=== PATIENT | male | born 1965 | race Caucasian/White ===

== ENCOUNTER 2023-02-23 11:14 | Outpatient (OUT) | payer BC, SELFPAY ==
[2023-02-23 12:10] LABS: Estimated Average Glucose 123 mg/dL; Glycohemoglobin A1C 5.9 % (4.5-6.2)
[2023-02-23 12:15] LABS: Basophils Absolute Auto 0.1 10^3/uL (0.0-0.1); Basophils Percent Auto 0.7 % (0.2-2.0); Eosinophils Absolute Auto 0.3 10^3/uL (0.0-0.7); Eosinophils Percent Auto 3.1 % (0.9-7.0); Hematocrit 48.2 % (42.0-54.0); Hemoglobin 15.7 g/dL (14.0-18.0); Immature Granulocytes Abs Auto 0.06 10^3/uL (0.00-0.03); Immature Granulocytes Pct Auto 0.6 % (0.0-0.5); Lymphocytes Absolute Auto 1.8 10^3/uL (1.2-3.8); Lymphocytes Percent Auto 16.6 % (20.5-60.0); Mean Corpuscular HGB Conc 32.6 g/dL (29.9-35.2); Mean Corpuscular Hemoglobin 32.2 pg (25.9-34.0); Mean Platelet Volume 9.7 fL (9.5-13.5); Monocytes Absolute Auto 0.7 10^3/uL (0.3-0.8); Monocytes Percent Auto 6.7 % (1.7-12.0); Neutrophils Absolute Auto 7.7 10^3/uL (1.4-6.5); Neutrophils Percent Auto 72.3 % (43.0-75.0); Platelet Count 206 10^3/uL (150-450); Red Blood Count 4.87 10^6/uL (4.70-6.10); Red Cell Distribution Width 13.9 % (11.0-15.0); White Blood Count 10.6 10^3/uL (4.0-11.0)
[2023-02-23 12:38] LABS: Alanine Aminotransferase 34 U/L (16-63); Albumin Globulin Ratio 0.7; Alkaline Phosphatase 48 U/L (46-116); Aspartate Amino Transferase 24 U/L (15-37); BUN Creatinine Ratio 9.4; Bilirubin Direct 0.1 mg/dL (0.0-0.2); Bilirubin Total 0.3 mg/dL (0.2-1.0); Calcium 8.8 mg/dL (8.5-10.1); Carbon Dioxide 34.1 mmol/L (21.0-32.0); Chloride 101 mmol/L (98-107); Chol HDL Ratio 2.3; Cholesterol 110 mg/dL (<=200); Estimated GFR (African America >60 (>=60); Estimated GFR (Non-African Ame >60 (>=60); Globulin 4.3 g/dL; Glucose 120 mg/dL (74-106); HDL Cholesterol 47 mg/dL (40-60); Potassium 4.1 mmol/L (3.5-5.1); Sodium 138 mmol/L (136-145); Total Protein 7.3 g/dL (6.4-8.2); Triglycerides 45 mg/dL (<=150)
[2023-02-23 13:03] LABS: Prostate Specific Antigen Scrn <0.13 ng/mL (<=4.00)
== END 2023-02-23 11:15 | disposition home or self-care (01) ==
LOC: LAB 11:19
PROVIDERS: PCP Family Medicine; Visit Provider Family Medicine
DX: Z00.00 Encounter for general adult medical examination without abnormal findings (principal); Z12.5 Encounter for screening for malignant neoplasm of prostate
CPT/HCPCS: 36415; 80048; 80061; 80076; 83036; 84443; 85025; G0103

== ENCOUNTER 2023-03-22 20:45 | Outpatient (OUT) | payer BC, SELFPAY | END 2023-03-22 20:46 | disposition home or self-care (01) | LOC: SLEEP 20:45 | PROVIDERS: PCP Family Medicine; Visit Provider Family Medicine | DX: G47.33 Obstructive sleep apnea (adult) (pediatric) (principal) | CPT/HCPCS: 95810 ==

== ENCOUNTER 2023-03-23 05:46 | Emergency (ER) | payer BC, SELFPAY ==
[2023-03-23] VITALS (35 sets, daily range): BP systolic 147–193; BP diastolic 77–133; PULSE 70–85; RESP 0–34; TEMP 36.3; O2SAT 91–97; BMI 58.1
--- NOTE | 2023-03-23 06:05 | ED.SOB1 ---
HPI - SOB/Dyspnea General Chief Complaint: Shortness of Breath/Dyspnea Stated Complaint: SOB Time Seen by Provider: 03/23/23 06:02 Source: patient Mode of arrival: walk-in Limitations: no limitations History of Present Illness HPI Narrative: past history of HTN. States he has been without his BP medications for 4 months. Just had new prescription called in. Short of breath with little exertion over the past 2 weeks. No chest pain but his abdomen feels bloated. No history of diabetes or CAD. No fever or cough. Even taking a shower is associated with shortness of breath. At sleep study this AM and had period of apnea that lasted about 20 seconds. Left sleep study and came here to the ED because of his dyspnea. No history of COPD MD elicited complaint: shortness of breath Review of Systems ROS Status of ROS 10 or more systems reviewed and unremarkable except as noted in history and [facility] Social History Smoking status: Never smoker Exam Constitutional Vital Signs, click to edit/add: Last Vital Signs Temp 97.4 F L 03/23/23 05:51 Pulse 75 03/23/23 06:41 Resp 29 H 03/23/23 06:41 BP 162/92 H 03/23/23 06:41 Pulse Ox 94 L 03/23/23 06:41 O2 Del Method Room Air 03/23/23 06:11 Common normals: average body habitus (morbidly obese. BMI 58), oriented x3 and alert Eye Common normals: EOMs intact bilaterally and conjunctivae normal Chest Common normals: inspection of chest normal and palpation of chest normal Respiratory Common normals: normal respiratory effort (mild resp distress) and clear to auscultation bilaterally Cardio Common normals: regular rate, regular rhythm, S1 normal heart sound and S2 normal heart sound GI Other: abdomen is distended but soft and nontender Extremity Common normals: normal to inspection and full ROM Neuro Common normals: oriented x3, CN's II-XII intact bilaterally, moves all extremities, no focal motor deficits and no sensory deficits noted Psych Appearance: grossly normal Course Vital Signs Vital signs: Vital Signs Temperature 97.4 F L 03/23/23 05:51 Pulse Rate 73 03/23/23 05:51 Respiratory Rate 18 03/23/23 05:51 Blood Pressure 180/112 H 03/23/23 05:51 Pulse Oximetry 93 L 03/23/23 05:51 Temperature 97.4 F L 03/23/23 05:51 Pulse Rate 75 03/23/23 06:41 Respiratory Rate 29 H 03/23/23 06:41 Blood Pressure 162/92 H 03/23/23 06:41 Pulse Oximetry 94 L 03/23/23 06:41 Oxygen Delivery Method Room Air 03/23/23 06:11 MDM - SOB/Dyspnea MDM Narrative Medical decision making narrative: morbidly obese patient with sleep apnea presents with 2 wk history of worsening dyspnea with exertion. Workup initiated including labs and xrays at change of shift . Care transferred to Dr Soares at change of shift Lab Data Labs: Lab Results 03/23/23 Range/Units 06:23 WBC 10.4 (4.0-11.0) 10^3/uL RBC 4.85 (4.70-6.10) 10^6/uL Hgb 15.6 (14.0-18.0) g/dL Hct 48.3 (42.0-54.0) % MCV 99.6 H (80.0-94.0) fL MCH 32.2 (25.9-34.0) pg MCHC 32.3 (29.9-35.2) g/dL RDW 14.4 (11.0-15.0) % Plt Count 213 (150-450) 10^3/uL MPV 9.4 L (9.5-13.5) fL Neut % (Auto) 73.4 (43.0-75.0) % Lymph % (Auto) 16.1 L (20.5-60.0) % [place] % (Auto) 7.0 (1.7-12.0) % Eos % (Auto) 2.3 (0.9-7.0) % Baso % (Auto) 0.6 (0.2-2.0) % Neut # (Auto) 7.6 H (1.4-6.5) 10^3/uL Lymph # (Auto) 1.7 (1.2-3.8) 10^3/uL [place] # (Auto) 0.7 (0.3-0.8) 10^3/uL Eos # (Auto) 0.2 (0.0-0.7) 10^3/uL Baso # (Auto) 0.1 (0.0-0.1) 10^3/uL Abs Immat Gran (auto) 0.06 H (0.00-0.03) 10^3/uL Imm/Tot Granulo (auto) 0.6 H (0.0-0.5) % Discharge Plan Discharge Chief Complaint: Shortness of Breath/Dyspnea Clinical Impression: Shortness of breath Patient Disposition: Still a Patient Referrals: Benjy Eagle MD [Primary Care Provider] - 1 week
--- NOTE | 2023-03-23 06:10 | ECG_ITS ---
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
--- NOTE | 2023-03-23 06:10 | XR_ITS ---
The [address] [address] Patient Name: KINSEY DODD MRN: [id number] date: 1965 Sex: M Assigned Patient Location: ER Current Patient Location: ED.MAIN Accession/Order Number: [id number] Exam Date: 03/23/2023 06:30 Report Date: 03/23/2023 06:56 At the request of: DAY SHARPE Procedure: XR chest 1V EXAM: XR chest 1V HISTORY: short of breath COMPARISON: None. TECHNIQUE: One view of the chest was obtained. FINDINGS: The cardiac silhouette is enlarged. The lungs are clear. There is no significant pneumothorax or pleural effusion. No acute osseous abnormality is seen. XR/XR chest 1V IMPRESSION: 1. Enlarged cardiac silhouette with clear lungs. Electronically authenticated by: Jon ELLIS Date: 03/23/2023 06:56
[2023-03-23] MEDS: HYDRALAZINE HCL 20 MG/ML VIAL 5 MG IVP (06:27)
[2023-03-23 06:45] LABS: Basophils Absolute Auto 0.1 10^3/uL (0.0-0.1); Basophils Percent Auto 0.6 % (0.2-2.0); Eosinophils Absolute Auto 0.2 10^3/uL (0.0-0.7); Eosinophils Percent Auto 2.3 % (0.9-7.0); Hematocrit 48.3 % (42.0-54.0); Hemoglobin 15.6 g/dL (14.0-18.0); Immature Granulocytes Abs Auto 0.06 10^3/uL (0.00-0.03); Immature Granulocytes Pct Auto 0.6 % (0.0-0.5); Lymphocytes Absolute Auto 1.7 10^3/uL (1.2-3.8); Lymphocytes Percent Auto 16.1 % (20.5-60.0); Mean Corpuscular HGB Conc 32.3 g/dL (29.9-35.2); Mean Corpuscular Hemoglobin 32.2 pg (25.9-34.0); Mean Corpuscular Volume 99.6 fL (80.0-94.0); Mean Platelet Volume 9.4 fL (9.5-13.5); Monocytes Absolute Auto 0.7 10^3/uL (0.3-0.8); Neutrophils Absolute Auto 7.6 10^3/uL (1.4-6.5); Neutrophils Percent Auto 73.4 % (43.0-75.0); Platelet Count 213 10^3/uL (150-450); Red Blood Count 4.85 10^6/uL (4.70-6.10); Red Cell Distribution Width 14.4 % (11.0-15.0); White Blood Count 10.4 10^3/uL (4.0-11.0)
[2023-03-23 07:06] LABS: D Dimer 0.66 mg/L FEU (<=0.59)
[2023-03-23 07:20] LABS: Anion Gap 9.4; Carbon Dioxide 34.8 mmol/L (21.0-32.0); Chloride 101 mmol/L (98-107); Glucose 109 mg/dL (74-106); Potassium 4.2 mmol/L (3.5-5.1); Sodium 141 mmol/L (136-145)
[2023-03-23 07:21] LABS: BUN Creatinine Ratio 14.1; Calcium 8.5 mg/dL (8.5-10.1); Estimated GFR (African America >60 (>=60); Estimated GFR (Non-African Ame >60 (>=60)
[2023-03-23 07:32] LABS: Troponin I High Sensitivity 52.7 pg/mL (4.0-76.1)
--- NOTE | 2023-03-23 07:44 | CT_ITS ---
The [address] [address] Patient Name: KINSEY DODD MRN: [id number] date: 1965 Sex: M Assigned Patient Location: ER Current Patient Location: ER Accession/Order Number: [id number] Exam Date: 03/23/2023 08:20 Report Date: 03/23/2023 08:50 At the request of: GERRY COTA Procedure: CT angio chest EXAMINATION: CT angio chest, 03/23/2023 8:20 AM EDT HISTORY: short of breath, elevated d-dimer COMPARISON: Chest radiograph obtained earlier on the same day. TECHNIQUE: CT angiography of the chest was performed with water soluble IV contrast. MIP (maximum intensity projection) images or 3D post processing was performed. CT dose reduction technique was used, including Automated Exposure Control. FINDINGS: The heart is normal in size. The thoracic aorta is normal in caliber. The pulmonary arteries are well opacified without evidence of filling defects. There is peribronchial thickening, most prominent in the lung bases. No acute infiltrate is seen. No pneumothorax or pleural effusion is seen. The mediastinum and krystle appear unremarkable. The osseous structures appear intact. Incidental note is made of hepatic steatosis in the visualized portion of the abdomen. CT/CT angio chest IMPRESSION: No evidence of pulmonary emboli. There is peribronchial thickening, most prominent in the lung bases. No acute infiltrate is seen. Electronically authenticated by: DUSTY RODRIGUEZ Date: 03/23/2023 08:50
--- NOTE | 2023-03-23 09:01 | ED_ITS ---
HPI - General Adult General Chief complaint: Shortness of Breath/Dyspnea Stated complaint: SOB Time Seen by Provider: 03/23/23 06:02 Source: patient Mode of arrival: walk-in Limitations: no limitations History of Present Illness HPI narrative: 57-year-old male presented to the emergency department and was initially seen by Dr. Castano and signed out to me after discussing the case with him thoroughly. See his full history and physical exam. Related Data Home Medications Medication Instructions Recorded Confirmed lisinopril 20 1 tab PO DAILY 03/23/23 03/23/23 mg-hydrochlorothiazide 25 mg tablet PFSH [facility] Social History Smoking status: Never smoker Exam Constitutional Vital Signs, click to edit/add: Last Vital Signs Temp 97.4 F L 03/23/23 05:51 Pulse 71 03/23/23 09:00 Resp 16 03/23/23 09:00 BP 161/97 H 03/23/23 08:11 Pulse Ox 97 03/23/23 09:00 O2 Del Method Room Air 03/23/23 06:11 Course Vital Signs Vital signs: Vital Signs Temperature 97.4 F L 03/23/23 05:51 Pulse Rate 73 03/23/23 05:51 Respiratory Rate 18 03/23/23 05:51 Blood Pressure 180/112 H 03/23/23 05:51 Pulse Oximetry 93 L 03/23/23 05:51 Temperature 97.4 F L 03/23/23 05:51 Pulse Rate 71 03/23/23 09:00 Respiratory Rate 16 03/23/23 09:00 Blood Pressure 161/97 H 03/23/23 08:11 Pulse Oximetry 97 03/23/23 09:00 Oxygen Delivery Method Room Air 03/23/23 06:11 Medical Decision Making MDM Narrative Medical decision making narrative: blood pressure has improved. CAT scan of his chest is negative and his laboratory analysis is negative. He is able to be discharged home and was advised to start taking the blood pressure medication that he has at home. He has not been taking it. Treatment diagnosis and follow-up were discussed with the patient. Differential Diagnosis Differential Diagnosis: hypertension, noncompliance ,[place], PE, aortic dissection Lab Data Lab results reviewed: Yes I reviewed the patient's lab results Labs: Lab Results 03/23/23 Range/Units 06:23 WBC 10.4 (4.0-11.0) 10^3/uL RBC 4.85 (4.70-6.10) 10^6/uL Hgb 15.6 (14.0-18.0) g/dL Hct 48.3 (42.0-54.0) % MCV 99.6 H (80.0-94.0) fL MCH 32.2 (25.9-34.0) pg MCHC 32.3 (29.9-35.2) g/dL RDW 14.4 (11.0-15.0) % Plt Count 213 (150-450) 10^3/uL MPV 9.4 L (9.5-13.5) fL Neut % (Auto) 73.4 (43.0-75.0) % Lymph % (Auto) 16.1 L (20.5-60.0) % [place] % (Auto) 7.0 (1.7-12.0) % Eos % (Auto) 2.3 (0.9-7.0) % Baso % (Auto) 0.6 (0.2-2.0) % Neut # (Auto) 7.6 H (1.4-6.5) 10^3/uL Lymph # (Auto) 1.7 (1.2-3.8) 10^3/uL [place] # (Auto) 0.7 (0.3-0.8) 10^3/uL Eos # (Auto) 0.2 (0.0-0.7) 10^3/uL Baso # (Auto) 0.1 (0.0-0.1) 10^3/uL Abs Immat Gran (auto) 0.06 H (0.00-0.03) 10^3/uL Imm/Tot Granulo (auto) 0.6 H (0.0-0.5) % D-Dimer 0.66 H* (<=0.59) mg/L FEU Sodium 141 (136-145) mmol/L Potassium 4.2 (3.5-5.1) mmol/L Chloride 101 (98-107) mmol/L Carbon Dioxide 34.8 H (21.0-32.0) mmol/L Anion Gap 9.4 BUN 14.0 (7.0-18.0) mg/dL Creatinine 0.99 (0.70-1.30) mg/dL Est GFR ( Amer) >60 (>=60) Est GFR (Non-Af Amer) >60 (>=60) BUN/Creatinine Ratio 14.1 Glucose 109 H (74-106) mg/dL Calcium 8.5 (8.5-10.1) mg/dL Troponin I High Sens 52.7 (4.0-76.1) pg/mL NT-Pro-B Natriuret Pep 432.0 (<=900.0) pg/mL Imaging Data CT scan - chest: Radiologist's impression: Procedure: CT angio chest EXAMINATION: CT angio chest, 03/23/2023 8:20 AM EDT HISTORY: short of breath, elevated d-dimer COMPARISON: Chest radiograph obtained earlier on the same day. TECHNIQUE: CT angiography of the chest was performed with water soluble IV contrast. MIP (maximum intensity projection) images or 3D post processing was performed. CT dose reduction technique was used, including Automated Exposure Control. FINDINGS: The heart is normal in size. The thoracic aorta is normal in caliber. The pulmonary arteries are well opacified without evidence of filling defects. There is peribronchial thickening, most prominent in the lung bases. No acute infiltrate is seen. No pneumothorax or pleural effusion is seen. The mediastinum and krystle appear unremarkable. The osseous structures appear intact. Incidental note is made of hepatic steatosis in the visualized portion of the abdomen. IMPRESSION: No evidence of pulmonary emboli. There is peribronchial thickening, most prominent in the lung bases. No acute infiltrate is seen. Electronically authenticated by: DUSTY RODRIGUEZ Date: 03/23/2023 08:50 ECG Data Attestation: I personally reviewed and interpreted this ECG as follows: (EKG on my interpretation shows sinus rhythm without acute changes and a rate of 76.) Discharge Plan Discharge Chief Complaint: Shortness of Breath/Dyspnea Clinical Impression: Shortness of breath, Hypertension Patient Disposition: Home, Self-Care Time of Disposition Decision: 09:00 Condition: Good Mode of Transportation: Private Vehicle Prescriptions / Home Meds: No Action lisinopril-hydrochlorothiazide 20-25 mg tablet 1 tab PO DAILY Instructions: Hypertension (ED) Additional Instructions: blood pressure recheck within a week with your family doctor Stand Alone Forms: Portal Instructions Referrals: Benjy Eagle MD [Primary Care Provider] - 1 week
== END 2023-03-23 09:08 | disposition home or self-care (01) ==
PROVIDERS: Internal Medicine; Emergency Provider Emergency Medicine; PCP Family Medicine
DX: R06.02 Shortness of breath (principal); I10 Essential (primary) hypertension; E66.01 Morbid (severe) obesity due to excess calories; Z68.43 Body mass index [BMI] 50.0-59.9, adult; Z79.899 Other long term (current) drug therapy
CPT/HCPCS: 36415; 71045; 71275; 80048; 83880; 84484; 85025; 85378; 93005; 96374; 99285; Q9967

== ENCOUNTER 2023-03-29 20:38 | Outpatient (OUT) | payer BC, SELFPAY | END 2023-03-29 20:39 | disposition home or self-care (01) | LOC: SLEEP 20:38 | PROVIDERS: PCP Family Medicine; Visit Provider Family Medicine | DX: G47.33 Obstructive sleep apnea (adult) (pediatric) (principal) | CPT/HCPCS: 95811 ==

== ENCOUNTER 2024-06-14 09:25 | Inpatient (IN) | payer BC, SELFPAY ==
[2024-06-14] VITALS (70 sets, daily range): BP systolic 76–163; BP diastolic 55–113; PULSE 84–170; TEMP 36.7; O2SAT 71–97; BMI 56.5; BMI 56.4
--- NOTE | 2024-06-14 09:39 | ECG_ITS ---
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
[2024-06-14 09:51] LABS: Basophils Absolute Auto 0.1 10^3/uL (0.0-0.1); Basophils Percent Auto 0.7 % (0.2-2.0); Eosinophils Absolute Auto 0.2 10^3/uL (0.0-0.7); Eosinophils Percent Auto 1.7 % (0.9-7.0); Hematocrit 45.5 % (42.0-54.0); Hemoglobin 14.9 g/dL (14.0-18.0); Immature Granulocytes Abs Auto 0.03 10^3/uL (0.00-0.03); Immature Granulocytes Pct Auto 0.3 % (0.0-0.5); Lymphocytes Absolute Auto 1.2 10^3/uL (1.2-3.8); Lymphocytes Percent Auto 12.7 % (20.5-60.0); Mean Corpuscular HGB Conc 32.7 g/dL (29.9-35.2); Mean Corpuscular Hemoglobin 31.3 pg (25.9-34.0); Mean Corpuscular Volume 95.6 fL (80.0-94.0); Mean Platelet Volume 9.3 fL (9.5-13.5); Monocytes Absolute Auto 0.7 10^3/uL (0.3-0.8); Monocytes Percent Auto 7.3 % (1.7-12.0); Neutrophils Absolute Auto 7.5 10^3/uL (1.4-6.5); Neutrophils Percent Auto 77.3 % (43.0-75.0); Platelet Count 260 10^3/uL (150-450); Red Blood Count 4.76 10^6/uL (4.70-6.10); Red Cell Distribution Width 13.3 % (11.0-15.0); White Blood Count 9.8 10^3/uL (4.0-11.0)
--- NOTE | 2024-06-14 09:52 | XR_ITS ---
The [address] [address] Patient Name: KINSEY DODD MRN: [id number] date: 1965 Sex: M Assigned Patient Location: ER Current Patient Location: ED.MAIN Accession/Order Number: [id number] Exam Date: 06/14/2024 09:45 Report Date: 06/14/2024 10:01 At the request of: JOAN KENT Procedure: XR chest 1V FRONTAL CHEST; 06/14/2024 9:45 AM EST Clinical History:shortness of breath Comparison: 03/23/2023 . AP portable upright film. Again, projection is lordotic. Again, greater than average habitus. No apparent change obvious change osseous structures. No change cardiac and mediastinal silhouettes or krystle. No infiltrate, effusion, or failure. Lungs are reasonably well expanded. XR/XR chest 1V IMPRESSION: 1. No infiltrate, effusion, or failure. Electronically authenticated by: CHOCO HICKS Date: 06/14/2024 10:01
--- NOTE | 2024-06-14 09:55 | US_ITS ---
[address] [address] Patient Name: IDRIS DODD MRN: [id number] date: 1965 Sex: M Assigned Patient Location: ED.MAIN Current Patient Location: ER Accession/Order Number: [id number] Exam Date: 06/14/2024 09:56 Report Date: 06/14/2024 10:58 At the request of: JOAN KENT Procedure: US venous doppler LE LT EXAM: US venous doppler LE LT HISTORY: dvt rule-out, swollen leg COMPARISON: None. TECHNIQUE: Grayscale, color and Doppler FINDINGS: Region: Left leg Thrombus: None Flow: Normal Augmentation: Normal Compressibility: Normal Other: Subcutaneous edema US/US venous doppler LE LT IMPRESSION: No deep or superficial vein thrombus in the left leg Electronically authenticated by: SONDRA PINO Date: 06/14/2024 10:58
--- NOTE | 2024-06-14 09:56 | CT_ITS ---
The [address] [address] Patient Name: IDRIS DODD MRN: [id number] date: 1965 Sex: M Assigned Patient Location: ER Current Patient Location: ED.MAIN Accession/Order Number: [id number] Exam Date: 06/14/2024 10:42 Report Date: 06/14/2024 11:58 At the request of: JOAN KENT Procedure: CT angio chest EXAM: CT angio chest HISTORY: tachycardia, shortness of breath. PE rule-out. COMPARISON: CTA from 03/23/2023. TECHNIQUE: CT angio chest FINDINGS: OVERALL DIAGNOSTIC QUALITY: Full diagnostic quality LOWER NECK: No abnormality. CHEST: PULMONARY ARTERIES: Negative for pulmonary embolus LUNGS / AIRWAYS / PLEURA: Small bilateral pleural effusions. Mild peribronchial thickening. Mild septal thickening. HEART / OTHER VESSELS: Cardiomegaly. Moderate coronary artery disease. MEDIASTINUM / ESOPHAGUS: Normal. LYMPH NODES: Prominent mediastinal lymph nodes, similar to the prior exam and likely benign, for example the right paratracheal node measuring 1.0 cm in short axis (image 18 of series 4). CHEST WALL: Mild soft tissue anasarca. UPPER ABDOMEN: Normal. MUSCULOSKELETAL: No significant abnormality. CT/CT angio chest IMPRESSION: 1. No pulmonary embolus. 2. Cardiomegaly, small bilateral pleural effusions, and mild septal thickening. These findings together could represent congestive heart failure with pulmonary edema in the appropriate clinical setting. 3. Mild peribronchial thickening. This could represent small airways disease/bronchiolitis, or could be a component of pulmonary edema. Electronically authenticated by: NEY CASTANON Date: 06/14/2024 11:58
[2024-06-14 10:11] LABS: INR 1.32; Partial Thromboplastin Time 29.6 sec (22.3-36.2); Prothrombin Time 13.6 sec (9.0-11.6)
[2024-06-14 10:16] LABS: Alanine Aminotransferase 37 U/L (16-63); Albumin Globulin Ratio 0.8; Albumin Level 3.1 g/dL (3.4-5.0); Alkaline Phosphatase 56 U/L (46-116); Anion Gap 10.9; Aspartate Amino Transferase 36 U/L (15-37); BUN Creatinine Ratio 8.3; Bilirubin Total 1.3 mg/dL (0.2-1.0); Calcium 8.7 mg/dL (8.5-10.1); Carbon Dioxide 31.2 mmol/L (21.0-32.0); Chloride 98 mmol/L (98-107); Estimated GFR (African America >60 (>=60 mL/min/1.73m^2); Estimated GFR (Non-African Ame 55 (>=60 mL/min/1.73m^2); Glucose 138 mg/dL (74-106); Magnesium 1.7 mg/dL (1.8-2.4); Potassium 4.1 mmol/L (3.5-5.1); Sodium 136 mmol/L (136-145); Total Protein 7.1 g/dL (6.4-8.2)
[2024-06-14 10:18] LABS: Troponin I High Sensitivity 81.5 pg/mL (4.0-76.1)
--- NOTE | 2024-06-14 11:22 | ED_ITS ---
HPI HPI - General Adult General Chief complaint: Arrhythmia/Palpitations Stated complaint: sob, fast heart rate Time Seen by Provider: 06/14/24 09:39 Source: patient Mode of arrival: walk-in Limitations: no limitations History of Present Illness HPI narrative: 58-year-old male to the emergency department with chief complaint of palpitations and shortness of breath. Patient reports symptoms been ongoing for the last week. He reports he also has some swelling in his left lower extremity. He reports he is intermittently had this in the past. He has never had it this bad though. He reports that he becomes significantly winded when he gets up and moves about. He denies any fever, sweats, chills, cough. He denies any chest pain. He was otherwise at his baseline health. He has no cardiac history per his report. Past medical history: Hypertension Related Data Home Medications ?Medication ?Instructions ?Recorded ?Confirmed lisinopril 20 1 tab PO DAILY 03/23/23 06/14/24 mg-hydrochlorothiazide 25 mg tablet pantoprazole 40 mg tablet,delayed 40 mg PO DAILY 06/14/24 06/14/24 release Allergies Allergy/AdvReac Type Severity Reaction Status Date / Time No Known Drug Allergies Allergy Verified 06/14/24 11:40 Opioid HPI Opioid Management Most Recent Opioid Data: Last Pain Assessment 06/14/24 15:00 Last ORT Total Score 0 06/14/24 14:38 06/14/24 Last ORT Risk Category Low Risk 06/14/24 14:38 06/14/24 Review of Systems ROS Status of ROS 10 or more systems reviewed and unremark able except as noted in history and below PFSH PFSH Medical History (Updated 06/14/24 @ 15:41 by Ashwin Chan MD) GERD (gastroesophageal reflux disease) ?K21.9 - Gastro-esophageal reflux disease without esophagitis (ICD-10) Hypertension ?I10 - Essential (primary) hypertension (ICD-10) Surgical History (Updated 06/14/24 @ 14:48 by Tara Gonzalez) History of knee replacement ?Z96.659 - Presence of unspecified artificial knee joint (ICD-10) H/O repair of rotator cuff ?Z98.890 - Other specified postprocedural states (ICD-10) Hx of tonsillectomy ?Z90.89 - Acquired absence of other organs (ICD-10) Family History (Updated 06/14/24 @ 13:34 by Maria Luisa Delong RN) Other Total knee replacement status Social History Smoking status: Never smoker Highest level of school completed/degree received: high school graduate Little interest or pleasure in doing things: not at all Feeling down, depressed, or hopeless: not at all Exam Narrative Exam Narrative: VITALS: I have reviewed the triage vital signs. GENERAL: Well developed, well appearing adult in no acute distress. NEURO: Alert and oriented. Moves all extremities. Face is symmetric and expressive. EYES: PERRL. No scleral icterus or conjunctival injection. No discharge. HENT: Normocephalic, atraumatic. Hearing is grossly intact. Nares grossly patent and without discharge. Mucous membranes moist. NECK: No JVD. Patient moves neck without restriction. CARDIO: Tachycardic. Irregular. No murmur, rub, or gallop. Pulses equal bilaterally in the upper and lower extremity. 2+ edema left lower extremity. 1+ edema in the right lower extremity. PULM: Lungs clear to auscultation in all martinez. No wheezes, rales, or rhonchi. No conversational dyspnea. No splinting, stridor, or accessory muscle use. GI/: Abdomen is soft and non-tender. Normoactive bowel sounds. EXTREMITIES: Symmetric muscle bulk. No joint swelling. No clubbing, cyanosis, or deformity. SKIN: Warm and dry. Normal turgor. No rash or lesions appreciated. PSYCH: Mood, affect, and interaction is appropriate to the setting. Constitutional Vital Signs, click to edit/add: Last Vital Signs Temp 98.1 F 06/14/24 09:32 Pulse 115 H 06/14/24 15:03 Resp 33 H 06/14/24 15:03 BP 127/71 06/14/24 15:03 Pulse Ox 94 L 06/14/24 15:35 O2 Del Method Room Air 06/14/24 15:35 Course Vital Signs Vital signs: Vital Signs Temperature 98.1 F 06/14/24 09:32 Pulse Rate 170 H 06/14/24 09:32 Respiratory Rate 20 06/14/24 09:32 Blood Pressure 132/100 H 06/14/24 09:32 Pulse Oximetry 95 06/14/24 09:32 Oxygen Delivery Method Room Air 06/14/24 09:32 Temperature 98.1 F 06/14/24 09:32 Pulse Rate 115 H 06/14/24 15:03 Respiratory Rate 33 H 06/14/24 15:03 Blood Pressure 127/71 06/14/24 15:03 Pulse Oximetry 94 L 06/14/24 15:35 Oxygen Delivery Method Room Air 06/14/24 15:35 Medical Decision Making MDM Narrative Medical decision making narrative: 58-year-old male to the emergency department chief complaint of shortness of breath and palpitations. He is tachycardic, otherwise stable vitals. The patient is afebrile. Aside from the palpitations and decreased exercise tolerance he has no other complaints at this time. EKG is concerning for atrial fibrillation/atrial flutter, no ischemic changes. Given the left lower extremity swelling and shortness of breath with tachycardia however we will work him up for DVT/PE with an ultrasound duplex left lower extremity as well as a CT angiogram of the chest. Patient agrees with this plan. CBC without major abnormality. Chemistry reviewed, he does have an CARLOS today. Electrolytes otherwise normal. His troponin is mildly elevated likely in the setting of demand given the tachycardia. He has a slight hypomagnesemia, will optimize with IV 2 g given his anemia. Chest x-ray without acute findings. Duplex without evidence of DVT. CTA concerning for some CHF exacerbation. No evidence of pulmonary embolism. He was started on Cardizem. He received 2 boluses and was started on the drip. His heart rate responded appropriately. Blood pressure tolerating well. Troponin level. Case was discussed the hospitalist who agrees admit this patient to hospital for further workup and treatment of his atrial fibrillation with rapid ventricular response. Patient agreed with this plan. Medical Records Medical records reviewed: Yes I reviewed the patient's medical records Lab Data Lab results reviewed: Yes I reviewed the patient's lab results Labs: Lab Results 06/14/24 Range/Units 09:40 WBC 9.8 (4.0-11.0) 10^3/uL RBC 4.76 (4.70-6.10) 10^6/uL Hgb 14.9 (14.0-18.0) g/dL Hct 45.5 (42.0-54.0) % MCV 95.6 H (80.0-94.0) fL MCH 31.3 (25.9-34.0) pg MCHC 32.7 (29.9-35.2) g/dL RDW 13.3 (11.0-15.0) % Plt Count 260 (150-450) 10^3/uL MPV 9.3 L (9.5-13.5) fL Neut % (Auto) 77.3 H (43.0-75.0) % Lymph % (Auto) 12.7 L (20.5-60.0) % [place] % (Auto) 7.3 (1.7-12.0) % Eos % (Auto) 1.7 (0.9-7.0) % Baso % (Auto) 0.7 (0.2-2.0) % Neut # (Auto) 7.5 H (1.4-6.5) 10^3/uL Lymph # (Auto) 1.2 (1.2-3.8) 10^3/uL [place] # (Auto) 0.7 (0.3-0.8) 10^3/uL Eos # (Auto) 0.2 (0.0-0.7) 10^3/uL Baso # (Auto) 0.1 (0.0-0.1) 10^3/uL Abs Immat Gran (auto) 0.03 (0.00-0.03) 10^3/uL Imm/Tot Granulo (auto) 0.3 (0.0-0.5) % PT 13.6 H (9.0-11.6) sec INR 1.32 APTT 29.6 (22.3-36.2) sec Sodium 136 (136-145) mmol/L Potassium 4.1 (3.5-5.1) mmol/L Chloride 98 (98-107) mmol/L Carbon Dioxide 31.2 (21.0-32.0) mmol/L Anion Gap 10.9 BUN 11.0 (7.0-18.0) mg/dL Creatinine 1.32 H (0.70-1.30) mg/dL Est GFR ( Amer) >60 (>=60 mL/min/1.73m^2) Est GFR (Non-Af Amer) 55 L (>=60 mL/min/1.73m^2) BUN/Creatinine Ratio 8.3 Glucose 138 H (74-106) mg/dL Calcium 8.7 (8.5-10.1) mg/dL Magnesium 1.7 L (1.8-2.4) mg/dL Total Bilirubin 1.3 H (0.2-1.0) mg/dL AST 36 (15-37) U/L ALT 37 (16-63) U/L Alkaline Phosphatase 56 (46-116) U/L Troponin I High Sens 81.5 H* (4.0-76.1) pg/mL NT-Pro-B Natriuret Pep 6040.0 H* (<=900.0) pg/mL Total Protein 7.1 (6.4-8.2) g/dL Albumin 3.1 L (3.4-5.0) g/dL Globulin 4.0 g/dL Albumin/Globulin Ratio 0.8 Imaging Data Chest x-ray: Attestation: I have reviewed the pertinent imaging results. Radiologist's impression: ITS Impressions Chest X-Ray 06/14/24 09:52 IMPRESSION: 1. No infiltrate, effusion, or failure. Electronically authenticated by: CHOCO HICKS Date: 06/14/2024 10:01 Venous Doppler Study 06/14/24 09:55 IMPRESSION: No deep or superficial vein thrombus in the left leg Electronically authenticated by: SONDRA PINO Date: 06/14/2024 10:58 Chest CTA 06/14/24 09:56 IMPRESSION: 1. No pulmonary embolus. 2. Cardiomegaly, small bilateral pleural effusions, and mild septal thickening. These findings together could represent congestive heart failure with pulmonary edema in the appropriate clinical setting. 3. Mild peribronchial thickening. This could represent small airways disease/bronchiolitis, or could be a component of pulmonary edema. Electronically authenticated by: NEY CASTANON Date: 06/14/2024 11:58 ECG Data Attestation: I personally reviewed and interpreted this ECG as follows: (Atrial tachycardia rate of 163. No STEMI. Normal QTc @412. ) Critical Care Time Critical Care Time Total Critical Care Time: 35 Attestation: Critical Care Procedure Note Authorized and Performed by: Ashwin Chan DO Total critical care time: 35 min Due to a high probability of clinically significant, life threatening deterioration, the patient required my highest level of preparedness to intervene emergently and I personally spent this critical care time directly and personally managing the patient. This critical care time included obtaining a history; examining the patient; pulse oximetry; ordering and review of studies; arranging urgent treatment with development of a management plan; evaluation of patient's response to treatment; frequent reassessment; and, discussions with other providers. This critical care time was performed to assess and manage the high probability of imminent, life-threatening deterioration that could result in multi-organ failure. It was exclusive of separately billable procedures and treating other patients and teaching time. Please see MDM section and the rest of the note for further information on patient assessment and treatment. Discharge Plan Discharge Chief Complaint: Arrhythmia/Palpitations Clinical Impression: Atrial fibrillation with RVR, CARLOS (acute kidney injury) Patient Disposition: Admitted As Inpatient Time of Disposition Decision: 15:41 Condition: Fair Discharge Date/Time: 06/14/24 14:30
[2024-06-14] MEDS: MAGNESIUM SULFATE IN WATER 2 GM/50 ML PREMIX IV (11:41)
[2024-06-14] MEDS: DILTIAZEM HCL 25 MG/5 ML VIAL 15 MG IV (12:24)
[2024-06-14] MEDS: dilTIAZem HCL 125 MG in 0.9 % SODIUM CHLORIDE 100 ML 10 MG IV (12:28)
[2024-06-14] MEDS: DILTIAZEM HCL 25 MG/5 ML VIAL 10 MG IV (12:55)
[2024-06-14 13:51] LABS: Troponin I High Sensitivity 91.9 pg/mL (4.0-76.1)
[2024-06-14] MEDS: DIGOXIN 500 MCG/2 ML AMPUL 125 MCG IV ×2 (15:00→20:48)
[2024-06-14] MEDS: FUROSEMIDE 40 MG/4 ML VIAL IVP ×2 (15:00→17:22)
[2024-06-14] MEDS: APIXABAN 5 MG TABLET PO ×2 (15:01→23:35)
--- NOTE | 2024-06-14 16:50 | P.HP_ITS ---
HPI H&P: HPI History of Present Illness Chief complaint: sob, fast heart rate AFIB W/ RVR Narrative: 58 y o morbidly obese male with Pmhx of HTN was sent by his PCP for rapid HR and SOB. Patient admits to non compliance and not using his medications. He reports for past one month or so, he has been increasingly dyspneic along with worsening LE edema which eh attributed to him being being out of shape. Work up in ED revealed Afib with RVR, with hypotension, CARLOS, acute congestive HF (unspecified type) with labored breathing/increased work of breathing. He was started on IV cardizem drip, IV lasix. Hospitalist team was consulted for admission. Patient denies prior hx of COPD/CHF/Afib. He denies CP or heart palpitations. He reports feeling tired/fatigue and that he has been feeling SOB for quite a while. The biggest reason for his visit to his PCP was LE edema. Opioid HPI Opioid Management Most Recent Pain and Opioid Data: Last Pain Assessment 06/14/24 15:00 Last ORT Total Score 0 06/14/24 14:38 06/14/24 Last ORT Risk Category Low Risk 06/14/24 14:38 06/14/24 Review of Systems ROS Status of ROS 10 or more systems reviewed and unremark able except as noted in history and below [facility] Medical History (Updated 06/14/24 @ 16:59 by Shaikh Estevan MD) Morbid obesity ?E66.01 - Morbid (severe) obesity due to excess calories (ICD-10) GERD (gastroesophageal reflux disease) ?K21.9 - Gastro-esophageal reflux disease without esophagitis (ICD-10) Hypertension ?I10 - Essential (primary) hypertension (ICD-10) Surgical History (Updated 06/14/24 @ 14:48 by Tara Gonzalez) History of knee replacement ?Z96.659 - Presence of unspecified artificial knee joint (ICD-10) H/O repair of rotator cuff ?Z98.890 - Other specified postprocedural states (ICD-10) Hx of tonsillectomy ?Z90.89 - Acquired absence of other organs (ICD-10) Family History (Updated 06/14/24 @ 13:34 by Maria Luisa Delong RN) Other Total knee replacement status Social History (Updated 06/14/24 @ 16:55 by Shaikh Estevan MD) Within the past year, how often did you have a drink containing alcohol: 4 or more times a week Within the past year, how many standard drinks containing alcohol did you have on a typical day: 5 or 6 Within the past year, how often did you have six or more drinks on one occasion: weekly Total score: 7 Score interpretation: A score of 4 or more indicates drinking is likely to affect patient's safety. Smoking status: Former smoker Non-prescribed substance use: former substance user Highest level of school completed/degree received: high school graduate Little interest or pleasure in doing things: not at all Feeling down, depressed, or hopeless: not at all Meds Home Medications and Allergies Home Medications ?Medication ?Instructions ?Recorded ?Confirmed ?Type lisinopril 20 1 tab PO DAILY 03/23/23 06/14/24 History mg-hydrochlorothiazide 25 mg tablet pantoprazole 40 mg tablet,delayed 40 mg PO DAILY 06/14/24 06/14/24 History release Allergies Allergy/AdvReac Type Severity Reaction Status Date / Time No Known Drug Allergies Allergy Verified 06/14/24 11:40 Exam Constitutional Vital Signs, click to edit/add: Last Vital Signs Temp 98.1 F 06/14/24 09:32 Pulse 115 H 06/14/24 15:03 Resp 33 H 06/14/24 15:03 BP 127/71 06/14/24 15:03 Pulse Ox 94 L 06/14/24 15:35 O2 Del Method Room Air 06/14/24 15:35 Documenting provider has reviewed patient's vital signs: yes Common normals: oriented x3 General appearance: cooperative and in distress respiratory Nutritional appearance: obese HENMT Common normals: normocephalic and head/scalp atraumatic Head and scalp: normocephalic and atraumatic Eye Common normals: conjunctivae normal and no scleral icterus Conjunctiva: conjunctiva(e) normal Respiratory Common normals: normal respiratory effort Effort & inspection: tachypneic and labored Auscultation: rales and diminished lung sounds Cardio Common normals: S1 normal heart sound and S2 normal heart sound Rate: tachycardic Rhythm: abnormal rhythm Heart sounds: S1 normal and S2 normal GI Common normals: Normal to inspection, nondistended, normoactive bowel sounds present, soft to palpation, non-tender and no hepatosplenomegaly Palpation: soft and no hepatosplenomegaly Extremity Common normals: full ROM General: edema (+2 LE edema) Neuro Common normals: oriented x3, moves all extremities and no focal motor deficits Psych Common normals: mental status grossly normal, denies hallucinations, denies homicidal ideation and denies suicidal ideation Results Labs Labs: Short CBC 06/14/24 Range/Units 09:40 WBC 9.8 (4.0-11.0) 10^3/uL Hgb 14.9 (14.0-18.0) g/dL Hct 45.5 (42.0-54.0) % Plt Count 260 (150-450) 10^3/uL BMP 06/14/24 09:40 Sodium 136 Potassium 4.1 Chloride 98 Carbon Dioxide 31.2 BUN 11.0 Creatinine 1.32 H Glucose 138 H Calcium 8.7 Liver Function 06/14/24 Range/Units 09:40 Total Bilirubin 1.3 H (0.2-1.0) mg/dL AST 36 (15-37) U/L ALT 37 (16-63) U/L Alkaline Phosphatase 56 (46-116) U/L Albumin 3.1 L (3.4-5.0) g/dL Assessment and Plan Assessment and Plan (1) Atrial fibrillation with RVR: Assessment and Plan: Afib with RVR, new onset Afib. No prior hx of Afib. ECHO ordered to assess cardiac structure. On IV cardizem drip. Patient hypotensive initially with SBP as low as 70 upon arrival likely due to rapid HR, not allowing adequate time for Cardiac refill. Added PO Lopressor and IV Digoxin. BP is still borderline low and patient will need close hemodynamic monitoring. (2) Acute congestive heart failure: Assessment and Plan: Volume overload on exam and CXR. Elevated BNP Started on IV lasix ECHO pending. Qualifiers: Heart failure type: unspecified Qualified Code(s): I50.9 - Heart failure, unspecified (3) CARLOS (acute kidney injury): Assessment and Plan: Normal renal function at baseline. Presented with Cr of 1.32. Likely cardiorenal. Monitor UO, serum Cr closely while on Lasix (4) Elevated troponin I level: Assessment and Plan: Likely due to CHF and Afib. Will need work up for underlying CAD once medically stable, likely in the outpatient setting. (5) Hypertension: Assessment and Plan: Hold antihypertensives due to low BP. Started on Lopressor to help with HR Qualifiers: Hypertension type: primary hypertension Qualified Code(s): I10 - Essential (primary) hypertension (6) Morbid obesity: Assessment and Plan: Will discuss weight los, lifestyle measures once medically stable. Plan Needs inpatient treatment for Acute congestive HF, Afib with RVR as patient hypotensive, has increased work of breathing and will need close monitoring and inpatient treatment anticipated to span over 2-3 days.
[2024-06-14 16:58] LABS: Troponin I High Sensitivity 88.7 pg/mL (4.0-76.1)
[2024-06-14 19:04] LABS: TSH W/ REFLEX FT4 1.843 uIU/mL (0.358-3.740)
[2024-06-14] MEDS: METOPROLOL TARTRATE 25 MG TABLET PO (20:48)
[2024-06-15] VITALS (59 sets, daily range): BP systolic 105–138; BP diastolic 60–94; PULSE 61–91; TEMP 36.4–36.6; O2SAT 93–97
[2024-06-15] MEDS: DIGOXIN 500 MCG/2 ML AMPUL 125 MCG IV (03:43)
[2024-06-15] MEDS: dilTIAZem HCL 125 MG in 0.9 % SODIUM CHLORIDE 100 ML 10 MG IV (03:50)
[2024-06-15 05:07] LABS: Basophils Absolute Auto 0.1 10^3/uL (0.0-0.1); Basophils Percent Auto 0.7 % (0.2-2.0); Eosinophils Absolute Auto 0.2 10^3/uL (0.0-0.7); Hematocrit 45.7 % (42.0-54.0); Immature Granulocytes Abs Auto 0.05 10^3/uL (0.00-0.03); Immature Granulocytes Pct Auto 0.6 % (0.0-0.5); Lymphocytes Absolute Auto 1.4 10^3/uL (1.2-3.8); Mean Corpuscular HGB Conc 32.8 g/dL (29.9-35.2); Mean Corpuscular Hemoglobin 31.4 pg (25.9-34.0); Mean Corpuscular Volume 95.6 fL (80.0-94.0); Mean Platelet Volume 9.7 fL (9.5-13.5); Monocytes Absolute Auto 0.7 10^3/uL (0.3-0.8); Monocytes Percent Auto 7.9 % (1.7-12.0); Neutrophils Absolute Auto 6.4 10^3/uL (1.4-6.5); Neutrophils Percent Auto 72.8 % (43.0-75.0); Platelet Count 269 10^3/uL (150-450); Red Blood Count 4.78 10^6/uL (4.70-6.10); Red Cell Distribution Width 13.5 % (11.0-15.0); White Blood Count 8.8 10^3/uL (4.0-11.0)
[2024-06-15 05:31] LABS: Alanine Aminotransferase 34 U/L (16-63); Albumin Globulin Ratio 0.7; Albumin Level 2.9 g/dL (3.4-5.0); Alkaline Phosphatase 103 U/L (46-116); Anion Gap 7.1; Aspartate Amino Transferase 29 U/L (15-37); BUN Creatinine Ratio 9.2; Bilirubin Total 0.9 mg/dL (0.2-1.0); Calcium 8.3 mg/dL (8.5-10.1); Carbon Dioxide 36.5 mmol/L (21.0-32.0); Chloride 99 mmol/L (98-107); Estimated GFR (African America >60 (>=60 mL/min/1.73m^2); Estimated GFR (Non-African Ame 56 (>=60 mL/min/1.73m^2); Glucose 111 mg/dL (74-106); Potassium 3.6 mmol/L (3.5-5.1); Sodium 139 mmol/L (136-145); Total Protein 6.9 g/dL (6.4-8.2)
[2024-06-15] MEDS: FUROSEMIDE 40 MG/4 ML VIAL IVP ×2 (06:36→17:23)
[2024-06-15] MEDS: OMEPRAZOLE 40 MG CAPSULE.DR PO (06:36)
[2024-06-15] MEDS: APIXABAN 5 MG TABLET PO ×2 (08:06→21:00)
[2024-06-15] MEDS: METOPROLOL TARTRATE 25 MG TABLET 50 MG PO (08:06)
--- NOTE | 2024-06-15 08:32 | ECG_ITS ---
The [facility] Test Date: 2024-06-15 Pat Name: IDRIS DODD Department: Room: [facility] Gender: Male Thiokol Operator: : 1965 Requested By: MESSI GARCIA Order Number: [id number] Reading MD: RAJIV LAMBERT Measurements Intervals [place] Rate: 73 P: 32 UT: 224 QRS: 61 QRSD: 106 T: -30 QT: 360 QTc: 386 Interpretive Statements 1100 Sinus rhythm 2231 First degree AV block 2540 Incomplete left bundle branch block 4068 Nonspecific Twave abnormality 9150 abnormal ECG Electronically Signed On 06-16-2024 7:54:46 EST by RAJIV LAMBERT
--- NOTE | 2024-06-15 10:08 | P.IMPN_ITS ---
Progress Note: A&P Assessment and Plan (1) Atrial fibrillation with RVR: Assessment and Plan: New onset Afib. Converted to NSR. Cardizem drip stopped. Patient was started on Lopressor for AVN blockade but ECHO revealed reduced EF (30%). Will switch to Coreg. CHADVASC2 Score 2. On Eliquis for Stroke px. Cardiology consulted. (2) Acute congestive heart failure: Assessment and Plan: Acute systolic HF, no prior hx of CHF Still volume overload, with SOB at rest. Good UO on Lasix, c/w same. Monitor I/O, daily weights. Will consult Cardiology - Systolic dysfunction could be due to underlying CAD vs tachycardia/afib induced. Regardless, he will need w/u for underlying CAD - Lexiscan vs [facility] - will d/w Cardiology. Qualifiers: Heart failure type: systolic Qualified Code(s): I50.21 - Acute systolic (congestive) heart failure (3) CARLOS (acute kidney injury): Assessment and Plan: Elevated Cr. Normal Cr at baseline C/w IV lasix. (4) Elevated troponin I level: Assessment and Plan: No evidence of active cardiac ischemia. Troponins trended down. ECHO shows reduced EF, Will need w/u for underlying ISHD. (5) Hypertension: Assessment and Plan: BP is now stable. Will start patient on Coreg and Losartan for HFrEF. Qualifiers: Hypertension type: primary hypertension Qualified Code(s): I10 - Essential (primary) hypertension (6) Morbid obesity: Assessment and Plan: Discussed weight loss. Will benefit from GLP agonists, lifestyle measures. Morbidly obese, he may have undiagnosed [place] contributing to Afib. Plan Needs continued IV diuresis for acute systolic HF as patient still considerably volume overload and symptomatic. He will also need close hemodynamic monitoring to ensure his HR remains controlled and he remains in NSR on PO medications and his BP remains stable while he is being started on new medications for his Afib and HFrEF. Internal Medicine - PN: Subj Subjective Interval history: Seen and examined. Taken off of Cardizem drip in the morning. Converted to NSR. Patient still dyspneic at rest and on exertion. Good UO on Lasix and reports that he can now pull his pants. Exam Constitutional Vital Signs, click to edit/add: Last Vital Signs Temp 97.6 F 06/15/24 07:49 Pulse 67 06/15/24 09:52 Resp 35 H 06/15/24 09:30 BP 118/81 06/15/24 07:43 Pulse Ox 97 06/15/24 07:43 O2 Del Method Room Air 06/15/24 07:45 Documenting provider has reviewed patient's vital signs: yes Common normals: oriented x3 General appearance: cooperative Nutritional appearance: obese Respiratory Common normals: normal respiratory effort Effort & inspection: tachypneic Auscultation: rales and diminished lung sounds Other: Conversational dyspnea noted. Cardio Common normals: S1 normal heart sound and S2 normal heart sound Rate: regular rate Rhythm: regular rhythm Heart sounds: S1 normal and S2 normal GI Common normals: Normal to inspection, nondistended, normoactive bowel sounds present, soft to palpation, non-tender and no hepatosplenomegaly Palpation: soft and no hepatosplenomegaly Extremity Common normals: full ROM General: edema (+1 LE edema) Neuro Common normals: oriented x3, moves all extremities and no focal motor deficits Psych Common normals: mental status grossly normal, denies hallucinations, denies homicidal ideation and denies suicidal ideation Internal Medicine - PN: Obj Da Labs Labs: Laboratory Results - last 24 hr 06/14/24 06/14/24 06/14/24 09:40 13:18 16:03 WBC RBC Hgb Hct MCV MCH MCHC RDW Plt Count MPV Neut % (Auto) Lymph % (Auto) [place] % (Auto) Eos % (Auto) Baso % (Auto) Neut # (Auto) Lymph # (Auto) [place] # (Auto) Eos # (Auto) Baso # (Auto) Abs Immat Gran (auto) Imm/Tot Granulo (auto) PT 13.6 H INR 1.32 APTT 29.6 Sodium 136 Potassium 4.1 Chloride 98 Carbon Dioxide 31.2 Anion Gap 10.9 BUN 11.0 Creatinine 1.32 H Est GFR ( Amer) >60 Est GFR (Non-Af Amer) 55 L BUN/Creatinine Ratio 8.3 Glucose 138 H Calcium 8.7 Magnesium 1.7 L Total Bilirubin 1.3 H AST 36 ALT 37 Alkaline Phosphatase 56 Troponin I High Sens 81.5 H* 91.9 H* 88.7 H* NT-Pro-B Natriuret Pep 6040.0 H* Total Protein 7.1 Albumin 3.1 L Globulin 4.0 Albumin/Globulin Ratio 0.8 TSH & Free T4 Interp 1.843 06/15/24 04:29 WBC 8.8 RBC 4.78 Hgb 15.0 Hct 45.7 MCV 95.6 H MCH 31.4 MCHC 32.8 RDW 13.5 Plt Count 269 MPV 9.7 Neut % (Auto) 72.8 Lymph % (Auto) 16.0 L [place] % (Auto) 7.9 Eos % (Auto) 2.0 Baso % (Auto) 0.7 Neut # (Auto) 6.4 Lymph # (Auto) 1.4 [place] # (Auto) 0.7 Eos # (Auto) 0.2 Baso # (Auto) 0.1 Abs Immat Gran (auto) 0.05 H Imm/Tot Granulo (auto) 0.6 H PT INR APTT Sodium 139 Potassium 3.6 Chloride 99 Carbon Dioxide 36.5 H Anion Gap 7.1 BUN 12.0 Creatinine 1.31 H Est GFR ( Amer) >60 Est GFR (Non-Af Amer) 56 L BUN/Creatinine Ratio 9.2 Glucose 111 H Calcium 8.3 L Magnesium Total Bilirubin 0.9 AST 29 ALT 34 Alkaline Phosphatase 103 Troponin I High Sens NT-Pro-B Natriuret Pep 4477.0 H* Total Protein 6.9 Albumin 2.9 L Globulin 4.0 Albumin/Globulin Ratio 0.7 TSH & Free T4 Interp
--- NOTE | 2024-06-15 10:10 | CM.NOTE ---
Rounds made with Dr. Barreto, discussed with pt plan of care and diagnosis. Discussed with pt findings on echo and need to reach out to Administrative Analyst for further recommendations. Dr. Barreto will come back this afternoon and update pt with plan of care.
--- NOTE | 2024-06-15 12:00 | CM.NOTE ---
Pt was given education on Eliquis along with 30 day free trial card for Eliquis and 15 dollar co-pay card. Pt verbalizes understanding of Eliquis.
--- NOTE | 2024-06-15 13:08 | CA_ITS ---
Patient Name: IDRIS DODD MR#: [id number] : 1965 Exam Date: 06/15/2024 Ordering Doctor: SHAIKH Nnamdi HALL . ECHOCARDIOGRAM REPORT PROCEDURE: CA ECHO DOPPLER COMPLETE INDICATIONS: Afib with RVR/CHF, elevated TROP and BNP, hypertension COMPARISON: None. DESCRIPTION: COMPLETE ECHOCARDIOGRAM Real-time transthoracic echocardiography with 2D, M-mode, spectral and color flow Doppler performed. QUALITY: Technical quality was adequate. LEFT VENTRICLE: Mild dilatation. Mild concentric left ventricular hypertrophy. LV EF: Global left ventricular systolic function is severely reduced; visually estimated ejection fraction is 20 to 25%. Diffuse global hypokinesis. DIASTOLIC: Diastolic dysfunction. ATRIAL SEPTUM: Inadequately seen LEFT ATRIUM: Mild dilatation. RIGHT ATRIUM: Moderate dilatation. RIGHT VENTRICLE: Mild dilatation. Right ventricular systolic function is reduced. TRICUSPID VALVE: Normal mobility and thickness. No stenosis with trivial regurgitation. Doppler studies reveal mildly (35-45) elevated right sided pressures.RVSP 40 mmHg MITRAL VALVE: No evidence of mitral valve stenosis. There is no mitral annular calcification. Trivial mitral regurgitation. Mildly thickened with decreased mobility. AORTIC VALVE: Normal trileaflet appearance. No visible sclerosis. Normal leaflet mobility. No evidence of aortic valve stenosis. Trivial aortic regurgitation. AORTIC ROOT: Normal diameter and appearance. Ascending aorta is normal in size. PULMONIC VALVE: Normal thickness and mobility. No stenosis. PERICARDIUM: Trivial pericardial effusion. IVC: IVC is dilated (2.5 cm) with no collapse. CONCLUSION: 1. Global left ventricular systolic function is severely reduced; visually estimated ejection fraction is 20 to 25% 2. Mild left ventricular hypertrophy 3. The right ventricle is dilated with reduced systolic function 4. Diastolic dysfunction 5. Biatrial dilatation 6. Mildly elevated right ventricular systolic pressure; RVSP 40 mmHg 7. Trivial pericardial effusion Adult Echocardiography Procedure Report Left Ventricle LVEDD (3.7 - 5.6 cm): 6.31 cm LVESD (2.2 - 4.0 cm): 5.64 cm LVIVS thickness (0.6 - 1.2 cm): 1.14 cm LVPW thickness (0.5 - 1.0 cm): 1.06 cm LVOT Max Gradient: 1.25 mm[Hg], 1.27 mm[Hg] LVOT Area (cm2): 0.56 m/s Peak Velocity (LVOT): 0.56 m/s, 0.56 m/s LVOT Diameter 2.64 cm Left Atrium LA Volume Index (2D A2C): 36.26 ml/m2 Left Atrium Systolic Dimension: 5.08 cm Mitral Valve MV E to A Ratio: 3.41 Mitral Valve A-Wave Peak Velocity: 0.32 m/s Mitral Valve E-Wave Peak Velocity: 1.09 m/s Right Ventricle Aorta AO Root Diam: 3.55 cm Ascending Ao Diam: 3.05 cm Aortic Valve AoV Area (Peak Bassem): 3.23 cm2, 2.85 cm2, 3.74 cm2 Peak Velocity(Antegrade Flow): 1.07 m/s, 0.82 m/s Peak Gradient(Antegrade Flow): 4.61 mm[Hg], 2.71 mm[Hg] Tricuspid Valve Peak Velocity (Regurgitant Flow): 2.50 m/s Pulmonic Valve Mean Gradient: 1.15 mm[Hg] Mean Velocity: 0.49 m/s Peak Velocity: 0.82 m/s, 1.00 m/s Peak Gradient: 4.03 mm[Hg], 2.68 mm[Hg] Right Atrium Right Atrium Systolic Pressure: 57.15 ml, 57.15 ml Dictated by: Marilyn Gotti M.D. on 06/15/2024 at 15:27 Approved by: Marilyn Gotti M.D. on 06/15/2024 at 15:30
--- NOTE | 2024-06-15 15:01 | PC.NURSE ---
pt and family aware of transfer to [facility] / [facility]. belongings packed and with pt.
[2024-06-15] MEDS: CARVEDILOL 12.5 MG TABLET PO (21:00)
[2024-06-16] VITALS (20 sets, daily range): BP systolic 103–130; BP diastolic 69–82; PULSE 72–88; TEMP 36.5–36.7; O2SAT 90–97
[2024-06-16] MEDS: FUROSEMIDE 40 MG/4 ML VIAL IVP ×2 (05:47→17:10)
[2024-06-16] MEDS: OMEPRAZOLE 40 MG CAPSULE.DR PO (05:48)
[2024-06-16 06:17] LABS: Basophils Absolute Auto 0.1 10^3/uL (0.0-0.1); Basophils Percent Auto 0.5 % (0.2-2.0); Eosinophils Absolute Auto 0.3 10^3/uL (0.0-0.7); Eosinophils Percent Auto 2.7 % (0.9-7.0); Hematocrit 43.5 % (42.0-54.0); Hemoglobin 13.9 g/dL (14.0-18.0); Immature Granulocytes Abs Auto 0.05 10^3/uL (0.00-0.03); Immature Granulocytes Pct Auto 0.5 % (0.0-0.5); Lymphocytes Absolute Auto 1.2 10^3/uL (1.2-3.8); Lymphocytes Percent Auto 13.3 % (20.5-60.0); Mean Corpuscular Hemoglobin 30.8 pg (25.9-34.0); Mean Corpuscular Volume 96.2 fL (80.0-94.0); Mean Platelet Volume 9.7 fL (9.5-13.5); Monocytes Absolute Auto 0.6 10^3/uL (0.3-0.8); Monocytes Percent Auto 6.5 % (1.7-12.0); Neutrophils Absolute Auto 7.1 10^3/uL (1.4-6.5); Neutrophils Percent Auto 76.5 % (43.0-75.0); Platelet Count 255 10^3/uL (150-450); Red Blood Count 4.52 10^6/uL (4.70-6.10); Red Cell Distribution Width 13.6 % (11.0-15.0); White Blood Count 9.3 10^3/uL (4.0-11.0)
[2024-06-16 06:49] LABS: Alanine Aminotransferase 25 U/L (16-63); Alkaline Phosphatase 49 U/L (46-116); Anion Gap 6.2; Aspartate Amino Transferase 22 U/L (15-37); BUN Creatinine Ratio 10.6; Bilirubin Total 0.6 mg/dL (0.2-1.0); Calcium 8.4 mg/dL (8.5-10.1); Carbon Dioxide 35.4 mmol/L (21.0-32.0); Chloride 102 mmol/L (98-107); Estimated GFR (African America >60 (>=60 mL/min/1.73m^2); Estimated GFR (Non-African Ame >60 (>=60 mL/min/1.73m^2); Glucose 138 mg/dL (74-106); Potassium 3.6 mmol/L (3.5-5.1); Sodium 140 mmol/L (136-145); Total Protein 6.9 g/dL (6.4-8.2)
--- NOTE | 2024-06-16 08:15 | P.PN_ITS ---
Progress Note: Subjective Subjective Interval history: Patient overall feels better. Was transferred to [facility] from ICU yesterday. Has been in NSR. Currently on the losatan, Coreg and Eliquis. Patient also underwent Echocardiogram yesterday which showed EF 20-25% Given new finding and severity, Cardiology team requests he have a Left heart cath. Dr. Barreto tried to transfer patient to [facility] yesterday but Hospitalist team there suggested he stay at this facility until Tuesday and plan for heart Cath on tuesday. He currently denies chest pain, states swelling has improved in his legs. No current complaints other than frustration for being in the hospital. Exam Narrative Exam Narrative: General: Patient is alert, and oriented to person, place and time with normal affect, proper hygiene Skin: chronic stasis dermatitis to bilateral lower extremities Head: atraumatic, acephalic Eyes: PERRLA, no nystagmus present, conjunctiva clear, no scleral icterus Ears: normal gross auditory acuity Heart: Normal rate and rhythm, no murmurs/rubs/gallops Lungs: no audible wheezes, crackles and normal breath sounds all lung martinez Abdomen: Normal audible bowel sounds, Central obesity Musculoskeletal: +1 swelling bilateral lower extremities Neuro: CN II-X grossly intact Constitutional Vital Signs, click to edit/add: Last Vital Signs Temp 98.0 F 06/16/24 07:42 Pulse 78 06/16/24 08:00 Resp 18 06/16/24 07:42 BP 120/70 06/16/24 07:42 Pulse Ox 94 L 06/16/24 07:42 O2 Del Method Nasal Cannula 06/16/24 07:42 O2 Flow Rate 2 06/16/24 07:42 Progress Note: Objective Labs Labs: Short CBC 06/16/24 Range/Units 05:43 WBC 9.3 (4.0-11.0) 10^3/uL Hgb 13.9 L (14.0-18.0) g/dL Hct 43.5 (42.0-54.0) % Plt Count 255 (150-450) 10^3/uL BMP 06/16/24 05:43 Sodium 140 Potassium 3.6 Chloride 102 Carbon Dioxide 35.4 H BUN 13.0 Creatinine 1.23 Glucose 138 H Calcium 8.4 L Liver Function 06/16/24 Range/Units 05:43 Total Bilirubin 0.6 (0.2-1.0) mg/dL AST 22 (15-37) U/L ALT 25 (16-63) U/L Alkaline Phosphatase 49 (46-116) U/L Progress Note: A&P Assessment and Plan (1) Atrial fibrillation with RVR: Assessment and Plan: continue Coreg, CHADVASC2 Score 2, On Eliquis for Stroke prophylaxis (2) Acute congestive heart failure: Assessment and Plan: Acute systolic HF, no prior hx of CHF, with EF of 20-25%, Good urine output on Lasix, c/w same. Monitor I/O, daily weights. Qualifiers: Heart failure type: systolic Qualified Code(s): I50.21 - Acute systolic (congestive) heart failure (3) CARLOS (acute kidney injury): Assessment and Plan: Cr. 1.23 monitor (4) Elevated troponin I level: Assessment and Plan: No evidence of active cardiac ischemia. Troponins trended down. ECHO shows reduced EF, Will need w/u for underlying Ischemic heart disease, plan to transfer to [facility] for further workup (5) Hypertension: Assessment and Plan: continue Coreg and Losartan Qualifiers: Hypertension type: primary hypertension Qualified Code(s): I10 - Essential (primary) hypertension (6) Morbid obesity: Assessment and Plan: Will benefit from GLP agonists, lifestyle measures. Morbidly obese, he may have undiagnosed DAK[place] contributing to Afib. Plan patient is a full code continue eliquis for DVT and stroke prophylaxis Patient is inpatient status and is expected to transfer to [facility] tomorrow for a Heart Cath on tuesday.
[2024-06-16] MEDS: CARVEDILOL 12.5 MG TABLET PO ×2 (08:53→20:42)
[2024-06-16] MEDS: LOSARTAN POTASSIUM 50 MG TABLET PO (08:53)
[2024-06-16] MEDS: APIXABAN 5 MG TABLET PO ×2 (08:53→20:42)
[2024-06-16] MEDS: DOCUSATE SODIUM 100 MG CAPSULE PO (08:53)
[2024-06-16 09:55] LABS: Albumin Globulin Ratio 0.7; Albumin Level 2.9 g/dL (3.4-5.0)
[2024-06-17] VITALS (19 sets, daily range): BP systolic 110–133; BP diastolic 61–81; PULSE 61–79; TEMP 36.4–36.7; O2SAT 90–98
[2024-06-17] MEDS: OMEPRAZOLE 40 MG CAPSULE.DR PO (05:25)
[2024-06-17] MEDS: FUROSEMIDE 40 MG/4 ML VIAL IVP (05:25)
[2024-06-17 06:17] LABS: Basophils Absolute Auto 0.1 10^3/uL (0.0-0.1); Basophils Percent Auto 0.7 % (0.2-2.0); Eosinophils Absolute Auto 0.3 10^3/uL (0.0-0.7); Eosinophils Percent Auto 2.9 % (0.9-7.0); Hematocrit 46.4 % (42.0-54.0); Hemoglobin 14.8 g/dL (14.0-18.0); Immature Granulocytes Abs Auto 0.05 10^3/uL (0.00-0.03); Immature Granulocytes Pct Auto 0.4 % (0.0-0.5); Lymphocytes Absolute Auto 1.6 10^3/uL (1.2-3.8); Lymphocytes Percent Auto 13.6 % (20.5-60.0); Mean Corpuscular HGB Conc 31.9 g/dL (29.9-35.2); Mean Corpuscular Hemoglobin 31.2 pg (25.9-34.0); Mean Corpuscular Volume 97.7 fL (80.0-94.0); Mean Platelet Volume 9.6 fL (9.5-13.5); Monocytes Absolute Auto 0.7 10^3/uL (0.3-0.8); Monocytes Percent Auto 6.3 % (1.7-12.0); Neutrophils Absolute Auto 8.7 10^3/uL (1.4-6.5); Neutrophils Percent Auto 76.1 % (43.0-75.0); Platelet Count 260 10^3/uL (150-450); Red Blood Count 4.75 10^6/uL (4.70-6.10); Red Cell Distribution Width 13.5 % (11.0-15.0); White Blood Count 11.4 10^3/uL (4.0-11.0)
[2024-06-17 06:29] LABS: Alanine Aminotransferase 26 U/L (16-63); Albumin Globulin Ratio 0.7; Alkaline Phosphatase 53 U/L (46-116); Anion Gap 6.6; Aspartate Amino Transferase 25 U/L (15-37); BUN Creatinine Ratio 8.4; Bilirubin Total 0.7 mg/dL (0.2-1.0); Calcium 8.8 mg/dL (8.5-10.1); Carbon Dioxide 37.1 mmol/L (21.0-32.0); Chloride 101 mmol/L (98-107); Estimated GFR (African America >60 (>=60 mL/min/1.73m^2); Estimated GFR (Non-African Ame 56 (>=60 mL/min/1.73m^2); Globulin 4.4 g/dL; Glucose 132 mg/dL (74-106); Potassium 3.7 mmol/L (3.5-5.1); Sodium 141 mmol/L (136-145); Total Protein 7.4 g/dL (6.4-8.2)
[2024-06-17] MEDS: DOCUSATE SODIUM 100 MG CAPSULE PO (08:05)
[2024-06-17] MEDS: APIXABAN 5 MG TABLET PO ×2 (08:05→20:16)
[2024-06-17] MEDS: LOSARTAN POTASSIUM 50 MG TABLET PO (08:05)
[2024-06-17] MEDS: CARVEDILOL 12.5 MG TABLET PO ×2 (08:05→20:16)
--- NOTE | 2024-06-17 08:13 | P.DS_ITS ---
DS: Providers Provider Date of admission: 06/14/24 13:12 Primary care physician: Benjy Eagle MD Attending physician on admission: Shaikh Estevan Consults: 06/14/24 13:08 Physical Therapy Eval and Treat Routine Reason for consultation: Ambulatory dysfunction/weakness 06/15/24 10:19 Consult to Cardiology Routine Reason for consultation: Afib with RVR, Acute systolic HF Discharging clinician: Lala Fitzgerald DS: Diagnosis Discharge Diagnosis (1) Atrial fibrillation with RVR: (2) Acute congestive heart failure: Qualifiers: Heart failure type: systolic Qualified Code(s): I50.21 - Acute systolic (congestive) heart failure (3) CARLOS (acute kidney injury): (4) Elevated troponin I level: (5) Hypertension: Qualifiers: Hypertension type: primary hypertension Qualified Code(s): I10 - Essential (primary) hypertension (6) Morbid obesity: DS: Summary Hospital Course Hospital Course: 58 y o morbidly obese male with Pmhx of HTN was sent to the ED by his PCP for rapid HR and SOB on 06/14/24. Patient admits to non compliance and not using his medications. He reports for past one month or so, he has been increasingly dyspneic along with worsening LE edema which he attributed to him being being out of shape. Work up in ED revealed Afib with RVR, with hypotension, CARLOS, acute congestive HF (unspecified type) with labored breathing/increased work of breathing. He was started on IV cardizem drip, IV lasix. Hospitalist team was consulted for admission. Patient denies prior hx of COPD/CHF/Afib. He denies CP or heart palpitations. He reports feeling tired/fatigue and that he has been feeling SOB for quite a while. Elevated BNP Started on IV lasix 40mg BID and was transitioned to IV daily. Strict I&O's which patient was refusing to provide so accuracy is not there. Converted to NSR on 06/15/24. Cardizem drip stopped. Patient was started on Lopressor for AVN blockade but ECHO revealed reduced EF (20-25%). Was switched to Coreg. CHADVASC2 Score 2. On Eliquis for Stroke prophylaxis.Cardiology consulted and recommended patient have a right sided heart cath due to new set of decompensated systolic heart failure. Patient will be transferred to [facility] today for heart cath tomorrow. He is currently controlled on the coreg, losartan and lasix. Slight increase in renal function today with Cr 1.37 so i decreased lasix to 40mg daily PO. Patient is aware of plan. He will have close outpatient follow with [facility] cardiology post heart cath. Patient would also benefit from a sleep study as patient oxygen has dipped at night time when he is asleep requiring 1-2 Liters while sleeping. This can also be contributing to current cardiac state. Transfer to [facility] today. Status at Discharge Functional status at discharge: independent ambulation Overall status at discharge: patient is not back to baseline Time Spent with Patient Time attestation: Total time spent providing and/or coordinating discharge services: Time spent: greater than 30 minutes Exam Narrative Exam Narrative: General: Patient is alert, and oriented to person, place and time with normal affect, proper hygiene Skin: chronic stasis dermatitis to bilateral lower extremities Head: atraumatic, acephalic Eyes: PERRLA, no nystagmus present, conjunctiva clear, no scleral icterus Ears: normal gross auditory acuity Heart: Normal rate and rhythm, no murmurs/rubs/gallops Lungs: no audible wheezes, crackles and normal breath sounds all lung martinez Abdomen: Normal audible bowel sounds, Central obesity Musculoskeletal: +1 swelling bilateral lower extremities Neuro: CN II-X grossly intact Constitutional Vital Signs, click to edit/add: Last Vital Signs Temp 97.7 F 06/17/24 07:51 Pulse 72 06/17/24 07:51 Resp 18 06/17/24 07:51 BP 110/66 06/17/24 07:51 Pulse Ox 94 L 06/17/24 07:51 O2 Del Method Nasal Cannula 06/17/24 07:51 O2 Flow Rate 2 06/17/24 07:51 DS: Data Data Completed and Pending Labs on day of discharge: Labs from last 24 hours 06/17/24 06/16/24 05:55 05:43 WBC 11.4 H RBC 4.75 Hgb 14.8 Hct 46.4 MCV 97.7 H MCH 31.2 MCHC 31.9 RDW 13.5 Plt Count 260 MPV 9.6 Neut % (Auto) 76.1 H Lymph % (Auto) 13.6 L [place] % (Auto) 6.3 Eos % (Auto) 2.9 Baso % (Auto) 0.7 Neut # (Auto) 8.7 H Lymph # (Auto) 1.6 [place] # (Auto) 0.7 Eos # (Auto) 0.3 Baso # (Auto) 0.1 Abs Immat Gran (auto) 0.05 H Imm/Tot Granulo (auto) 0.4 Sodium 141 Potassium 3.7 Chloride 101 Carbon Dioxide 37.1 H Anion Gap 6.6 BUN 11.0 Creatinine 1.31 H Est GFR ( Amer) >60 Est GFR (Non-Af Amer) 56 L BUN/Creatinine Ratio 8.4 Glucose 132 H Calcium 8.8 Total Bilirubin 0.7 AST 25 ALT 26 Alkaline Phosphatase 53 Total Protein 7.4 Albumin 3.0 L 2.9 L Globulin 4.4 4.0 Albumin/Globulin Ratio 0.7 0.7 Discharge Plan Discharge Disposition: [facility] Condition: Fair Discharge location: [facility]
[2024-06-17 08:34] LABS: Troponin I High Sensitivity 114.3 pg/mL (4.0-76.1)
== END 2024-06-17 21:00 | disposition short-term general hospital (02) | DRG 291 ==
LOC: ER 10:22 → ICU 15:41 → MS 06-17 08:23 → ICU 06-18 08:03 → MS 06-18 08:03
PROVIDERS: Internal Medicine; Admitting Provider Family Medicine; Emergency Provider Student in an Organized Health Care Education/Training Program; PCP Family Medicine; Visit Provider Family Medicine
DX: I11.0 Hypertensive heart disease with heart failure (principal); I50.21 Acute systolic (congestive) heart failure; N17.9 Acute kidney failure, unspecified; Z68.43 Body mass index [BMI] 50.0-59.9, adult; I48.91 Unspecified atrial fibrillation; I25.10 Atherosclerotic heart disease of native coronary artery without angina pectoris; E66.01 Morbid (severe) obesity due to excess calories; E83.42 Hypomagnesemia; G47.33 Obstructive sleep apnea (adult) (pediatric); I95.9 Hypotension, unspecified; K21.9 Gastro-esophageal reflux disease without esophagitis; R79.89 Other specified abnormal findings of blood chemistry; T46.4X6A Underdosing of angiotensin-converting-enzyme inhibitors, initial encounter; Z91.128 Patient's intentional underdosing of medication regimen for other reason; Z87.891 Personal history of nicotine dependence
CPT/HCPCS: 36415; 71045; 71275; 80053; 83735; 83880; 84443; 84484; 85025; 85610; 85730; 93005; 93306; 93971; 94761; 96365; 96366; 96368; 96376; 99285; J1160; J1940; J3475; Q9967

== ENCOUNTER 2024-06-26 03:15 | Observation (INO) | payer BC, SELFPAY ==
[2024-06-26] VITALS (40 sets, daily range): BP systolic 82–125; BP diastolic 50–108; PULSE 78–180; TEMP 36.3–36.6; O2SAT 95–100; BMI 52.6; BMI 52.1
--- OUTSIDE RECORDS SUMMARY | 2024-06-26 03:24 | XMS_ITS | CCD ---
Author Organization [facility] Care Team Providers Care Title I Math Tutor Name Role Phone Unavailable Primary Care Provider ASHWIN Gaviria Attending DR BENJY Smith Admitting Unavailable JOSE, DR BENJY Anton Attending Unavailable JOSE, DR BENJY Anton Primary Care Unavailable JOSE, DR BENJY Anton Consulting Unavailable MD Alix Milligan Attending Provider MD Benjy Garcia Primary Care Provider MD Benjy Garcia Referring Provider Benjy Garcia Referring Unavailable Asaad Imad Admitting Unavailable Mary Milliganad Attending Unavailable Benjy Garcia Primary Care Unavailable Benjy Garcia MD Primary Care Provider Benjy Garcia MD Unavailable BENJY GARCIA Attending Unavailable BENJY GARCIA Attending Unavailable BENJY GARCIA Attending Unavailable JUAN OVERTON Attending Unavailable TIAN VILLALOBOS Admitting Unavailable SHAIKH HALL Referring Unavailable JOSE INGRIS Referring Unavailable Allergies Allergy Classification Reported Allergen(s) Allergy Type Date of Onset Reaction(s) Facility (1 source) Clindamycin Drug Allergy 01-24-2017 [facility] Repository (1 source) Clindamycin Drug Allergy 12-23-[address] [facility] Repository (5 sources) Clindamycin Drug Allergy 04-02-2020 [facility] Work Phone: Medications Current Medications Medication Drug Class(es) Dates Sig (Normalized) Sig (Original) acetaminophen 325 mg oral tablet (1 source) Start: 04-21-2020 take 2 tablets by mouth every four hours as needed for pain acetaminophen (TYLENOL) 325 MG tablet Take 2 tablets by mouth every 4 hours as needed for Pain 120 tablet 0 04/21/2020 Active acetaminophen 325 mg / oxyCODONE hydrochloride 5 mg oral tablet (7 sources) Opioid Agonist Start: 03-16-2024 End: 04-28-2024 take 1 tablet by mouth four times daily as needed for pain oxyCODONE-acetaminop hen (Percocet) 5-325 MG tablet Indications: Primary osteoarthritis of both knees Take 1 tablet by mouth 4 (four) times a day as needed for severe pain 120 tablet 03/29/2024 04/28/2024 Active End: 03-16-2024 oxyCODONE-acetaminophen (Per cocet) 5-325 MG tablet 03/16/2024 Discontinued (Reorder) hydroCHLOROthiazide 25 mg / lisinopril 20 mg oral tablet (6 sources) Thiazide Diuretic, Angiotensin Converting Enzyme Inhibitor Start: 05-21-2024 take 1 tablet by mouth once daily lisinopril-hydroCHLOROthiazide 20-25 MG tablet Indications: Benign hypertension (CMS/HCC) Take 1 tablet by mouth once daily 90 tablet 05/21/2024 Active Start: 08-03-2023 take 1 tablet by saundra th once daily lisinopril-hydroCHLOROthiazide 20-25 MG tablet Take 1 tablet by mouth Daily 08/03/2023 Active pantoprazole 40 mg delayed release oral tablet (1 source) Proton Pump Inhibitor Start: 12-23-2023 take 40 mg by mouth once daily Pantoprazole Active 40 MG PO Daily 90 December 23, 2023 12:00am zolpidem tartrate 10 mg oral tablet (6 sources) gamma-Aminobutyri c Acid-ergic Agonist Start: 11-16-2023 zolpidem (Ambien) 10 MG tablet Indications: Primary insomnia Take 1 tablet (10 mg) by mouth as needed at bedtime for sleep 30 tablet 11/16/2023 Active Problems Active Problems Problem Classification Problem Date Documented Date Episodic/Chronic Acute myocardial infarction (2 sources) ST elevation (STEMI) myocardial infarction of unspecified site; Translations: [ST elevation (STEMI) myocardial infarction of unspecified site] Onset: 06-17-2024 Chronic Cardiac dysrhythmias (2 sources) Unspecified atrial fibrillation; Translations: [Unspecified atrial fibrillation] Onset: 06-17-2024 Chronic Congestive heart failure; nonhypertensive (4 sources) Heart failure, unspecified; Translations: [Chronic systolic (congestive) heart failure] Onset: 06-17-2024 Chronic Esophageal disorders (7 sources) Gastroesophageal reflux disease without esophagitis; Translations: [Gastro-esophageal reflux disease without esophagitis] Onset: 09-09-2023 09-09-2023 Chronic Essential hypertension (7 sources) Benign hypertension; Translations: [Essential (primary) hypertension] Onset: 09-09-2023 09-09-2023 Chronic Miscellaneous mental health disorders (5 sources) Primary insomnia; Translations: [Primary insomnia] Onset: 11-16-2023 11-16-2023 Chronic Osteoarthritis (13 sources) Localized, primary osteoarthritis of the shoulder region; Translations: [Primary osteoarthritis, unspecified shoulder] Onset: 09-09-2023 09-09-2023 Chronic Other inflammatory condition of skin (5 sources) Rosacea; Translations: [Rosacea, unspecified] Onset: 09-09-2023 09-09-2023 Chronic Other injuries and conditions due to external causes (1 source) Closed injury of head; Translations: [Closed head injury, initial encounter] Episodic Other injuries and conditions due to external causes (1 source) Abrasion AND/OR friction burn of multiple sites; Translations: [Multiple abrasions] Episodic Other nutritional; endocrine; and metabolic disorders (5 sources) Morbid obesity; Translations: [Morbid (severe) obesity due to excess calories] Onset: 09-09-2023 09-09-2023 Chronic Other screening for suspected conditions (not mental disorders or infectious disease) (2 sources) Encounter for screening for malignant neoplasm of prostate; Translations: [Encounter for screening for malignant neoplasm of colon] Onset: 11-27-2021 Episodic Other upper respiratory infections (5 sources) Chronic sinusitis; Translations: [Chronic sinusitis, unspecified] Onset: 04-02-2020 09-09-2023 Chronic Residual codes; unclassified (5 sources) Obstructive sleep apnea syndrome; Translations: [Obstructive sleep apnea (adult) (pediatric)] Onset: 04-02-2020 09-09-2023 Chronic Past or Other Problems Problem Classification Problem Date Documented Da te Episodic/Chronic Other gastrointestinal disorders (5 sources) Abdominal bloating; Translations: [Abdominal distension (gaseous)] Onset: 11-16-2023 Episodic Other nervous system disorders (5 sources) Bad taste in mouth; Translations: [Other disturbances of smell and taste] Onset: 4 11-16-2023 Episodic Phlebitis; thrombophlebitis and thromboembolism (5 sources) Thrombophlebitis of superficial vein of left lower limb; Translations: [Phlebitis and thrombophlebitis of superficial vessels of left lower extremity] Onset: 4 09-09-2023 Episodic Residual codes; unclassified (5 sources) Hypersomnia; Translations: [Hypersomnia, unspecified] Onset: 4 Resolved: 4 09-09-2023 Chronic Results Test Name Value Interpretation Reference Range Facility 30on 06-22-2024 30 Daily Case Managemen t Update Multidisciplinary rounds have been completed. Barriers to Discharge: Patient is medically ready for discharge. Awaiting lifevest fitting. Fire Hose Curer spoke to Mp with [employer] who reported the patient will be fit around 3 pm today. 1325: Cardiology progress note faxed to [employer] at [phone]. Diet: Dietary Orders (From admission, onward) Start Ordered 06/19/24 190 Regular Diet Heart Healthy/HTN, CABG,Stroke, (2gNA, low fat, low cholesterol) Diet effective now Question Answer Comment Room Service? Yes Fat restriction: Heart Healthy/HTN, CABG,Stroke, (2gNA, low fat, low cholesterol) 06/19/24 1900 06/18/24 1402 Special Kitchen Request Once Comments: Chicken and cheese quesadilla x2, chocolate cake 06/18/24 1402 Physician Expected Discharge Date: 06/22/2024 Discharge Delays: PT Six Click Score: 24 OT Six Click Score: PT Recommendations: OT Recommendations: New Consults: Normal [facility] BASIC METABOLIC PANELon 06-06 Anion gap [Moles/Vol] 8 mmol/L Normal - [facility] Comment on above: Performed By: #### L [id number] ####[facility] (BEAKER)[address] [place] [address] Calcium [Mass/Vol] 8.7 mg/dL Normal 8.6-10.3 [facility] Comment on above: Performed By: #### L [id number] ####[facility] ([facility]AKER)[address] [place] [address] Chloride [Moles/Vol] 98 mmol/L Normal 98-107 [facility] Comment on above: Performed By: #### L [id number] ####[facility] ([facility])[address] [place] [address] CO2 [Moles/Vol] 33 mmol/L High 21-31 [facility] Comment on above: Performed By: #### L [id number] ####[facility] ([facility])[address] [place] [address] Creatinine [Mass/Vol] 0.99 mg/dL Normal 0.70-1.30 [facility] Comment on above: Performed By: #### L [id number] ####[facility] ([facility])[address] [place] [address] GLOMERULAR FILTRATION RATE ML/MIN/1.73 SQ M.PREDICTED 87.2 mL/min/1.73m*2 Normal >60.0 [facility] Comment on above: Result Comment: The [facility]???s estimated glomerular filtration rate (eGFR) will no longer include consideration of race in its calculation. The National Kidney Foundation???s eGFR Task Force developed new recommendations for the estimation of the glomerular filtration rate in the [place] They recommend immediate implementation of the new equation refit without the race variable in all laboratories because the calculation does not include race. In addition to not including race in the calculation and reporting, it included diversity in its development, and has acceptable performance characteristics and potential consequences that do not disproportionately affect any one group of individuals. Performed By: #### L [id number] ####[facility] ([facility])[address] [place] [address] Glucose [Mass/Vol] 104 mg/dL High 70-100 [facility] Comment on above: Performed By: #### L [id number] ####[facility] ([facility])[address] [place] [address] Potassium [Moles/Vol] 3.9 mmol/L Normal 3.5-5.1 [facility] Comment on above: Performed By: #### L [id number] ####[facility] ([facility])[address] [place] [address] Sodium [Moles/Vol] 135 mmol/L Low 136-145 [facility] Comment on above: Performed By: #### L [id number] ####[facility] ([facility])[address] [place] [address] Urea nitrogen [Mass/Vol] 13 mg/dL Normal 7-25 [facility] Comment on above: Performed By: #### L [id number] ####[facility] ([facility])[address] [place] [address] UREA NITROGEN/CREATININE (MASS RATIO) IN SER/PLAS 13.1 Normal [facility] Comment on above: Performed By: #### L [id number] ####[facility] ([facility])[address] [place] [address] CBCon 06-22-2024 Erythrocyte distribution width (RBC) [Ratio] 13.3 % Normal 11.5-15.0 [facility] Comment on above: Performed By: #### L [id number] ####[facility] ([facility])[address] [place] [address] ERYTHROCYTE MEAN CORPUSCULAR HEMOGLOBIN CONCENTRATION (G/DL) BY AUTOMATED 33.2 g/dL Normal 32.0-35.0 [facility] Comment on above: Performed By: #### L [id number] ####[facility] ([facility])[address] [place] [address] Hematocrit (Bld) [Volume fraction] 46.1 % Normal 39.0-55.0 [facility] Comment on above: Performed By: #### L [id number] ####[facility] ([facility])[address] [place] [address] Hemoglobin (Bld) [Mass/Vol] 15.3 g/dL Normal 13.0-17.0 [facility] Comment on above: Performed By: #### L [id number] ####[facility] ([facility])[address] [place] [address] MCH (RBC) [Entitic mass] 31.0 pg Normal 27.0-33.0 [facility] Comment on above: Performed By: #### L [id number] ####[facility] ([facility])[address] [place] [address] MCV (RBC) [Entitic vol] 93.5 fL Normal 82.0-98.0 [facility] Comment on above: Performed By: #### L [id number] ####[facility] ([facility])[address] [place] [address] PLATELETS (10*3/UL) IN BLOOD AUTOMATED COUNT 261 10*3/uL Normal 150-400 [facility] Comment on above: Performed By: #### L [id number] ####[facility] ([facility])[address] [place] [address] RBC (Bld) [#/Vol] 4.93 10*6/uL Normal 4.20-5.70 [facility] Comment on above: Performed By: #### L [id number] ####[facility] ([facility])[address] [place] [address] WBC (Bld) [#/Vol] 11.08 10*3/uL High 4.00-10.60 [facility] Comment on above: Performed By: #### L [id number] ####[facility] ([facility])[address] [place] [address] MAGNESIUMon 06-22-2024 Magnesium [Mass/Vol] 2.0 mg/dL Normal 1.9-2.7 [facility] Comment on above: Performed By: #### L [id number] #### [facility] ([facility]) [address] [place] [address] NURSNOTEon 06-22-2024 NURSNOTE Pt discharged with a ll belongings, discharge paperwork, and questions answered to pt's satisfaction. Normal [facility] 30on 06-21-2024 30 The patient is Moderately Stable - Low risk of patient condition declining or worsening The patient's goals for the shift include sleep The clinical goals for the shift include stable vs, safety Over the shift, the patient continues to make progress toward the following goals. Normal [facility] 30 The patient is Moderately Stable - Low risk of patient condition declining or worsening The patient's goals for the shift include comfort and rest The clinical goals for the shift include vss and safety Normal [facility] 30 Daily Case Managemen t Update Multidisciplinary rounds have been completed. Barriers to Discharge: Patient did have discharge order in , but was discontinued. Milrinone drip was discontinued today. Plan for Diuresis and to started entresto today. Potential plan to discharge patient tomorrow. Discharge dispo: pending clinical course, plan at this time is for patient to discharge home when medically ready. Diet: Dietary Orders (From admission, onward) Start Ordered 06/19/24 1901 Regular Diet Heart Healthy/HTN, CABG,Stroke, (2gNA, low fat, low cholesterol) Diet effective now Question Answer Comment Room Service? Yes Fat restriction: Heart Healthy/HTN, CABG,Stroke, (2gNA, low fat, low cholesterol) 06/19/24 1900 06/18/24 1402 Special Kitchen Request Once Comments: Chicken and cheese quesadilla x2, chocolate cake 06/18/24 1402 Physician Expected Discharge Date: 06/21/2024 Discharge Delays: PT Six Click Score: 23 OT Six Click Score: PT Recommendations: OT Recommendations: New Consults: Ancillary Consults (From admission, onward) Start Ordered 06/21/24 1111 Inpatient consult to Social Work Once Provider: (Not yet assigned) Question Answer Comment Select all services needed for the patient Other Other: Heart Failure 06/21/24 1111 Normal [facility] BASIC METABOLIC PANELon 06-06 Anion gap [Moles/Vol] 7 mmol/L Normal 7- [facility] Comment on above: Performed By: #### L [id number] ####[facility] (BEAKER)[address] [place] [address] Calcium [Mass/Vol] 8.6 mg/dL Normal 8.6-10.3 [facility] Comment on above: Performed By: #### L [id number] ####[facility] (BEAKER)[address] [place] [address] Chloride [Moles/Vol] 98 mmol/L Normal 98-107 [facility] Comment on above: Performed By: #### L [id number] ####[facility] (BEAKER)[address] [place] [address] CO2 [Moles/Vol] 36 mmol/L High 21-31 [facility] Comment on above: Performed By: #### L [id number] ####[facility] (BEAKER)[address] [place] [address] Creatinine [Mass/Vol] 0.99 mg/dL Normal 0.70-1.30 [facility] Comment on above: Performed By: #### L [id number] ####[facility] ([facility])[address] [place] [address] GLOMERULAR FILTRATION RATE ML/MIN/1.73 SQ M.PREDICTED 87.2 mL/min/1.73m*2 Normal >60.0 [facility] Comment on above: Result Comment: The [facility]???s estimated glomerular filtration rate (eGFR) will no longer include consideration of race in its calculation. The National Kidney Foundation???s eGFR Task Force developed new recommendations for the estimation of the glomerular filtration rate in the [place] They recommend immediate implementation of the new equation refit without the race variable in all laboratories because the calculation does not include race. In addition to not including race in the calculation and reporting, it included diversity in its development, and has acceptable performance characteristics and potential consequences that do not disproportionately affect any one group of individuals. Performed By: #### L [id number] ####[facility] (BEAKER)[address] [place] [address] Glucose [Mass/Vol] 110 mg/dL High 70-100 [facility] Comment on above: Performed By: #### L [id number] ####[facility] (BEAKER)[address] [place] [address] Potassium [Moles/Vol] 3.8 mmol/L Normal 3.5-5.1 [facility] Comment on above: Performed By: #### L [id number] ####[facility] ([facility])[address] [place] [address] Sodium [Moles/Vol] 137 mmol/L Normal 136-145 [facility] Comment on above: Performed By: #### L [id number] ####[facility] ([facility])[address] [place] [address] Urea nitrogen [Mass/Vol] 13 mg/dL Normal 7-25 [facility] Comment on above: Performed By: #### L [id number] ####[facility] ([facility])[address] [place] [address] UREA NITROGEN/CREATININE (MASS RATIO) IN SER/PLAS 13.1 Normal [facility] Comment on above: Performed By: #### L [id number] ####[facility] ([facility])[address] [place] [address] CBCon 06-21-2024 Erythrocyte distribution width (RBC) [Ratio] 13.2 % Normal 11.5-15.0 [facility] Comment on above: Performed By: #### L [id number] ####[facility] ([facility])[address] [place] [address] ERYTHROCYTE MEAN CORPUSCULAR HEMOGLOBIN CONCENTRATION (G/DL) BY AUTOMATED 32.9 g/dL Normal 32.0-35.0 [facility] Comment on above: Performed By: #### L [id number] ####[facility] ([facility])[address] [place] [address] Hematocrit (Bld) [Volume fraction] 43.2 % Normal 39.0-55.0 [facility] Comment on above: Performed By: #### L [id number] ####[facility] (BEAKER)[address] [place] [address] Hemoglobin (Bld) [Mass/Vol] 14.2 g/dL Normal 13.0-17.0 [facility] Comment on above: Performed By: #### L [id number] ####[facility] ([facility])[address] [place] [address] MCH (RBC) [Entitic mass] 30.9 pg Normal 27.0-33.0 [facility] Comment on above: Performed By: #### L [id number] ####[facility] ([facility])[address] [place] [address] MCV (RBC) [Entitic vol] 94.1 fL Normal 82.0-98.0 [facility] Comment on above: Performed By: #### L [id number] ####[facility] ([facility])[address] [place] [address] PLATELETS (10*3/UL) IN BLOOD AUTOMATED COUNT 247 10*3/uL Normal 150-400 [facility] Comment on above: Performed By: #### L [id number] ####[facility] ([facility])[address] [place] [address] RBC (Bld) [#/Vol] 4.59 10*6/uL Normal 4.20-5.70 [facility] Comment on above: Performed By: #### L [id number] ####[facility] ([facility])[address] [place] [address] WBC (Bld) [#/Vol] 8.62 10*3/uL Normal 4.00-10.60 [facility] Comment on above: Performed By: #### L [id number] ####[facility] ([facility])[address] [place] [address] CONSULTon 06-21-2024 CONSULT Adult Nutrition Assessment: Name: Idris Dodd Jr. Date: 1965 Date of Visit: 06/21/24 Admission Dx: Heart failure (CMS/[facility]) [I50.9] Reason for assessment: MD referral (HF education) Information obtained from: patient, medical record, and nursing Past Medical History: Diagnosis Date GERD (gastroesophageal reflux disease) Hypertension Obesity Current Medications: apixaban, 5 mg, oral, BID aspirin, 81 mg, oral, Daily atorvastatin, 40 mg, oral, Nightly carvedilol, 12.5 mg, oral, BID dapagliflozin propanediol, 10 mg, oral, Daily furosemide, 40 mg, oral, q12h Oxygen Therapy, , inhalation, Continuous pantoprazole, 40 mg, oral, Daily [Held by provider] sacubitril-valsartan, 1 tablet, oral, BID spironolactone, 25 mg, oral, Daily milrinone, 0.25 mcg/kg/min, Last Rate: Stopped (06/21/24 1320) Labs: 0 Lab Value Date/Time BUN 13 06/21/2024 0613 CREATININE 0.99 06/21/2024 0613 NA 137 06/21/2024 0613 K 3.8 06/21/2024 0613 PHOS 2.7 06/17/2024 2321 MG 1.9 06/20/2024 0424 HGBA1C 6.1 (H) 06/18/2024 1436 HGB 14.2 06/21/2024 0613 WBC 8.62 06/21/2024 0613 CHOL 120 06/18/2024 1436 HDL 32 06/18/2024 1436 Allergies: No Known Allergies Nutrition Problems: Swallowing Assessment: Swallow screen 06/20 Mouth: Missing teeth Abdominal Assessment: Last BM 06/20 I/O: -11 L upon admission Appetite: Good Cognition: A/O x4 Physical Findings: Obese Edema: generalized non-pitting, BLE +1 Other: EF 20-25%, consideration for lifevest Nutrition Data/Clinical Indicators of Nutrition Status: Height: 167.6 cm (5' 6 ) Weight: (!) 160 kg (352 lb 1.2 oz) BMI (Calculated): 56.85 Wt Readings from Last 10 Encounters: 06/21/24 (!) 160 kg (352 lb 1.2 oz) 03/16/24 156 kg office visit 11/16/23 165 kg family medicine 2020 160.6 kg ED IBW: 64.5 kg Weight change: Does not own a scale. No significant wt changes per records. Nutrition Assessment: Pt lives at home alone. Reports good access to food at home and grocery shops for himself. He typically only consumes 1 meal/day (at work). This meal consists of a bologna sandwich or robert's. He does not add salt to his foods. Very upset he has not been discharged yet from the hospital. Documented intakes of 75-100% x2 meals upon admission. Dietary Orders (From admission, onward) Start Ordered 06/19/241900 Regular Diet Heart Healthy/HTN, CABG,Stroke, (2gNA, low fat, low cholesterol) Diet effective now Question Answer Comment Room Service? Yes Fat restriction: Heart Healthy/HTN, CABG,Stroke, (2gNA, low fat, low cholesterol) 06/19/24 1900 06/18/24 1402 Special Kitchen Request Once Comments: Chicken and cheese quesadilla x2, chocolate cake 06/18/24 1402 Nutrition Risk: Low Nutrition Diagnosis: Nutrition related knowledge deficit r/t lack of prior education aeb newly diagnosed HF Malnutrition Assessment: Per Registered Dietitian assessment and evaluation, patient does not currently meet criteria OR there is not enough information to support the diagnosis of malnutrition per the clinical criteria set by the Academy of Nutrition and Dietetics (AND) and the [place] Society of Enteral and Parenteral Nutrition (ASPEN). Nutrition Education: Diet literature: Heart Failure Nutrition Therapy (discussed and reviewed reading nutrition labels, recommended daily sodium intake of no more than 2,000 mg/d (or 1~ tsp salt/d), recommended decreasing frequency of eating out/take-out foods, and encouraged avoiding or limiting salty snacks/processed foods/frozen foods ) - encouraged pt to read nutrition content of restaurants online prior to eating out and encouraged him to choose lower Na lunch meat option (low sodium chicken or turkey). Pt agreeable to obtain scale and monitor wt daily. Expected compliance/patient understanding: Fair Open to education but minimally engaged Teach back method: Pt verbalized understanding Time spent: 15 minutes Treatment Plan: Diet: cardiac Daily wt monitoring Goals: Adequate po intakes (kcals and protein); >75% meals Understanding of nutrition education/adherence to diet recommendations To reach the Clinical Dietitian, please utilize [employer] chat Tuesday-Tuesday from 8AM-4PM or call extension [phone]. For weekends (Tuesday-Tuesday) and holidays, the Clinical Dietitian can be reached via pager ([phone]) from 9AM-3PM. The Clinical Nutrition Department is unable to respond to [employer] chat messages on Sundays and holidays. Normal [facility] T4, FREEon 06-21-2024 THYROXINE (T4) FREE (NG/DL) IN SER/PLAS 0.94 ng/dL Normal 0.71-1.85 [facility] Comment on above: Performed By: #### L [id number] ####[facility] ([facility])[address] [place] [address] TSH3 REFLEX TO FT4on 025 THYROTROPIN (MIU/L) IN SER/PLAS BY DETECTION LIMIT <= 0.05 MIU/L 6.21 mIU/L High 0.34-5.60 [facility] Comment on above: Performed By: #### L [id number] ####[facility] ([facility])[address] [place] [address] 30on 06-20-2024 30 The patient is Moderately Stable - Low risk of patient condition declining or worsening The patient's goals for the shift include comfort and rest The clinical goals for the shift include vss and safety Over the shift, the patient continued to make progress toward the following goals. Normal [facility] 30 Problem: Respiratory - Adult Goal: Achieves optimal ventilation and oxygenation Outcome: Progressing Problem: Cardiovascular - Adult Goal: Maintains optimal cardiac output and hemodynamic stability Outcome: Progressing Flowsheets (Taken 06/20/2024748) Maintains optimal cardiac output and hemodynamic stability: Monitor blood pressure and heart rate Administer fluid and/or volume expanders as ordered Problem: Skin/Tissue Integrity - Adult Goal: Skin integrity remains intact Outcome: Progressing Flowsheets (Taken 06/20/2024748) Skin integrity remains intact: Monitor for areas of redness and/or skin breakdown Assess vascular access sites hourly Change oxygen saturation probe site as needed Problem: Musculoskeletal - Adult Goal: Return mobility to safest level of function Outcome: Progressing Flowsheets (Taken 06/20/2024748) Return mobility to safest level of function: Assess patient stability and activity tolerance for standing, transferring and ambulating with or without assistive devices Assist with transfers and ambulation using safe patient handling equipment as needed Ensure adequate protection for wounds/incisions during mobilization Obtain physical therapy/occupational therapy consults as needed Apply continuous passive motion per provider or physical therapy orders to increase flexion toward goal Instruct patient/family in ordered activity level Problem: Gastrointestinal - Adult Goal: Maintains or returns to baseline bowel function Outcome: Progressing The patient is Moderately Stable - Low risk of patient condition declining or worsening The patient's goals for the shift include comfort, go home The clinical goals for the shift include VSS Normal [facility] APTTon 06-20-2024 ACTIVATED PARTIAL THROMBOPLASTIN TIME IN PPP BY COAGULATION ASSAY 31.2 Seconds Normal 25.0-35.0 [facility] Comment on above: Order Comment: Check aPTT every 6 hours while on heparin infusion, or per protocol. Result Comment: Clin ical significance of the APTT is questionable in the presence of heparin. Performed By: #### L [id number] ####[facility] ([facility])[address] [place] [address] ACTIVATED PARTIAL THROMBOPLASTIN TIME IN PPP BY COAGULATION ASSAY 31.6 Seconds Normal 25.0-35.0 [facility] Comment on above: Order Comment: Check aPTT every 6 hours while on heparin infusion, or per protocol. Result Comment: Clin ical significance of the APTT is questionable in the presence of heparin. Performed By: #### L [id number] #### [facility] ([facility]) [address] [place] [address] BASIC METABOLIC PANELon 06-06 Anion gap [Moles/Vol] 8 mmol/L Normal 7-20 [facility] Comment on above: Performed By: #### L [id number] ####[facility] ([facility])[address] [place] [address] Calcium [Mass/Vol] 8.6 mg/dL Normal 8.6-10.3 [facility] Comment on above: Performed By: #### L [id number] ####[facility] ([facility])[address] [place] [address] Chloride [Moles/Vol] 100 mmol/L Normal 98-107 [facility] Comment on above: Performed By: #### L [id number] ####[facility] ([facility])[address] [place] [address] CO2 [Moles/Vol] 34 mmol/L High 21-31 [facility] Comment on above: Performed By: #### L [id number] ####[facility] ([facility])[address] [place] [address] Creatinine [Mass/Vol] 1.04 mg/dL Normal 0.70-1.30 [facility] Comment on above: Performed By: #### L [id number] ####[facility] ([facility])[address] [place] [address] GLOMERULAR FILTRATION RATE ML/MIN/1.73 SQ M.PREDICTED 82.2 mL/min/1.73m*2 Normal >60.0 [facility] Comment on above: Result Comment: The [facility]???s estimated glomerular filtration rate (eGFR) will no longer include consideration of race in its calculation. The National Kidney Foundation???s eGFR Task Force developed new recommendations for the estimation of the glomerular filtration rate in the [place] They recommend immediate implementation of the new equation refit without the race variable in all laboratories because the calculation does not include race. In addition to not including race in the calculation and reporting, it included diversity in its development, and has acceptable performance characteristics and potential consequences that do not disproportionately affect any one group of individuals. Performed By: #### L [id number] ####[facility] ([facility])[address] [place] [address] Glucose [Mass/Vol] 122 mg/dL High 70-100 [facility] Comment on above: Performed By: #### L [id number] ####[facility] ([facility])[address] [place] [address] Potassium [Moles/Vol] 4.2 mmol/L Normal 3.5-5.1 [facility] Comment on above: Performed By: #### L [id number] ####[facility] ([facility])[address] [place] [address] Sodium [Moles/Vol] 138 mmol/L Normal 136-145 [facility] Comment on above: Performed By: #### L [id number] ####[facility] ([facility])[address] [place] [address] Urea nitrogen [Mass/Vol] 13 mg/dL Normal 7-25 [facility] Comment on above: Performed By: #### L [id number] ####[facility] ([facility])[address] [place] [address] UREA NITROGEN/CREATININE (MASS RATIO) IN SER/PLAS 12.5 Normal [facility] Comment on above: Performed By: #### L [id number] ####[facility] ([facility])[address] [place] [address] CBCon 06-20-2024 Erythrocyte distribution width (RBC) [Ratio] 13.2 % Normal 11.5-15.0 [facility] Comment on above: Performed By: #### L [id number] #### [facility] ([facility]) [address] [place] [address] ERYTHROCYTE MEAN CORPUSCULAR HEMOGLOBIN CONCENTRATION (G/DL) BY AUTOMATED 31.3 g/dL Low 32.0-35.0 [facility] Comment on above: Performed By: #### L [id number] #### [facility] ([facility]) [address] [place] [address] Hematocrit (Bld) [Volume fraction] 42.8 % Normal 39.0-55.0 [facility] Comment on above: Performed By: #### L [id number] #### [facility] ([facility]) [address] [place] [address] Hemoglobin (Bld) [Mass/Vol] 13.4 g/dL Normal 13.0-17.0 [facility] Comment on above: Performed By: #### L [id number] #### [facility] ([facility]) [address] [place] [address] MCH (RBC) [Entitic mass] 30.7 pg Normal 27.0-33.0 [facility] Comment on above: Performed By: #### L [id number] #### [facility] ([facility]) [address] [place] [address] MCV (RBC) [Entitic vol] 98.2 fL High 82.0-98.0 [facility] Comment on above: Performed By: #### L [id number] #### [facility] ([facility]) [address] [place] [address] PLATELETS (10*3/UL) IN BLOOD AUTOMATED COUNT 247 10*3/uL Normal 150-400 [facility] Comment on above: Performed By: #### L [id number] #### [facility] ([facility]) [address] [place] [address] RBC (Bld) [#/Vol] 4.36 10*6/uL Normal 4.20-5.70 [facility] Comment on above: Performed By: #### L [id number] #### [facility] ([facility]) [address] [facility] [place] [address] WBC (Bld) [#/Vol] 7.77 10*3/uL Normal 4.00-10.60 [facility] Comment on above: Performed By: #### L [id number] #### [facility] ([facility]) [address] [place] [address] MAGNESIUMon 06-20-2024 Magnesium [Mass/Vol] 1.9 mg/dL Normal 1.9-2.7 [facility] Comment on above: Performed By: #### L [id number] #### [facility] ([facility]) [address] [address] 30on 06-19-2024 30 The patient is Moderately Stable - Low risk of patient condition declining or worsening The patient's goals for the shift include comfort The clinical goals for the shift include stable vitals Over the shift, the patient did not make progress toward the following goals. Barriers to progression include patient still on milrinone drip as well as on 2L of oxygen. Problem: Respiratory - Adult Goal: Achieves optimal ventilation and oxygenation Outcome: Progressing Flowsheets (Taken 06/19/2024 1917) Achieves optimal ventilation and oxygenation: Assess for changes in respiratory status Assess for changes in mentation and behavior Position to facilitate oxygenation and minimize respiratory effort Oxygen supplementation based on oxygen saturation or arterial blood gases Initiate smoking cessation protocol as indicated Encourage broncho-pulmonary hygiene including cough, deep breathe, incentive spirometry Assess the need for suctioning and aspirate as needed Respiratory therapy support as indicated Assess and instruct to report shortness of breath or any respiratory difficulty Problem: Cardiovascular - Adult Goal: Maintains optimal cardiac output and hemodynamic stability Outcome: Progressing Flowsheets (Taken 06/19/2024 1917) Maintains optimal cardiac output and hemodynamic stability: Assess for signs of decreased cardiac output Administer vasoactive medications as ordered Administer fluid and/or volume expanders as ordered Monitor blood pressure and heart rate Monitor urine output and notify Licensed Independent Practitioner for values outside of normal range Normal [facility] 30 Daily Case Managemen t Update Multidisciplinary rounds have been completed. Barriers to Discharge: Continue diuresis. Plan is for heart cath today. Plan is to discharge home when ready. Diet: Dietary Orders (From admission, onward) Start Ordered 06/19/24 0001 Diet NPO Diet effective midnight Comments: No exceptions Question: Reason for NPO: Answer: Operation/Procedure 06/18/24 1406 06/18/24 1402 Special Kitchen Request Once Comments: Chicken and cheese quesadilla x2, chocolate cake 06/18/24 1402 Physician Expected Discharge Date: 06/20/2024 Discharge Delays: PT Six Click Score: 23 OT Six Click Score: PT Recommendations: OT Recommendations: Is expected discharge disposition appropriate for patient?: Yes New Consults: Normal [facility] 30 Problem: Respiratory - Adult Goal: Achieves optimal ventilation and oxygenation Outcome: Progressing Flowsheets (Taken 06/19/2024 0745) Achieves optimal ventilation and oxygenation: Assess for changes in respiratory status Assess for changes in mentation and behavior Oxygen supplementation based on oxygen saturation or arterial blood gases Problem: Cardiovascular - Adult Goal: Maintains optimal cardiac output and hemodynamic stability Outcome: Progressing Flowsheets (Taken 06/19/2024 0745) Maintains optimal cardiac output and hemodynamic stability: Monitor blood pressure and heart rate Monitor urine output and notify Licensed Independent Practitioner for values outside of normal range Assess for signs of decreased cardiac output Problem: Skin/Tissue Integrity - Adult Goal: Skin integrity remains intact Outcome: Progressing Flowsheets (Taken 06/19/2024 0745) Skin integrity remains intact: Monitor for areas of redness and/or skin breakdown Problem: Musculoskeletal - Adult Goal: Return mobility to safest level of function Outcome: Progressing Flowsheets (Taken 06/19/2024 7745) Return mobility to safest level of function: Assess patient stability and activity tolerance for standing, transferring and ambulating with or without assistive devices Assist with transfers and ambulation using safe patient handling equipment as needed Ensure adequate protection for wounds/incisions during mobilization Obtain physical therapy/occupational therapy consults as needed Apply continuous passive motion per provider or physical therapy orders to increase flexion toward goal Problem: Gastrointestinal - Adult Goal: Maintains or returns to baseline bowel function Outcome: Progressing Problem: Metabolic/Fluid and Electrolytes - Adult Goal: Electrolytes maintained within normal limits Outcome: Progressing The patient is Moderately Stable - Low risk of patient condition declining or worsening The patient's goals for the shift include comfort The clinical goals for the shift include VSS, hemodynamic stability Normal [facility] 30 The patient is Moderately Stable - Low risk of patient condition declining or worsening The patient's goals for the shift include Comfort; Rest The clinical goals for the shift include VSS; Monitor Hep Level Problem: Respiratory - Adult Goal: Achieves optimal ventilation and oxygenation Outcome: Progressing Flowsheets (Taken 06/18/20242019) Achieves optimal ventilation and oxygenation: Assess for changes in respiratory status Assess for changes in mentation and behavior Position to facilitate oxygenation and minimize respiratory effort Assess and instruct to report shortness of breath or any respiratory difficulty Problem: Cardiovascular - Adult Goal: Maintains optimal cardiac output and hemodynamic stability Outcome: Progressing Flowsheets (Taken 06/18/20242019) Maintains optimal cardiac output and hemodynamic stability: Monitor blood pressure and heart rate Monitor urine output and notify Licensed Independent Practitioner for values outside of normal range Assess for signs of decreased cardiac output Problem: Skin/Tissue Integrity - Adult Goal: Skin integrity remains intact Outcome: Progressing Flowsheets (Taken 06/18/20242019) Skin integrity remains intact: Monitor for areas of redness and/or skin breakdown Problem: Musculoskeletal - Adult Goal: Return mobility to safest level of function Outcome: Progressing Flowsheets (Taken 06/18/20242019) Return mobility to safest level of function: Assess patient stability and activity tolerance for standing, transferring and ambulating with or without assistive devices Assist with transfers and ambulation using safe patient handling equipment as needed Ensure adequate protection for wounds/incisions during mobilization Apply continuous passive motion per provider or physical therapy orders to increase flexion toward goal Problem: Gastrointestinal - Adult Goal: Maintains or returns to baseline bowel function Outcome: Progressing Flowsheets (Taken 06/18/20242019) Maintains or returns to baseline bowel function: Assess bowel function Encourage mobilization and activity Goal: Maintains adequate nutritional intake Outcome: Progressing Flowsheets (Taken 06/18/20242019) Maintains adequate nutritional intake: Monitor percentage of each meal consumed Identify factors contributing to decreased intake, treat as appropriate Monitor intake and output, weight and lab values Problem: Metabolic/Fluid and Electrolytes - Adult Goal: Electrolytes maintained within normal limits Outcome: Progressing Flowsheets (Taken 06/18/20242019) Electrolytes maintained within normal limits: Monitor labs and assess patient for signs and symptoms of electrolyte imbalances Administer electrolyte replacement as ordered Monitor response to electrolyte replacements, including repeat lab results as appropriate Goal: Hemodynamic stability and optimal renal function maintained Outcome: Progressing Flowsheets (Taken 06/18/20242019) Hemodynamic stability and optimal renal function maintained: Monitor labs and assess for signs and symptoms of volume excess or deficit Monitor intake, output and patient weight Monitor urine specific gravity, serum osmolarity and serum sodium as indicated or ordered Problem: Hematologic - Adult Goal: Maintains hematologic stability Outcome: Progressing Flowsheets (Taken 06/18/20242019) Maintains hematologic stability: Assess for signs and symptoms of bleeding or hemorrhage Monitor labs for bleeding or clotting disorders Normal [facility] APTTon 06-19-2024 ACTIVATED PARTIAL THROMBOPLASTIN TIME IN PPP BY COAGULATION ASSAY 29.8 Seconds Normal 25.0-35.0 [facility] Comment on above: Order Comment: Check aPTT every 6 hours while on heparin infusion, or per protocol. Result Comment: Clin ical significance of the APTT is questionable in the presence of heparin. Performed By: #### L [id number] #### [facility] ([facility]) [address] [place] [address] ACTIVATED PARTIAL THROMBOPLASTIN TIME IN PPP BY COAGULATION ASSAY 126.6 Seconds High 25.0-35.0 [facility] Comment on above: Order Comment: Check aPTT every 6 hours while on heparin infusion, or per protocol. Result Comment: Clin ical significance of the APTT is questionable in the presence of heparin. Performed By: #### L [id number] #### [facility] ([facility]) [address] [place] [address] ACTIVATED PARTIAL THROMBOPLASTIN TIME IN PPP BY COAGULATION ASSAY 64.7 Seconds High 25.0-35.0 [facility] Comment on above: Order Comment: Check aPTT every 6 hours while on heparin infusion, or per protocol. Result Comment: Clin ical significance of the APTT is questionable in the presence of heparin. Performed By: #### L [id number] #### [facility] ([facility]) [address] [place] [address] BASIC METABOLIC PANELon 06-06 Anion gap [Moles/Vol] 8 mmol/L Normal 7-20 [facility] Comment on above: Performed By: #### L [id number] #### [facility] ([facility]) [address] [place] [address] Calcium [Mass/Vol] 9.2 mg/dL Normal 8.6-10.3 [facility] Comment on above: Performed By: #### L [id number] #### [facility] ([facility]) [address] [place] [address] Chloride [Moles/Vol] 98 mmol/L Normal 98-107 [facility] Comment on above: Performed By: #### L [id number] #### [facility] ([facility]) [address] [place] [address] CO2 [Moles/Vol] 37 mmol/L High 21-31 [facility] Comment on above: Performed By: #### L [id number] #### [facility] ([facility]) [address] [place] [address] Creatinine [Mass/Vol] 1.12 mg/dL Normal 0.70-1.30 [facility] Comment on above: Performed By: #### L [id number] #### [facility] ([facility]) [address] [place] [address] GLOMERULAR FILTRATION RATE ML/MIN/1.73 SQ M.PREDICTED 75.2 mL/min/1.73m*2 Normal >60.0 [facility] Comment on above: Result Comment: The [facility]???s estimated glomerular filtration rate (eGFR) will no longer include consideration of race in its calculation. The National Kidney Foundation???s eGFR Task Force developed new recommendations for the estimation of the glomerular filtration rate in the [place] They recommend immediate implementation of the new equation refit without the race variable in all laboratories because the calculation does not include race. In addition to not including race in the calculation and reporting, it included diversity in its development, and has acceptable performance characteristics and potential consequences that do not disproportionately affect any one group of individuals. Performed By: #### L [id number] #### [facility] ([facility]) [address] [place] [address] Glucose [Mass/Vol] 115 mg/dL High 70-100 [facility] Comment on above: Performed By: #### L [id number] #### [facility] ([facility]) [address] [place] [address] Potassium [Moles/Vol] 4.1 mmol/L Normal 3.5-5.1 [facility] Comment on above: Performed By: #### L [id number] #### [facility] ([facility]) [address] [place] [address] Sodium [Moles/Vol] 139 mmol/L Normal 136-145 [facility] Comment on above: Performed By: #### L [id number] #### [facility] ([facility]) [address] [place] [address] Urea nitrogen [Mass/Vol] 16 mg/dL Normal 7-25 [facility] Comment on above: Performed By: #### L [id number] #### [facility] ([facility]) [address] [place] [address] UREA NITROGEN/CREATININE (MASS RATIO) IN SER/PLAS 14.3 Normal [facility] Comment on above: Performed By: #### L [id number] #### [facility] ([facility]) [address] [place] [address] CBCon 06-19-2024 Erythrocyte distribution width (RBC) [Ratio] 13.6 % Normal 11.5-15.0 [facility] Center Comment on above: Performed By: #### L [id number] #### [facility] ([facility]) [address] [place] [address] ERYTHROCYTE MEAN CORPUSCULAR HEMOGLOBIN CONCENTRATION (G/DL) BY AUTOMATED 31.4 g/dL Low 32.0-35.0 [facility] Comment on above: Performed By: #### L [id number] #### [facility] ([facility]) [address] [place] [address] Hematocrit (Bld) [Volume fraction] 44.9 % Normal 39.0-55.0 [facility] Comment on above: Performed By: #### L [id number] #### [facility] ([facility]) [address] [place] [address] Hemoglobin (Bld) [Mass/Vol] 14.1 g/dL Normal 13.0-17.0 [facility] Comment on above: Performed By: #### L [id number] #### [facility] ([facility]) [address] [place] [address] MCH (RBC) [Entitic mass] 30.7 pg Normal 27.0-33.0 [facility] Comment on above: Performed By: #### L [id number] #### [facility] ([facility]) [address] [place] [address] MCV (RBC) [Entitic vol] 97.8 fL Normal 82.0-98.0 [facility] Comment on above: Performed By: #### L [id number] #### [facility] ([facility]) [address] [place] [address] PLATELETS (10*3/UL) IN BLOOD AUTOMATED COUNT 286 10*3/uL Normal 150-400 [facility] Comment on above: Performed By: #### L [id number] #### [facility] ([facility]) [address] [place] [address] RBC (Bld) [#/Vol] 4.59 10*6/uL Normal 4.20-5.70 [facility] Comment on above: Performed By: #### L [id number] #### [facility] ([facility]) [address] [place] [address] WBC (Bld) [#/Vol] 10.30 10*3/uL Normal 4.00-10.60 [facility] Comment on above: Performed By: #### L [id number] #### [facility] ([facility]) [address] [place] [address] HPon 06-19-2024 HP H&P reviewed. The patient was examined and there are no changes to the H&P. Discussed risks, benefits, and alternative therapies with the patient, he understands and willing to proceed with RHC/coronary angiogram and possible PCI. Sabine Bernard MD PGY-7 Interventional Residential Fee Appraiser Normal [facility] TROPONIN Ion 06-19-2024 Troponin I.cardiac [Mass/Vol] 0.08 ng/mL High 0.00-0.04 [facility] Comment on above: Performed By: #### L [id number] ####[facility] ([facility])[address] [place] [address] 30on 06-18-2024 30 Daily Case Managemen t Update Multidisciplinary rounds have been completed. Barriers to Discharge: Patient presented from [facility] needing higher level of care for SOB and worsening LE edema. Tachycardic and in afib with rvr. Converted to NSR after cardizem gtt was started. Patient has EF of 20-25%. IV diuresis for new onset HF.Patient took Eliquis today, so right and left heart cath is now planned for tomorrow to evaluate HF and A-fib. Diet: Dietary Orders (From admission, onward) Start Ordered 06/19/24 0001 Diet NPO Diet effective midnight Comments: No exceptions Question: Reason for NPO: Answer: Operation/Procedure 06/18/24 1406 06/18/24 1402 Special Kitchen Request Once Comments: Chicken and cheese quesadilla x2, chocolate cake 06/18/24 1402 06/18/24 1335 Regular Diet Heart Healthy/HTN, CABG,Stroke, (2gNA, low fat, low cholesterol) Diet effective now Question Answer Comment Room Service? Yes Fat restriction: Heart Healthy/HTN, CABG,Stroke, (2gNA, low fat, low cholesterol) 06/18/24 1334 Physician Expected Discharge Date: 06/20/2024 Discharge Delays: PT Six Click Score: 23 OT Six Click Score: PT Recommendations: OT Recommendations: Is expected discharge disposition appropriate for patient?: Yes New Consults: Normal [facility] 30 The patient is Moderately Stable - Low risk of patient condition declining or worsening The patient's goals for the shift include The clinical goals for the shift include VSS Over the shift, the patient did make progress toward the following goals. Problem: Respiratory - Adult Goal: Achieves optimal ventilation and oxygenation Outcome: Progressing Problem: Cardiovascular - Adult Goal: Maintains optimal cardiac output and hemodynamic stability Outcome: Progressing Problem: Skin/Tissue Integrity - Adult Goal: Skin integrity remains intact Outcome: Progressing Problem: Musculoskeletal - Adult Goal: Return mobility to safest level of function Outcome: Progressing Problem: Gastrointestinal - Adult Goal: Maintains or returns to baseline bowel function Outcome: Progressing Goal: Maintains adequate nutritional intake Outcome: Progressing Problem: Metabolic/Fluid and Electrolytes - Adult Goal: Electrolytes maintained within normal limits Outcome: Progressing Goal: Hemodynamic stability and optimal renal function maintained Outcome: Progressing Problem: Hematologic - Adult Goal: Maintains hematologic stability Outcome: Progressing Normal [facility] 30 The patient is Moderately Stable - Low risk of patient condition declining or worsening The patient's goals for the shift include The clinical goals for the shift include VSS Problem: Respiratory - Adult Goal: Achieves optimal ventilation and oxygenation Outcome: Progressing Flowsheets (Taken 06/17/20242229) Achieves optimal ventilation and oxygenation: Assess for changes in respiratory status Assess for changes in mentation and behavior Position to facilitate oxygenation and minimize respiratory effort Assess and instruct to report shortness of breath or any respiratory difficulty Problem: Cardiovascular - Adult Goal: Maintains optimal cardiac output and hemodynamic stability Outcome: Progressing Flowsheets (Taken 06/17/20242229) Maintains optimal cardiac output and hemodynamic stability: Monitor blood pressure and heart rate Monitor urine output and notify Licensed Independent Practitioner for values outside of normal range Assess for signs of decreased cardiac output Problem: Skin/Tissue Integrity - Adult Goal: Skin integrity remains intact Outcome: Progressing Flowsheets (Taken 06/17/20242229) Skin integrity remains intact: Monitor for areas of redness and/or skin breakdown Problem: Musculoskeletal - Adult Goal: Return mobility to safest level of function Outcome: Progressing Flowsheets (Taken 06/17/20242229) Return mobility to safest level of function: Assess patient stability and activity tolerance for standing, transferring and ambulating with or without assistive devices Assist with transfers and ambulation using safe patient handling equipment as needed Ensure adequate protection for wounds/incisions during mobilization Apply continuous passive motion per provider or physical therapy orders to increase flexion toward goal Problem: Gastrointestinal - Adult Goal: Maintains or returns to baseline bowel function Outcome: Progressing Flowsheets (Taken 06/17/20242229) Maintains or returns to baseline bowel function: Assess bowel function Encourage mobilization and activity Goal: Maintains adequate nutritional intake Outcome: Progressing Flowsheets (Taken 06/17/20242229) Maintains adequate nutritional intake: Monitor percentage of each meal consumed Identify factors contributing to decreased intake, treat as appropriate Monitor intake and output, weight and lab values Problem: Metabolic/Fluid and Electrolytes - Adult Goal: Electrolytes maintained within normal limits Outcome: Progressing Flowsheets (Taken 06/17/20242229) Electrolytes maintained within normal limits: Monitor labs and assess patient for signs and symptoms of electrolyte imbalances Administer electrolyte replacement as ordered Monitor response to electrolyte replacements, including repeat lab results as appropriate Goal: Hemodynamic stability and optimal renal function maintained Outcome: Progressing Flowsheets (Taken 06/17/20242229) Hemodynamic stability and optimal renal function maintained: Monitor labs and assess for signs and symptoms of volume excess or deficit Monitor intake, output and patient weight Monitor urine specific gravity, serum osmolarity and serum sodium as indicated or ordered Problem: Hematologic - Adult Goal: Maintains hematologic stability Outcome: Progressing Flowsheets (Taken 06/17/20242229) Maintains hematologic stability: Assess for signs and symptoms of bleeding or hemorrhage Monitor labs for bleeding or clotting disorders Normal [facility] APTTon 06-18-2024 ACTIVATED PARTIAL THROMBOPLASTIN TIME IN PPP BY COAGULATION ASSAY 56.7 Seconds High 25.0-35.0 [facility] Comment on above: Order Comment: Check aPTT every 6 hours while on heparin infusion, or per protocol. Result Comment: Clin ical significance of the APTT is questionable in the presence of heparin. Performed By: #### L [id number] #### [facility] ([facility]) [address] [place] [address] B-TYPE NATRIURETIC PEPTIDEon 06-18-2024 Natriuretic peptide B (Bld) [Mass/Vol] 309 pg/mL High 0-100 [facility] Comment on above: Performed By: #### L [id number] #### [facility] ([facility]) [address] [place] [address] CONSULTon 06-18-2024 CONSULT -- Attestation signed by Monica Arroyo MD at 06/18/2024 3:10 PM By using the attestations below, the signing clinician agrees that I have read and verify that the documentation has been personally reviewed by me and ensure that the documentation accurately reflects the encounter. GC: I personally saw this patient on the day of the encounter, performed the granger portion(s) of the service and participated in the management and confirm the resident's documentation. Please note there may be an additional personal documentation from me. Additional Comments: Patient presented with new acute drop in feet EF and decompensation of congestive heart failure with estimated EF of 20 to 25%. Patient also had history of paroxysmal A-fib, hypertension, morbid obesity, and obstructive sleep apnea. We are going to maximize medical therapy and proceed with left and right heart cath to evaluate the underlying cause of his cardiomyopathy. However unfortunately patient took Eliquis this morning and it to decrease the risk of bleed, will postpone the heart cath till tomorrow. Cardiology Consult Note Reason for Consult: Afib, HFrEF HPI: Idris Dodd is a 58 y.o. male with a past medical history significant for hypertension, DAK[place], morbid obesity, family history of CAD. Patient was a transfer from [facility] for evaluation for coronary angiogram after he was admitted for A-fib RVR and new onset HFrEF. Echo showed an EF of 20 to 25%. He was treated with Cardizem drip and Eliquis for A-fib. Patient reports dyspnea on exertion after ambulating a few feet for the past 1 week. Also endorses lower extremity edema, orthopnea, PND. He is noncompliant to CPAP due to sinus congestion. Denies chest pain, lightheadedness, dizziness, palpitations. Denies tobacco use. Cardiology ROS: Negative except as mentioned. Past Medical History He has a past medical history of GERD (gastroesophageal reflux disease), Hypertension, and Obesity. Surgical History He has a past surgical history that includes Rotator cuff repair (Right); Total knee arthroplasty (Bilateral); and Tonsillectomy (N/A). Social History He reports that he has never smoked. He has never used smokeless tobacco. No history on file for alcohol use and drug use. Family History No family history on file. Allergies Patient has no known allergies. Medications Current Outpatient Medications Medication Instructions lisinopriL-hydrochloro thiazide 20-25 mg tablet 1 tablet, oral, Daily Medications Prior to Admission Medication Sig Dispense Refill Last Dose lisinopriL-hydrochloro thiazide 20-25 mg tablet Take 1 tablet by mouth in the morning. Current Facility-Administered Medications Medication Dose Route Frequency Provider Last Rate Last Admin [Held by provider] apixaban (Eliquis) tablet 5 mg 5 mg oral BID Jermaine Rey MD 5 mg at 06/18/24 0940 aspirin EC tablet 81 mg 81 mg oral Daily Jermaine Rey MD 81 mg at 06/18/24 0940 atorvastatin (Lipitor) tablet 80 mg 80 mg oral Nightly Jermaine Rey MD carvedilol (Coreg) tablet 12.5 mg 12.5 mg oral BID Jermaine Rey MD 12.5 mg at 06/18/24 0940 dapagliflozin propanediol (Farxiga) tablet 10 mg 10 mg oral Daily Kandis Guillen MD furosemide (Lasix) tablet 40 mg 40 mg oral Daily Jermaine Rey MD 40 mg at 06/18/24 0940 heparin infusion 100 units/mL in D5W 0-28 Units/kg/hr intravenous Continuous Kandis Guillen MD losartan (Cozaar) tablet 50 mg 50 mg oral Daily Jermaine Rey MD 50 mg at 06/18/24 0940 Oxygen Therapy inhalation Continuous Jermaine Rey MD Oxygen Off at 06/17/24 2315 pantoprazole (ProtoNix) EC tablet 40 mg 40 mg oral Daily Jermaine Rey MD 40 mg at 06/18/24 0534 sodium chloride flush 10 mL 10 mL intravenous q8h PRN Jermaine Rey MD spironolactone (Aldactone) tablet 25 mg 25 mg oral Daily Kandis Guillen MD Last Recorded Vitals Patient Vitals for the past 24 hrs: BP Temp Temp src Pulse Resp SpO2 Height Weight 06/18/24 0940 124/84 -- -- 72 -- -- -- -- 06/18/24 0800 -- 36.2 ???C (97.2 ???F) Temporal -- -- -- -- -- 06/18/24 0400 123/67 36.2 ???C (97.2 ???F) Temporal 75 24 100 % -- -- 06/18/24 0028 -- -- -- -- -- -- 1.676 m (5' 6 ) (!) 150 kg (330 lb 11 oz) 06/18/24 0000 113/63 36.2 ???C (97.2 ???F) Temporal 73 24 97 % -- -- 06/17/24 2240 -- -- -- -- -- -- 1.676 m (5' 6 ) (!) 150 kg (331 lb 8 oz) 06/17/24 2230 105/76 36.2 ???C (97.2 ???F) Temporal 78 17 97 % -- -- Physical Examination: GENERAL: AOx3, in no acute distress. Obese HEAD: Atraumatic, normocephalic. EYES: NARAYAN, EOMI. NECK: No JVD present. CARDIAC: RRR. No murmur, rubs, or gallops. RESPIRATORY: CTAB, no increased effort of breathing. ABDOMEN: Soft, nontender, nondistended. EXTREMITIES: No lower extremity edema, (more content not included)... Normal [facility] HEMOGLOBIN A1Con 06-18-2024 Glucose [Mass/Vol] 128 mg/dL Normal [facility] Comment on above: Performed By: #### L [id number] #### [facility] ([facility]) [address] [place] [address] HbA1c (Bld) [Mass fraction] 6.1 % High 4.0-6.0 [facility] Comment on above: Performed By: #### L [id number] #### [facility] ([facility]) [address] [place] [address] HPon 06-18-2024 HP -- Attestation signed by Monica Arroyo MD at 06/18/2024 3:10 PM By using the attestations below, the signing clinician agrees that I have read and verify that the documentation has been personally reviewed by me and ensure that the documentation accurately reflects the encounter. GC: I personally saw this patient on the day of the encounter, performed the granger portion(s) of the service and participated in the management and confirm the resident's documentation. Please note there may be an additional personal documentation from me. Additional Comments: Patient presented with new acute drop in feet EF and decompensation of congestive heart failure with estimated EF of 20 to 25%. Patient also had history of paroxysmal A-fib, hypertension, morbid obesity, and obstructive sleep apnea. We are going to maximize medical therapy and proceed with left and right heart cath to evaluate the underlying cause of his cardiomyopathy. However unfortunately patient took Eliquis this morning and it to decrease the risk of bleed, will postpone the heart cath till tomorrow. Cardiology Consult Note Reason for Consult: Afib, HFrEF HPI: Idris Dodd Jr. is a 58 y.o. male with a past medical history significant for hypertension, D[place], morbid obesity, family history of CAD. Patient was a transfer from [facility] for evaluation for coronary angiogram after he was admitted for A-fib RVR and new onset HFrEF. Echo showed an EF of 20 to 25%. He was treated with Cardizem drip and Eliquis for A-fib. Patient reports dyspnea on exertion after ambulating a few feet for the past 1 week. Also endorses lower extremity edema, orthopnea, PND. He is noncompliant to CPAP due to sinus congestion. Denies chest pain, lightheadedness, dizziness, palpitations. Denies tobacco use. Cardiology ROS: Negative except as mentioned. Past Medical History He has a past medical history of GERD (gastroesophageal reflux disease), Hypertension, and Obesity. Surgical History He has a past surgical history that includes Rotator cuff repair (Right); Total knee arthroplasty (Bilateral); and Tonsillectomy (N/A). Social History He reports that he has never smoked. He has never used smokeless tobacco. No history on file for alcohol use and drug use. Family History No family history on file. Allergies Patient has no known allergies. Medications Current Outpatient Medications Medication Instructions lisinopriL-hydrochloro thiazide 20-25 mg tablet 1 tablet, oral, Daily Medications Prior to Admission Medication Sig Dispense Refill Last Dose lisinopriL-hydrochloro thiazide 20-25 mg tablet Take 1 tablet by mouth in the morning. Current Facility-Administered Medications Medication Dose Route Frequency Provider Last Rate Last Admin [Held by provider] apixaban (Eliquis) tablet 5 mg 5 mg oral BID Jermaine Rey MD 5 mg at 06/18/24 0940 aspirin EC tablet 81 mg 81 mg oral Daily Jermaine Rey MD 81 mg at 06/18/24 0940 atorvastatin (Lipitor) tablet 80 mg 80 mg oral Nightly Jermaine Rey MD carvedilol (Coreg) tablet 12.5 mg 12.5 mg oral BID Jermaine Rey MD 12.5 mg at 06/18/24 0940 dapagliflozin propanediol (Farxiga) tablet 10 mg 10 mg oral Daily Kandis Guillen MD furosemide (Lasix) tablet 40 mg 40 mg oral Daily Jermaine Rey MD 40 mg at 06/18/24 0940 heparin infusion 100 units/mL in D5W 0-28 Units/kg/hr intravenous Continuous Kandis Guillen MD losartan (Cozaar) tablet 50 mg 50 mg oral Daily Jermaine Rey MD 50 mg at 06/18/24 0940 Oxygen Therapy inhalation Continuous Jermaine Rey MD Oxygen Off at 06/17/24 2315 pantoprazole (ProtoNix) EC tablet 40 mg 40 mg oral Daily Jermaine Rey MD 40 mg at 06/18/24 0534 sodium chloride flush 10 mL 10 mL intravenous q8h PRN Jermaine Rey MD spironolactone (Aldactone) tablet 25 mg 25 mg oral Daily Kandis Guillen MD Last Recorded Vitals Patient Vitals for the past 24 hrs: BP Temp Temp src Pulse Resp SpO2 Height Weight 06/18/24 0940 124/84 -- -- 72 -- -- -- -- 06/18/24 0800 -- 36.2 ???C (97.2 ???F) Temporal -- -- -- -- -- 06/18/24 0400 123/67 36.2 ???C (97.2 ???F) Temporal 75 24 100 % -- -- 06/18/24 0028 -- -- -- -- -- -- 1.676 m (5' 6 ) (!) 150 kg (330 lb 11 oz) 06/18/24 0000 113/63 36.2 ???C (97.2 ???F) Temporal 73 24 97 % -- -- 06/17/24 2240 -- -- -- -- -- -- 1.676 m (5' 6 ) (!) 150 kg (331 lb 8 oz) 06/17/24 2230 105/76 36.2 ???C (97.2 ???F) Temporal 78 17 97 % -- -- Physical Examination: GENERAL: AOx3, in no acute distress. Obese HEAD: Atraumatic, normocephalic. EYES: NARAYAN, EOMI. NECK: No JVD present. CARDIAC: RRR. No murmur, rubs, or gallops. RESPIRATORY: CTAB, no increased effort of breathing. ABDOMEN: Soft, nontender, nondistended. EXTREMITIES: No lower extremity edema, (more content not included)... Normal [facility] LIPID PANELon 06-18-2024 CHOL/HDL 3.8 mg/dL Normal [facility] Comment on above: Performed By: #### L [id number] #### [facility] ([facility]) [address] [place] [address] Cholesterol [Mass/Vol] 120 mg/dL Normal 120-200 [facility] Comment on above: Performed By: #### L [id number] #### [facility] ([facility]) [address] [place] [address] Magnesium [Mass/Vol] 49 mg/dL Normal 40-149 [facility] Comment on above: Result Comment: TRIG LYCERIDE REFERENCE RANGE: 20 YEARS AND OLDER CARDIOVASCULAR RISK LESS THAN 150 mg/dL LOW RISK 150 TO 199 mg/dL BORDERLINE RISK 200 mg/dL AND GREATER HIGH RISK Performed By: #### L [id number] #### [facility] ([facility]) [address] [place] [address] Magnesium [Mass/Vol] 78 mg/dL Normal 0-160 [facility] Comment on above: Performed By: #### L [id number] #### [facility] ([facility]) [address] [place] [address] Magnesium [Mass/Vol] 32 mg/dL Normal 23-92 [facility] Comment on above: Performed By: #### L [id number] #### [facility] ([facility]) [address] [place] [address] NON HDL CHOL. (LDL+VLDL) 88 Normal [facility] Comment on above: Performed By: #### L [id number] #### [facility] ([facility]) [address] [place] [address] TOTAL VLDL-C 10 mg/dL Normal 0-40 [facility] Comment on above: Performed By: #### L [id number] #### [facility] ([facility]) [address] [place] [address] PLATELET COUNTon 06-18-2024 PLATELETS (10*3/UL) IN BLOOD AUTOMATED COUNT 267 10*3/uL Normal 150-400 [facility] Comment on above: Performed By: #### L [id number] ####[facility] ([facility])[address] [place] [address] TROPONIN Ion 06-18-2024 Troponin I.cardiac [Mass/Vol] 0.10 ng/mL High 0.00-0.04 [facility] Comment on above: Performed By: #### L [id number] #### [facility] ([facility]) [address] [place] [address] APTTon 06-17-2024 ACTIVATED PARTIAL THROMBOPLASTIN TIME IN PPP BY COAGULATION ASSAY 30.6 Seconds Normal 25.0-35.0 [facility] Comment on above: Result Comment: Clin ical significance of the APTT is questionable in the presence of heparin. Performed By: #### L [id number] #### [facility] ([facility]) [address] [place] [address] CBC WITH AUTO DIFFERENTIALon 06-17-2024 Basophils (Bld) [#/Vol] 0.07 10*3/uL Normal 0.00-0.20 [facility] Comment on above: Performed By: #### L [id number] #### [facility] ([facility]) [address] [place] [address] Basophils/100 WBC (Bld) 0.7 % Normal 0.0-1.0 [facility] Comment on above: Performed By: #### L [id number] #### [facility] ([facility]) [address] [place] [address] Eosinophils (Bld) [#/Vol] 0.30 10*3/uL Normal 0.00-0.50 [facility] Comment on above: Performed By: #### L [id number] #### [facility] ([facility]) [address] [place] [address] Eosinophils/100 WBC (Bld) 2.9 % Normal 0.0-6.0 [facility] Comment on above: Performed By: #### L [id number] #### [facility] ([facility]) [address] [place] [address] Erythrocyte distribution width (RBC) [Ratio] 13.6 % Normal 11.5-15.0 [facility] Comment on above: Performed By: #### L [id number] #### [facility] ([facility]) [address] [place] [address] ERYTHROCYTE MEAN CORPUSCULAR HEMOGLOBIN CONCENTRATION (G/DL) BY AUTOMATED 31.4 g/dL Low 32.0-35.0 [facility] Comment on above: Performed By: #### L [id number] #### [facility] ([facility]) [address] [place] [address] Hematocrit (Bld) [Volume fraction] 45.9 % Normal 39.0-55.0 [facility] Comment on above: Performed By: #### L [id number] #### [facility] ([facility]) [address] [place] [id number] Hemoglobin (Bld) [Mass/Vol] 14.4 g/dL Normal 13.0-17.0 [facility] Comment on above: Performed By: #### L [id number] #### [facility] ([facility]) [address] [place] [address] Immature granulocytes (Bld) [#/Vol] 0.03 10*3/uL Normal 0.00-0.20 [facility] Comment on above: Performed By: #### L [id number] #### [facility] ([facility]AK[facility]) [address] [place] [address] Immature granulocytes/100 WBC (Bld) 0.3 % Normal 0.0-1.0 [facility] Comment on above: Performed By: #### L [id number] #### [facility] ([facility]) [address] [place] [address] Lymphocytes (Bld) [#/Vol] 1.64 10*3/uL Normal 1.20-4.00 [facility] Comment on above: Performed By: #### L [id number] #### [facility] ([facility]) [address] [place] [address] Lymphocytes/100 WBC (Bld) 16.0 % Low 20.0-45.0 [facility] Comment on above: Performed By: #### L [id number] #### [facility] ([facility]) [address] [place] [address] MCH (RBC) [Entitic mass] 31.2 pg Normal 27.0-33.0 [facility] Comment on above: Performed By: #### L [id number] #### [facility] ([facility]) [address] [place] [address] MCV (RBC) [Entitic vol] 99.6 fL High 82.0-98.0 [facility] Comment on above: Performed By: #### L [id number] #### [facility] ([facility]) [address] [place] [address] Monocytes (Bld) [#/Vol] 0.70 10*3/uL Normal 0.10-1.00 [facility] Comment on above: Performed By: #### L [id number] #### [facility] ([facility]) [address] [place] [address] Monocytes/100 WBC (Bld) 6.8 % Normal 5.0-12.0 [facility] Comment on above: Performed By: #### L [id number] #### [facility] ([facility]AK[facility]) [address] [place] [address] Neutrophils (Bld) [#/Vol] 7.49 10*3/uL Normal 1.60-7.60 [facility] Comment on above: Performed By: #### L [id number] #### [facility] ([facility]) [address] [place] [address] Neutrophils/100 WBC (Bld) 73.3 % High 40.0-72.0 [facility] Comment on above: Performed By: #### L [id number] #### [facility] ([facility]) [address] [place] [address] NRBC (PER 100 WBCS) BY AUTOMATED COUNT 0.0 % Normal 0 [facility] Comment on above: Performed By: #### L [id number] #### [facility] ([facility]) [address] [place] [address] PLATELETS (10*3/UL) IN BLOOD AUTOMATED COUNT 288 10*3/uL Normal 150-400 [facility] Comment on above: Performed By: #### L [id number] #### [facility] ([facility]) [address] [place] [address] RBC (Bld) [#/Vol] 4.61 10*6/uL Normal 4.20-5.70 [facility] Comment on above: Performed By: #### L [id number] #### [facility] ([facility]) [address] [address] WBC (Bld) [#/Vol] 10.23 10*3/uL Normal 4.00-10.60 [facility] Comment on above: Performed By: #### L [id number] #### [facility] ([facility]) [address] [place] [address] COMPREHENSIVE METABOLIC PANE Damaso 06-17-2024 Albumin [Mass/Vol] 3.6 g/dL Normal 3.5-5.7 [facility] Comment on above: Performed By: #### L [id number] ####[facility] ([facility])[address] [place] [address] ALP [Catalytic activity/Vol] 42 U/L Normal 34-104 [facility] Comment on above: Performed By: #### L [id number] ####[facility] ([facility])[address] [place] [address] ALT [Catalytic activity/Vol] 16 U/L Normal 7-52 [facility] Comment on above: Performed By: #### L [id number] ####[facility] ([facility])[address] [place] [address] Anion gap [Moles/Vol] 9 mmol/L Normal 7-20 [facility] Comment on above: Performed By: #### L [id number] ####[facility] ([facility])[address] [place] [address] AST [Catalytic activity/Vol] 20 U/L Normal 13-39 [facility] Comment on above: Performed By: #### L [id number] ####[facility] ([facility])[address] [place] [address] Bilirubin [Mass/Vol] 0.5 mg/dL Normal 0.3-1.0 [facility] Comment on above: Performed By: #### L [id number] ####[facility] ([facility])[address] [place] [address] Calcium [Mass/Vol] 9.0 mg/dL Normal 8.6-10.3 [facility] Comment on above: Performed By: #### L [id number] ####[facility] ([facility])[address] [place] [address] Chloride [Moles/Vol] 99 mmol/L Normal 98-107 [facility] Comment on above: Performed By: #### L [id number] ####[facility] ([facility])[address] [place] [address] CO2 [Moles/Vol] 36 mmol/L High 21-31 [facility] Comment on above: Performed By: #### L [id number] ####[facility] ([facility])[address] [place] [address] Creatinine [Mass/Vol] 1.17 mg/dL Normal 0.70-1.30 [facility] Comment on above: Performed By: #### L [id number] ####[facility] ([facility])[address] [place] [address] GLOMERULAR FILTRATION RATE ML/MIN/1.73 SQ M.PREDICTED 71.4 mL/min/1.73m*2 Normal >60.0 [facility] Comment on above: Result Comment: The [facility]???s estimated glomerular filtration rate (eGFR) will no longer include consideration of race in its calculation. The National Kid[employer] Foundation???s eGFR Task Force developed new recommendations for the estimation of the glomerular filtration rate in the [place] They recommend immediate implementation of the new equation refit without the race variable in all laboratories because the calculation does not include race. In addition to not including race in the calculation and reporting, it included diversity in its development, and has acceptable performance characteristics and potential consequences that do not disproportionately affect any one group of individuals. Performed By: #### L [id number] ####[facility] ([facility])[address] [place] [address] Glucose [Mass/Vol] 90 mg/dL Normal 70-100 [facility] Comment on above: Performed By: #### L [id number] ####[facility] (AKER)[address] [place] [address] Potassium [Moles/Vol] 3.6 mmol/L Normal 3.5-5.1 [facility] Comment on above: Performed By: #### L [id number] ####[facility] (BEAKER)[address] [place] [address] Protein [Mass/Vol] 6.8 g/dL Normal 6.0-8.3 [facility] Comment on above: Performed By: #### L [id number] ####[facility] (BEAKER)[address] [place] [address] Sodium [Moles/Vol] 140 mmol/L Normal 136-145 [facility] Comment on above: Performed By: #### L [id number] ####[facility] ([facility]AKER)[address] [place] [address] Urea nitrogen [Mass/Vol] 14 mg/dL Normal 7-25 [facility] Comment on above: Performed By: #### L [id number] ####[facility] ([facility])[address] [place] [address] UREA NITROGEN/CREATININE (MASS RATIO) IN SER/PLAS 12.0 Normal [facility] Comment on above: Performed By: #### L [id number] ####[facility] ([facility])[address] [facility] [facility] [place] [place] [address] MAGNESIUMon 06-17-2024 Magnesium [Mass/Vol] 1.9 mg/dL Normal 1.9-2.7 [facility] Comment on above: Performed By: #### L [id number] ####[facility] ([facility])[address] [place] [address] PHOSPHORUSon 06-17-2024 Magnesium [Mass/Vol] 2.7 mg/dL Normal 2.5-5.0 [facility] Comment on above: Performed By: #### L [id number] ####[facility] ([facility])[address] [place] [address] PROTIME-INRon 06-17-2024 INR IN PPP BY COAGULATION ASSAY 1.39 High 0.90-1.10 [facility] Comment on above: Result Comment: [facility] P RECOMMENDED INR FOR WARFARIN THERAPY CONDITION INR PROPHYLAXIS OF VENOUS THROMBOSIS 2-3 (HIGH-RISK SURGERY) TREATMENT OF VENOUS THROMBOSIS 2-3 TREATMENT OF PULMONARY EMBOLISM 2-3 PREVENTION OF SYSTEMIC EMBOLISM: 2-3 ACUTE MYOCARDIAL INFARCTION TISSUE HEART VALVES VALVULAR HEART DISEASE ATRIAL FIBRILLATION RECURRENT SYSTEMIC EMBOLISM MECHANICAL HEART VALVE 2.5-3.5 FROM: ORAL ANTICOAGULANTS. MECHANISM OF ACTION, CLINICAL EFFECTIVENESS, AND OPTIMAL THERAPEUTIC RANGE. CHEST 1995;108:231S-246S. Performed By: #### L [id number] ####[facility] (BEAKER)[address] [place] [address] PROTHROMBIN TIME (PT) IN PPP BY COAGULATION ASSAY 17.0 Seconds High 12.3-14.8 [facility] Comment on above: Performed By: #### L [id number] ####[facility] ([facility]AKER)[address] [place] [address] Damaso 12-23-2023 L Specimen: [id number] Received: 12/23/23 Status: ANTONINO Galan Num: [id number] Spec Type: Surgical Subm Dr: Alix Milligan MD Tissues: A GASTRIC FOR HP (GASTRIC BX R/O H.PYLORI) B Esophagus Biopsy (ESOPHAGUS BX R/ BARRETTS) C Colon Biopsy (CECUM POLYP) D Colon Biopsy (ASCENDING POLYP X2) E Colon Biopsy (HEPATIC FLEXURE) F Colon Biopsy (LIPOMA BX SIGMOID) G Colon Biopsy (POLYP RECTAL X2) Procedures: HE/14, Gross/Micro L4/7, H PYLORI Age/ Patient Sex Location Account Attending Physician Idris Dodd 58/M [id number] Alix Milligan MD SPEC NUM: [id number] RECD: 12/23/23 STATUS: ANTONINO GALAN NUM: [id number] LAMINE: 12/23/23- SUBM DR: Alix Milligan MD ENTERED: 12/23/23 [facility] DR: SPEC TYPE: Surgical DEPT: S ORDERED: HE/14, Gross/Micro L4/7, H PYLORI ORDERED: HE/14, Gross/Micro L4/7, H PYLORI Pathological Diagnosis A. Stomach, Biopsy: Reactive/ Chemical Gastropathy. - H. Pylori Immunostain Is Negative For H. Pylori Organisms. B. Esophagus, biopsy: Reflux type changes. Negative for intestinal metaplasia. C. Polyp, cecum, biopsy: Tubular Adenoma. - Negative For High Grade Dysplasia And Malignancy. D. Polyp, ascending colon, biopsy: Tubular Adenoma. - Negative For High Grade Dysplasia And Malignancy. E. Polyp, colon at hepatic flexure, biopsy: Tubular Adenoma. - Negative For High Grade Dysplasia And Malignancy. F. Lipoma, sigmoid colon, biopsy: Superficial fragments of unremarkable colon mucosa. G. Polyps, rectum, biopsy: Hyperplastic polyps. ---- Specimen: [id number] Received: 12/23/23 Status: ANTONINO Galan Num: [id number] Spec Type: Surgical Subm Dr: Alix Milligan MD Tissues: A GASTRIC FOR HP (GASTRIC BX R/O H.PYLORI) B Esophagus Biopsy (ESOPHAGUS BX R/ BARRETTS) C Colon Biopsy (CECUM POLYP) D Colon Biopsy (ASCENDING POLYP X2) E Colon Biopsy (HEPATIC FLEXURE) F Colon Biopsy (LIPOMA BX SIGMOID) G Colon Biopsy (POLYP RECTAL X2) Procedures: HE/14, Gross/Micro L4/7, H PYLORI ---- Patient: Idris Dodd JR [id number] (Continued) ---- Specimen: [id number] Received: 12/23/23 (Continued) Signed (signature on file) Marcy Ruiz MD 12/26/23 2268 ---- Specimen: [id number] Received: 12/23/23 Status: ANTONINO Galan Num: [id number] Spec Type: Surgical Subm Dr: Alix Milligan MD Tissues: A GASTRIC FOR HP (GASTRIC BX R/O H.PYLORI) B Esophagus Biopsy (ESOPHAGUS BX R/ BARRETTS) C Colon Biopsy (CECUM POLYP) D Colon Biopsy (ASCENDING POLYP X2) E Colon Biopsy (HEPATIC FLEXURE) F Colon Biopsy (LIPOMA BX SIGMOID) G Colon Biopsy (POLYP RECTAL X2) Procedures: , Gross/Micro L4/7, H PYLORI ---- Patient: Idris Dodd JR [id number] (Continued) ---- Specimen: [id number] Received: 12/23/23 (Continued) Clinical Information R/o h. pylori and r/o barretts. Gross Description Received are 7 formalin filled containers each labeled with the patient's name, date of and specific specimen site. A. Further labeled gastric are 2 alexandra mucosal tissue fragments measuring 0.3 x 0.2 x 0.1 cm and 0.1 x 0.1 x 0.1 cm, entirely submitted in A1. B. Further labeled esophagus is a 0.2 x 0.2 x 0.1 cm alexandra mucosal tissue fragment, entirely submitted in B1. C.? Further labeled cecum polyp are 3 alexandra polypoid tissue fragments ranging from 0.3 x 0.2 x 0.1 cm to 0.2 x 0.1 x 0.1 cm, entirely submitted in C1. D.? Further labeled ascending polyp are 3 alexandra polypoid tissue fragments ranging from 0.3 x 0.3 x 0.1 cm to 0.2 x 0.1 x 0.1 cm, entirely submitted in D1. E. Further labeled hepatic flexure polyp are 2 alexandra polypoid tissue fragments measuring 0.3 x 0.2 x 0.1 cm to 0.2 x 0.2 x 0.1 cm, entirely submitted in E1. F. Further labeled sigmoid lipoma bx are 2 alexandra mucosal tissue fragments measuring 0.4 x 0.3 x 0.1 cm and 0.3 x 0.2 x 0.1 cm, entirely submitted in F1. G. Further labeled rectal polyp x2 are 2 alexandra polypoid tissue fragments measuring 0.5 x 0.3 x 0.2 cm to 0.4 x 0.3 x 0.2 cm, entirely submitted in G1. [facility] Codes [id number] ---- ---- Specimen: [id number] Received: 12/23/23 Status: ANTONINO Galan Num: [id number] Spec Type: Surgi (more content not included)... Normal [facility] CBC AUTO DIFFon 11-25-2021 BASO # 0.1 103/ul Normal 0.0-0.1 [facility] Comment on above: Performed By: #### C BC #### [facility] [address] [place] [address] Dr. Nate Trotter Basophils/100 WBC (Bld) 0.5 % Normal 0.2-2.0 [facility] Comment on above: Performed By: #### C BC #### [facility] [address] [place] [address] Dr. Nate Trotter EO # 0.2 103/ul Normal 0.0-0.7 [facility] Comment on above: Performed By: #### C BC #### [facility] [address] [place] [address] Dr. Nate Trotter Eosinophils/100 WBC (Bld) 1.5 % Normal 0.9-7.0 [facility] Comment on above: Performed By: #### C BC #### [facility] [address] [place] [address] Dr. Nate Trotter Erythrocyte distribution width (RBC) [Ratio] 13.3 % Normal 11.0-15.0 [facility] Comment on above: Performed By: #### C BC #### [facility] [address] [place] [address] Dr. Nate Trotter Hematocrit (Bld) [Volume fraction] 48.7 % Normal 42.0-54.0 [facility] Comment on above: Performed By: #### C BC #### [facility] [address] [place] [address] Dr. Nate Trotter Hemoglobin (Bld) [Mass/Vol] 16.0 g/dL Normal 14.0-18.0 [facility] Comment on above: Performed By: #### C BC #### [facility] [address] [place] [address] Dr. Nate Trotter IG # 0.05 10e3/ul Critically high 0.00-0.03 [place] Comment on above: Performed By: #### C BC #### [facility] [address] [address] [address] Nate Trotter IG % 0.5 % Normal 0.0-0.5 [facility] Comment on above: Performed By: #### C BC #### [facility] [address] [place] [address] Dr. Nate Trotter LYMPH # 1.8 103/ul Normal 1.2-3.8 [facility] Comment on above: Performed By: #### C BC #### [facility] [address] [place] [address] Dr. Nate Trotter Lymphocytes/100 WBC (Bld) 19.0 % Critically low 20.5-60.0 [facility] Comment on above: Performed By: #### C BC #### [facility] [address] [place] [address] Dr. Nate Trotter MANUAL DIFF REQ NO Normal [facility] Comment on above: Performed By: #### C BC #### [facility] [address] [place] [address] Dr. Nate Trotter MCH (RBC) [Entitic mass] 30.9 pg Normal 25.9-34.0 [facility] Comment on above: Performed By: #### C BC #### [facility] [address] [place] [address] Dr. Nate Trotter MCHC (RBC) [Mass/Vol] 32.9 g/dL Normal 29.9-35.2 [facility] Comment on above: Performed By: #### C BC #### [facility] [address] [place] [address] Dr. Nate Trotter MCV (RBC) [Entitic vol] 94.0 fL Normal 80.0-94.0 [facility] Comment on above: Performed By: #### C BC #### [facility] [address] [place] [address] Dr. Nate Trotetr MONO # 0.7 103/ul Normal 0.3-0.8 [facility] Comment on above: Performed By: #### C BC #### [facility] [address] [address] [address] Nate Trotter Monocytes/100 WBC (Bld) 7.2 % Normal 1.7-12.0 [facility] Comment on above: Performed By: #### C BC #### [facility] [address] [address] [address] Nate Trotter NEUT # 6.9 103/ul Critically high 1.4-6.5 [facility] Comment on above: Performed By: #### C BC #### [facility] [address] [address] [address] Nate Trotter Neutrophils/100 WBC (Bld) 71.3 % Normal 43.0-75.0 [facility] Comment on above: Performed By: #### C BC #### [facility] [address] [place] [address] Dr. Nate Trotter Platelet mean volume (Bld) [Entitic vol] 9.4 fL Critically low 9.5-13.5 [facility] Comment on above: Performed By: #### C BC #### [facility] [address] [place] [address] Dr. Nate Trotter PLT 240 103/ul Normal 150-450 [facility] Comment on above: Performed By: #### C BC #### [facility] [address] [place] [address] Dr. Nate Trotter RBC 5.18 106/ul Normal 4.70-6.10 [facility] Comment on above: Performed By: #### C BC #### [facility] [address] [place] [address] Dr. Nate Trotter WBC 9.7 103/ul Normal 4.0-11.0 [facility] Comment on above: Performed By: #### C BC #### [facility] [address] [place], [place] [id number] Dr. Nate Trotter GLYCOHEMOGLOBIN A1Con 2021 ADA RECOMMENDATION SEE BELOW Normal [facility] Comment on above: Result Comment: ADA RECOMMENDED LIMIT 4.0 - 6.0 ADA THERAPEUTIC TARGET < 7.0 ACTION SUGGESTED > 7.0 Performed By: #### A 1C #### [facility] [address] [address] [address] Nate Trotter Glucose [Mass/Vol] 111 mg/dL Normal [facility] Comment on above: Performed By: #### A 1C #### [facility] [address] [address] [address] Nate Trotter HbA1c (Bld) [Mass fraction] 5.5 % Normal 4.5-6.2 [facility] Comment on above: Performed By: #### A 1C #### [facility] [address] [address] [address] Nate Trotter LIPID PROFILEon 11-25-2021 CHOL-HDL RATIO NORM SEE BELOW Normal [facility] Comment on above: Result Comment: 3.3 - 4.4 LOW RISK 4.4 - 7.1 AVERAGE RISK 7.1 - 11.0 MODERATE RISK >11.0 HIGH RISK Performed By: #### B MP, TSH, LIVER, LIPID #### [facility] [address] [address] [address] Nate Trotter Cholesterol [Mass/Vol] 116 mg/dL Normal <=200 [facility] Comment on above: Performed By: #### B MP, TSH, LIVER, LIPID #### [facility] [address] [place] [address] Dr. Nate Trotter Cholesterol in HDL [Mass/Vol] 42 mg/dL Normal 40-60 [facility] Comment on above: Performed By: #### B MP, TSH, LIVER, LIPID #### [facility] [address] [address] [address] Nate Trotter Cholesterol in LDL [Mass/Vol] 53.6 mg/dL Normal [facility] Comment on above: Performed By: #### B MP, TSH, LIVER, LIPID #### [facility] [address] [address] [address] Nate Trotter Cholesterol.total/Ch olesterol in HDL [Mass ratio] 2.8 {ratio} Normal [facility] Comment on above: Performed By: #### B MP, TSH, LIVER, LIPID #### [facility] [address] [address] [address] Nate Trotter HDL NORMAL > or = 60 mg/dl - LO W CARDIOVASCULAR RISK <40 mg/dl - HIGH CARDIOVASCULAR RISK Normal [facility] Comment on above: Performed By: #### B MP, TSH, LIVER, LIPID #### [facility] [address] [address] [address] Nate Trotter LDL CALC NORMAL SEE BELOW Normal [facility] Comment on above: Result Comment: <100 mg/dl OPTIMAL 100 - 129 mg/dl NEAR OR ABOVE OPTIMAL 130 - 159 mg/dl BORDERLINE HIGH 160 - 189 mg/dl HIGH >190 mg/dl VERY HIGH Performed By: #### B MP, TSH, LIVER, LIPID #### [facility] [address] [address] [address] Nate Trotter Triglyceride [Mass/Vol] 102 mg/dL Normal <=150 [facility] Comment on above: Performed By: #### B MP, TSH, LIVER, LIPID #### [facility] [address] [address] [address] Nate Trotter VLDL CALC 20.4 mg/dL Normal [facility] Comment on above: Performed By: #### B MP, TSH, LIVER, LIPID #### [facility] [address] [place] [address] Dr. Nate Trotter LIVER PROFILEon 11-25-2021 Albumin [Mass/Vol] 3.2 g/dL Critically low 3.4-5.0 [facility] Comment on above: Performed By: #### B MP, TSH, LIVER, LIPID #### [facility] [address] [place] [address] Dr. Nate Trotter Albumin/Globulin [Mass ratio] 0.8 {ratio} Normal [facility] Comment on above: Performed By: #### B MP, TSH, LIVER, LIPID #### [facility] [address] [place] [address] Dr. Nate Trotter ALP [Catalytic activity/Vol] 54 U/L Normal 46-116 [facility] Comment on above: Performed By: #### B MP, TSH, LIVER, LIPID #### [facility] [address] [place] [address] Dr. Nate Trotter ALT [Catalytic activity/Vol] 33 U/L Normal 16-63 [facility] Comment on above: Performed By: #### B MP, TSH, LIVER, LIPID #### [facility] [address] [place] [address] Dr. Nate Trotter AST [Catalytic activity/Vol] 24 U/L Normal 15-37 [facility] Comment on above: Performed By: #### B MP, TSH, LIVER, LIPID #### [facility] [address] [place] [address] Dr. Nate Trotter BILI, CONJUGATED 0.1 mg/dL Normal 0.0-0.2 [facility] Comment on above: Performed By: #### B MP, TSH, LIVER, LIPID #### [facility] [address] [place] [address] Dr. Nate Trotter Bilirubin [Mass/Vol] 0.3 mg/dL Normal 0.2-1.0 [facility] Comment on above: Performed By: #### B MP, TSH, LIVER, LIPID #### [facility] [address] [place] [address] Dr. Nate Trotter Globulin (S) [Mass/Vol] 4.2 g/dL Normal [facility] Comment on above: Performed By: #### B MP, TSH, LIVER, LIPID #### [facility] [address] [place] [address] Dr. Nate Trotter Protein [Mass/Vol] 7.4 g/dL Normal 6.4-8.2 [facility] Comment on above: Performed By: #### B MP, TSH, LIVER, LIPID #### [facility] [address] [place] [address] Dr. Nate Trotter PROF CHEM 8 (BAS METB)on Anion gap [Moles/Vol] 9.3 mmol/L Normal [facility] Comment on above: Performed By: #### B MP, TSH, LIVER, LIPID #### [facility] [address] [place] [address] Dr. Nate Trotter Calcium [Mass/Vol] 9.0 mg/dL Normal 8.5-10.1 [facility] Comment on above: Performed By: #### B MP, TSH, LIVER, LIPID #### [facility] [address] [place] [address] Dr. Nate Trotter Chloride [Moles/Vol] 98 mmol/L Normal 98-107 [facility] Comment on above: Performed By: #### B MP, TSH, LIVER, LIPID #### [facility] [address] [place] [address] Dr. Nate Trotter CO2 [Moles/Vol] 32.7 mmol/L Critically high 21.0-32.0 [facility] Comment on above: Performed By: #### B MP, TSH, LIVER, LIPID #### [facility] [address] [place] [address] Dr. Nate Trotter Creatinine [Mass/Vol] 1.03 mg/dL Normal 0.70-1.30 [facility] Comment on above: Performed By: #### B MP, TSH, LIVER, LIPID #### [facility] [address] [place] [address] Dr. Nate Trotter EGFR-AF VIETNAMESE >60 Normal >=60 [facility] Comment on above: Performed By: #### B MP, TSH, LIVER, LIPID #### [facility] [address] [place] [address] Dr. Nate Trotter EGFR-NON AF VIETNAMESE >60 Normal >=60 [facility] Comment on above: Performed By: #### B MP, TSH, LIVER, LIPID #### [facility] [address] [place] [address] Dr. Nate Trotter Glucose [Mass/Vol] 110 mg/dL Critically high 74-106 [facility] Comment on above: Performed By: #### B MP, TSH, LIVER, LIPID #### [facility] [address] [place] [address] Dr. Nate Trotter Potassium [Moles/Vol] 4.0 mmol/L Normal 3.5-5.1 [facility] Comment on above: Performed By: #### B MP, TSH, LIVER, LIPID #### [facility] [address] [address] [address] Nate Trotter Sodium [Moles/Vol] 136 mmol/L Normal 136-145 [facility] Comment on above: Performed By: #### B MP, TSH, LIVER, LIPID #### [facility] [address] [address] [address] Nate Trotter Urea nitrogen [Mass/Vol] 14.0 mg/dL Normal 7.0-18.0 [facility] Comment on above: Performed By: #### B MP, TSH, LIVER, LIPID #### [facility] [address] [address] [address] Nate Trotter Urea nitrogen/Creatinine [Mass ratio] 13.6 mg/mg Normal [facility] Comment on above: Performed By: #### B MP, TSH, LIVER, LIPID #### [facility] [address] [address] [address] Nate Trotter TSHon 11-25-2021 TSH 1.323 uIU/mL Normal 0.358-3.740 [facility] Comment on above: Performed By: #### B MP, TSH, LIVER, LIPID #### [facility] [address] CERVICAL SPINE WO CONTRAS Ton 04-21-2020 CT CERVICAL SPINE WO CONTRAST EXAMINATION: CT OF THE CERVICAL SPINE WITHOUT CONTRAST 04/21/2020 6:52 pm TECHNIQUE: CT of the cervical spine was performed without the administration of intravenous contrast. Multiplanar reformatted images are provided for review. Dose modulation, iterative reconstruction, and/or weight based adjustment of the mA/kV was utilized to reduce the radiation dose to as low as reasonably achievable. COMPARISON: None. HISTORY: ORDERING SYSTEM PROVIDED HISTORY: fall head injury, neck pain TECHNOLOGIST PROVIDED HISTORY: fall head injury, neck pain Reason for Exam: fall of 18' check for injuries, lac to top of head Acuity: Unknown Type of Exam: Unknown FINDINGS: BONES/ALIGNMENT: There is no acute fracture or traumatic malalignment. Cervical vertebral body heights and alignment are normal. Facet joints are normally aligned. DEGENERATIVE CHANGES: Degenerative disc disease particularly at C5-C6 and C6-C7. Images obtained through these levels are degraded by beam hardening artifact related to the large size of the patient/shoulders. SOFT TISSUES: There is no prevertebral soft tissue swelling. IMPRESSION: No acute fracture or traumatic malalignment. Degenerative disc disease at C5-C6 and C6-C7 not well assessed due to beam hardening artifact. Interpreted by: Yuri Bautista MD Signed by: Yuri Bautista MD 04/21/20 Final result Normal [facility] No acute fracture or traumatic malalignment. Degenerative disc disease at C5-C6 and C6-C7 not well assessed due to beam hardening artifact. [facility] CT EXAMINATION: CT OF T HE CERVICAL SPINE WITHOUT CONTRAST 04/21/2020 6:52 pm TECHNIQUE: CT of the cervical spine was performed without the administration of intravenous contrast. Multiplanar reformatted images are provided for review. Dose modulation, iterative reconstruction, and/or weight based adjustment of the mA/kV was utilized to reduce the radiation dose to as low as reasonably achievable. COMPARISON: None. HISTORY: ORDERING SYSTEM PROVIDED HISTORY: fall head injury, neck pain TECHNOLOGIST PROVIDED HISTORY: fall head injury, neck pain Reason for Exam: fall of 18' check for injuries, lac to top of head Acuity: Unknown Type of Exam: Unknown FINDINGS: BONES/ALIGNMENT: There is no acute fracture or traumatic malalignment. Cervical vertebral body heights and alignment are normal. Facet joints are normally aligned. DEGENERATIVE CHANGES: Degenerative disc disease particularly at C5-C6 and C6-C7. Images obtained through these levels are degraded by beam hardening artifact related to the large size of the patient/shoulders. SOFT TISSUES: There is no prevertebral soft tissue swelling. [place], [place] Ryan, Mhpn Incoming Radiant Results From [employer] - 04/21/2020 7:26 PM EST EXAMINATION: CT OF THE CERVICAL SPINE WITHOUT CONTRAST 04/21/2020 6:52 pm TECHNIQUE: CT of the cervical spine was performed without the administration of intravenous contrast. Multiplanar reformatted images are provided for review. Dose modulation, iterative reconstruction, and/or weight based adjustment of the mA/kV was utilized to reduce the radiation dose to as low as reasonably achievable. COMPARISON: None. HISTORY: ORDERING SYSTEM PROVIDED HISTORY: fall head injury, neck pain TECHNOLOGIST PROVIDED HISTORY: fall head injury, neck pain Reason for Exam: fall of 18' check for injuries, lac to top of head Acuity: Unknown Type of Exam: Unknown FINDINGS: BONES/ALIGNMENT: There is no acute fracture or traumatic malalignment. Cervical vertebral body heights and alignment are normal. Facet joints are normally aligned. DEGENERATIVE CHANGES: Degenerative disc disease particularly at C5-C6 and C6-C7. Images obtained through these levels are degraded by beam hardening artifact related to the large size of the patient/shoulders. SOFT TISSUES: There is no prevertebral soft tissue swelling. IMPRESSION: No acute fracture or traumatic malalignment. Degenerative disc disease at C5-C6 and C6-C7 not well assessed due to beam hardening artifact. [place], [place] CT HEAD WO CONTRASTon 2019 CT HEAD WO CONTRAST EXAMINATION: CT OF THE HEAD WITHOUT CONTRAST 04/21/2020 6:52 pm TECHNIQUE: CT of the head was performed without the administration of intravenous contrast. Dose modulation, iterative reconstruction, and/or weight based adjustment of the mA/kV was utilized to reduce the radiation dose to as low as reasonably achievable. COMPARISON: None. HISTORY: ORDERING SYSTEM PROVIDED HISTORY: fall 16, head injury TECHNOLOGIST PROVIDED HISTORY: fall 16, head injury Reason for Exam: fall of check for injuries, lac to top of head Acuity: Unknown Type of Exam: Unknown FINDINGS: BRAIN/VENTRICLES: There is no acute intracranial hemorrhage, mass effect or midline shift. No abnormal extra-axial fluid collection. The hadley-white differentiation is maintained without evidence of an acute infarct. There is no evidence of hydrocephalus. ORBITS: The visualized portion of the orbits demonstrate no acute abnormality. SINUSES: Fluid in left maxillary sinus. SOFT TISSUES/SKULL: No acute abnormality of the visualized skull or soft tissues. IMPRESSION: No acute intracranial abnormality. Fluid in left maxillary sinus. Correlate for signs of infection Interpreted by: Neeraj Cash MD Signed by: Neeraj Cash MD 04/21/20 Final result Normal [facility] No acute intracrania l abnormality. Fluid in left maxillary sinus. Correlate for signs of infection [place], [place] EXAMINATION: CT OF T HE HEAD WITHOUT CONTRAST 04/21/2020 6:52 pm TECHNIQUE: CT of the head was performed without the administration of intravenous contrast. Dose modulation, iterative reconstruction, and/or weight based adjustment of the mA/kV was utilized to reduce the radiation dose to as low as reasonably achievable. COMPARISON: None. HISTORY: ORDERING SYSTEM PROVIDED HISTORY: fall 18', head injury TECHNOLOGIST PROVIDED HISTORY: fall 18', head injury Reason for Exam: fall of 18' check for injuries, lac to top of head Acuity: Unknown Type of Exam: Unknown FINDINGS: BRAIN/VENTRICLES: There is no acute intracranial hemorrhage, mass effect or midline shift. No abnormal extra-axial fluid collection. The hadley-white differentiation is maintained without evidence of an acute infarct. There is no evidence of hydrocephalus. ORBITS: The visualized portion of the orbits demonstrate no acute abnormality. SINUSES: Fluid in left maxillary sinus. SOFT TISSUES/SKULL: No acute abnormality of the visualized skull or soft tissues. [facility] [place], Mhpn Incoming Radiant Results From [employer] - 04/21/2020 7:21 PM EST EXAMINATION: CT OF THE HEAD WITHOUT CONTRAST 04/21/2020 6:52 pm TECHNIQUE: CT of the head was performed without the administration of intravenous contrast. Dose modulation, iterative reconstruction, and/or weight based adjustment of the mA/kV was utilized to reduce the radiation dose to as low as reasonably achievable. COMPARISON: None. HISTORY: ORDERING SYSTEM PROVIDED HISTORY: fall 18', head injury TECHNOLOGIST PROVIDED HISTORY: fall 18', head injury Reason for Exam: fall of 18' check for injuries, lac to top of head Acuity: Unknown Type of Exam: Unknown FINDINGS: BRAIN/VENTRICLES: There is no acute intracranial hemorrhage, mass effect or midline shift. No abnormal extra-axial fluid collection. The hadley-white differentiation is maintained without evidence of an acute infarct. There is no evidence of hydrocephalus. ORBITS: The visualized portion of the orbits demonstrate no acute abnormality. SINUSES: Fluid in left maxillary sinus. SOFT TISSUES/SKULL: No acute abnormality of the visualized skull or soft tissues. IMPRESSION: No acute intracranial abnormality. Fluid in left maxillary sinus. Correlate for signs of infection [facility], CT Vital Signs Date Time Vital Sign Value Performing Clinician Faci lity 03-16-2024 09:40-0400 Body height 167.6 cm Benjy Garcia MD Work Phone: [facility] [employer] 03-16-2024 09:40-0400 Body mass index (BMI) [Ratio] 55.36 kg/m2 Benjy Garcia MD Work Phone: [facility] [employer] 03-16-2024 09:40-0400 Body temperature 98.01 [degF] Benjy Garcia MD Work Phone: [facility] 03-16-2024 09:40-0400 Body weight 155.58 kg Benjy Garcia MD Work Phone: [facility] 03-16-2024 09:40-0400 Diastolic blood pressure 70 mm[Hg] Benjy Garcia MD Work Phone: [facility] 03-16-2024 09:40-0400 Heart rate 84 /min Benjy Garcia MD Work Phone: [facility] 03-16-2024 09:40-0400 Respiratory rate 22 /min Benjy Garcia MD Work Phone: [facility] 03-16-2024 09:40-0400 SaO2% (BldA) [Mass fraction] 94 % Benjy Garcia MD Work Phone: [facility] 03-16-2024 09:40-0400 Systolic blood pressure 136 mm[Hg] Benjy Garcia MD Work Phone: [facility] 12-23-2023 11:26-0400 Diastolic blood pressure 64 mm[Hg] MD Benjy Garcia Work Phone: [facility] 12-23-2023 11:26-0400 Heart rate 80 /min MD Benjy Garcia Work Phone: [facility] 12-23-2023 11:26-0400 Respiratory rate 16 /min MD Benjy Garcia Work Phone: [facility] 12-23-2023 11:26-0400 SaO2% (BldA) [Mass fraction] 96 % MD Benjy Garcia Work Phone: [facility] 12-23-2023 11:26-0400 Systolic blood pressure 118 mm[Hg] MD Benjy Garcia Work Phone: [facility] 12-23-2023 09:19-0400 Body height 167.64 cm MD Benjy Garcia Work Phone: [facility] 12-23-2023 09:190400 Body weight 149.68 kg MD Benjy Garcia Work Phone: [facility] 04-21-2020 18:32-0500 BMI (Body Mass Index) 57.14 kg/m2 [facility] [place] 04-21-2020 18:32-0500 Body Temperature 98.49 [degF] Ashwin [facility], [place] 04-21-2020 18:32-0500 Body weight 160.57 kg Ashwin [facility], [place] 04-21-2020 18:32-0500 BP Diastolic 71 mm[Hg] [facility], [place] 04-21-2020 18:32-0500 BP Systolic 159 mm[Hg] [facility] [place] 04-21-2020 18:32-0500 Height 167.6 cm Ashwin [facility], [place] 04-21-2020 18:32-0500 Pulse (Heart Rate) 96 /min [facility], [place] 04-21-2020 18:32-0500 Pulse Oximetry 95 % Ashwin [facility], [place] 04-21-2020 18:32-0500 Respiratory Rate 20 /min [place], [place] Encounters Encounter Date Encounter Type Care Provider Facility Start: 06-18-2024 Evaluation and management of inpatient INGRIS [facility] Start: 06-17-2024 End: 06-22-2024 Evaluation and management of inpatient MARTINEZ [facility] Start: 06-14-2024 End: 06-14-2024 Siri Garcia MD Work Phone: [facility] Start: 06-14-2024 End: 06-14-2024 Siri Garcia MD Work Phone: [facility] Start: 03-29-2024 End: 03-29-2024 Refill Benjy Garcia MD Work Phone: [facility] Comment on above: Primary osteoarthrit is of both knees Start: 03-16-2024 End: 03-16-2024 Bamboo flowsheet Benjy Garcia MD Work Phone: [facility] Start: 03-16-2024 End: 03-16-2024 Bamboo flowsheet Benjy Garcia MD Work Phone: [facility] Start: 03-16-2024 End: 03-16-2024 Patient encounter procedure Benjy Garcia MD Work Phone: [facility] Work Phone: Start: 03-16-2024 End: 03-16-2024 Periodic preventive med est patient 40-64yrs Benjy Garcia MD Work Phone: [facility] Comment on above: Annual physical exam (Primary Dx); Benign hypertension (CMS/HCC); Primary osteoarthritis of both knees Start: 03-16-2024 End: 03-16-2024 ambulatory BENJY GARCIA Not Available Start: 12-23-2023 Non-patient / Non-visit MD Cintia Garcia Work Phone: [facility] Work Phone: Start: 12-23-2023 End: 12-23-2023 Admission to same day surgery center MD Benjy Garcia Work Phone: [facility] Work Phone: Start: 12-23-2023 End: 12-23-2023 ambulatory MD Benjy Garcia Work Phone: [facility] Work Phone: Start: 11-16-2023 End: 11-16-2023 ambulatory BENJY GARCIA Not Available Start: 09-09-2023 End: 09-09-2023 ambulatory BENJY GARCIA Not Available Start: 11-27-2021 Encounter for genera l adult medical examination without abnormal findings DR BENJY GARCIA [facility] Start: 11-25-2021 End: 11-26-[address] BENJY GARCIA Facility:[facility] Start: 11-25-2021 End: 11-26-2021 Encounter for general adult medical examination without abnormal findings DR BENJY GARCIA Facility:[facility] Start: 04-21-2020 End: 04-21-2020 Emergency department patient visit ASHWIN ORLANDO [facility] Start: 04-21-2020 End: 04-21-2020 Emergency department patient visit Ashwin Meet Orlando Work Phone: [facility] Comment on above: Closed head injury, initial encounter (Primary Dx); Multiple abrasions Procedures Date Procedure Procedure Detail Performing Clinician Start: 12-23-2023 Esophagogastroduodenoscopy MD Benjy gallo Work Phone: Start: 12-23-2023 Colonoscopy Benjy Garcia MD Work Phone: Start: 11-25-[address] BENJY GARCIA Comment on above: Performed By: #### PSASC #### [facility] [address] [place] [address] Dr. Nate Trotter Start: 04-21-2020 Ct cervical spine w/o contrast material ASHWIN WICKENHEISER Start: 04-21-2020 Ct head/brain w/o contrast material ASHWIN WICKENHEISER Start: 04-21-2020 Ct cervical spine w/o contrast material Ashwin J Wickenheiser Work Phone: Start: 04-21-2020 Ct head/brain w/o contrast material Ashwin J Wickenheiser Work Phone: Plan of Treatment Date Care Activity Detail Author Start: 12-22-2033 Screening for malignant neoplasm of colon [facility] Start: 09-19-2024 End: 09-19-2024 Patient encounter procedure 09/19/2024 8:00 AM EDT [facility] [address] [place] [address] Benjy Garcia MD [address] [place] [phone] [facility] Start: 06-14-2024 End: 06-14-2024 Patient encounter procedure 06/14/2024 9:00 AM EST Office Visit [facility] [address] [place] [id number] Benjy Garcia MD [address] [place] [phone] Arrived [facility] Comment on above: Arrived Start: 03-16-2024 End: 03-16-2024 Patient encounter procedure 03/16/2024 9:30 AM EDT Office Visit [facility] [address] [place] [address] Benjy Garcia MD [address] [place] [phone] Arrived [facility] Comment on above: Arrived Start: 02-05-2024 Influenza vaccination Influenza Vacc ine (#1) [facility] Start: 12-23-[address] [facility] Start: 02-05-2020 Influenza vaccination Flu vaccine (# 1) [place], [place] Start: 08-12-2013 Screening for malignant neoplasm of colon Colon cancer screen colonoscopy [place], [place] Start: 08-12-2013 Shingles Vaccine (1 of 2) Shingles Vaccine (1 of 2) [place], [place] Start: 2003 Diabetes screen Diabetes screen [place], [place] Start: 2003 Lipid panel Lipid screen [place], [place] Start: 08-12-1982 DTaP/Tdap/Td vaccine (1 - Tdap) DTaP/Tdap/Td vaccine (1 - Tdap) [place], [place] Start: 08-12-1978 HIV screening HIV screen [place], [place] Start: 1963 Hepatitis C screening Hepatitis C sc reen [facility] [place] [place] Start: 1965 Screening for malignant neoplasm of colon [facility] Patient Education Colon polyps L ipoma Hemorrhoids (DC) Diverticulosis (DC) Gastritis (DC) Know your [facility] Work Phone: Payers Date Payer Category Payer Self-pay 2021 [facility] [employer] [id number] 2021 Unknown BCBS BCBS xxxxxx [id number] 2021-Present [phone] [place], [place] [id number] 1963 Unknown [id number] 1963 Unknown [id number] 1963 Unknown [id number] 1963 Unknown [id number] 1959 Unknown [id number] Unknown [id number] Social History Date Type Detail Facility Start: 04-21-2020 End: 09-09-2023 Tobacco smoking status NHIS Never smoker [facility] Start: 04-21-2020 End: 09-09-2023 Tobacco use and exposure Never used [place], [place] Start: 04-21-2020 Alcohol intake Current drinke r of alcohol (finding) [place], [place] Start: 04-21-2020 Alcohol Comment weekends [place] Start: 1965 Sex Assigned At Not on file M [place], [place] Exposure to SARS-CoV -2 (event) Not sure [place], [place] Start: 1965 Sex Assigned At Male F [facility] Start: 11-16-2023 End: 03-16-2024 History of Social function [facility] Start: 11-16-2023 End: 03-16-2024 Tobacco use panel [facility] Goals Date Patient Goal Desired Activity /State Clinical Notes 12-23-2023 to 06-22-2024 Benjy Garcia MD - 03/16/2024 10:09 AM EDEd Garcia MD - 03/16/2024 10:09 AM Cristiano Garcia MD - 03/16/2024 9:30 AM EDT Note Date & Type Note Facility 06-22-2024 Note Hospital Medicine Discharge Summary Final Discharge Diagnosis: Newly decompensated HFrEF (EF 20-25% at [facility]), NYHA class III Non-ischemic cardiomyopathy, 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 CAD, on cath 06/19 Paroxysmal atrial fibrillation on Eliquis [id number] HTN Morbid obesity Family history of CAD, mother had 3 stents at age 64, father has ICD/PPM [place] noncompliant to CPAP Admission Diagnosis: Heart failure (CMS/HCC) [I50.9] Hospital course: Idris Mara Dodd Jr. is an 58 y.o. male who came from [facility] for higher level of care. who presented on June 15 with complaints of shortness of breath and worsening lower extremity edema for the past week. Reported that he has been somewhat noncompliant with his home medications. He was tachycardic in the ER and found to be in atrial fibrillation with rapid ventricular response which was new onset. He converted to normal sinus rhythm after being started on a Cardizem drip. He had an echocardiogram which showed him to be in acute heart failure with an EF of 20 to 25%, diastolic dysfunction, diffuse global hypokinesis, and a trivial pericardial effusion. These were new findings. Patient was initially on a heparin drip for anticoagulation and then started on Eliquis. review of records shows that the patient has had elevated creatinine suggesting acute kidney injury. His baseline creatinine is unknown, though by discharge had normalized to .99. he had bilateral lower extremity venous Dopplers which were negative for DVT. 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 - Patient was diuresed over 13L while here and was sent home on 40mg lasix daily. - Due to soft blood pressures, spironolactone was held and coreg was changed to 12.5mg toprol. He was sent home on 24-26mg Entresto. He was asymptomatic while having low normal BP. - Will have close follow up with HF clinic - Advised to not drink alcohol - He was sent home with lifevest CAD, nonobstructive on cath 06/19 - Continue aspirin/lipitor Paroxysmal atrial fibrillation - started on eliquis 5mg twice daily. Toprol 12.5mg daily [id number] HTN Morbid obesity Family history of CAD, mother had 3 stents at age 64, father has ICD/PPM [place] noncompliant to CPAP Surgical, Invasive or Diagnostic Procedures Done During Admission: Cardiac Cath Consultations During Admission: Cardiology Dear Dr. Jose MD, Idris is advised to follow up with you within 1-2 weeks. Items to follow up in ambulatory setting: Follow-up serial BMPs Follow-up with: Cardiology and CHF clinic Scheduled appointments: Future Appointments Date Time Provider Department Center 06/28/2024 1:00 PM Marilyn Gotti MD [facility] Your medication list START taking these medications Instructions Last Dose Given Next Dose Due apixaban 5 mg tablet Commonly known as: Eliquis Take 1 tablet (5 mg) by mouth two times daily. aspirin 81 mg EC tablet Start taking on: June 23, 2024 Take 1 tablet (81 mg) by mouth in the morning. atorvastatin 40 mg tablet Commonly known as: Lipitor Take 1 tablet (40 mg) by mouth at bedtime. dapagliflozin propanediol 10 mg Commonly known as: Farxiga Start taking on: June 23, 2024 Take 1 tablet (10 mg) by mouth in the morning. furosemide 40 mg tablet Commonly known as: Lasix Take 1 tablet (40 mg) by mouth in the morning. metoprolol succinate XL 25 mg 24 hr tablet Commonly known as: Toprol-XL Start taking on: June 23, 2024 Take 0.5 tablets (12.5 mg) by mouth in the morning. Do not crush or chew. Do not start before June 23, 2024. pantoprazole 40 mg EC tablet Commonly known as: ProtoNix Take 1 tablet (40 mg) by mouth before breakfast. Do not crush, chew, or split. sacubitril-valsartan 24-26 mg tablet Commonly known as: Entresto Take 1 tablet by mouth two times daily. STOP taking these medications lisinopriL-hydrochlorothiazide 20-25 mg tablet Where to Get Your Medications These medications were sent to [facility] - [address] [place] [address] [address] [facility] [place] [address], [facility] [address] apixaban 5 mg tablet aspirin 81 mg EC tablet atorvastatin 40 mg tablet dapagliflozin propanediol 10 mg furosemide 40 mg tablet metoprolol succinate XL 25 mg 24 hr tablet pantoprazole 40 mg EC tablet sacubitril-valsartan 24-26 mg tablet Idris has No Known Allergies. Disposition: Home or Self Care () Discharge Condition: Stable Code Status: Full Code Diagnostic Results Hematology: Results from last 7 days Lab Units 06/22/24 0610 06/21/24 0613 06/18/24 1436 06/17/24 2321 WBC AUTO 10*3/uL 11.08* 8 (more content not included)... [facility] 06-22-2024 Note 2nd heart failure co nsult rec'd. Patient has already denied all [facility] svs and is not interested in further education. Consult cancelled. See note from 06/21 [facility] 06-22-2024 Note Cardiology Progress Note Subjective No acute events overnight. Patient was seen and examined today. He eagerly wants to go home.He He denies shortness of breath, and he is able to walk around. No chest pain or palpitations. Urine output: -7.9L Objective Objective: Patient Vitals for the past 24 hrs: BP Temp Temp src Pulse Resp SpO2 Weight 06/22/24 1222 91/53 -- -- 71 20 93 % -- 06/22/24 1211 (!) 85/49 36.2 ???C (97.2 ???F) Temporal 71 22 94 % -- 06/22/24 0750 115/85 36.3 ???C (97.4 ???F) Temporal 72 17 96 % -- 06/22/24 0550 110/90 -- -- 72 26 91 % -- 06/22/24 0500 -- -- -- -- -- -- (!) 161 kg (354 lb 15.1 oz) 06/22/24 0020 105/60 -- -- 69 21 95 % -- 06/21/24 2140 119/68 -- -- 72 22 99 % -- 06/21/242000 -- 36.7 ???C (98 ???F) Temporal -- -- -- -- Physical Examination: GENERAL: AOx3, in no acute distress. Obese HEAD: Atraumatic, normocephalic. EYES: NARAYAN, EOMI. NECK: No JVD present. CARDIAC: RRR. No murmur, rubs, or gallops. RESPIRATORY: decrease RADHA ABDOMEN: Soft, nontender, nondistended. EXTREMITIES: right sided lower leg swelling > left leg Relevant Lab Results Encounter Date: 06/17/24 ECG 12 lead Result Value Ventricular Rate 64 Atrial Rate 64 [place] Interval 206 QRS DURATION 110 QT Interval 444 QTC CALCULATION(BAZETT) 458 P [place] 20 R-[place] 55 T Wave [place] 81 Impression Normal sinus rhythm T wave abnormality, consider anterior ischemia Abnormal ECG When compared with ECG of 18-JUN-2024 14:06, (unconfirmed) No significant change was found Confirmed by Ld ARROYO, MONICA Redman ([id number]) on 06/18/2024 9:32:36 PM Lab Results Component Value Date TROPONINI 0.08 (H) 06/19/2024 No echocardiogram results found for the past 12 months No nuclear medicine results found for the past 12 months Relevant Imaging Results Cardiac catheterization PROCEDURE PHYSICIAN: Paul Cid MD Clinical Presentation: 58 y.o. Male with history of hypertension, DAKOTA, morbid obesity with BMI > 50. Patient was a transfer from [facility] for evaluation for coronary angiogram after he was admitted for A-fib RVR and new onset HFrEF. Echo shows EF 20 to 25%. Final Impression: 1) Right heart catheterization shows severely decompensated heart failure with mean wedge pressure of 35 mmHg and reduced cardiac index of 1.8 L/min/m??? 2) coronary angiogram shows mild CAD Plan: 1) optimize GDMT for HFrEF as tolerated including beta-toni, Entresto, Farxiga, spironolactone. 2) Right atrial and wedge pressures are severely elevated. .Increase loop diuretic diuresis 3) outpatient follow-up with [place] cardiology 4) patient has morbid obesity (BMI >50) and this will make treatment of his A-fib difficult. He also has DAKOTA and GLP-1 agonist is now approved for this indication as well. He needs significant weight loss and should be referred for GLP-1 agonist and/or bariatric surgery consultation Procedures Performed: coronary angiogram, right heart catheterization, conscious sedation 31 min, ultrasound guidance for vascular access Procedure Description: The patient was brought to the cardiac catheterization lab in a fasting state. Informed written consent was obtained. he was prepped and draped in usual sterile fashion over the right wrist and right neck and bilateral groins. Time-out was performed. he was given Versed and fentanyl for sedation. 1% lidocaine was infiltrated over the right internal jugular vein. Using ultrasound guidance and a micropuncture access technique a 6 [place] sheath was placed in the right internal jugular vein. The Tapia catheter was advanced under fluoroscopic and hemodynamic monitoring to the right atrium. Pressure obtained of the right atrium, right ventricle, pulmonary artery, pulmonary capillary position. Oxygen saturation drawn for the pulmonary artery and Carroll cardiac with a cardiac index were calculated. 1% lidocaine was infiltrated over the left radial artery. A 6-[place] Terumo Glidesheath slender was placed in left radial artery. Radial anti-vasospasm cocktail of verapamil 2.5 mg and nitroglycerin 200 mcg was administered through the sheath. All catheter exchanges were made over the Alejandro guidewire. Coronary angiogram was performed with a JL3.5 to engage the left main and a JR5 to engage the RCA. Coronary angiogram was performed in multiple orthogonal views. All catheters and wires were removed. The left radial sheath was removed and a TR band was applied to obtain hemostasis. The right IJ venous sheath was removed and manual pressure was applied to obtain hemostasis. Specimens Removed: None Complications: None Hemodynamic Data: RA: 20 mmHg RV: 67/24 mmHg PA: 67/34 (45) mmHg PCWP: 35 mmHg AO: 123/80 (98) mmHg SVR: 1386 dynes CO: 4.5 L/min CI: 1.8 L/min/m2 O2 Sat: PA sat: 59% AO sat: 95% Coronary Angiogram: Left main: Patent LAD: the LAD is a large vessel and is patent with luminal irregularitie (more content not included)... [facility] 06-21-2024 Note Jh rec'd consult thi s afternoon for Heart Failure . JH met with patient to discuss consult. Patient upset that he is not getting to go home today. Patient states I work 6 days a week and is ready to start working 7 days a week. He states his heart is the same today as it was last week and it hasn't given him any issues. Patient states he is independent with all ADL's. He lives alone. He cares for himself. He drives himself to/from work. He is not interested in any [facility] svs at this time time. [facility] 06-21-2024 Note Hospital Medicine Daily Progress Note - 06/21/2024 1:00 PM; Room: 3178/3178-01 Admission: 06/17/2024 10:21 PM; Length of stay: 4 days THE HOSPITALIST TEAM PREFERS TO USE [employer] CHAT FOR NON-URGENT COMMUNICATION 7AM-7PM. IF I DO NOT RESPOND WITHIN 20 MINUTES OR URGENT MATTERS, PLEASE CALL THROUGH THE LASER ENGINEER. FROM 7PM-7AM, PLEASE PAGE [phone](COVR). Code Status: Full Code Barriers to Discharge: Diuresis Expected Discharge Date: 06/22 Discharge Destination: home Overview Patient is seen for evaluation and management of NSTEMI. Subjective Idris Dodd Jr. was seen and examined at bedside. No current nursing concerns or overnight events. Patient denies CP, N/V/D/C, fever, chills, or abdominal pain. SOB improved. Net negative 9L since admission. Physical Exam Visit Vitals BP 114/57 Pulse 68 Temp 36.8 ???C (98.2 ???F) (Temporal) Resp 26 Intake/Output Summary (Last 24 hours) at 06/21/2024 1300 Last data filed at 06/21/2024 1200 Gross per 24 hour Intake 842.56 ml Output 5600 ml Net -4757.44 ml Physical Exam Vitals and nursing note reviewed. Constitutional: Appearance: Normal appearance. He is obese. He is ill-appearing. HENT: Head: Normocephalic. Nose: Nose normal. Mouth/Throat: Mouth: Mucous membranes are moist. Eyes: Pupils: Pupils are equal, round, and reactive to light. Cardiovascular: Rate and Rhythm: Normal rate and regular rhythm. Pulses: Normal pulses. Heart sounds: Normal heart sounds. No murmur heard. No friction rub. No gallop. Pulmonary: Effort: Respiratory distress (mild) present. Breath sounds: Normal breath sounds. Abdominal: General: Abdomen is protuberant. Bowel sounds are normal. Palpations: Abdomen is soft. Musculoskeletal: General: Normal range of motion. Cervical back: Normal range of motion. Right lower leg: Edema present. Left lower leg: Edema present. Skin: General: Skin is warm. Capillary Refill: Capillary refill takes less than 2 seconds. Neurological: General: No focal deficit present. Mental Status: He is alert and oriented to person, place, and time. Psychiatric: Mood and Affect: Mood normal. Behavior: Behavior normal. Judgment: Judgment normal. Estimated body mass index is 56.83 kg/m??? as calculated from the following: Height as of this encounter: 1.676 m (5' 6 ). Weight as of this encounter: 160 kg (352 lb 1.2 oz). Active Inpatient Problems Principal Problem: ST elevation myocardial infarction (STEMI) ([facility]) Active Problems: Atrial fibrillation with rapid ventricular response ([facility]/HCC) Acute heart failure with reduced ejection fraction (HFrEF, <= 40%) ([facility]) Obesity GERD (gastroesophageal reflux disease) Hypertension Assessment and Plan Atrial fibrillation with rapid ventricular response ([facility]/HCC) Rate control with Coreg, Eliquis for anticoagulation. Eliquis resumed post cath Acute heart failure with reduced ejection fraction (HFrEF, <= 40%) (CMS/HCC) - NICM, 2/2 alcoholism? EF of 20 to 25% with diastolic dysfunction. Net negative 9L since admission On milrinone gtt. Coreg, losartan, Lasix for IV diuresis BID Monitor I's and O's, daily weights, low-salt diet Anticipate DC tomorrow Entresto to be started today per cardiology. Obesity class III obesity GERD (gastroesophageal reflux disease) on PPI Hypertension Blood pressure control with oral antihypertensives VTE Prophylaxis: Eliquis Scheduled Meds apixaban, 5 mg, oral, BID aspirin, 81 mg, oral, Daily atorvastatin, 40 mg, oral, Nightly carvedilol, 12.5 mg, oral, BID dapagliflozin propanediol, 10 mg, oral, Daily furosemide, 40 mg, oral, q12h Oxygen Therapy, , inhalation, Continuous pantoprazole, 40 mg, oral, Daily [Held by provider] sacubitril-valsartan, 1 tablet, oral, BID spironolactone, 25 mg, oral, Daily milrinone, 0.25 mcg/kg/min, Last Rate: 0.25 mcg/kg/min (06/21/24 0256) Pertinent Investigations Hematology: Results from last 7 days Lab Units 06/21/24 0613 06/20/24 0424 06/18/24 1436 06/17/24 2321 WBC AUTO 10*3/uL 8.62 7.77 < > 10.23 HEMOGLOBIN g/dL 14.2 13.4 < > 14.4 HEMATOCRIT % 43.2 42.8 < > 45.9 MCV fL 94.1 98.2* < > 99.6* PLATELETS AUTO 10*3/uL 247 247 < > 288 INR -- -- -- 1.39* < > = values in this interval not displayed. Chemistry: Results from last 7 days Lab Units 06/21/24 0613 06/20/24 0424 06/19/24 0708 06/17/24 2321 SODIUM mmol/L 137 138 139 140 POTASSIUM mmol/L 3.8 4.2 4.1 3.6 CHLORIDE mmol/L 98 100 98 99 CO2 mmol/L 36* 34* 37* 36* BUN mg/dL 13 13 16 14 CREATININE mg/dL 0.99 1.04 1.12 1.17 GLUCOSE mg/dL 110* 122* 115* 90 MAGNESIUM mg/dL -- 1.9 -- 1.9 CALCIUM mg/dL 8.6 8.6 9.2 9.0 PHOSPHORUS mg/dL -- -- -- 2.7 Results from last 7 days Lab Units 06/17/24 2321 AST U/L 20 ALT U/L 16 ALK PHOS U/L 42 BILIRUBIN TOTAL mg/dL 0.5 Historical Values: (Includes values prior to this admission) Lab Results Component Value Date (more content not included)... [facility] 06-21-2024 Note Attestation signed by Monica Arroyo MD at 06/22/2024 8:57 AM By using the attestations below, the signing clinician agrees that I have read and verify that the documentation has been personally reviewed by me and ensure that the documentation accurately reflects the encounter. GC: I personally saw this patient on the day of the encounter, performed the granger portion(s) of the service and participated in the management and confirm the resident's documentation. Please note there may be an additional personal documentation from me. Cardiology Progress Note Subjective No acute events overnight. Patient was seen and examined today. He eagerly wants to go home.He He denies shortness of breath, and he is able to walk around. No chest pain or palpitations. Urine output: -7.9L Objective Objective: Patient Vitals for the past 24 hrs: BP Temp Temp src Pulse Resp SpO2 Weight 06/21/24 0840 114/57 36.8 ???C (98.2 ???F) Temporal 77 (!) 27 96 % -- 06/21/24 0459 -- -- -- -- -- -- (!) 160 kg (352 lb 1.2 oz) 06/20/24 2355 126/67 -- -- 75 -- 95 % -- 06/20/24 2030 131/74 36.6 ???C (97.9 ???F) Temporal 74 20 98 % -- 06/20/24 1700 125/73 36.7 ???C (98.1 ???F) -- 70 17 99 % -- 06/20/24 1234 114/60 36.6 ???C (97.9 ???F) -- 73 22 92 % -- Physical Examination: GENERAL: AOx3, in no acute distress. Obese HEAD: Atraumatic, normocephalic. EYES: NARAYAN, EOMI. NECK: No JVD present. CARDIAC: RRR. No murmur, rubs, or gallops. RESPIRATORY: decrease RADHA ABDOMEN: Soft, nontender, nondistended. EXTREMITIES: right sided lower leg swelling > left leg Relevant Lab Results Encounter Date: 06/17/24 ECG 12 lead Result Value Ventricular Rate 64 Atrial Rate 64 [place] Interval 206 QRS DURATION 110 QT Interval 444 QTC CALCULATION(BAZETT) 458 P [place] 20 R-[place] 55 T Wave [place] 81 Impression Normal sinus rhythm T wave abnormality, consider anterior ischemia Abnormal ECG When compared with ECG of 18-JUN-2024 14:06, (unconfirmed) No significant change was found Confirmed by Ld ARROYO, MONICA Redman ([id number]) on 06/18/2024 9:32:36 PM Lab Results Component Value Date TROPONINI 0.08 (H) 06/19/2024 No echocardiogram results found for the past 12 months No nuclear medicine results found for the past 12 months Relevant Imaging Results Cardiac catheterization PROCEDURE PHYSICIAN: Paul Cid MD Clinical Presentation: 58 y.o. Male with history of hypertension, DAKOTA, morbid obesity with BMI > 50. Patient was a transfer from [facility] for evaluation for coronary angiogram after he was admitted for A-fib RVR and new onset HFrEF. Echo shows EF 20 to 25%. Final Impression: 1) Right heart catheterization shows severely decompensated heart failure with mean wedge pressure of 35 mmHg and reduced cardiac index of 1.8 L/min/m??? 2) coronary angiogram shows mild CAD Plan: 1) optimize GDMT for HFrEF as tolerated including beta-toni, Entresto, Farxiga, spironolactone. 2) Right atrial and wedge pressures are severely elevated. .Increase loop diuretic diuresis 3) outpatient follow-up with [place] [facility]ology 4) patient has morbid obesity (BMI >50) and this will make treatment of his A-fib difficult. He also has DAKOTA and GLP-1 agonist is now approved for this indication as well. He needs significant weight loss and should be referred for GLP-1 agonist and/or bariatric surgery consultation Procedures Performed: coronary angiogram, right heart catheterization, conscious sedation 31 min, ultrasound guidance for vascular access Procedure Description: The patient was brought to the cardiac catheterization lab in a fasting state. Informed written consent was obtained. he was prepped and draped in usual sterile fashion over the right wrist and right neck and bilateral groins. Time-out was performed. he was given Versed and fentanyl for sedation. 1% lidocaine was infiltrated over the right internal jugular vein. Using ultrasound guidance and a micropuncture access technique a 6 [place] sheath was placed in the right internal jugular vein. The Tapia catheter was advanced under fluoroscopic and hemodynamic monitoring to the right atrium. Pressure obtained of the right atrium, right ventricle, pulmonary artery, pulmonary capillary position. Oxygen saturation drawn for the pulmonary artery and Carroll cardiac with a cardiac index were calculated. 1% lidocaine was infiltrated over the left radial artery. A 6-[place] Terumo Glidesheath slender was placed in left radial artery. Radial anti-vasospasm cocktail of verapamil 2.5 mg and nitroglycerin 200 mcg was administered through the sheath. All catheter exchanges were made over the Alejandro guidewire. Coronary angiogram was performed with a JL3.5 to engage the left main and a JR5 to engage the RC (more content not included)... [facility] 06-20-2024 Note Hospital Medicine Daily Progress Note - 06/20/2024 8:58 AM; Room: [address] [place], [place] [id number] Admission: 06/17/2024 10:21 PM; Length of stay: 3 days THE HOSPITALIST TEAM PREFERS TO USE [employer] CHAT FOR NON-URGENT COMMUNICATION 7AM-7PM. IF I DO NOT RESPOND WITHIN 20 MINUTES OR URGENT MATTERS, PLEASE CALL THROUGH THE LASER ENGINEER. FROM 7PM-7AM, PLEASE PAGE [phone](COVR). Code Status: Full Code Barriers to Discharge: L & R cardiac cath Expected Discharge Date: 06/21 Discharge Destination: home Overview Patient is seen for evaluation and management of NSTEMI. Subjective Idris Dodd Jr. was seen and examined at bedside. No current nursing concerns or overnight events. Patient denies CP, N/V/D/C, fever, chills, or abdominal pain. SOB improved, but ongoing. Physical Exam Visit Vitals BP 113/63 (BP Location: Right arm, Patient Position: Lying) Pulse 78 Temp 36.7 ???C (98 ???F) (Temporal) Resp 19 Intake/Output Summary (Last 24 hours) at 06/20/2024 0858 Last data filed at 06/20/2024 0749 Gross per 24 hour Intake 1292.28 ml Output 4560 ml Net -3267.72 ml Physical Exam Vitals and nursing note reviewed. Constitutional: Appearance: Normal appearance. He is obese. He is ill-appearing. HENT: Head: Normocephalic. Nose: Nose normal. Mouth/Throat: Mouth: Mucous membranes are moist. Eyes: Pupils: Pupils are equal, round, and reactive to light. Cardiovascular: Rate and Rhythm: Normal rate and regular rhythm. Pulses: Normal pulses. Heart sounds: Normal heart sounds. No murmur heard. No friction rub. No gallop. Pulmonary: Effort: Respiratory distress (mild) present. Breath sounds: Normal breath sounds. Abdominal: General: Abdomen is protuberant. Bowel sounds are normal. Palpations: Abdomen is soft. Musculoskeletal: General: Normal range of motion. Cervical back: Normal range of motion. Right lower leg: Edema present. Left lower leg: Edema present. Skin: General: Skin is warm. Capillary Refill: Capillary refill takes less than 2 seconds. Neurological: General: No focal deficit present. Mental Status: He is alert and oriented to person, place, and time. Psychiatric: Mood and Affect: Mood normal. Behavior: Behavior normal. Judgment: Judgment normal. Estimated body mass index is 53.26 kg/m??? as calculated from the following: Height as of this encounter: 1.676 m (5' 6 ). Weight as of this encounter: 150 kg (330 lb). Active Inpatient Problems Principal Problem: ST elevation myocardial infarction (STEMI) ([facility]) Active Problems: Atrial fibrillation with rapid ventricular response ([facility]) Acute heart failure with reduced ejection fraction (HFrEF, <= 40%) ([facility]) Obesity GERD (gastroesophageal reflux disease) Hypertension Assessment and Plan Atrial fibrillation with rapid ventricular response ([facility]) Rate control with Coreg, Eliquis for anticoagulation. Eliquis resumed post cath Acute heart failure with reduced ejection fraction (HFrEF, <= 40%) ([facility]) - NICM, 2/2 alcoholism? EF of 20 to 25% with diastolic dysfunction. On milrinone gtt. Coreg, losartan, Lasix for IV diuresis BID Monitor I's and O's, daily weights, low-salt diet Anticipate DC tomorrow Entresto to be started after iV diuresis Obesity class III obesity GERD (gastroesophageal reflux disease) on PPI Hypertension Blood pressure control with oral antihypertensives VTE Prophylaxis: Eliquis Scheduled Meds apixaban, 5 mg, oral, BID aspirin, 81 mg, oral, Daily atorvastatin, 40 mg, oral, Nightly carvedilol, 12.5 mg, oral, BID dapagliflozin propanediol, 10 mg, oral, Daily furosemide, 40 mg, intravenous, q12h Oxygen Therapy, , inhalation, Continuous pantoprazole, 40 mg, oral, Daily [Held by provider] sacubitril-valsartan, 1 tablet, oral, BID spironolactone, 25 mg, oral, Daily milrinone, 0.25 mcg/kg/min, Last Rate: 0.25 mcg/kg/min (06/20/24 0508) Pertinent Investigations Hematology: Results from last 7 days Lab Units 06/20/24 0424 06/19/24 0238 06/18/24 1436 06/17/24 2321 WBC AUTO 10*3/uL 7.77 10.30 -- 10.23 HEMOGLOBIN g/dL 13.4 14.1 -- 14.4 HEMATOCRIT % 42.8 44.9 -- 45.9 MCV fL 98.2* 97.8 -- 99.6* PLATELETS AUTO 10*3/uL 247 286 < > 288 INR -- -- -- 1.39* < > = values in this interval not displayed. Chemistry: Results from last 7 days Lab Units 06/20/24 0424 06/19/24 0708 06/17/24 2321 SODIUM mmol/L 138 139 140 POTASSIUM mmol/L 4.2 4.1 3.6 CHLORIDE mmol/L 100 98 99 CO2 mmol/L 34* 37* 36* BUN mg/dL 13 16 14 CREATININE mg/dL 1.04 1.12 1.17 GLUCOSE mg/dL 122* 115* 90 MAGNESIUM mg/dL 1.9 -- 1.9 CALCIUM mg/dL 8.6 9.2 9.0 PHOSPHORUS mg/dL -- -- 2.7 Results from last 7 days Lab Units 06/17/24 2321 AST U/L 20 ALT U/L 16 ALK PHOS U/L 42 BILIRUBIN TOTAL mg/dL 0.5 Historical Values: (Includes values prior to this admission) Lab Results Component Value Date HDL 32 06/18/2024 LDL 88 06/18/2024 No results f (more content not included)... [facility] 06-20-2024 Note Patient admitted to the hospital for: ST elevation myocardial infarction. Chart notes from 06/18/2024 reports [facility] admission echo from 06/18/2024 reports: EF 20-25 %. Patient transferred to [facility]. Current echo information qualifies for Cardiac Rehab services per CMS eligibility criteria. A Cardiac Rehab referral diagnosis and code must also meet CMS criteria. Angelica Kumar, RN, BSN Cardiology Outpatient Coordinator Cardiopulmonary Rehab [facility] 06-19-2024 Note Attestation signed by Monica Arroyo MD at 06/19/2024 5:26 PM By using the attestations below, the signing clinician agrees that I have read and verify that the documentation has been personally reviewed by me and ensure that the documentation accurately reflects the encounter. GC: I personally saw this patient on the day of the encounter, performed the granger portion(s) of the service and participated in the management and confirm the resident's documentation. Please note there may be an additional personal documentation from me. Cardiology Consult Note Reason for Consult: Afib, HFrEF Subjective Patient resting comfortably in bed. He denies shortness of breath at rest but does have some dyspnea on exertion. Lower extremity edema improved. Denies chest pain, palpitations. Cardiology ROS: Negative except as mentioned. Past Medical History He has a past medical history of GERD (gastroesophageal reflux disease), Hypertension, and Obesity. Surgical History He has a past surgical history that includes Rotator cuff repair (Right); Total knee arthroplasty (Bilateral); and Tonsillectomy (N/A). Social History He reports that he has never smoked. He has never used smokeless tobacco. No history on file for alcohol use and drug use. Family History No family history on file. Allergies Patient has no known allergies. Medications Current Outpatient Medications Medication Instructions lisinopriL-hydrochlorothiazide 20-25 mg tablet 1 tablet, oral, Daily Medications Prior to Admission Medication Sig Dispense Refill Last Dose lisinopriL-hydrochlorothiazide 20-25 mg tablet Take 1 tablet by mouth in the morning. Current Facility-Administered Medications Medication Dose Route Frequency Provider Last Rate Last Admin [Held by provider] apixaban (Eliquis) tablet 5 mg 5 mg oral BID Jermaine Rey MD 5 mg at 06/18/24 0940 aspirin EC tablet 81 mg 81 mg oral Daily Jermaine Rey MD 81 mg at 06/18/24 0940 atorvastatin (Lipitor) tablet 80 mg 80 mg oral Nightly Jermaine Rey MD 80 mg at 06/18/242113 carvedilol (Coreg) tablet 12.5 mg 12.5 mg oral BID Jermaine Rey MD 12.5 mg at 06/18/24 2114 dapagliflozin propanediol (Farxiga) tablet 10 mg 10 mg oral Daily Kandis Guillen MD 10 mg at 06/18/24 1355 [Held by provider] furosemide (Lasix) tablet 40 mg 40 mg oral Daily Jermaine Rey MD 40 mg at 06/18/24 0940 furosemide (Lasix) tablet 40 mg 40 mg oral q12h Kandis Guillen MD heparin infusion 100 units/mL in D5W 0-28 Units/kg/hr intravenous Continuous Kandis Guillen MD 38.3 mL/hr at 06/19/24 1411 25.5 Units/kg/hr at 06/19/24 1411 milrinone (Primacor) infusion 200 mcg/mL 0.25 mcg/kg/min intravenous Continuous Kandis Guillen MD Oxygen Therapy inhalation Continuous Jermaine Rey MD Oxygen On at 06/19/24 1206 pantoprazole (ProtoNix) EC tablet 40 mg 40 mg oral Daily Jermaine Rey MD 40 mg at 06/19/24 0534 [Held by provider] sacubitril-valsartan (Entresto) 24-26 mg per tablet 1 tablet 1 tablet oral BID Kandis Guillen MD sodium chloride flush 10 mL 10 mL intravenous q8h PRN Jermaine Rey MD spironolactone (Aldactone) tablet 25 mg 25 mg oral Daily Kandis Guillen MD 25 mg at 06/18/24 1355 Last Recorded Vitals Patient Vitals for the past 24 hrs: BP Temp Temp src Pulse Resp SpO2 Weight 06/19/24 1609 136/76 -- -- 70 16 98 % -- 06/19/24 1527 -- -- -- -- -- 98 % -- 06/19/24 1527 116/83 -- -- 66 16 98 % -- 06/19/24 1207 -- -- -- 66 (!) 28 95 % -- 06/19/24 1206 -- -- -- 66 (!) 27 100 % -- 06/19/24 1205 98/68 36.6 ???C (97.9 ???F) Temporal 66 22 (!) 87 % -- 06/19/24 1000 98/68 -- -- 66 -- -- -- 06/19/24 0815 -- -- -- -- -- 93 % -- 06/19/24 0750 -- -- -- 68 20 98 % -- 06/19/24 0745 112/67 36.7 ???C (98 ???F) Temporal 64 (!) 29 99 % -- 06/19/24 0550 -- -- -- -- -- -- (!) 150 kg (331 lb) 06/19/24 0400 137/66 36.6 ???C (97.9 ???F) Temporal 74 24 96 % -- 06/19/24 0000 146/90 36.5 ???C (97.7 ???F) Temporal 75 26 99 % -- 06/18/24 2020 (!) 143/91 36.5 ???C (97.7 ???F) Temporal 69 25 96 % -- 06/18/24 1630 101/69 36.4 ???C (97.5 ???F) -- 68 14 98 % -- Physical Examination: GENERAL: AOx3, in no acute distress. Obese HEAD: Atraumatic, normocephalic. EYES: NARAYAN, EOMI. NECK: No JVD present. CARDIAC: RRR. No murmur, rubs, or gallops. RESPIRATORY: CTAB, no increased effort of breathing. ABDOMEN: Soft, nontender, nondistended. EXTREMITIES: Trace edema NEURO: No focal deficits Relevant Lab Results Encounter Date: 06/17/24 ECG 12 lead Result Value Ventricular Rate 64 Atrial Rate 64 [place] Interval 206 QRS DURATION 110 QT Interval 444 QTC CALCULATION(BAZETT) 458 P [place] 20 R-[place] 55 T Wave [place] 81 Impression Normal sinus rhythm T wave abnormality, consider anterior ischemia Abnormal ECG (more content not included)... [facility] 06-19-2024 Note Patient: Idris Christina Jr. Procedure Information Date/Time: 06/19/24 1334 Procedure: Coronary angiography Location: [facility] / [facility] (Cath) Providers: Marilyn Gotti MD Clinical information reviewed: Tobacco Allergies Meds Med Hx Surg Hx Fam Hx Soc Hx Physical Exam Airway Mallampati: III TM distance: <3 FB Cardiovascular Rhythm: regular Rate: normal Dental Pulmonary Abdominal Anesthesia Plan ASA 3 other (Conscious ) Anesthetic plan and risks discussed with patient. Use of blood products discussed with patient who consented to blood products. Plan discussed with attending. Additional Equipment Requests [facility] 06-19-2024 Note Hospital Medicine Daily Progress Note - 06/19/2024 1:58 PM; Room: [address] [place] [address] Admission: 06/17/2024 10:21 PM; Length of stay: 2 days THE HOSPITALIST TEAM PREFERS TO USE [employer] FOR NON-URGENT COMMUNICATION 7AM-7PM. IF I DO NOT RESPOND WITHIN 20 MINUTES OR URGENT MATTERS, PLEASE CALL THROUGH THE LASER ENGINEER. FROM 7PM-7AM, PLEASE PAGE [phone](COVR). Code Status: Full Code Barriers to Discharge: L & R cardiac cath Expected Discharge Date: 06/20 vs 06/21 Discharge Destination: home Overview Patient is seen for evaluation and management of NSTEMI. Davey Dodd Jr. was seen and examined at bedside. No current nursing concerns or overnight events. Patient denies CP, N/V/D/C, fever, chills, or abdominal pain. SOB improved, but ongoing. Physical Exam Visit Vitals BP 98/68 (BP Location: Right arm, Patient Position: Lying) Pulse 66 Temp 36.6 ???C (97.9 ???F) (Temporal) Resp (!) 28 Intake/Output Summary (Last 24 hours) at 06/19/2024 1358 Last data filed at 06/19/2024 1324 Gross per 24 hour Intake 1148.23 ml Output 1900 ml Net -751.77 ml Physical Exam Vitals and nursing note reviewed. Constitutional: Appearance: Normal appearance. He is obese. He is ill-appearing. HENT: Head: Normocephalic. Nose: Nose normal. Mouth/Throat: Mouth: Mucous membranes are moist. Eyes: Pupils: Pupils are equal, round, and reactive to light. Cardiovascular: Rate and Rhythm: Normal rate and regular rhythm. Pulses: Normal pulses. Heart sounds: Normal heart sounds. No murmur heard. No friction rub. No gallop. Pulmonary: Effort: Respiratory distress (mild) present. Breath sounds: Normal breath sounds. Abdominal: General: Abdomen is protuberant. Bowel sounds are normal. Palpations: Abdomen is soft. Musculoskeletal: General: Normal range of motion. Cervical back: Normal range of motion. Right lower leg: Edema present. Left lower leg: Edema present. Skin: General: Skin is warm. Capillary Refill: Capillary refill takes less than 2 seconds. Neurological: General: No focal deficit present. Mental Status: He is alert and oriented to person, place, and time. Psychiatric: Mood and Affect: Mood normal. Behavior: Behavior normal. Judgment: Judgment normal. Estimated body mass index is 53.42 kg/m??? as calculated from the following: Height as of this encounter: 1.676 m (5' 6 ). Weight as of this encounter: 150 kg (331 lb). Active Inpatient Problems Principal Problem: ST elevation myocardial infarction (STEMI) (CMS/HCC) Active Problems: Atrial fibrillation with rapid ventricular response (CMS/HCC) Acute heart failure with reduced ejection fraction (HFrEF, <= 40%) ([facility]) Obesity GERD (gastroesophageal reflux disease) Hypertension Assessment and Plan Atrial fibrillation with rapid ventricular response ([facility]/HCC) rate control with Coreg, Eliquis for anticoagulation. Currently held for R&L heart cath today. Will resume once cardiology is comfortable post cath. Acute heart failure with reduced ejection fraction (HFrEF, <= 40%) (CMS/HCC) EF of 20 to 25% with diastolic dysfunction Coreg, losartan, Lasix for IV diuresis Monitor I's and O's, daily weights, low-salt diet Obesity class III obesity GERD (gastroesophageal reflux disease) on PPI Hypertension Blood pressure control with oral antihypertensives VTE Prophylaxis: Eliquis Scheduled Meds [Held by provider] apixaban, 5 mg, oral, BID aspirin, 81 mg, oral, Daily atorvastatin, 80 mg, oral, Nightly carvedilol, 12.5 mg, oral, BID dapagliflozin propanediol, 10 mg, oral, Daily furosemide, 40 mg, oral, Daily losartan, 50 mg, oral, Daily Oxygen Therapy, , inhalation, Continuous pantoprazole, 40 mg, oral, Daily spironolactone, 25 mg, oral, Daily heparin, 0-28 Units/kg/hr, Last Rate: 25.5 Units/kg/hr (06/19/24 1039) Pertinent Investigations Hematology: Results from last 7 days Lab Units 06/19/24 0238 06/18/24 1436 06/17/24 2321 WBC AUTO 10*3/uL 10.30 -- 10.23 HEMOGLOBIN g/dL 14.1 -- 14.4 HEMATOCRIT % 44.9 -- 45.9 MCV fL 97.8 -- 99.6* PLATELETS AUTO 10*3/uL 286 267 288 INR -- -- 1.39* Chemistry: Results from last 7 days Lab Units 06/19/24 0708 06/17/24 2321 SODIUM mmol/L 139 140 POTASSIUM mmol/L 4.1 3.6 CHLORIDE mmol/L 98 99 CO2 mmol/L 37* 36* BUN mg/dL 16 14 CREATININE mg/dL 1.12 1.17 GLUCOSE mg/dL 115* 90 MAGNESIUM mg/dL -- 1.9 CALCIUM mg/dL 9.2 9.0 PHOSPHORUS mg/dL -- 2.7 Results from last 7 days Lab Units 06/17/24 2321 AST U/L 20 ALT U/L 16 ALK PHOS U/L 42 BILIRUBIN TOTAL mg/dL 0.5 Historical Values: (Includes values prior to this admission) Lab Results Component Value Date HDL 32 06/18/2024 LDL 88 06/18/2024 No results found for: [id number] , IRON , TIBC , C3 , C4 , KWAN , CANCA , ASO , PSA , CEA , CA125 , CA199 , AFP , CA153 Imaging ECG 12 lead Normal sinus rhythm T wave abnormality, consider a (more content not included)... [facility] 06-18-2024 Note 06/18/24 1318 Admission Assessment Questions Verify insurance with patient Yes Do you understand medical disease or what brought you into the hospital? Yes Who is your current PCP? Needs PCP Can I schedule a follow up appointment for you at the time of discharge? Yes Do you understand why you are taking your current medications? Yes Are you taking your medications as prescribed? No (states he misses doses of blood pressure medications) Did patient provide teach back? No Pharmacy Bedside Delivery Status Interested Does the patient have a keycase assembler assigned to them through their insurance? No Living Arrangement (Current/Prior to Hospitalization) Home self care (Lives at home alone) Does the patient have history of HHC or SNF? No Assistive Device Not applicable Patient's goal for discharge Goal is to discharge home Was patient reminded that goal for discharge is 11am? No Does the patient have transportation at discharge? Yes Type of Residence Private residence Is PT/OT appropriate? No Is PT/OT ordered? No Is SW consult appropriate? No Is SW consult ordered? No Do you understand the benefits of MyChart? Yes Were you able to send link and activate MyChart? No [facility] 06-18-2024 Note Plan of care reviewe d with the patient, patient being admitted for cardiac cath by cardiology team, keep n.p.o. cardiology consult to follow [facility] 06-18-2024 Note class III obesity [facility] 06-18-2024 Note Blood pressure contr ol with oral antihypertensives [facility] 06-18-2024 Note rate control with Co reg, Eliquis for anticoagulation [facility] 06-18-2024 Note EF of 20 to 25% with diastolic dysfunction Coreg, losartan, Lasix for IV diuresis Monitor I's and O's, daily weights, low-salt diet Left heart cath in a.m., keep n.p.o. [facility] 06-18-2024 Note on PPI [facility] 06-18-2024 Note Hospital Medicine History and Physical 06/18/2024 1:10 AM THE HOSPITALIST TEAM PREFERS TO USE [employer] CHAT FOR NON-URGENT COMMUNICATION 7AM-7PM. IF I DO NOT RESPOND WITHIN 20 MINUTES OR URGENT MATTERS, PLEASE CALL THROUGH THE LASER ENGINEER. FROM 7PM-7AM, PLEASE PAGE [phone](COVR). Chief Complaint CHF, atrial fibrillation History of Present Illness Idris Dodd . is an 58 y.o. male who came from [facility] for higher level of care. who presented on June 15 with complaints of shortness of breath and worsening lower extremity edema for the past week. Reported that he has been somewhat noncompliant with his home medications. He was tachycardic in the ER and found to be in atrial fibrillation with rapid ventricular response which was new onset. He converted to normal sinus rhythm after being started on a Cardizem drip. He had an echocardiogram which showed him to be in acute heart failure with an EF of 2520 to 25%, diastolic dysfunction, diffuse global hypokinesis, and a trivial pericardial effusion. Patient was initially on a heparin drip for anticoagulation and then started on Eliquis. review of records shows that the patient has had elevated creatinine suggesting acute kidney injury. his baseline creatinine is unknown. he had bilateral lower extremity venous Dopplers which were negative for DVT. He has also been diuresed with IV Lasix. He is in need of a heart cath for further evaluation of his heart failure. He is currently chest pain free and denies shortness of breath. Denies abdominal pain, nausea or vomiting. Past medical history: Obesity, hypertension, GERD Past surgical history: Tonsillectomy, bilateral knee replacement, bilateral rotator cuff repair Social history: Former smoker, drinks about 4 alcoholic beverages per week, no illicit drug use Family history: Denies a family history of heart disease Review of System and Physical Exam Heart Rate: [78] 78 Resp: [17] 17 BP: (105)/(76) 105/76 Physical Exam Vitals reviewed. Constitutional: General: He is not in acute distress. Appearance: Normal appearance. He is obese. He is not ill-appearing, toxic-appearing or diaphoretic. HENT: Head: Normocephalic and atraumatic. Right Ear: External ear normal. Left Ear: External ear normal. Nose: Nose normal. Mouth/Throat: Mouth: Mucous membranes are moist. Pharynx: Oropharynx is clear. Eyes: Extraocular Movements: Extraocular movements intact. Conjunctiva/sclera: Conjunctivae normal. Pupils: Pupils are equal, round, and reactive to light. Cardiovascular: Rate and Rhythm: Normal rate and regular rhythm. Pulses: Normal pulses. Heart sounds: Normal heart sounds. Pulmonary: Effort: Pulmonary effort is normal. Breath sounds: Normal breath sounds. No wheezing, rhonchi or rales. Abdominal: General: Abdomen is flat. Bowel sounds are normal. Palpations: Abdomen is soft. Tenderness: There is no abdominal tenderness. There is no guarding or rebound. Hernia: No hernia is present. Musculoskeletal: Cervical back: Normal range of motion and neck supple. Right lower leg: Edema present. Left lower leg: Edema present. Skin: General: Skin is warm. Capillary Refill: Capillary refill takes less than 2 seconds. Neurological: General: No focal deficit present. Mental Status: He is alert and oriented to person, place, and time. Mental status is at baseline. Psychiatric: Mood and Affect: Mood normal. Behavior: Behavior normal. Review of Systems Constitutional: Negative. HENT: Negative. Eyes: Negative. Respiratory: Positive for shortness of breath. Negative for cough. Cardiovascular: Positive for leg swelling. Negative for chest pain and palpitations. Gastrointestinal: Negative. Endocrine: Negative. Genitourinary: Negative. Musculoskeletal: Negative. Skin: Negative. Allergic/Immunologic: Negative. Neurological: Negative. Hematological: Negative. Psychiatric/Behavioral: Negative. All other systems reviewed and are negative. Assessment and Plan Assessment & Plan Atrial fibrillation with rapid ventricular response ([facility]) rate control with Coreg, Eliquis for anticoagulation Acute heart failure with reduced ejection fraction (HFrEF, <= 40%) ([facility]) EF of 20 to 25% with diastolic dysfunction Coreg, losartan, Lasix for IV diuresis Monitor I's and O's, daily weights, low-salt diet Left heart cath in a.m., keep n.p.o. Obesity class III obesity GERD (gastroesophageal reflux disease) on PPI Hypertension Blood pressure control with oral antihypertensives VTE Prophylaxis: Warfarin ----- Focus of this inpatient stay will remain on problems that need acute care setting for care. We will review available studies and will order additional labs, imaging and other studies as appropriate. As needed medicines are ordered as appropriate. VTE Prophylaxis will be ordered as appropriate. Please see above for m (more content not included)... [facility] 03-16-2024 History of Present illness Narrative Associated Problem(s): Benign hypertension (CMS/HCC) BP controlled and monitor PRN. Associated Problem(s): Annual physical exam Declined labs. Discussed proper diet and regular aerobic exercise. Need aerobic exercise 5-6 days a week for 30 minutes at a time. Smaller portions and limit total calories. Colonoscopy every 10 years. Tetanus every 10 years. Advised not to smoke. Discussed daily Aspirin therapy. Images from the original note were not included. Subjective Patient ID: Idris Dodd Jr is a 58 y.o. male who presents for Follow-up (6M WELLNESS). Presents for annual PE. Weight down 17 pounds in the past year. Active at work but no regular exercise or activity at home. Reports not drinking as much beer. Does not watch diet or try to eat healthy. Not limiting portions or snacking. Declines labs. Checking BP PRN and typically controlled. BP normal today. Taking medication daily and tolerating without side effects. Pain stable and needs refill percocet. Review of Systems Constitutional: Negative for fatigue. Respiratory: Negative for cough, shortness of breath and wheezing. Cardiovascular: Negative for chest pain and palpitations. Gastrointestinal: Negative for abdominal pain, diarrhea, nausea and vomiting. Genitourinary: Negative for dysuria. Objective Physical Exam Constitutional: General: He is not in acute distress. Appearance: Normal appearance. HENT: Head: Normocephalic. Right Ear: Tympanic membrane and ear canal normal. Left Ear: Tympanic membrane and ear canal normal. Eyes: Extraocular Movements: Extraocular movements intact. Pupils: Pupils are equal, round, and reactive to light. Cardiovascular: Rate and Rhythm: Normal rate and regular rhythm. Heart sounds: No murmur heard. No friction rub. No gallop. Pulmonary: Breath sounds: Normal breath sounds. No wheezing, rhonchi or rales. Abdominal: General: Bowel sounds are normal. There is no distension. Palpations: Abdomen is soft. Tenderness: There is no abdominal tenderness. There is no guarding or rebound. Musculoskeletal: General: Normal range of motion. Left lower leg: No edema. Neurological: General: No focal deficit present. Mental Status: He is alert. Cranial Nerves: No cranial nerve deficit. Deep Tendon Reflexes: Reflexes normal. Assessment/Plan Problem List Items Addressed This Visit Benign hypertension (CMS/HCC) BP controlled and monitor PRN. Primary osteoarthritis of both knees Relevant Medications oxyCODONE-acetaminophen (Percocet) 5-325 MG tablet Annual physical exam - Primary Declined labs. Discussed proper diet and regular aerobic exercise. Need aerobic exercise 5-6 days a week for 30 minutes at a time. Smaller portions and limit total calories. Colonoscopy every 10 years. Tetanus every 10 years. Advised not to smoke. Discussed daily Aspirin therapy. documented in this encounter [facility] 12-23-2023 History and physical note Note Date/Time December 23, 2023 10:30am [facility] [address] [place] [address] Gastroenterology H&P Signed Patient: Idris Dodd JR MR# : [id number] : 1965 Acct:[id number] Age/Sex: 58 / M Adm Date: 4 Loc: Room: Type: [facility] Attending Dr: Alix Milligan MD Copies to: MD Benjy Stafford MD~ Date of Service: 12/23/2023 HISTORY & PHYSICAL: Patient's history with special attention to the cardiovascular, pulmonary systems and the current problem was reviewed with the patient immediately prior to the procedure. Present medications and doses reviewed in the EMR. Allergies and pertinent laboratory tests were also reviewedat this time in the EMR. The physical examination, as below, was then performed. Indication, assessment and HPI: 58-year-old man with family history of colon cancer here for EGD/Colonoscopy for evaluation of heartburn and bloating and colonoscopy for colon cancer screening Family history of GI malignancy? Yes PHYSICAL EXAMINATION General appearance: NAD Skin: No jaundice Head: NC/AT Eyes: Anicteric Neck: Supple Lungs: Normal respiratory effort, no use of accessory muscles Abdomen: nondistended Neuro: Ox3. REVIEW OF SYSTEMS Constitutional: Denies malaise, fevers Cardiovascular: Denies chest pain, palpitations Respiratory: Denies shortness of breath, wheezing Gastrointestinal: As per HPI Genitourinary: Denies dysuria, polyuria Musculoskeletal: Denies joint swelling, joint stiffness Neurological: Denies confusion, numbness, tingling Endocrine: Denies fatigue Written informed consent obtained from the patient. Risks (including but not limited to perforation, infection, bloating, bleeding, need for emergent surgeryand loss of life), benefits and alternatives explained and questions answered. The patient verbalized understanding. Based on history patient is an appropriate candidate for the procedure. Alix Milligan M.D. Documented By: Alix Milligan MD 12/23/23 1028 Signed By: <Electronically signed by Alix Milligan MD> 12/23/23 1030 [facility] Work Phone: [phone] 112-217007-19-2024 [facility] noteM[facility] CenterEvaluation noteNo assessment information availableMorrow [facility] Hospital Ctr Work Phone: Evaluation note* Diagnosis Annual physical exam- Primary Routine general medical examination at a health care facility Benign hypertension (CMS/HCC) Essential hypertension, benign Primary osteoarthritis of both knees documented in this encounter [facility] HealthcareEvaluation note* Diagnosis Benign hypertension (CMS/HCC)- Primary Essential hypertension, benign Primary osteoarthritis of both knees Obstructive sleep apnea Obstructive sleep apnea (adult) (pediatric) Morbid obesity due to excess calories (CMS/HCC) Abdominal bloating- Primary Flatulence, eructation, and gas pain Bad taste in mouth Benign hypertension (CMS/HCC) Essential hypertension, benign Chronic pansinusitis Other chronic sinusitis Primary insomnia Persistent disorder of initiating or maintaining sleep Colon cancer screening Special screening for malignant neoplasms, colon Annual physical exam- Primary Routine general medical examination at a health care facility Benign hypertension (CMS/HCC) Essential hypertension, benign Primary osteoarthritis of both knees Primary osteoarthritis of both knees [facility] Additional Instructions DISCHARGE INSTRUCTIONS FOR COLONOSCOPY WHAT TO EXPECT: - You may feel full, gassy or cramping after your procedure. In some cases, this may be from a few hours to a day. Walking may help relieve the discomfort. - If you have polyp(s) removed you may note some minor bloody discharge after your first bowel movements. - You should begin to recover from anesthesia within 1 hour of the procedure, however may feel groggy for the next 24 hours. DO's AND DON'Ts: - Call your doctor right away if you have a hard abdomen, severe pain, are passing lots of bright red blood or clots. - Call your doctor if you develop any rashes, hives or difficulty breathing. - Let your doctor know if you have not had a bowel movement by 3 days after your procedure. - If you take 81 mg aspirin for your heart it is safe to resume this medication. - If you take other blood thinner medications your doctor will instruct you when these can safely be resumed. - Do NOT drive for 24 hours. - Do NOT operate machinery such as power tools, lawn mowers, snow blowers, sewing machines, etc. for 24 hours. - Avoid alcoholic beverages and drugs for allergies, nerves, or sleep. - Do NOT stay alone. Do NOT leave your child unattended. - Do NOT make important personal or business decisions or sign any legal documents. - Eat solid foods and drink liquids in smaller amounts than usual until normal appetite returns. If you should experience an upset stomach, liquids high in sugar content (soda, Loy-Aid, non-acid juices) are recommended. - You can resume normal activities tomorrow. FOLLOW UP & RECOMMENDATIONS: - Please call the office and make a follow up appointment to see me in [#] weeks if you do not have an appointment scheduled. - Notify the doctor if you have any problems. - Repeat colonoscopy in [ ] years. - Follow up with PCP. - Office number [phone]. DISCHARGE INSTRUCTIONS FOR UPPER ENDOSCOPY WHAT TO EXPECT: - You may feel full, gassy or cramping after your procedure. In some cases, this may be from a few hours to a day. Walking may help relieve the discomfort. - Your throat may feel sore today from the scope that the doctor passed through your throat to visualize your stomach. Take a throat lozenge or suck on ice to ease the discomfort. - You may notice some streaks of blood in your sputum if the doctor has taken a biopsy. - You should begin to recover from anesthesia within 1 hour of the procedure, however may feel groggy for the next 24 hours. DO's AND DON'Ts: - Call your doctor right away if you have a hard abdomen, severe pain, vomiting or if you cough up large amounts of blood. - Call your doctor if you develop any rashes, hives or difficulty breathing. - If you take 81 mg aspirin for your heart it is safe to resume this medication. - If you take other blood thinner medications your doctor will instruct you when these can safely be resumed. - Do NOT drive for 24 hours. - Do NOT operate machinery such as power tools, lawn mowers, snow blowers, sewing machines, etc. for 24 hours. - Avoid alcoholic beverages and drugs for allergies, nerves, or sleep. - Do NOT stay alone. Do NOT leave your child unattended. - Do NOT make important personal or business decisions or sign any legal documents. - Eat solid foods and drink liquids in smaller amounts than usual until normal appetite returns. - Do NOT smoke. - Do take it easy today. You need not stay in bed, but avoid strenuous activities such as jogging or working out. FOLLOW UP & RECOMMENDATIONS: -Notify the doctor if you have any problems. -Next colonoscopy in 3 years -Start Pantoprazole 40 mg daily [facility]: Discharge Instructions * Attachments The following attachments cannot be sent through Care Everywhere. * Head Injury: Closed: General Info ([place]) documented in this encounter Assessments Diagnosis Closed head injury, initial encounter Multiple abrasions Abrasion or friction burn of other, multiple, and unspecified sites, without mention of infection Summary Purpose Family History No Family History Records Found Relationship Condition Age at Onset Recorded Date/T psacual father Polyp of colon Unknown mother Polyp of colon Unknown Advance Directives No Advanced Directives Records Found Advance Directive Response Recorded Date/ Time Advance Directives No December 20 2:59pm Chief Complaint and Reason for Visit Chief Complaint Bloating, GERD, Scre ening, bad taste in mouth Bloating, GERD, Screening, bad taste in mouth Reason for Referral Specialty Diagnoses / Procedures Referred By Contac t Referred To Contact Diagnoses Primary osteoarthritis of both knees Benjy Garcia MD [address] [place] [address] Referral ID Status Reason Start Date Expiration Date V isits Requested Visits Authorized [id number] Pending Review 03/16/2024 09/12/2024 1 1 Additional Source Comments Reason for Visit (unrecogniz ed section and content) Reason Comments Fall Head Injury Reason Comments Follow-up [facility]M [facility] Reason Onset Date Comments Med Refill 03/29/2024 (unrecognized sect ion and content) No Status Records FoundNo Status Records FoundNo Status Records FoundNo Status Records FoundNo Status Records Found INFORMATION SOURCE (unrecogn ized section and content) DATE CREATED AUTHOR 04/22/2020 [facility] DATE CREATED AUTHOR AUTHOR'S ORGANIZ ATION 11/28/2021 [facility] DATE CREATED AUTHOR AUTHOR'S ORGANIZ ATION 01/06/2024 [facility] DATE CREATED AUTHOR AUTHOR'S ORGANIZ ATION 06/19/2024 [facility] EPIC DATE CREATED AUTHOR AUTHOR'S ORGANCHERRI ATION 06/24/2024 [facility] Care Teams (unrecognized sec tion and content) Team Status: Active Member Role Status Dates Benjy Garcia MD Primary Care Provider Active Team Status: Inactive Member Role Status Dates Alix Milligan MD Attending Provider Active Start: December 23, 2023 End: December 23, 2023 Benjy Garcia MD Primary Care Provide r, Referring Provider Active Start: December 23, 2023 End: December 23, 2023 Team Status: Active Member Role Status Dates Alix Milligan MD Attending Provider, Other Provider Act amanda Start: December 23, 2023 Benjy Garcia MD Primary Care Provide r, Referring Provider Active Start: December 23, 2023 Title I Math Tutor Relationship Specialty Start Date End Date Benjy Garcia MD [address] [place] [phone] PCP - General Family Medicine 06/06/22 Benjy Garcia MD [address] [place] [phone] PCP - [employer] 04/06/23 Title I Math Tutor Relationship Specialty Start Date End Date Benjy Garcia MD [address] [place] [phone] PCP - General Family Medicine 06/06/22 Benjy Garcia MD [address] [place] [phone] PCP - [employer] 04/06/23 Title I Math Tutor Relationship Specialty Start Date End Date Benjy Garcia MD [address] [place] [phone] PCP - General Family Medicine 06/06/22 Benjy Garcia MD [address] [place] [phone] PCP - [facility] 04/06/23 Title I Math Tutor Relationship Specialty Start Date End Date Benjy Garcia MD [address] [place] [address] PCP - General Family Medicine 06/06/22 Benjy Garcia MD [address] [place] [address] [facility] FOR RECORDS PERTAINING TO PATIENTS WHO ARE OR HAVE BEEN ENROLLED IN A CHEMICAL DEPENDENCY/SUBSTANCEABUSE PROGRAM, SOME INFORMATION MAY BE OMITTED. This clinical summary was aggregated from multiple sources. Caution should be exercised in using it in the provision of clinical care. This summary normalizes information from multiple sources, and as a consequence, information in this document may materially change the coding, format and clinical context of patient data. In addition, data may be omitted in some cases. CLINICAL DECISIONS SHOULD BE BASED ON THE PRIMARY CLINICAL RECORDS. [facility]. provides no warranty or guarantee of the accuracy or completeness of information in this document.
--- NOTE | 2024-06-26 03:29 | XR_ITS ---
The [address] [address] Patient Name: IDRIS DODD MRN: [id number] date: 1965 Sex: M Assigned Patient Location: ER Current Patient Location: ER Accession/Order Number: [id number] Exam Date: 06/26/2024 04:05 Report Date: 06/26/2024 04:41 At the request of: JULIUS GALLARDO Procedure: XR chest 1V EXAM: XR chest 1V HISTORY: sob COMPARISON: Portable chest radiograph dated 06/14/2024. TECHNIQUE: AP erect portable chest radiograph performed. FINDINGS: The trachea is midline. Stable mild prominence of the cardiac silhouette. The mediastinal silhouette and hilar shadows are normal. There is no consolidation, pleural effusion or pulmonary vascular congestion. There is no pneumothorax or acute osseous abnormality. XR/XR chest 1V IMPRESSION: There is no acute cardiopulmonary process. Electronically authenticated by: ELICEO RIGGS Date: 06/26/2024 04:41
--- NOTE | 2024-06-26 03:29 | ECG_ITS ---
The [facility] Test Date: 2024-06-26 Pat Name: IDRIS DODD Department: Room: - Gender: Male [employer]: : 1965 Requested By: MESSI GARCIA Order Number: [id number] Reading MD: RAJIV LAMBERT Measurements Intervals [place] Rate: 178 P: -32075 OR: -76371 QRS: 76 QRSD: 112 T: -66 QT: 326 QTc: 420 Interpretive Statements 1420 Undetermined rhythm (Possible supraventricular tachycardia) [address] depression 4564 Twave abnormality, possible inferolateral ischemia 9150 abnormal ECG t Electronically Signed On 06-26-2024 6:51:13 EST by RAJIV LAMBERT
--- NOTE | 2024-06-26 03:41 | ECG_ITS ---
The [facility] Test Date: 2024-06-26 Pat Name: IDRIS DODD Department: Room: - Gender: Male Director Clinical Operations: : 1965 Requested By: MESSI GARCIA Order Number: [id number] Reading MD: RAJIV LAMBERT Measurements Intervals [place] Rate: 114 P: -79737 FL: -63556 QRS: 58 QRSD: 106 T: 270 QT: 320 QTc: 388 Interpretive Statements 75203 Atrial fibrillation with rapid ventricular response with aberrant conduction, or ventricular premature complexes [address] depression, probably digitalis effect 89287 Twave abnormality, possible inferolateral ischemia or digitalis effect 9150 abnormal ECG Electronically Signed On 06-26-2024 6:52:06 EST by RAJIV LAMBERT
[2024-06-26] MEDS: dilTIAZem HCL 125 MG in 0.9 % SODIUM CHLORIDE 100 ML 10 MG IV (03:42)
[2024-06-26] MEDS: DILTIAZEM HCL 25 MG/5 ML VIAL 20 MG IV (03:42)
[2024-06-26 03:51] LABS: INR 1.19; Prothrombin Time 12.4 sec (9.0-11.6)
[2024-06-26 03:52] LABS: Alanine Aminotransferase 31 U/L (16-63); Albumin Globulin Ratio 0.7; Albumin Level 3.2 g/dL (3.4-5.0); Alkaline Phosphatase 60 U/L (46-116); Anion Gap 13.8; Aspartate Amino Transferase 31 U/L (15-37); BUN Creatinine Ratio 9.8; Bilirubin Total 0.5 mg/dL (0.2-1.0); Calcium 8.6 mg/dL (8.5-10.1); Carbon Dioxide 29.2 mmol/L (21.0-32.0); Chloride 101 mmol/L (98-107); Estimated GFR (African America >60 (>=60 mL/min/1.73m^2); Estimated GFR (Non-African Ame 55 (>=60 mL/min/1.73m^2); Globulin 4.7 g/dL; Glucose 133 mg/dL (74-106); Sodium 140 mmol/L (136-145); Total Protein 7.9 g/dL (6.4-8.2)
[2024-06-26 03:53] LABS: Basophils Absolute Auto 0.1 10^3/uL (0.0-0.1); Basophils Percent Auto 0.5 % (0.2-2.0); Eosinophils Absolute Auto 0.2 10^3/uL (0.0-0.7); Eosinophils Percent Auto 1.4 % (0.9-7.0); Hematocrit 54.1 % (42.0-54.0); Hemoglobin 17.7 g/dL (14.0-18.0); Immature Granulocytes Abs Auto 0.22 10^3/uL (0.00-0.03); Immature Granulocytes Pct Auto 1.7 % (0.0-0.5); Lymphocytes Absolute Auto 2.4 10^3/uL (1.2-3.8); Lymphocytes Percent Auto 17.8 % (20.5-60.0); Mean Corpuscular HGB Conc 32.7 g/dL (29.9-35.2); Mean Corpuscular Hemoglobin 30.7 pg (25.9-34.0); Mean Corpuscular Volume 93.9 fL (80.0-94.0); Mean Platelet Volume 9.7 fL (9.5-13.5); Monocytes Absolute Auto 1.1 10^3/uL (0.3-0.8); Monocytes Percent Auto 8.6 % (1.7-12.0); Neutrophils Absolute Auto 9.3 10^3/uL (1.4-6.5); Platelet Count 285 10^3/uL (150-450); Red Blood Count 5.76 10^6/uL (4.70-6.10); Red Cell Distribution Width 13.2 % (11.0-15.0); White Blood Count 13.3 10^3/uL (4.0-11.0)
[2024-06-26 04:00] LABS: Ethanol 9 mg/dL; Thyroid Stimulating Hormone 4.408 uIU/mL (0.358-3.740); Troponin I High Sensitivity 73.5 pg/mL (4.0-76.1)
[2024-06-26] MEDS: 0.9 % SODIUM CHLORIDE 1,000 ML 125 ML IV (04:00)
--- NOTE | 2024-06-26 04:36 | ED.GENADUL1 ---
HPI HPI - General Adult General Chief complaint: Chest Pain Stated complaint: CHEST PAIN Time Seen by Provider: 06/26/24 03:29 Source: patient Mode of arrival: walk-in Limitations: no limitations History of Present Illness HPI narrative: Patient states he was in bed tonight when he heard his LifeVest beep. He had been told that if he had heart rhythm problems the LifeVest would deliver a shock to his heart that would be preceded by 2 beeps with the second 1 being louder. Patient was expecting to be shocked by the LifeVest so he took it off and drove himself to the hospital. He was initially admitted to this hospital 11 days ago with atrial fibrillation. He was also found to be in heart failure and was transferred to [facility] for further evaluation. He underwent coronary angiography 7 days ago which showed severely decompensated heart failure and mild CAD consistent with nonischemic cardiomyopathy likely on the basis of alcohol use over the years. Ejection Fraction: By 2D echo was 20 to 25% at this facility. He was also found to have paroxysmal atrial fibrillation and hypertension. Current medications since discharge from [facility] include apixaban, aspirin, Lipitor, Farxiga, Lasix 40 mg daily, metoprolol XL 25 mg daily, pantoprazole, Entresto 12-13 mg bid. Patient was found to have swelling of the left leg greater than the right. His workup included venous Doppler studies of the left leg which were negative for DVT and CT angiogram of the chest which did not show pulmonary embolism. Related Data Home Medications ?Medication ?Instructions ?Recorded ?Confirmed lisinopril 20 1 tab PO DAILY 03/23/23 06/14/24 mg-hydrochlorothiazide 25 mg tablet pantoprazole 40 mg tablet,delayed 40 mg PO DAILY 06/14/24 06/14/24 release apixaban 5 mg tablet (Eliquis) 5 mg PO BID 06/26/24 06/26/24 aspirin 81 mg tablet,delayed 81 mg PO DAILY 06/26/24 06/26/24 release atorvastatin 40 mg tablet 40 mg PO DAILY 06/26/24 06/26/24 dapagliflozin propanediol 10 mg 10 mg PO DAILY 06/26/24 06/26/24 tablet (Farxiga) furosemide 40 mg tablet 40 mg PO DAILY 06/26/24 06/26/24 metoprolol succinate 25 mg 25 mg PO DAILY 06/26/24 06/26/24 tablet,extended release 24 hr pantoprazole 40 mg tablet,delayed 40 mg PO DAILY 06/26/24 06/26/24 release (Protonix) sacubitril 24 mg-valsartan 26 mg 1 tab PO BID 06/26/24 06/26/24 tablet (Entresto) Allergies Allergy/AdvReac Type Severity Reaction Status Date / Time No Known Drug Allergies Allergy Verified 06/26/24 03:25 Opioid HPI Opioid Management Most Recent Opioid Data: Last Pain Scale 0 06/26/24 03:17 06/26/24 Last ED Pain Assessment 06/26/24 03:17 Last ORT Total Score 0 06/14/24 14:38 06/14/24 Last ORT Risk Category Low Risk 06/14/24 14:38 06/14/24 Review of Systems ROS Status of ROS 10 or more systems reviewed and unremarkable except as noted in history and below PFSH PFS Medical History Morbid obesity ?E66.01 - Morbid (severe) obesity due to excess calories (ICD-10) GERD (gastroesophageal reflux disease) ?K21.9 - Gastro-esophageal reflux disease without esophagitis (ICD-10) Hypertension ?I10 - Essential (primary) hypertension (ICD-10) Surgical History History of knee replacement ?Z96.659 - Presence of unspecified artificial knee joint (ICD-10) H/O repair of rotator cuff ?Z98.890 - Other specified postprocedural states (ICD-10) Hx of tonsillectomy ?Z90.89 - Acquired absence of other organs (ICD-10) Family History Other Total knee replacement status Social History Within the past year, how often did you have a drink containing alcohol: 4 or more times a week Within the past year, how many standard drinks containing alcohol did you have on a typical day: 5 or 6 Within the past year, how often did you have six or more drinks on one occasion: weekly Total score: 7 Score interpretation: A score of 4 or more indicates drinking is likely to affect patient's safety. Smoking status: Former smoker Non-prescribed substance use: former substance user Highest level of school completed/degree received: high school graduate Little interest or pleasure in doing things: not at all Feeling down, depressed, or hopeless: not at all Exam Narrative Exam Narrative: Patient presents to the emergency department in mild distress. On the monitor he is in atrial fibrillation with a rapid ventricular response ranging between 150 to 180 bpm. HEENT exam is normal to inspection. Patient is morbidly obese in appearance. Neck is supple. Lung sounds are diminished but otherwise grossly clear. Heart has rapid rate with irregular rhythm. Abdomen is protuberant, soft and nontender with no fluid wave. He has 2+ pitting edema of the pretibial bilaterally. Speech and mentation are clear and intact. There is no facial asymmetry. He moves all extremities actively. Constitutional Vital Signs, click to edit/add: Last Vital Signs Temp 97.9 F 06/26/24 03:19 Pulse 115 H 06/26/24 06:40 Resp 15 06/26/24 06:40 BP 92/58 06/26/24 06:32 Pulse Ox 100 06/26/24 06:40 O2 Del Method Room Air 06/26/24 03:19 Course Vital Signs Vital signs: Vital Signs Temperature 97.9 F 06/26/24 03:19 Pulse Rate 178 H 06/26/24 03:19 Respiratory Rate 20 06/26/24 03:19 Blood Pressure 125/108 H 06/26/24 03:19 Pulse Oximetry 97 06/26/24 03:19 Oxygen Delivery Method Room Air 06/26/24 03:19 Temperature 97.9 F 06/26/24 03:19 Pulse Rate 115 H 06/26/24 06:40 Respiratory Rate 15 06/26/24 06:40 Blood Pressure 92/58 06/26/24 06:32 Pulse Oximetry 100 06/26/24 06:40 Oxygen Delivery Method Room Air 06/26/24 03:19 Medical Decision Making MDM Narrative Medical decision making narrative: EKG #1: Atrial fibrillation with rapid ventricular response of 178 bpm. Normal axis. Inferolateral ST segment depression. Borderline LVH by voltage criteria. No acute ST elevation. EKG #2: Atrial fibrillation with rapid ventricular response 114 bpm. Normal axis. LVH by voltage criteria. No acute ST elevation. Patient presents with atrial fibrillation with rapid ventricular response. He is hemodynamically fairly stable. He is bolused with Cardizem 20 mg IV and started on a Cardizem infusion which is being titrated to slow his heart rate. He has tolerated this fairly well. Potassium is normal at 4. His troponin is 73.5 which is lower than previous levels and is in the normal range. BNP is 533 which is significantly lower than previous levels. Patient states he has been taking all his medications regularly. His heart rate has started slowing down. The plan is to admit him to the hospital he has been accepted by the hospitalist [employer]. Lab Data Labs: Lab Results 06/26/24 06/26/24 Range/Units 03:25 05:30 WBC 13.3 H (4.0-11.0) 10^3/uL RBC 5.76 (4.70-6.10) 10^6/uL Hgb 17.7 (14.0-18.0) g/dL Hct 54.1 H (42.0-54.0) % MCV 93.9 (80.0-94.0) fL MCH 30.7 (25.9-34.0) pg MCHC 32.7 (29.9-35.2) g/dL RDW 13.2 (11.0-15.0) % Plt Count 285 (150-450) 10^3/uL MPV 9.7 (9.5-13.5) fL Neut % (Auto) 70.0 (43.0-75.0) % Lymph % (Auto) 17.8 L (20.5-60.0) % [place] % (Auto) 8.6 (1.7-12.0) % Eos % (Auto) 1.4 (0.9-7.0) % Baso % (Auto) 0.5 (0.2-2.0) % Neut # (Auto) 9.3 H (1.4-6.5) 10^3/uL Lymph # (Auto) 2.4 (1.2-3.8) 10^3/uL [place] # (Auto) 1.1 H (0.3-0.8) 10^3/uL Eos # (Auto) 0.2 (0.0-0.7) 10^3/uL Baso # (Auto) 0.1 (0.0-0.1) 10^3/uL Abs Immat Gran (auto) 0.22 H (0.00-0.03) 10^3/uL Imm/Tot Granulo (auto) 1.7 H (0.0-0.5) % PT 12.4 H (9.0-11.6) sec INR 1.19 APTT 35.0 (22.3-36.2) sec Sodium 140 (136-145) mmol/L Potassium 4.0 (3.5-5.1) mmol/L Chloride 101 (98-107) mmol/L Carbon Dioxide 29.2 (21.0-32.0) mmol/L Anion Gap 13.8 BUN 13.0 (7.0-18.0) mg/dL Creatinine 1.32 H (0.70-1.30) mg/dL Est GFR ( Amer) >60 (>=60 mL/min/1.73m^2) Est GFR (Non-Af Amer) 55 L (>=60 mL/min/1.73m^2) BUN/Creatinine Ratio 9.8 Glucose 133 H (74-106) mg/dL Calcium 8.6 (8.5-10.1) mg/dL Magnesium 1.8 (1.8-2.4) mg/dL Total Bilirubin 0.5 (0.2-1.0) mg/dL AST 31 (15-37) U/L ALT 31 (16-63) U/L Alkaline Phosphatase 60 (46-116) U/L Troponin I High Sens 73.5 75.3 (4.0-76.1) pg/mL NT-Pro-B Natriuret Pep 533.0 (<=900.0) pg/mL Total Protein 7.9 (6.4-8.2) g/dL Albumin 3.2 L (3.4-5.0) g/dL Globulin 4.7 g/dL Albumin/Globulin Ratio 0.7 TSH 4.408 H (0.358-3.740) uIU/mL Ethanol Quant 9 mg/dL Discharge Plan Discharge Chief Complaint: Chest Pain Clinical Impression: Atrial fibrillation with RVR Patient Disposition: Admitted As Inpatient Time of Disposition Decision: 05:03 Condition: Fair
[2024-06-26 05:19] LABS: Magnesium 1.8 mg/dL (1.8-2.4)
[2024-06-26 06:01] LABS: Troponin I High Sensitivity 75.3 pg/mL (4.0-76.1)
--- OUTSIDE RECORDS SUMMARY | 2024-06-26 08:11 | XMS_ITS | CCD ---
Author Organization [facility] Care Team Providers Care Outreach Professional Name Role Phone Unavailable Primary Care Provider ASHWIN Gaviria Attending DR BENJY Smith Admitting Unavailable JOSE, DR BENJY Anton Attending Unavailable JOSE, DR BENJY Anton Primary Care Unavailable JOSE, DR BENJY Anton Consulting Unavailable MD Alix Milligan Attending Provider MD Benjy Garcia Primary Care Provider MD Benjy Garcia Referring Provider [phone] Benjy Garcia Referring Unavailable Asaad Imad Admitting [...] (1 source) Clindamycin Drug Allergy 01-24-2017 [facility] Repository (1 source) Clindamycin Drug Allergy 12-23-2023 [facility] Repository (5 sources) Clindamycin Drug Allergy 04-02-2020 [facility] Work Phone: Medications Current Medications Medication Drug [...] medically ready for discharge. Awaiting lifevest fitting. Portrait Artist spoke to Mp with [employer] who reported the patient will be fit around 3 pm today. 1325: Cardiology progress note faxed to [employer] at [phone]. Diet: Dietary Orders (From admission, onward) Start [...] PT Recommendations: OT Recommendations: New Consults: Normal [facility] BASIC METABOLIC PANELon 06-06 Anion gap [Moles/Vol] 8 mmol/L Normal - [facility] Comment on above: Performed By: #### L [id number] ####[facility] (BEAKER)[address] [place] [address] Calcium [Mass/Vol] 8.7 mg/dL Normal 8.6-10.3 [facility] Comment on above: Performed By: #### L [id number] ####[facility] (BEAKER)[address] [place] [address] Chloride [Moles/Vol] 98 mmol/L Normal 98-107 [facility] Comment on above: Performed By: #### L [id number] ####[facility] ([facility] [place] [address] CO2 [Moles/Vol] 33 mmol/L High 21-31 [facility] Comment on above: Performed By: #### L [id number] ####[facility] ([facility] [place] [address] Creatinine [Mass/Vol] 0.99 mg/dL Normal 0.70-1.30 [facility] Comment on above: Performed By: #### L [id number] ####[facility] ([facility])[address] [place] [address] GLOMERULAR FILTRATION RATE ML/MIN/1.73 SQ M.PREDICTED 87.2 mL/min/1.73m*2 Normal >60.0 [facility] Comment on above: Result Comment: [facility]???s estimated glomerular filtration rate (eGFR) will no [...] of individuals. Performed By: #### L [id number] ####[facility] ([facility] [place] [address] Glucose [Mass/Vol] 104 mg/dL High 70-100 [facility] Comment on above: Performed By: #### L [id number] ####[facility] ([facility] [place] [address] Potassium [Moles/Vol] 3.9 mmol/L Normal 3.5-5.1 [facility] Comment on above: Performed By: #### L [id number] ####[facility] ([facility] [place] [address] Sodium [Moles/Vol] 135 mmol/L Low 136-145 [facility] Comment on above: Performed By: #### L [id number] ####[facility] ([facility] [place] [address] Urea nitrogen [Mass/Vol] 13 mg/dL Normal 7-25 [facility] Comment on above: Performed By: #### L [id number] ####[facility] ([facility])[address] [place] [address] UREA NITROGEN/CREATININE (MASS RATIO) IN SER/PLAS 13.1 Normal [facility] Comment on above: Performed By: #### L [id number] ####[facility] ([facility])[address] [place] [address] CBCon 06-22-2024 Erythrocyte distribution width (RBC) [Ratio] 13.3 % Normal 11.5-15.0 [facility] Comment on above: Performed By: #### L [id number] ####[facility] ([facility])[address] [place] [address] ERYTHROCYTE MEAN CORPUSCULAR HEMOGLOBIN CONCENTRATION (G/DL) BY AUTOMATED 33.2 g/dL Normal 32.0-35.0 [facility] Comment on above: Performed By: #### L [id number] ####[facility] ([facility] [place] [address] Hematocrit (Bld) [Volume fraction] 46.1 % Normal 39.0-55.0 [facility] Comment on above: Performed By: #### L [id number] ####[facility] ([facility] [place] [address] Hemoglobin (Bld) [Mass/Vol] 15.3 g/dL Normal 13.0-17.0 [facility] Comment on above: Performed By: #### L [id number] ####[facility] ([facility] [place] [address] MCH (RBC) [Entitic mass] 31.0 pg Normal 27.0-33.0 [facility] Comment on above: Performed By: #### L [id number] ####[facility] ([facility])[address] [place] [address] MCV (RBC) [Entitic vol] 93.5 fL Normal 82.0-98.0 [facility] Comment on above: Performed By: #### L [id number] ####[facility] ([facility])[address] [place] [address] PLATELETS (10*3/UL) IN BLOOD AUTOMATED COUNT 261 10*3/uL Normal 150-400 [facility] Comment on above: Performed By: #### L [id number] ####[facility] ([facility])[address] [place] [address] RBC (Bld) [#/Vol] 4.93 10*6/uL Normal 4.20-5.[address] [facility] Comment on above: Performed By: #### L [id number] ####[facility] ([facility])[address] [place] [address] WBC (Bld) [#/Vol] 11.08 10*3/uL High 4.00-10.60 [facility] Comment on above: Performed By: #### L [id number] ####[facility] ([facility])[address] [place] [address] MAGNESIUMon 06-22-2024 Magnesium [Mass/Vol] 2.0 mg/dL Normal 1.9-2.7 [facility] Comment on above: Performed By: #### L [id number] #### [facility] ([facility]) [address] [place] [address] NURSNOTEon 06-22-2024 NURSNOTE Pt discharged with a ll belongings, discharge paperwork, and questions answered to pt's satisfaction. Normal [facility] 30on 06-21-2024 30 The patient is Moderately Stable - Low risk of patient condition declining or worsening The patient's goals for the shift include sleep The clinical goals for the shift include stable vs, safety Over the shift, the patient continues to make progress toward the following goals. Normal [facility] 30 The patient is Moderately Stable - Low risk of patient condition declining or worsening The patient's goals for the shift include comfort and rest The clinical goals for the shift include vss and safety Normal [facility] 30 Daily Case Managemen t Update Multidisciplinary [...] Other Other: Heart Failure 06/21/24 1111 Normal [facility] BASIC METABOLIC PANELon 06-06 Anion gap [Moles/Vol] 7 mmol/L Normal 7- [facility] Comment on above: Performed By: #### L [id number] ####[facility] (BEAKER)[address] [place] [address] Calcium [Mass/Vol] 8.6 mg/dL Normal 8.6-10.3 [facility] Comment on above: Performed By: #### L [id number] ####[facility] (BEAKER)[address] [place] [address] Chloride [Moles/Vol] 98 mmol/L Normal 98-107 [facility] Comment on above: Performed By: #### L [id number] ####[facility] (BEAKER)[address] [place] [address] CO2 [Moles/Vol] 36 mmol/L High 21-31 [facility] Comment on above: Performed By: #### L [id number] ####[facility] (BEAKER)[address] [place] [address] Creatinine [Mass/Vol] 0.99 mg/dL Normal 0.70-1.30 [facility] Comment on above: Performed By: #### L [id number] ####[facility] ([facility])[address] [place] [address] GLOMERULAR FILTRATION RATE ML/MIN/1.73 SQ M.PREDICTED 87.2 mL/min/1.73m*2 Normal >60.0 [facility] Comment on above: Result Comment: [facility]???s estimated glomerular filtration rate (eGFR) will no [...] of individuals. Performed By: #### L [id number] ####[facility] (BEAKER)[address] [place] [address] Glucose [Mass/Vol] 110 mg/dL High 70-100 [facility] Comment on above: Performed By: #### L [id number] ####[facility] (BEAKER)[address] [place] [address] Potassium [Moles/Vol] 3.8 mmol/L Normal 3.5-5.1 [facility] Comment on above: Performed By: #### L [id number] ####[facility] [place] [address] Sodium [Moles/Vol] 137 mmol/L Normal 136-145 [facility] Comment on above: Performed By: #### L [id number] ####[facility] ([facility] [place] [address] Urea nitrogen [Mass/Vol] 13 mg/dL Normal 7-25 [facility] Comment on above: Performed By: #### L [id number] ####[facility] ([facility])[address] [place] [address] UREA NITROGEN/CREATININE (MASS RATIO) IN SER/PLAS 13.1 Normal [facility] Comment on above: Performed By: #### L [id number] ####[facility] ([facility])[address] [place] [address] CBCon 06-21-2024 Erythrocyte distribution width (RBC) [Ratio] 13.2 % Normal 11.5-15.0 [facility] Comment on above: Performed By: #### L [id number] ####[facility] ([facility])[address] [place] [address] ERYTHROCYTE MEAN CORPUSCULAR HEMOGLOBIN CONCENTRATION (G/DL) BY AUTOMATED 32.9 g/dL Normal 32.0-35.0 [facility] Comment on above: Performed By: #### L [id number] ####[facility] [place] [address] Hematocrit (Bld) [Volume fraction] 43.2 % Normal 39.0-55.0 [facility] Comment on above: Performed By: #### L [id number] ####[facility] (BEAKER)[address] [place] [address] Hemoglobin (Bld) [Mass/Vol] 14.2 g/dL Normal 13.0-17.0 [facility] Comment on above: Performed By: #### L [id number] ####[facility] ([facility] [place] [address] MCH (RBC) [Entitic mass] 30.9 pg Normal 27.0-33.0 [facility] Comment on above: Performed By: #### L [id number] ####[facility] ([facility])[address] [place] [address] MCV (RBC) [Entitic vol] 94.1 fL Normal 82.0-98.0 [facility] Comment on above: Performed By: #### L [id number] ####[facility] ([facility])[address] [place] [address] PLATELETS (10*3/UL) IN BLOOD AUTOMATED COUNT 247 10*3/uL Normal 150-400 [facility] Comment on above: Performed By: #### L [id number] ####[facility] ([facility])[address] [place] [address] RBC (Bld) [#/Vol] 4.59 10*6/uL Normal 4.20-5.[address] [facility] Comment on above: Performed By: #### L [id number] ####[facility] ([facility])[address] [place] [address] WBC (Bld) [#/Vol] 8.62 10*3/uL Normal 4.00-10.[address] [facility] Comment on above: Performed By: #### L [id number] ####[facility] ([facility])[address] [place] [address] CONSULTon 06-21-2024 CONSULT Adult Nutrition Assessment: Name: Idris Dodd Jr. Date: 1965 Date of Visit: 06/21/24 Admission Dx: Heart failure (CMS/[facility]) [I50.9] Reason for assessment: MD [...] of Nutrition and Dietetics (AND) and the [place] [employer] of Enteral and Parenteral Nutrition (ASPEN). [...] To reach the Clinical Dietitian, please utilize [employer] chat Tuesday-Tuesday from 8AM-4PM or call extension [phone]. For weekends (Tuesday-Tuesday) and holidays, the Clinical Dietitian can be reached via pager ([phone]) from 9AM-3PM. The Clinical Nutrition Department is unable to respond to [employer] chat messages on Sundays and holidays. Normal [facility] T4, FREEon 06-21-2024 THYROXINE (T4) FREE (NG/DL) IN SER/PLAS 0.94 ng/dL Normal 0.71-1.85 [facility] Comment on above: Performed By: #### L [id number] ####[facility] (BEAKER)[address] [place] [address] TSH3 REFLEX TO FT4on 025 THYROTROPIN (MIU/L) IN SER/PLAS BY DETECTION LIMIT <= 0.05 MIU/L 6.21 mIU/L High 0.34-5.60 [facility] Comment on above: Performed By: #### L [id number] ####[facility] ([facility])[address] [place] [address] 30on 06-20-2024 30 The patient is Moderately Stable - Low risk of patient condition declining or worsening The patient's goals for the shift include comfort and rest The clinical goals for the shift include vss and safety Over the shift, the patient continued to make progress toward the following goals. Normal [facility] 30 Problem: Respiratory - Adult Goal: Achieves [...] goals for the shift include VSS Normal [facility] APTTon 06-20-2024 ACTIVATED PARTIAL THROMBOPLASTIN TIME IN PPP BY COAGULATION ASSAY 31.2 Seconds Normal 25.0-35.0 [facility] Comment on above: Order Comment: Check aPTT every 6 hours while on heparin infusion, or per protocol. Result Comment: Clin ical significance of the APTT is questionable in the presence of heparin. Performed By: #### L [id number] ####[facility] ([facility])[address] [place] [address] ACTIVATED PARTIAL THROMBOPLASTIN TIME IN PPP BY COAGULATION ASSAY 31.6 Seconds Normal 25.0-35.0 [facility] Comment on above: Order Comment: Check aPTT every 6 hours while on heparin infusion, or per protocol. Result Comment: Clin ical significance of the APTT is questionable in the presence of heparin. Performed By: #### L [id number] #### [facility] ([facility]) [address] [place] [address] BASIC METABOLIC PANELon 06-06 Anion gap [Moles/Vol] 8 mmol/L Normal 7-20 [facility] Comment on above: Performed By: #### L [id number] ####[facility] ([facility])[address] [place] [address] Calcium [Mass/Vol] 8.6 mg/dL Normal 8.6-10.3 [facility] Comment on above: Performed By: #### L [id number] ####[facility] ([facility])[address] [place] [address] Chloride [Moles/Vol] 100 mmol/L Normal 98-107 [facility] Comment on above: Performed By: #### L [id number] ####[facility] [place] [address] CO2 [Moles/Vol] 34 mmol/L High 21-31 [facility] Comment on above: Performed By: #### L [id number] ####[facility] ([facility])[address] [place] [address] Creatinine [Mass/Vol] 1.04 mg/dL Normal 0.70-1.30 [facility] Comment on above: Performed By: #### L [id number] ####[facility] ([facility])[address] [place] [address] GLOMERULAR FILTRATION RATE ML/MIN/1.73 SQ M.PREDICTED 82.2 mL/min/1.73m*2 Normal >60.0 [facility] Comment on above: Result Comment: [facility]???s estimated glomerular filtration rate (eGFR) will no [...] of individuals. Performed By: #### L [id number] ####[facility] ([facility])[address] [place] [address] Glucose [Mass/Vol] 122 mg/dL High 70-100 [facility] Comment on above: Performed By: #### L [id number] ####[facility] ([facility])[address] [place] [address] Potassium [Moles/Vol] 4.2 mmol/L Normal 3.5-5.1 [facility] Comment on above: Performed By: #### L [id number] ####[facility] ([facility])[address] [place] [address] Sodium [Moles/Vol] 138 mmol/L Normal 136-145 [facility] Comment on above: Performed By: #### L [id number] ####[facility] ([facility])[address] [place] [address] Urea nitrogen [Mass/Vol] 13 mg/dL Normal 7-25 [facility] Comment on above: Performed By: #### L [id number] ####[facility] [place] [address] UREA NITROGEN/CREATININE (MASS RATIO) IN SER/PLAS 12.5 Normal [facility] Comment on above: Performed By: #### L [id number] ####[facility] [place] [address] CBCon 06-20-2024 Erythrocyte distribution width (RBC) [Ratio] 13.2 % Normal 11.5-15.0 [facility] Comment on above: Performed By: #### L [id number] #### [facility] ([facility]) [address] [place] [address] ERYTHROCYTE MEAN CORPUSCULAR HEMOGLOBIN CONCENTRATION (G/DL) BY AUTOMATED 31.3 g/dL Low 32.0-35.0 [facility] Comment on above: Performed By: #### L [id number] #### [facility] ([facility]) [address] [place] [address] Hematocrit (Bld) [Volume fraction] 42.8 % Normal 39.0-55.0 [facility] Comment on above: Performed By: #### L [id number] #### [facility] [address] [place] [address] Hemoglobin (Bld) [Mass/Vol] 13.4 g/dL Normal 13.0-17.0 [facility] Comment on above: Performed By: #### L [id number] #### [facility] [address] [place] [address] MCH (RBC) [Entitic mass] 30.7 pg Normal 27.0-33.0 [facility] Comment on above: Performed By: #### L [id number] #### [facility] (BEAKER) [address] [place] [address] MCV (RBC) [Entitic vol] 98.2 fL High 82.0-98.0 [facility] Comment on above: Performed By: #### L [id number] #### [facility] ([facility]) [address] [place] [address] PLATELETS (10*3/UL) IN BLOOD AUTOMATED COUNT 247 10*3/uL Normal 150-400 [facility] Comment on above: Performed By: #### L [id number] #### [facility] ([facility]) [address] [facility] [place] [address] RBC (Bld) [#/Vol] 4.36 10*6/uL Normal 4.20-5.[address] [facility] Comment on above: Performed By: #### L [id number] #### [facility] ([facility]) [address] [place] [address] WBC (Bld) [#/Vol] 7.77 10*3/uL Normal 4.00-10.[address] [facility] Comment on above: Performed By: #### L [id number] #### [facility] ([facility]) [address] [facility] [place] [address] MAGNESIUMon 06-20-2024 Magnesium [Mass/Vol] 1.9 mg/dL Normal 1.9-2.7 [facility] Comment on above: Performed By: #### L [id number] #### [facility] ([facility]) [address] [facility] [place] [address] 30on 06-19-2024 30 The patient is Moderately [...] for values outside of normal range Normal [facility] 30 Daily Case Managemen t Update Multidisciplinary [...] appropriate for patient?: Yes New Consults: Normal [facility] 30 Problem: Respiratory - Adult Goal: Achieves [...] of function Outcome: Progressing Flowsheets (Taken 06/19/2024 0645) Return mobility to safest level of function: [...] the shift include VSS, hemodynamic stability Normal [facility] 30 The patient is Moderately Stable - [...] labs for bleeding or clotting disorders Normal [facility] APTTon 06-19-2024 ACTIVATED PARTIAL THROMBOPLASTIN TIME IN PPP BY COAGULATION ASSAY 29.8 Seconds Normal 25.0-35.0 [facility] Comment on above: Order Comment: Check aPTT every 6 hours while on heparin infusion, or per protocol. Result Comment: Clin ical significance of the APTT is questionable in the presence of heparin. Performed By: #### L [id number] #### [facility] (BEAKER) [address] [place] [address] ACTIVATED PARTIAL THROMBOPLASTIN TIME IN PPP BY COAGULATION ASSAY 126.6 Seconds High 25.0-35.0 [facility] Comment on above: Order Comment: Check aPTT every 6 hours while on heparin infusion, or per protocol. Result Comment: Clin ical significance of the APTT is questionable in the presence of heparin. Performed By: #### L [id number] #### [facility] (BEAKER) [address] [place] [address] ACTIVATED PARTIAL THROMBOPLASTIN TIME IN PPP BY COAGULATION ASSAY 64.7 Seconds High 25.0-35.0 [facility] Comment on above: Order Comment: Check aPTT every 6 hours while on heparin infusion, or per protocol. Result Comment: Clin ical significance of the APTT is questionable in the presence of heparin. Performed By: #### L [id number] #### [facility] [address] [place] [address] BASIC METABOLIC PANELon 06-06 Anion gap [Moles/Vol] 8 mmol/L Normal 7-20 [facility] Comment on above: Performed By: #### L [id number] #### [facility] ([facility]) [address] [place] [address] Calcium [Mass/Vol] 9.2 mg/dL Normal 8.6-10.3 [facility] Comment on above: Performed By: #### L [id number] #### [facility] ([facility]) [address] [place] [address] Chloride [Moles/Vol] 98 mmol/L Normal 98-107 [facility] Comment on above: Performed By: #### L [id number] #### [facility] ([facility]) [address] [place] [address] CO2 [Moles/Vol] 37 mmol/L High 21-31 [facility] Comment on above: Performed By: #### L [id number] #### [facility] ([facility]) [address] [place] [address] Creatinine [Mass/Vol] 1.12 mg/dL Normal 0.70-1.30 [facility] Comment on above: Performed By: #### L [id number] #### [facility] ([facility]) [address] [place] [address] GLOMERULAR FILTRATION RATE ML/MIN/1.73 SQ M.PREDICTED 75.2 mL/min/1.73m*2 Normal >60.0 [facility] Comment on above: Result Comment: [facility]???s estimated glomerular filtration rate (eGFR) will no [...] individuals. Performed By: #### L [id number] #### [facility] ([facility]) [address] [place] [address] Glucose [Mass/Vol] 115 mg/dL High 70-100 [facility] Comment on above: Performed By: #### L [id number] #### [facility] ([facility]) [address] [place] [address] Potassium [Moles/Vol] 4.1 mmol/L Normal 3.5-5.1 [facility] Comment on above: Performed By: #### L [id number] #### [facility] ([facility]) [address] [place] [address] Sodium [Moles/Vol] 139 mmol/L Normal 136-145 [facility] Comment on above: Performed By: #### L [id number] #### [facility] ([facility]) [address] [place] [address] Urea nitrogen [Mass/Vol] 16 mg/dL Normal 7-25 [facility] Comment on above: Performed By: #### L [id number] #### [facility] ([facility]) [address] [facility] [place] [address] UREA NITROGEN/CREATININE (MASS RATIO) IN SER/PLAS 14.3 Normal [facility] Comment on above: Performed By: #### L [id number] #### [facility] ([facility]) [address] [place] [address] CBCon 06-19-2024 Erythrocyte distribution width (RBC) [Ratio] 13.6 % Normal 11.5-15.0 [facility] Comment on above: Performed By: #### L [id number] #### [facility] ([facility] [facility]) [address] [place] [address] ERYTHROCYTE MEAN CORPUSCULAR HEMOGLOBIN CONCENTRATION (G/DL) BY AUTOMATED 31.4 g/dL Low 32.0-35.0 [facility] Comment on above: Performed By: #### L [id number] #### [facility] ([facility]) [address] [place] [address] Hematocrit (Bld) [Volume fraction] 44.9 % Normal 39.0-55.0 [facility] Comment on above: Performed By: #### L [id number] #### [facility] ([facility]) [address] [place] [address] Hemoglobin (Bld) [Mass/Vol] 14.1 g/dL Normal 13.0-17.0 [facility] Comment on above: Performed By: #### L [id number] #### [facility] ([facility]) [address] [place] [address] MCH (RBC) [Entitic mass] 30.7 pg Normal 27.0-33.0 [facility] Comment on above: Performed By: #### L [id number] #### [facility] ([facility]) [address] [place] [address] MCV (RBC) [Entitic vol] 97.8 fL Normal 82.0-98.0 [facility] Comment on above: Performed By: #### L [id number] #### [facility] ([facility]) [address] [place] [address] PLATELETS (10*3/UL) IN BLOOD AUTOMATED COUNT 286 10*3/uL Normal 150-400 [facility] Comment on above: Performed By: #### L [id number] #### [facility] ([facility]) [address] [place] [address] RBC (Bld) [#/Vol] 4.59 10*6/uL Normal 4.20-5.[address] [facility] Comment on above: Performed By: #### L [id number] #### [facility] [address] [place] [address] WBC (Bld) [#/Vol] 10.30 10*3/uL Normal 4.00-10.60 [facility] Comment on above: Performed By: #### L [id number] #### [facility] [address] [place] [address] HPon 06-19-2024 HP H&P reviewed. The patient was examined and there are no changes to the H&P. Discussed risks, benefits, and alternative therapies with the patient, he understands and willing to proceed with RHC/coronary angiogram and possible PCI. Sabine Bernard MD PGY-7 Interventional Bucket Wash Operator Normal [facility] TROPONIN Ion 06-19-2024 Troponin I.cardiac [Mass/Vol] 0.08 ng/mL High 0.00-0.04 [facility] Comment on above: Performed By: #### L [id number] ####[facility] ([facility])[address] [place] [address] 30on 06-18-2024 30 Daily Case Managemen t Update Multidisciplinary rounds have been completed. Barriers to Discharge: Patient presented from [facility] needing higher level of care for [...] appropriate for patient?: Yes New Consults: Normal [facility] 30 The patient is Moderately Stable - [...] Goal: Maintains hematologic stability Outcome: Progressing Normal [facility] 30 The patient is Moderately Stable - [...] labs for bleeding or clotting disorders Normal [facility] APTTon 06-18-2024 ACTIVATED PARTIAL THROMBOPLASTIN TIME IN PPP BY COAGULATION ASSAY 56.7 Seconds High 25.0-35.0 [facility] Comment on above: Order Comment: Check aPTT every 6 hours while on heparin infusion, or per protocol. Result Comment: Clin ical significance of the APTT is questionable in the presence of heparin. Performed By: #### L [id number] #### [facility] ([facility]) [address] [place] [address] B-TYPE NATRIURETIC PEPTIDEon 06-18-2024 Natriuretic peptide B (Bld) [Mass/Vol] 309 pg/mL High 0-100 [facility] Comment on above: Performed By: #### L [id number] #### [facility] ([facility]) [address] [place] [address] CONSULTon 06-18-2024 CONSULT -- Attestation signed by [...] of CAD. Patient was a transfer from [facility] for evaluation for coronary angiogram after he [...] extremity edema, (more content not included)... Normal [facility] HEMOGLOBIN A1Con 06-18-2024 Glucose [Mass/Vol] 128 mg/dL Normal [facility] Comment on above: Performed By: #### L [id number] #### [facility] ([facility]) [address] [place] [address] HbA1c (Bld) [Mass fraction] 6.1 % High 4.0-6.0 [facility] Comment on above: Performed By: #### L [id number] #### [facility] ([facility]) [address] [place] [address] HPon 06-18-2024 HP -- Attestation signed by [...] of CAD. Patient was a transfer from [facility] for evaluation for coronary angiogram after he [...] extremity edema, (more content not included)... Normal [facility] LIPID PANELon 06-18-2024 CHOL/HDL 3.8 mg/dL Normal [facility] Comment on above: Performed By: #### L [id number] #### [facility] ([facility]) [address] [place] [address] Cholesterol [Mass/Vol] 120 mg/dL Normal 120-200 [facility] Comment on above: Performed By: #### L [id number] #### [facility] ([facility]) [address] [place] [address] Magnesium [Mass/Vol] 49 mg/dL Normal 40-149 [facility] Comment on above: Result Comment: TRIG LYCERIDE REFERENCE RANGE: 20 YEARS AND OLDER CARDIOVASCULAR RISK LESS THAN 150 mg/dL LOW RISK 150 TO 199 mg/dL BORDERLINE RISK 200 mg/dL AND GREATER HIGH RISK Performed By: #### L [id number] #### [facility] ([facility]) [address] [place] [address] Magnesium [Mass/Vol] 78 mg/dL Normal 0-160 [facility] Comment on above: Performed By: #### L [id number] #### [facility] [address] [place] [address] Magnesium [Mass/Vol] 32 mg/dL Normal 23-92 [facility] Comment on above: Performed By: #### L [id number] #### [facility] ([facility]) [address] [place] [address] NON HDL CHOL. (LDL+VLDL) 88 Normal [facility] Comment on above: Performed By: #### L [id number] #### [facility] ([facility]) [address] [place] [address] TOTAL VLDL-C 10 mg/dL Normal 0-40 [facility] Comment on above: Performed By: #### L [id number] #### [facility] ([facility]) [address] [place] [address] PLATELET COUNTon 06-18-2024 PLATELETS (10*3/UL) IN BLOOD AUTOMATED COUNT 267 10*3/uL Normal 150-400 [facility] Comment on above: Performed By: #### L [id number] ####[facility] ([facility])[address] [place] [address] TROPONIN Ion 06-18-2024 Troponin I.cardiac [Mass/Vol] 0.10 ng/mL High 0.00-0.04 [facility] Comment on above: Performed By: #### L [id number] #### [facility] ([facility]) [address] [place] [address] APTTon 06-17-2024 ACTIVATED PARTIAL THROMBOPLASTIN TIME IN PPP BY COAGULATION ASSAY 30.6 Seconds Normal 25.0-35.0 [facility] Comment on above: Result Comment: Clin ical significance of the APTT is questionable in the presence of heparin. Performed By: #### L [id number] #### [facility] ([facility]) [address] [place] [address] CBC WITH AUTO DIFFERENTIALon 06-17-2024 Basophils (Bld) [#/Vol] 0.07 10*3/uL Normal 0.00-0.20 [facility] Comment on above: Performed By: #### L [id number] #### [facility] ([facility]) [address] [place] [address] Basophils/100 WBC (Bld) 0.7 % Normal 0.0-1.0 [facility] Comment on above: Performed By: #### L [id number] #### [facility] ([facility]) [address] [place] [address] Eosinophils (Bld) [#/Vol] 0.30 10*3/uL Normal 0.00-0.50 [facility] Comment on above: Performed By: #### L [id number] #### [facility] ([facility]) [address] [place] [address] Eosinophils/100 WBC (Bld) 2.9 % Normal 0.0-6.0 [facility] Comment on above: Performed By: #### L [id number] #### [facility] [address] [place] [address] Erythrocyte distribution width (RBC) [Ratio] 13.6 % Normal 11.5-15.0 [facility] Comment on above: Performed By: #### L [id number] #### [facility] [address] [place] [address] ERYTHROCYTE MEAN CORPUSCULAR HEMOGLOBIN CONCENTRATION (G/DL) BY AUTOMATED 31.4 g/dL Low 32.0-35.0 [facility] Comment on above: Performed By: #### L [id number] #### [facility] ([facility]) [address] [place] [address] Hematocrit (Bld) [Volume fraction] 45.9 % Normal 39.0-55.0 [facility] Comment on above: Performed By: #### L [id number] #### [facility] [address] [place] [address] Hemoglobin (Bld) [Mass/Vol] 14.4 g/dL Normal 13.0-17.0 [facility] Comment on above: Performed By: #### L [id number] #### [facility] [address] [place] [address] Immature granulocytes (Bld) [#/Vol] 0.03 10*3/uL Normal 0.00-0.20 [facility] Comment on above: Performed By: #### L [id number] #### [facility] ([facility]) [address] [place] [address] Immature granulocytes/100 WBC (Bld) 0.3 % Normal 0.0-1.0 [facility] Comment on above: Performed By: #### L [id number] #### [facility] ([facility]) [address] [place] [address] Lymphocytes (Bld) [#/Vol] 1.64 10*3/uL Normal 1.20-4.00 [facility] Comment on above: Performed By: #### L [id number] #### [facility] ([facility]) [address] [place] [address] Lymphocytes/100 WBC (Bld) 16.0 % Low 20.0-45.0 [facility] Comment on above: Performed By: #### L [id number] #### [facility] [address] [place] [address] MCH (RBC) [Entitic mass] 31.2 pg Normal 27.0-33.0 [facility] Comment on above: Performed By: #### L [id number] #### [facility] [address] [place] [address] MCV (RBC) [Entitic vol] 99.6 fL High 82.0-98.0 [facility] Comment on above: Performed By: #### L [id number] #### [facility] [address] [place] [address] Monocytes (Bld) [#/Vol] 0.70 10*3/uL Normal 0.10-1.00 [facility] Comment on above: Performed By: #### L [id number] #### [facility] ([facility]) [address] [place] [address] Monocytes/100 WBC (Bld) 6.8 % Normal 5.0-12.0 [facility] Comment on above: Performed By: #### L [id number] #### [facility] ([facility]) [address] [place] [address] Neutrophils (Bld) [#/Vol] 7.49 10*3/uL Normal 1.60-7.60 [facility] Comment on above: Performed By: #### L [id number] #### [facility] ([facility]) [address] [place] [address] Neutrophils/100 WBC (Bld) 73.3 % High 40.0-72.0 [facility] Comment on above: Performed By: #### L [id number] #### [facility] ([facility]) [address] [place] [address] NRBC (PER 100 WBCS) BY AUTOMATED COUNT 0.0 % Normal 0 [facility] Comment on above: Performed By: #### L [id number] #### [facility] ([facility]) [address] [place] [address] PLATELETS (10*3/UL) IN BLOOD AUTOMATED COUNT 288 10*3/uL Normal 150-400 [facility] Comment on above: Performed By: #### L [id number] #### [facility] ([facility]) [address] [place] [address] RBC (Bld) [#/Vol] 4.61 10*6/uL Normal 4.20-5.[address] [facility] Comment on above: Performed By: #### L [id number] #### [facility] ([facility]) [address] [place] [address] WBC (Bld) [#/Vol] 10.23 10*3/uL Normal 4.00-10.60 [facility] Comment on above: Performed By: #### L [id number] #### [facility] ([facility]) [address] [place] [address] COMPREHENSIVE METABOLIC PANE Damaso 06-17-2024 Albumin [Mass/Vol] 3.6 g/dL Normal 3.5-5.7 [facility] Comment on above: Performed By: #### L [id number] ####[facility] ([facility])[address] [place] [address] ALP [Catalytic activity/Vol] 42 U/L Normal 34-104 [facility] Comment on above: Performed By: #### L [id number] ####[facility] ([facility])[address] [place] [address] ALT [Catalytic activity/Vol] 16 U/L Normal 7-52 [facility] Comment on above: Performed By: #### L [id number] ####[facility] [place] [address] Anion gap [Moles/Vol] 9 mmol/L Normal 7-20 [facility] Comment on above: Performed By: #### L [id number] ####[facility] ([facility])[address] [place] [address] AST [Catalytic activity/Vol] 20 U/L Normal 13-39 [facility] Comment on above: Performed By: #### L [id number] ####[facility] ([facility])[address] [place] [address] Bilirubin [Mass/Vol] 0.5 mg/dL Normal 0.3-1.0 [facility] Comment on above: Performed By: #### L [id number] ####[facility] ([facility])[address] [place] [address] Calcium [Mass/Vol] 9.0 mg/dL Normal 8.6-10.3 [facility] Comment on above: Performed By: #### L [id number] ####[facility] ([facility])[address] [place] [address] Chloride [Moles/Vol] 99 mmol/L Normal 98-107 [facility] Comment on above: Performed By: #### L [id number] ####[facility] [place] [address] CO2 [Moles/Vol] 36 mmol/L High 21-31 [facility] Comment on above: Performed By: #### L [id number] ####[facility] [place] [address] Creatinine [Mass/Vol] 1.17 mg/dL Normal 0.70-1.30 [facility] Comment on above: Performed By: #### L [id number] ####[facility] [place] [address] GLOMERULAR FILTRATION RATE ML/MIN/1.73 SQ M.PREDICTED 71.4 mL/min/1.73m*2 Normal >60.0 [facility] Comment on above: Result Comment: [facility]???s estimated glomerular filtration rate (eGFR) will no [...] of individuals. Performed By: #### L [id number] ####[facility] ([facility])[address] [place] [address] Glucose [Mass/Vol] 90 mg/dL Normal 70-100 [facility] Comment on above: Performed By: #### L [id number] ####[facility] (AKER)[address] [place] [address] Potassium [Moles/Vol] 3.6 mmol/L Normal 3.5-5.1 [facility] Comment on above: Performed By: #### L [id number] ####[facility] ([facility])[address] [place] [address] Protein [Mass/Vol] 6.8 g/dL Normal 6.0-8.3 [facility] Comment on above: Performed By: #### L [id number] ####[facility] ([facility])[address] [place] [address] Sodium [Moles/Vol] 140 mmol/L Normal 136-145 [facility] Comment on above: Performed By: #### L [id number] ####[facility] ([facility])[address] [place] [address] Urea nitrogen [Mass/Vol] 14 mg/dL Normal 7-25 [facility] Comment on above: Performed By: #### L [id number] ####[facility] ([facility])[address] [place] [address] UREA NITROGEN/CREATININE (MASS RATIO) IN SER/PLAS 12.0 Normal [facility] Comment on above: Performed By: #### L [id number] ####[facility] ([facility])[address] [facility] [place] [address] MAGNESIUMon 06-17-2024 Magnesium [Mass/Vol] 1.9 mg/dL Normal 1.9-2.7 [facility] Comment on above: Performed By: #### L [id number] ####[facility] ([facility])[address] [place] [address] PHOSPHORUSon 06-17-2024 Magnesium [Mass/Vol] 2.7 mg/dL Normal 2.5-5.0 [facility] Comment on above: Performed By: #### L [id number] ####[facility] ([facility])[address] [place] [address] PROTIME-INRon 06-17-2024 INR IN PPP BY COAGULATION ASSAY 1.39 High 0.90-1.10 [facility] Comment on above: Result Comment: ACCC P [...] CHEST 1995;108:231S-246S. Performed By: #### L [id number] ####[facility] ([facility])[address] [place] [address] PROTHROMBIN TIME (PT) IN PPP BY COAGULATION ASSAY 17.0 Seconds High 12.3-14.8 [facility] Comment on above: Performed By: #### L [id number] ####[facility] ([facility])[address] [place] [address] Damaso 12-23-2023 L Specimen: [id number] Received: 12/23/23 Status: ANTONINO Galan Num: [id number] Spec Type: Surgical Subm Dr: Alix Milligan [...] Location Account Attending Physician Idris Dodd 58/M [id number] Alix Milligan MD SPEC NUM: [id number] RECD: 12/23/23 STATUS: ANTONINO GALAN NUM: [id number] LAMINE: 12/23/23- SUBM DR: Alix Milligan MD ENTERED: 12/23/23 [facility] DR: SPEC TYPE: Surgical DEPT: S ORDERED: [...] Polyps, rectum, biopsy: Hyperplastic polyps. ---- Specimen: [id number] Received: 12/23/23 Status: ANTONINO Galan Num: [id number] Spec Type: Surgical Subm Dr: Alix Milligan MD Tissues: A GASTRIC FOR HP (GASTRIC BX R/O H.PYLORI) B Esophagus Biopsy (ESOPHAGUS BX R/ BARRETTS) C Colon Biopsy (CECUM POLYP) D Colon Biopsy (ASCENDING POLYP X2) E Colon Biopsy (HEPATIC FLEXURE) F Colon Biopsy (LIPOMA BX SIGMOID) G Colon Biopsy (POLYP RECTAL X2) Procedures: HE/14, Gross/Micro L4/7, H PYLORI ---- Patient: Idris Dodd JR [id number] (Continued) ---- Specimen: [id number] Received: 12/23/23 (Continued) Signed (signature on file) Marcy Ruiz MD 12/26/23 [id number] ---- Specimen: [id number] Received: 12/23/23 Status: ANTONINO Galan Num: [id number] Spec Type: Surgical Subm Dr: Alix Milligan MD Tissues: A GASTRIC FOR HP (GASTRIC BX R/O H.PYLORI) B Esophagus Biopsy (ESOPHAGUS BX R/ BARRETTS) C Colon Biopsy (CECUM POLYP) D Colon Biopsy (ASCENDING POLYP X2) E Colon Biopsy (HEPATIC FLEXURE) F Colon Biopsy (LIPOMA BX SIGMOID) G Colon Biopsy (POLYP RECTAL X2) Procedures: , Gross/Micro L4/7, H PYLORI ---- Patient: Idris Dodd JR [id number] (Continued) ---- Specimen: [id number] Received: 12/23/23 (Continued) Clinical Information R/o h. [...] x 0.2 cm, entirely submitted in G1. [facility] Codes [id number] ---- ---- Specimen: [id number] Received: 12/23/23 Status: ANTONINO Galan Num: [id number] Spec Type: Surgi (more content not included)... Normal [facility] CBC AUTO DIFFon 11-25-2021 BASO # 0.1 103/ul Normal 0.0-0.1 [facility] Comment on above: Performed By: #### C BC #### [facility] [address] [place] [address] Dr. Nate Trotter Basophils/100 WBC (Bld) 0.5 % Normal 0.2-2.0 [facility] Comment on above: Performed By: #### C BC #### [facility] [address] [place] [address] Dr. Nate Trotter EO # 0.2 103/ul Normal 0.0-0.7 [facility] Comment on above: Performed By: #### C BC #### [facility] [address] [place] [address] Dr. Nate Trotter Eosinophils/100 WBC (Bld) 1.5 % Normal 0.9-7.0 [facility] Comment on above: Performed By: #### C BC #### [facility] [address] [place] [address] Dr. Nate Trotter Erythrocyte distribution width (RBC) [Ratio] 13.3 % Normal 11.0-15.0 [facility] Comment on above: Performed By: #### C BC #### [facility] [address] [place] [address] Dr. Nate Trotter Hematocrit (Bld) [Volume fraction] 48.7 % Normal 42.0-54.0 [facility] Comment on above: Performed By: #### C BC #### [facility] [address] [place] [address] Dr. Nate Trotter Hemoglobin (Bld) [Mass/Vol] 16.0 g/dL Normal 14.0-18.0 [facility] Comment on above: Performed By: #### C BC #### [facility] [address] [place] [address] Dr. Nate Trotter IG # 0.05 10e3/ul Critically high 0.00-0.03 [facility] Comment on above: Performed By: #### C BC #### [facility] [address] [address] [address] Nate Trotter IG % 0.5 % Normal 0.0-0.5 [facility] Comment on above: Performed By: #### C BC #### [facility] [address] [place] [address] Dr. Nate Trotter LYMPH # 1.8 103/ul Normal 1.2-3.8 [facility] Comment on above: Performed By: #### C BC #### [facility] [address] [place] [address] Dr. Nate Trotter Lymphocytes/100 WBC (Bld) 19.0 % Critically low 20.5-60.0 [facility] Comment on above: Performed By: #### C BC #### [facility] [address] [place] [address] Dr. Nate Trotter MANUAL DIFF REQ NO Normal [facility] Comment on above: Performed By: #### C BC #### [facility] [address] [place] [address] Dr. Nate Trotter MCH (RBC) [Entitic mass] 30.9 pg Normal 25.9-34.0 [facility] Comment on above: Performed By: #### C BC #### [facility] [address] [place] [address] Dr. Nate Trotter MCHC (RBC) [Mass/Vol] 32.9 g/dL Normal 29.9-35.2 [facility] Comment on above: Performed By: #### C BC #### [facility] [address] [place] [address] Dr. Nate Trotter MCV (RBC) [Entitic vol] 94.0 fL Normal 80.0-94.0 [facility] Comment on above: Performed By: #### C BC #### [facility] [address] [place] [address] Dr. Nate Trotter MONO # 0.7 103/ul Normal 0.3-0.8 [facility] Comment on above: Performed By: #### C BC #### [facility] [address] [address] [address] Nate Trotter Monocytes/100 WBC (Bld) 7.2 % Normal 1.7-12.0 [facility] Comment on above: Performed By: #### C BC #### [facility] [address] [address] [address] Nate Trotter NEUT # 6.9 103/ul Critically high 1.4-6.5 [facility] Comment on above: Performed By: #### C BC #### [facility] [address] [address] [address] Nate Trotter Neutrophils/100 WBC (Bld) 71.3 % Normal 43.0-75.0 [facility] Comment on above: Performed By: #### C BC #### [facility] [address] [place] [address] Dr. Nate Trotter Platelet mean volume (Bld) [Entitic vol] 9.4 fL Critically low 9.5-13.5 [facility] Comment on above: Performed By: #### C BC #### [facility] [address] [place] [address] Dr. Nate Trotter PLT 240 103/ul Normal 150-450 [facility] Comment on above: Performed By: #### C BC #### [facility] [address] [place] [address] Dr. Nate Trotter RBC 5.18 106/ul Normal 4.70-6.10 [facility] Comment on above: Performed By: #### C BC #### [facility] [address] [place] [address] Dr. Nate Trotter WBC 9.7 103/ul Normal 4.0-11.0 [facility] Comment on above: Performed By: #### C BC #### [facility] [address] [place], [place] [id number] Dr. Nate Trotter GLYCOHEMOGLOBIN A1Con 2021 ADA RECOMMENDATION SEE BELOW Normal [facility] Comment on above: Result Comment: ADA RECOMMENDED LIMIT 4.0 - 6.0 ADA THERAPEUTIC TARGET < 7.0 ACTION SUGGESTED > 7.0 Performed By: #### A 1C #### [facility] [address] [address] [address] Nate Trotter Glucose [Mass/Vol] 111 mg/dL Normal [facility] [facility] Comment on above: Performed By: #### A 1C #### [facility] [address] [address] [address] Nate Trotter HbA1c (Bld) [Mass fraction] 5.5 % Normal 4.5-6.2 [facility] Comment on above: Performed By: #### A 1C #### [facility] [address] [address] [address] Nate Trotter LIPID PROFILEon 11-25-2021 CHOL-HDL RATIO NORM SEE BELOW Normal [facility] Comment on above: Result Comment: 3.3 - 4.4 LOW RISK 4.4 - 7.1 AVERAGE RISK 7.1 - 11.0 MODERATE RISK >11.0 HIGH RISK Performed By: #### B MP, TSH, LIVER, LIPID #### [facility] [address] [address] [address] Nate Trotter Cholesterol [Mass/Vol] 116 mg/dL Normal <=200 [facility] Comment on above: Performed By: #### B MP, TSH, LIVER, LIPID #### [facility] [address] [place] [address] Dr. Nate Trotter Cholesterol in HDL [Mass/Vol] 42 mg/dL Normal 40-60 [facility] Comment on above: Performed By: #### B MP, TSH, LIVER, LIPID #### [facility] [address] [address] [address] Nate Trotter Cholesterol in LDL [Mass/Vol] 53.6 mg/dL Normal [facility] Comment on above: Performed By: #### B MP, TSH, LIVER, LIPID #### [facility] [address] [address] [address] Nate Trotter Cholesterol.total/Ch olesterol in HDL [Mass ratio] 2.8 {ratio} Normal [facility] Comment on above: Performed By: #### B MP, TSH, LIVER, LIPID #### [facility] [address] [address] [address] Nate Trotter HDL NORMAL > or = 60 mg/dl - LO W CARDIOVASCULAR RISK <40 mg/dl - HIGH CARDIOVASCULAR RISK Normal [facility] Comment on above: Performed By: #### B MP, TSH, LIVER, LIPID #### [facility] [address] [address] [address] Nate Trotter LDL CALC NORMAL SEE BELOW Normal [facility] Comment on above: Result Comment: <100 mg/dl OPTIMAL 100 - 129 mg/dl NEAR OR ABOVE OPTIMAL 130 - 159 mg/dl BORDERLINE HIGH 160 - 189 mg/dl HIGH >190 mg/dl VERY HIGH Performed By: #### B MP, TSH, LIVER, LIPID #### [facility] [address] [address] [address] Nate Trotter Triglyceride [Mass/Vol] 102 mg/dL Normal <=150 [facility] Comment on above: Performed By: #### B MP, TSH, LIVER, LIPID #### [facility] [address] [address] [address] Nate Trotter VLDL CALC 20.4 mg/dL Normal [facility] Comment on above: Performed By: #### B MP, TSH, LIVER, LIPID #### [facility] [address] [place] [address] Dr. Nate Trotter LIVER PROFILEon 11-25-2021 Albumin [Mass/Vol] 3.2 g/dL Critically low 3.4-5.0 Th [facility] Comment on above: Performed By: #### B MP, TSH, LIVER, LIPID #### [facility] [address] [place] [address] Dr. Nate Trotter Albumin/Globulin [Mass ratio] 0.8 {ratio} Normal [facility] Comment on above: Performed By: #### B MP, TSH, LIVER, LIPID #### [facility] [address] [place] [address] Dr. Nate Trotter ALP [Catalytic activity/Vol] 54 U/L Normal 46-116 [facility] Comment on above: Performed By: #### B MP, TSH, LIVER, LIPID #### [facility] [address] [place] [address] Dr. Nate Trotter ALT [Catalytic activity/Vol] 33 U/L Normal 16-63 [facility] Comment on above: Performed By: #### B MP, TSH, LIVER, LIPID #### [facility] [address] [place] [address] Dr. Nate Trotter AST [Catalytic activity/Vol] 24 U/L Normal 15-37 [facility] Comment on above: Performed By: #### B MP, TSH, LIVER, LIPID #### [facility] [address] [place] [address] Dr. Nate Trotter BILI, CONJUGATED 0.1 mg/dL Normal 0.0-0.2 [facility] Comment on above: Performed By: #### B MP, TSH, LIVER, LIPID #### [facility] [address] [place] [address] Dr. Nate Trotter Bilirubin [Mass/Vol] 0.3 mg/dL Normal 0.2-1.0 [facility] Comment on above: Performed By: #### B MP, TSH, LIVER, LIPID #### [facility] [address] [place] [address] Dr. Nate Trotter Globulin (S) [Mass/Vol] 4.2 g/dL Normal [facility] Comment on above: Performed By: #### B MP, TSH, LIVER, LIPID #### [facility] [address] [place] [address] Dr. Nate Trotter Protein [Mass/Vol] 7.4 g/dL Normal 6.4-8.2 [facility] Comment on above: Performed By: #### B MP, TSH, LIVER, LIPID #### [facility] [address] [place] [address] Dr. Nate Trotter PROF CHEM 8 (BAS METB)on Anion gap [Moles/Vol] 9.3 mmol/L Normal [facility] Comment on above: Performed By: #### B MP, TSH, LIVER, LIPID #### [facility] [address] [place] [address] Dr. Nate Trotter Calcium [Mass/Vol] 9.0 mg/dL Normal 8.5-10.1 [facility] Comment on above: Performed By: #### B MP, TSH, LIVER, LIPID #### [facility] [address] [place] [address] Dr. Nate Trotter Chloride [Moles/Vol] 98 mmol/L Normal 98-107 [facility] Comment on above: Performed By: #### B MP, TSH, LIVER, LIPID #### [facility] [address] [place] [address] Dr. Nate Trotter CO2 [Moles/Vol] 32.7 mmol/L Critically high 21.0-32.0 [facility] Comment on above: Performed By: #### B MP, TSH, LIVER, LIPID #### [facility] [address] [place] [address] Dr. Nate Trotter Creatinine [Mass/Vol] 1.03 mg/dL Normal 0.70-1.30 [facility] Comment on above: Performed By: #### B MP, TSH, LIVER, LIPID #### [facility] [address] [place] [address] Dr. Nate Trotter EGFR-AF ANGOLAN >60 Normal >=60 [facility] Comment on above: Performed By: #### B MP, TSH, LIVER, LIPID #### [facility] [address] [place] [address] Dr. Nate Trotter EGFR-NON AF ANGOLAN >60 Normal >=60 [facility] Comment on above: Performed By: #### B MP, TSH, LIVER, LIPID #### [facility] [address] [place] [address] Dr. Nate Trotter Glucose [Mass/Vol] 110 mg/dL Critically high 74-106 [facility] Comment on above: Performed By: #### B MP, TSH, LIVER, LIPID #### [facility] [address] [place] [address] Dr. Nate Trotter Potassium [Moles/Vol] 4.0 mmol/L Normal 3.5-5.1 [facility] Comment on above: Performed By: #### B MP, TSH, LIVER, LIPID #### [facility] [address] [address] [address] Nate Trotter Sodium [Moles/Vol] 136 mmol/L Normal 136-145 [facility] Comment on above: Performed By: #### B MP, TSH, LIVER, LIPID #### [facility] [address] [address] [address] Nate Trotter Urea nitrogen [Mass/Vol] 14.0 mg/dL Normal 7.0-18.0 [facility] Comment on above: Performed By: #### B MP, TSH, LIVER, LIPID #### [facility] [address] [address] [address] Nate Trotter Urea nitrogen/Creatinine [Mass ratio] 13.6 mg/mg Normal [facility] Comment on above: Performed By: #### B MP, TSH, LIVER, LIPID #### [facility] [address] [address] [address] Nate Trotter TSHon 11-25-2021 TSH 1.323 uIU/mL Normal 0.358-3.740 [facility] Comment on above: Performed By: #### B MP, TSH, LIVER, LIPID #### [facility] [address] [address] [address] CERVICAL SPINE WO [...] Yuri Bautista MD 04/21/20 Final result Normal [facility] No acute fracture or traumatic malalignment. Degenerative disc disease at C5-C6 and C6-C7 not well assessed due to beam hardening artifact. [facility] [place] EXAMINATION: CT OF T HE CERVICAL SPINE [...] There is no prevertebral soft tissue swelling. [place], [place] Ryan, Mh[employer] Incoming Radiant Results From [employer] - 04/21/2020 7:26 PM EST EXAMINATION: CT [...] well assessed due to beam hardening artifact. [place], [place] CT HEAD WO CONTRASTon 2019 CT [...] Neeraj Cash MD 04/21/20 Final result Normal [facility] No acute intracrania l abnormality. Fluid in left maxillary sinus. Correlate for signs of infection [place], [place] EXAMINATION: CT OF T HE HEAD [...] of the visualized skull or soft tissues. [facility] [employer] [place] Ryan, Mh[employer] Incoming Radiant Results From [employer] - 04/21/2020 7:21 PM EST EXAMINATION: CT [...] maxillary sinus. Correlate for signs of infection [employer] [place], [place] Vital Signs Date Time Vital Sign Value Performing Clinician Faci lity 03-16-2024 09:40-0400 Body height 167.6 cm Benjy Garcia MD Work Phone: [facility] [employer] 03-16-2024 09:40-0400 Body mass index (BMI) [Ratio] 55.36 kg/m2 Benjy Garcia MD Work Phone: [facility] [employer] 03-16-2024 09:40-0400 Body temperature 98.01 [degF] Benjy Garcia MD Work Phone: [facility] 03-16-2024 09:40-0400 Body weight 155.58 kg Benjy Garcia MD Work Phone: [facility] 03-16-2024 09:40-0400 Diastolic blood pressure 70 mm[Hg] Benjy Garcia MD Work Phone: [facility] 03-16-2024 09:40-0400 Heart rate 84 /min Benjy Garcia MD Work Phone: [facility] 03-16-2024 09:40-0400 Respiratory rate 22 /min Benjy Garcia MD Work Phone: [facility] 03-16-2024 09:40-0400 SaO2% (BldA) [Mass fraction] 94 % Benjy Garcia MD Work Phone: [facility] 03-16-2024 09:40-0400 Systolic blood pressure 136 mm[Hg] Benjy Garcia MD Work Phone: [facility] 12-23-2023 11:26-0400 Diastolic blood pressure 64 mm[Hg] MD Benjy Garcia Work Phone: [facility] 12-23-2023 11:26-0400 Heart rate 80 /min MD Benjy Garcia Work Phone: [facility] 12-23-2023 11:26-0400 Respiratory rate 16 /min MD Benjy Garcia Work Phone: [facility] 12-23-2023 11:26-0400 SaO2% (BldA) [Mass fraction] 96 % MD Benjy Garcia Work Phone: [facility] 12-23-2023 11:26-0400 Systolic blood pressure 118 mm[Hg] MD Benjy Garcia Work Phone: [facility] 12-23-2023 09:19-0400 Body height 167.64 cm MD Benjy Garcia Work Phone: [facility] 12-23-2023 09:190400 Body weight 149.68 kg MD Benjy Garcia Work Phone: [facility] 04-21-2020 18:32-0500 BMI (Body Mass Index) 57.14 kg/m2 [facility] [place] 04-21-2020 18:32-0500 Body Temperature 98.49 [degF] Ashwin [facility], [place] 04-21-2020 18:32-0500 Body weight 160.57 kg Ashwin [facility] 04-21-2020 18:32-0500 BP Diastolic 71 mm[Hg] [facility], [place] 04-21-2020 18:32-0500 BP Systolic 159 mm[Hg] [facility] [place] 04-21-2020 18:32-0500 Height 167.6 cm Ashwin [facility] 04-21-2020 18:32-0500 Pulse (Heart Rate) 96 /min Ashwin 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 Benjy aGrcia MD Work Phone: [facility] Comment on above: Annual physical exam (Primary Dx); Benign hypertension (CMS/HCC); Primary osteoarthritis of both knees Start: 03-16-2024 End: 03-16-2024 ambulatory BENJY GARCIA Not Available Start: 12-23-2023 Non-patient / Non-visit MD Cintia Garcia Work Phone: [facility] Work Phone: Start: 12-23-2023 End: 12-23-2023 Admission to same day surgery center MD Benjy Garcia Work Phone: [facility] Work Phone: Start: 12-23-2023 End: 12-23-2023 ambulatory MD Benjy Garcia Work Phone: [facility] Work Phone: Start: 11-16-2023 End: 11-16-2023 ambulatory BENJY GARCIA Not Available Start: 09-09-2023 End: 09-09-2023 ambulatory BENJY GARCIA Not Available Start: 11-27-2021 Encounter for genera l adult medical examination without abnormal findings DR BENJY GARCIA [facility] Start: 11-25-2021 End: 11-26-[address] BENJY GARCIA Facility:[facility] Start: 11-25-2021 End: 11-26-2021 Encounter for general adult medical examination without abnormal findings DR BENJY GARCIA Facility:[facility] Start: 04-21-2020 End: 04-21-2020 Emergency department patient visit ASHWIN OR[place]O [facility] Start: 04-21-2020 End: 04-21-2020 Emergency department patient visit Ashwin [facility] [place] Work Phone: [facility] Comment on above: Closed head injury, initial encounter (Primary Dx); Multiple abrasions Procedures Date Procedure Procedure Detail Performing Clinician Start: 12-23-2023 Esophagogastroduodenoscopy MD Benjy gallo Work Phone: Start: 12-23-2023 Colonoscopy Benjy Garcia MD Work Phone: Start: 11-25-[address] BENJY GARCIA Comment on above: Performed By: #### PSASC #### [facility] [address] [place] [address] Dr. Nate Trotter Start: 04-21-2020 Ct cervical [...] 09/19/2024 8:00 AM EDT [facility] [address] [place] [address] Benjy Garcia MD [address] [place] [phone] [facility] Start: 06-14-2024 End: 06-14-2024 Patient encounter procedure 06/14/2024 9:00 AM EST Office Visit [facility] [address] [place] [phone] Benjy Garcia MD [address] [place] [phone] Arrived [facility] Comment on above: Arrived Start: 03-16-2024 End: 03-16-2024 Patient encounter procedure 03/16/2024 9:30 AM EDT Office Visit [facility] [address] [place] [address] Benjy Garcia MD [address] [place] [phone] Arrived [facility] Comment on above: Arrived Start: 02-05-2024 Influenza vaccination Influenza Vacc ine (#1) [facility] Start: 12-23-2023 [facility] Start: 02-05-2020 Influenza vaccination Flu vaccine (# 1) [place], [place] Start: 08-12-2013 Screening for malignant neoplasm of colon Colon cancer screen colonoscopy [place], [place] Start: 08-12-2013 Shingles Vaccine (1 of 2) Shingles Vaccine (1 of 2) [place], [place] Start: 2003 Diabetes screen Diabetes screen [place], [place] Start: 2003 Lipid panel Lipid screen [place], [place] Start: 08-12-1982 DTaP/Tdap/Td vaccine (1 - Tdap) DTaP/Tdap/Td vaccine (1 - Tdap) [place], [place] Start: 08-12-1978 HIV screening HIV screen [place], [place] Start: 1965 Hepatitis C screening Hepatitis C sc reen [facility] [place], [place] Start: 1965 Screening for malignant neoplasm of colon [facility] Patient Education Colon polyps L ipoma Hemorrhoids (DC) Diverticulosis (DC) Gastritis (DC) Know your [facility] Work Phone: Payers Date Payer Category Payer Self-pay 2021 [facility] BCBS [id number] 2021 Unknown BCBS BCBS xxxxxx [id number] 2021-Present [phone] [address] [place], [place] [id number] 1963 Unknown [id number] 1963 Unknown [id number] 1963 Unknown [id number] 1963 Unknown [id number] 1959 Unknown [id number] Unknown [id number] Social History Date Type Detail Facility Start: 04-21-2020 End: 09-09-2023 Tobacco smoking status NHIS Never smoker [facility] Start: 04-21-2020 End: 09-09-2023 Tobacco use and exposure Never used [place], [place] Start: 04-21-2020 Alcohol intake Current drinke r of alcohol (finding) [place] Start: 04-21-2020 Alcohol Comment weekends [place] Start: 1965 Sex Assigned At Not on file [place] Exposure to SARS-CoV -2 (event) Not sure [place], [place] Start: 1965 Sex Assigned At Male F [facility] Start: 11-16-2023 End: 03-16-2024 History of Social [...] Diagnosis: Newly decompensated HFrEF (EF 20-25% at [place]), NYHA class III Non-ischemic cardiomyopathy, 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 CAD, on cath 06/19 Paroxysmal atrial fibrillation on Eliquis [id number] HTN Morbid obesity Family history of CAD, mother had 3 stents at age 64, father has ICD/PPM [place] noncompliant to CPAP Admission Diagnosis: Heart failure (CMS/HCC) [I50.9] Hospital course: Idris Mara Dodd Jr. is an 58 y.o. male who came from [facility] for higher level of care. who presented [...] DVT. Newly decompensated HFrEF (EF 20-25% at [place]), NYHA class III Non-ischemic cardiomyopathy, likely alcohol [...] eliquis 5mg twice daily. Toprol 12.5mg daily [id number] HTN Morbid obesity Family history of CAD, [...] Medications These medications were sent to [facility] - [address] [place] [address] [address] [facility] [place] [address], [facility] [address] apixaban 5 mg tablet aspirin 81 mg [...] 10*3/uL 11.08* 8 (more content not included)... [facility] 06-22-2024 Note 2nd heart failure co nsult rec'd. Patient has already denied all [facility] svs and is not interested in further education. Consult cancelled. See note from 06/21 [facility] 06-22-2024 Note Cardiology Progress Note Subjective No [...] Value Ventricular Rate 64 Atrial Rate 64 AL Interval 206 QRS DURATION 110 QT Interval 444 QTC CALCULATION(BAZETT) 458 P Hominy 20 R-Hominy 55 T Wave Hominy 81 Impression Normal sinus rhythm T wave [...] > 50. Patient was a transfer from [facility] for evaluation for coronary angiogram after he [...] loop diuretic diuresis 3) outpatient follow-up with [place] [facility] 4) patient has morbid obesity (BMI [...] and a micropuncture access technique a 6 Cameroonian sheath was placed in the right internal jugular vein. The Tapia catheter was advanced under fluoroscopic and hemodynamic monitoring to the right atrium. Pressure obtained of the right atrium, right ventricle, pulmonary artery, pulmonary capillary position. Oxygen saturation drawn for the pulmonary artery and Carroll cardiac with a cardiac index were calculated. 1% lidocaine was infiltrated over the left radial artery. A 6-Cameroonian Terumo Glidesheath slender was placed in left [...] with luminal irregularitie (more content not included)... [facility] 06-21-2024 Note Jh rec'd consult thi s [...] work. He is not interested in any [facility] svs at this time time. [facility] 06-21-2024 Note Hospital Medicine Daily Progress Note - 06/21/2024 1:00 PM; Room: 3178/3178-01 Admission: 06/17/2024 10:21 PM; Length of stay: 4 days THE HOSPITALIST TEAM PREFERS TO USE [employer] CHAT FOR NON-URGENT COMMUNICATION 7AM-7PM. IF I DO NOT RESPOND WITHIN 20 MINUTES OR URGENT MATTERS, PLEASE CALL THROUGH THE ESTHETICIAN. FROM 7PM-7AM, PLEASE PAGE [phone](COVR). Code Status: Full Code Barriers to Discharge: [...] Principal Problem: ST elevation myocardial infarction (STEMI) ([facility]) Active Problems: Atrial fibrillation with rapid ventricular response ([facility]/HCC) Acute heart failure with reduced ejection fraction (HFrEF, <= 40%) ([facility]) Obesity GERD (gastroesophageal reflux disease) Hypertension Assessment and Plan Atrial fibrillation with rapid ventricular response ([facility]/HCC) Rate control with Coreg, Eliquis for anticoagulation. [...] Component Value Date (more content not included)... [facility] 06-21-2024 Note Attestation signed by Monica Arroyo [...] Value Ventricular Rate 64 Atrial Rate 64 AL Interval 206 QRS DURATION 110 QT Interval 444 QTC CALCULATION(BAZETT) 458 P Hominy 20 R-Hominy 55 T Wave Hominy 81 Impression Normal sinus rhythm T wave [...] > 50. Patient was a transfer from [facility] for evaluation for coronary angiogram after he [...] loop diuretic diuresis 3) outpatient follow-up with [place] [facility] 4) patient has morbid obesity (BMI [...] and a micropuncture access technique a 6 Cameroonian sheath was placed in the right internal jugular vein. The Tapia catheter was advanced under fluoroscopic and hemodynamic monitoring to the right atrium. Pressure obtained of the right atrium, right ventricle, pulmonary artery, pulmonary capillary position. Oxygen saturation drawn for the pulmonary artery and Carroll cardiac with a cardiac index were calculated. 1% lidocaine was infiltrated over the left radial artery. A 6-Cameroonian Terumo Glidesheath slender was placed in left radial artery. Radial anti-vasospasm cocktail of verapamil 2.5 mg and nitroglycerin 200 mcg was administered through the sheath. All catheter exchanges were made over the Alejandro guidewire. Coronary angiogram was performed with a JL3.5 to engage the left main and a JR5 to engage the RC (more content not included)... [facility] 06-20-2024 Note Hospital Medicine Daily Progress Note - 06/20/2024 8:58 AM; Room: [address] [place], [place] [id number] Admission: 06/17/2024 10:21 PM; Length of stay: 3 days THE HOSPITALIST TEAM PREFERS TO USE [employer] CHAT FOR NON-URGENT COMMUNICATION 7AM-7PM. IF I DO NOT RESPOND WITHIN 20 MINUTES OR URGENT MATTERS, PLEASE CALL THROUGH THE ESTHETICIAN. FROM 7PM-7AM, PLEASE PAGE [phone](COVR). Code Status: Full Code Barriers to Discharge: [...] Principal Problem: ST elevation myocardial infarction (STEMI) ([facility]) Active Problems: Atrial fibrillation with rapid ventricular response ([facility]) Acute heart failure with reduced ejection fraction (HFrEF, <= 40%) ([facility]) Obesity GERD (gastroesophageal reflux disease) Hypertension Assessment and Plan Atrial fibrillation with rapid ventricular response ([facility]) Rate control with Coreg, Eliquis for anticoagulation. Eliquis resumed post cath Acute heart failure with reduced ejection fraction (HFrEF, <= 40%) ([facility]) - NICM, 2/2 alcoholism? EF [...] No results f (more content not included)... [facility] 06-20-2024 Note Patient admitted to the hospital for: ST elevation myocardial infarction. Chart notes from 06/18/2024 reports [facility] admission echo from 06/18/2024 reports: EF 20-25 %. Patient transferred to [facility]. Current echo information qualifies for Cardiac Rehab services per CMS eligibility criteria. A Cardiac Rehab referral diagnosis and code must also meet CMS criteria. Angelica Kumar, RN, BSN Cardiology Outpatient Coordinator Cardiopulmonary Rehab [facility] 06-19-2024 Note Attestation signed by Monica Arroyo [...] Value Ventricular Rate 64 Atrial Rate 64 AL Interval 206 QRS DURATION 110 QT Interval 444 QTC CALCULATION(BAZETT) 458 P Hominy 20 R-Hominy 55 T Wave Hominy 81 Impression Normal sinus rhythm T wave abnormality, consider anterior ischemia Abnormal ECG (more content not included)... [facility] 06-19-2024 Note Patient: Idris Christina Jr. Procedure Information Date/Time: 06/19/24 1334 Procedure: Coronary angiography Location: [facility] INS[facility] DIALS 3 / [facility] (Cath[facility] Providers: Marilyn Gotti [...] Plan discussed with attending. Additional Equipment Requests [facility] 06-19-2024 Note Hospital Medicine Daily Progress Note - 06/19/2024 1:58 PM; Room: [address] [place] [address] Admission: 06/17/2024 10:21 PM; Length of stay: 2 days THE HOSPITALIST TEAM PREFERS TO USE [employer] FOR NON-URGENT COMMUNICATION 7AM-7PM. IF I DO NOT RESPOND WITHIN 20 MINUTES OR URGENT MATTERS, PLEASE CALL THROUGH THE ESTHETICIAN. FROM 7PM-7AM, PLEASE PAGE [phone](COVR). Code Status: Full Code Barriers to Discharge: [...] with reduced ejection fraction (HFrEF, <= 40%) ([facility]) Obesity GERD (gastroesophageal reflux disease) Hypertension Assessment and Plan Atrial fibrillation with rapid ventricular response ([facility]/HCC) rate control with Coreg, Eliquis for anticoagulation. [...] LDL 88 06/18/2024 No results found for: [id number] , IRON , TIBC , C3 , C4 , KWAN , CANCA , ASO , PSA , CEA , CA125 , CA199 , AFP , CA153 Imaging ECG 12 lead Normal sinus rhythm T wave abnormality, consider a (more content not included)... [facility] 06-18-2024 Note 06/18/24 1318 Admission Assessment Questions [...] Status Interested Does the patient have a patient case coordinator assigned to them through their insurance? No [...] to send link and activate MyChart? No [facility] 06-18-2024 Note Plan of care reviewe d with the patient, patient being admitted for cardiac cath by cardiology team, keep n.p.o. cardiology consult to follow [facility] 06-18-2024 Note class III obesity [facility] 06-18-2024 Note Blood pressure contr ol with oral antihypertensives [facility] 06-18-2024 Note rate control with Co reg, Eliquis for anticoagulation [facility] 06-18-2024 Note EF of 20 to 25% with diastolic dysfunction Coreg, losartan, Lasix for IV diuresis Monitor I's and O's, daily weights, low-salt diet Left heart cath in a.m., keep n.p.o. [facility] 06-18-2024 Note on PPI [facility] 06-18-2024 Note Hospital Medicine History and Physical 06/18/2024 1:10 AM THE HOSPITALIST TEAM PREFERS TO USE [employer] FOR NON-URGENT COMMUNICATION 7AM-7PM. IF I DO NOT RESPOND WITHIN 20 MINUTES OR URGENT MATTERS, PLEASE CALL THROUGH THE ESTHETICIAN. FROM 7PM-7AM, PLEASE PAGE [phone](COVR). Chief Complaint CHF, atrial fibrillation History of Present Illness Idris Dodd . is an 58 y.o. male who came from [facility] for higher level of care. who presented [...] Plan Atrial fibrillation with rapid ventricular response ([facility]) rate control with Coreg, Eliquis for anticoagulation Acute heart failure with reduced ejection fraction (HFrEF, <= 40%) ([facility]) EF of 20 to 25% [...] above for m (more content not included)... [facility] 03-16-2024 History of Present illness Narrative Associated [...] daily Aspirin therapy. documented in this encounter [facility] 12-23-2023 History and physical note Note Date/Time December 23, 2023 10:30am [facility] [address] [place] [address] Gastroenterology H&P Signed Patient: Idris Dodd JR MR# : [id number] : [id number] Acct:[id number] Age/Sex: 58 / M Adm Date: 4 Loc: Room: Type: [facility] Attending Dr: Alix Milligan MD [...] signed by Alix Milligan MD> 12/23/23 1030 [facility] Work Phone: 1(986) 513-637307-19-2024 [facility] noteGerman [facility] CenterEvaluation noteNo assessment information availableGerman Hospital Ctr Work Phone: Evaluation note* Diagnosis Annual physical exam- Primary Routine general medical examination at a health care facility Benign hypertension (CMS/HCC) Essential hypertension, benign Primary osteoarthritis of both knees documented in this encounter [facility] HealthcareEvaluation note* Diagnosis Benign hypertension (CMS/HCC)- [...] of both knees [facility] Additional Instructions DISCHARGE INSTRUCTIONS [...] Follow up with PCP. - Office number [phone]. DISCHARGE INSTRUCTIONS FOR UPPER ENDOSCOPY WHAT TO [...] years -Start Pantoprazole 40 mg daily -Avoid NSAIDsGerman [facility] Work Phone: Discharge Instructions * Attachments The following attachments cannot be sent through Care Everywhere. * Head Injury: Closed: General Info (Portuguese) documented in this encounter Assessments Diagnosis Closed head injury, initial encounter Multiple abrasions Abrasion or friction burn of other, multiple, and unspecified sites, without mention of infection Summary Purpose Family History No Family History Records Found Relationship Condition Age at Onset Recorded Date/T pascual father Polyp of colon Unknown mother Polyp [...] both knees Benjy Garcia MD [address] [place] [address] Referral ID Status Reason Start Date Expiration Date V isits Requested Visits Authorized [id number] Pending Review 03/16/2024 09/12/2024 1 1 Additional [...] section and content) DATE CREATED AUTHOR 04/22/2020 [facility] DATE CREATED AUTHOR AUTHOR'S ORGANIZ ATION 11/28/2021 [facility] DATE CREATED AUTHOR AUTHOR'S ORGANIZ ATION 01/06/2024 [facility] DATE CREATED AUTHOR AUTHOR'S ORGANIZ ATION 06/19/2024 [facility] EPIC DATE CREATED AUTHOR AUTHOR'S ORGANCHERRI ATION 06/24/2024 [facility] Care Teams (unrecognized sec tion and content) [...] Referring Provider Active Start: December 23, 2023 Outreach Professional Relationship Specialty Start Date End Date Benjy Garcia MD [address] [place] [phone] PCP - General Family Medicine 06/06/22 Benjy Garcia MD [address] [place] [phone] PCP - [facility] 04/06/23 Outreach Professional Relationship Specialty Start Date End Date Benjy Garcia MD [address] [place] [phone] PCP - General Family Medicine 06/06/22 Benjy Garcia MD [address] [place] [phone] PCP - [facility] 04/06/23 Outreach Professional Relationship Specialty Start Date End Date Benjy Garcia MD [address] [place] [phone] PCP - General Family Medicine 06/06/22 Benjy Garcia MD [address] [place] [phone] PCP - [facility] 04/06/23 Outreach Professional Relationship Specialty Start Date End Date Benjy Garcia MD [address] [place] [address] PCP - General Family Medicine 06/06/22 Benjy Garcia MD [address] [place] [address] [facility] FOR RECORDS PERTAINING TO PATIENTS [...] BE BASED ON THE PRIMARY CLINICAL RECORDS. [facility]. provides no warranty or guarantee of the accuracy or completeness of information in this document.
--- NOTE | 2024-06-26 10:13 | CM.NOTE ---
Rounds made with Dr. Barreto. Labs reviewed with Mr. Allison. Plan to wean Cardizem gtt and potentially home later today.
--- OUTSIDE RECORDS SUMMARY | 2024-06-26 10:30 | XMS_ITS | CCD ---
Author Organization [facility] Care Team Providers Care Zoology Teacher Name Role Phone Unavailable Primary Care Provider ASHWIN Gaviria Attending DR BENJY Smith Admitting Unavailable JOSE, DR BENJY Anton Attending Unavailable JOSE, DR BENJY Anton Primary Care Unavailable JOSE, DR BENJY Anton Consulting Unavailable MD Alix Milligan Attending Provider MD Benjy Garcia Primary Care Provider [phone] MD Benjy Garcia Referring Provider Benjy Garcia [...] (1 source) Clindamycin Drug Allergy 01-24-2017 [facility] Repository (1 source) Clindamycin Drug Allergy 12-23-2023 [facility] Repository (5 sources) Clindamycin Drug Allergy 04-02-2020 [facility] Work Phone: Medications Current Medications Medication [...] medically ready for discharge. Awaiting lifevest fitting. Pet Stylist spoke to Mp with [employer] who reported the patient will be fit around 3 pm today. 1325: Cardiology progress note faxed to [employer] at [phone]. Diet: Dietary Orders (From admission, onward) Start [...] PT Recommendations: OT Recommendations: New Consults: Normal [facility] BASIC METABOLIC PANELon 06-06 Anion gap [Moles/Vol] 8 mmol/L Normal - [facility] Comment on above: Performed By: #### L [id number] ####[facility] (BEAKER)[address] [place] [address] Calcium [Mass/Vol] 8.7 mg/dL Normal 8.6-10.3 [facility] Comment on above: Performed By: #### L [id number] ####[facility] (BEAKER)[address] [place] [address] Chloride [Moles/Vol] 98 mmol/L Normal 98-[address] [facility] Comment on above: Performed By: #### L [id number] ####[facility] ([facility] [place] [address] CO2 [Moles/Vol] 33 mmol/L High 21-31 [facility] Comment on above: Performed By: #### L [id number] ####[facility] ([facility] [place] [address] Creatinine [Mass/Vol] 0.99 mg/dL Normal 0.70-1.30 [facility] Comment on above: Performed By: #### L [id number] ####[facility] ([facility])[address] [place] [address] GLOMERULAR FILTRATION RATE ML/MIN/1.73 SQ M.PREDICTED 87.2 mL/min/1.73m*2 Normal >60.0 [facility] Comment on above: Result Comment: The [facility]???s estimated glomerular filtration rate (eGFR) will [...] of individuals. Performed By: #### L [id number] ####[facility] ([facility] [place] [address] Glucose [Mass/Vol] 104 mg/dL High 70-100 [facility] Comment on above: Performed By: #### L [id number] ####[facility] ([facility] [place] [address] Potassium [Moles/Vol] 3.9 mmol/L Normal 3.5-5.1 [facility] Comment on above: Performed By: #### L [id number] ####[facility] ([facility] [place] [address] Sodium [Moles/Vol] 135 mmol/L Low 136-145 [facility] Comment on above: Performed By: #### L [id number] ####[facility] ([facility] [place] [address] Urea nitrogen [Mass/Vol] 13 mg/dL Normal 7-25 [facility] Comment on above: Performed By: #### L [id number] ####[facility] ([facility])[address] [place] [address] UREA NITROGEN/CREATININE (MASS RATIO) IN SER/PLAS 13.1 Normal [facility] Comment on above: Performed By: #### L [id number] ####[facility] ([facility])[address] [place] [address] CBCon 06-22-2024 Erythrocyte distribution width (RBC) [Ratio] 13.3 % Normal 11.5-15.0 [facility] Comment on above: Performed By: #### L [id number] ####[facility] ([facility])[address] [place] [address] ERYTHROCYTE MEAN CORPUSCULAR HEMOGLOBIN CONCENTRATION (G/DL) BY AUTOMATED 33.2 g/dL Normal 32.0-35.0 [facility] Comment on above: Performed By: #### L [id number] ####[facility] ([facility] [place] [address] Hematocrit (Bld) [Volume fraction] 46.1 % Normal 39.0-55.0 [facility] Comment on above: Performed By: #### L [id number] ####[facility] ([facility] [place] [address] Hemoglobin (Bld) [Mass/Vol] 15.3 g/dL Normal 13.0-17.0 [facility] Comment on above: Performed By: #### L [id number] ####[facility] ([facility] [place] [address] MCH (RBC) [Entitic mass] 31.0 pg Normal 27.0-33.0 [facility] Comment on above: Performed By: #### L [id number] ####[facility] ([facility])[address] [place] [address] MCV (RBC) [Entitic vol] 93.5 fL Normal 82.0-98.0 [facility] Comment on above: Performed By: #### L [id number] ####[facility] ([facility])[address] [place] [address] PLATELETS (10*3/UL) IN BLOOD AUTOMATED COUNT 261 10*3/uL Normal 150-400 [facility] Comment on above: Performed By: #### L [id number] ####[facility] ([facility])[address] [place] [address] RBC (Bld) [#/Vol] 4.93 10*6/uL Normal 4.20-5.70 [facility] Comment on above: Performed By: #### L [id number] ####[facility] ([facility])[address] [place] [address] WBC (Bld) [#/Vol] 11.08 10*3/uL High 4.00-10.[address] [facility] Comment on above: Performed By: #### L [id number] ####[facility] ([facility])[address] [place] [address] MAGNESIUMon 06-22-2024 Magnesium [Mass/Vol] 2.0 mg/dL Normal 1.9-2.[address] [facility] Comment on above: Performed By: #### L [id number] #### [facility] ([facility]) [address] [place] [address] NURSNOTEon 06-22-2024 NURSNOTE Pt discharged with a ll belongings, discharge paperwork, and questions answered to pt's satisfaction. Normal [facility] 30on 06-21-2024 30 The patient is Moderately Stable - Low risk of patient condition declining or worsening The patient's goals for the shift include sleep The clinical goals for the shift include stable vs, safety Over the shift, the patient continues to make progress toward the following goals. Normal [facility] 30 The patient is Moderately Stable - Low risk of patient condition declining or worsening The patient's goals for the shift include comfort and rest The clinical goals for the shift include vss and safety Normal [facility] 30 Daily Case Managemen t Update [...] Other Other: Heart Failure 06/21/24 1111 Normal [facility] BASIC METABOLIC PANELon 06-06 Anion gap [Moles/Vol] 7 mmol/L Normal 7- [facility] Comment on above: Performed By: #### L [id number] ####[facility] (BEAKER)[address] [place] [address] Calcium [Mass/Vol] 8.6 mg/dL Normal 8.6-10.3 [facility] Comment on above: Performed By: #### L [id number] ####[facility] (BEAKER)[address] [place] [address] Chloride [Moles/Vol] 98 mmol/L Normal 98-[address] [facility] Comment on above: Performed By: #### L [id number] ####[facility] (BEAKER)[address] [place] [address] CO2 [Moles/Vol] 36 mmol/L High 21-31 [facility] Comment on above: Performed By: #### L [id number] ####[facility] (BEAKER)[address] [place] [address] Creatinine [Mass/Vol] 0.99 mg/dL Normal 0.70-1.30 [facility] Comment on above: Performed By: #### L [id number] ####[facility] ([facility])[address] [place] [address] GLOMERULAR FILTRATION RATE ML/MIN/1.73 SQ M.PREDICTED 87.2 mL/min/1.73m*2 Normal >60.0 [facility] Comment on above: Result Comment: The [facility]???s estimated glomerular filtration rate (eGFR) will [...] of individuals. Performed By: #### L [id number] ####[facility] (BEAKER)[address] [place] [address] Glucose [Mass/Vol] 110 mg/dL High 70-100 [facility] Comment on above: Performed By: #### L [id number] ####[facility] (BEAKER)[address] [place] [address] Potassium [Moles/Vol] 3.8 mmol/L Normal 3.5-5.1 [facility] Comment on above: Performed By: #### L [id number] ####[facility] ([facility] [place] [address] Sodium [Moles/Vol] 137 mmol/L Normal 136-145 [facility] Comment on above: Performed By: #### L [id number] ####[facility] ([facility] [place] [address] Urea nitrogen [Mass/Vol] 13 mg/dL Normal 7-25 [facility] Comment on above: Performed By: #### L [id number] ####[facility] ([facility])[address] [place] [address] UREA NITROGEN/CREATININE (MASS RATIO) IN SER/PLAS 13.1 Normal [facility] Comment on above: Performed By: #### L [id number] ####[facility] ([facility])[address] [place] [address] CBCon 06-21-2024 Erythrocyte distribution width (RBC) [Ratio] 13.2 % Normal 11.5-15.0 [facility] Comment on above: Performed By: #### L [id number] ####[facility] ([facility])[address] [place] [address] ERYTHROCYTE MEAN CORPUSCULAR HEMOGLOBIN CONCENTRATION (G/DL) BY AUTOMATED 32.9 g/dL Normal 32.0-35.0 [facility] Comment on above: Performed By: #### L [id number] ####[facility] ([facility] [place] [address] Hematocrit (Bld) [Volume fraction] 43.2 % Normal 39.0-55.0 [facility] Comment on above: Performed By: #### L [id number] ####[facility] (BEAKER)[address] [place] [address] Hemoglobin (Bld) [Mass/Vol] 14.2 g/dL Normal 13.0-17.0 [facility] Comment on above: Performed By: #### L [id number] ####[facility] ([facility])[address] [place] [address] MCH (RBC) [Entitic mass] 30.9 pg Normal 27.0-33.0 [facility] Comment on above: Performed By: #### L [id number] ####[facility] ([facility])[address] [place] [address] MCV (RBC) [Entitic vol] 94.1 fL Normal 82.0-98.0 [facility] Comment on above: Performed By: #### L [id number] ####[facility] ([facility])[address] [place] [address] PLATELETS (10*3/UL) IN BLOOD AUTOMATED COUNT 247 10*3/uL Normal 150-400 [facility] Comment on above: Performed By: #### L [id number] ####[facility] ([facility])[address] [place] [address] RBC (Bld) [#/Vol] 4.59 10*6/uL Normal 4.20-5.70 [facility] Comment on above: Performed By: #### L [id number] ####[facility] ([facility])[address] [place] [address] WBC (Bld) [#/Vol] 8.62 10*3/uL Normal 4.00-10.60 [facility] Comment on above: Performed By: #### L [id number] ####[facility] ([facility])[address] [place] [address] CONSULTon 06-21-2024 CONSULT Adult Nutrition Assessment: Name: Idris Dodd Jr. Date: 1965 Date of Visit: 06/21/24 Admission Dx: Heart failure (CMS/[facility]) [I50.9] Reason for assessment: MD referral [...] of Nutrition and Dietetics (AND) and the [place] Society of Enteral and Parenteral Nutrition (ASPEN). [...] To reach the Clinical Dietitian, please utilize [facility] chat Tuesday-Tuesday from 8AM-4PM or call extension [phone]. For weekends (Tuesday-Tuesday) and holidays, the Clinical Dietitian can be reached via pager [phone]) from 9AM-3PM. The Clinical Nutrition Department is unable to respond to [facility] chat messages on Sundays and holidays. Normal [facility] T4, FREEon 06-21-2024 THYROXINE (T4) FREE (NG/DL) IN SER/PLAS 0.94 ng/dL Normal 0.71-1.85 [facility] Comment on above: Performed By: #### L [id number] ####[facility] (BEAKER)[address] [place] [address] TSH3 REFLEX TO FT4on 025 THYROTROPIN (MIU/L) IN SER/PLAS BY DETECTION LIMIT <= 0.05 MIU/L 6.21 mIU/L High 0.34-5.60 [facility] Comment on above: Performed By: #### L [id number] ####[facility] ([facility])[address] [place] [address] 30on 06-20-2024 30 The patient is Moderately Stable - Low risk of patient condition declining or worsening The patient's goals for the shift include comfort and rest The clinical goals for the shift include vss and safety Over the shift, the patient continued to make progress toward the following goals. Normal [facility] 30 Problem: Respiratory - Adult Goal: [...] goals for the shift include VSS Normal [facility] APTTon 06-20-2024 ACTIVATED PARTIAL THROMBOPLASTIN TIME IN PPP BY COAGULATION ASSAY 31.2 Seconds Normal 25.0-35.0 [facility] Comment on above: Order Comment: Check aPTT every 6 hours while on heparin infusion, or per protocol. Result Comment: Clin ical significance of the APTT is questionable in the presence of heparin. Performed By: #### L [id number] ####[facility] ([facility])[address] [place] [address] ACTIVATED PARTIAL THROMBOPLASTIN TIME IN PPP BY COAGULATION ASSAY 31.6 Seconds Normal 25.0-35.0 [facility] Comment on above: Order Comment: Check aPTT every 6 hours while on heparin infusion, or per protocol. Result Comment: Clin ical significance of the APTT is questionable in the presence of heparin. Performed By: #### L [id number] #### [facility] ([facility]) [address] [place] [address] BASIC METABOLIC PANELon 06-06 Anion gap [Moles/Vol] 8 mmol/L Normal 7-20 [facility] Comment on above: Performed By: #### L [id number] ####[facility] ([facility])[address] [place] [address] Calcium [Mass/Vol] 8.6 mg/dL Normal 8.6-10.3 [facility] Comment on above: Performed By: #### L [id number] ####[facility] ([facility])[address] [place] [address] Chloride [Moles/Vol] 100 mmol/L Normal 98-[address] [facility] Comment on above: Performed By: #### L [id number] ####[facility] ([facility] [place] [address] CO2 [Moles/Vol] 34 mmol/L High 21-31 [facility] Comment on above: Performed By: #### L [id number] ####[facility] ([facility])[address] [place] [address] Creatinine [Mass/Vol] 1.04 mg/dL Normal 0.70-1.30 [facility] Comment on above: Performed By: #### L [id number] ####[facility] ([facility])[address] [place] [address] GLOMERULAR FILTRATION RATE ML/MIN/1.73 SQ M.PREDICTED 82.2 mL/min/1.73m*2 Normal >60.0 [facility] Comment on above: Result Comment: The [facility]???s estimated glomerular filtration rate (eGFR) will [...] of individuals. Performed By: #### L [id number] ####[facility] ([facility])[address] [place] [address] Glucose [Mass/Vol] 122 mg/dL High 70-100 [facility] Comment on above: Performed By: #### L [id number] ####[facility] ([facility])[address] [place] [address] Potassium [Moles/Vol] 4.2 mmol/L Normal 3.5-5.1 [facility] Comment on above: Performed By: #### L [id number] ####[facility] ([facility])[address] [place] [address] Sodium [Moles/Vol] 138 mmol/L Normal 136-145 [facility] Comment on above: Performed By: #### L [id number] ####[facility] ([facility])[address] [place] [address] Urea nitrogen [Mass/Vol] 13 mg/dL Normal 7-25 [facility] Comment on above: Performed By: #### L [id number] ####[facility] ([facility] [place] [address] UREA NITROGEN/CREATININE (MASS RATIO) IN SER/PLAS 12.5 Normal [facility] Comment on above: Performed By: #### L [id number] ####[facility] ([facility] [place] [address] CBCon 06-20-2024 Erythrocyte distribution width (RBC) [Ratio] 13.2 % Normal 11.5-15.0 [facility] Comment on above: Performed By: #### L [id number] #### [facility] ([facility]) [address] [place] [address] ERYTHROCYTE MEAN CORPUSCULAR HEMOGLOBIN CONCENTRATION (G/DL) BY AUTOMATED 31.3 g/dL Low 32.0-35.0 [facility] Comment on above: Performed By: #### L [id number] #### [facility] ([facility]) [address] [place] [address] Hematocrit (Bld) [Volume fraction] 42.8 % Normal 39.0-55.0 [facility] Comment on above: Performed By: #### L [id number] #### [facility] ([facility]) [address] [place] [address] Hemoglobin (Bld) [Mass/Vol] 13.4 g/dL Normal 13.0-17.0 [facility] Comment on above: Performed By: #### L [id number] #### [facility] ([facility]) [address] [place] [address] MCH (RBC) [Entitic mass] 30.7 pg Normal 27.0-33.0 [facility] Comment on above: Performed By: #### L [id number] #### [facility] (BEAKER) [address] [place] [address] MCV (RBC) [Entitic vol] 98.2 fL High 82.0-98.0 [facility] Comment on above: Performed By: #### L [id number] #### [facility] ([facility]) [address] [place] [address] PLATELETS (10*3/UL) IN BLOOD AUTOMATED COUNT 247 10*3/uL Normal 150-400 [facility] Comment on above: Performed By: #### L [id number] #### [facility] ([facility]) [address] [place] [address] RBC (Bld) [#/Vol] 4.36 10*6/uL Normal 4.20-5.70 [facility] Comment on above: Performed By: #### L [id number] #### [facility] ([facility]) [address] [place] [address] WBC (Bld) [#/Vol] 7.77 10*3/uL Normal 4.00-10.60 [facility] Comment on above: Performed By: #### L [id number] #### [facility] ([facility]) [address] [place] [address] MAGNESIUMon 06-20-2024 Magnesium [Mass/Vol] 1.9 mg/dL Normal 1.9-2.[address] [facility] Comment on above: Performed By: #### L [id number] #### [facility] ([facility]) [address] [place] [address] 30on 06-19-2024 30 The patient is Moderately [...] for values outside of normal range Normal [facility] 30 Daily Case Managemen t Update [...] appropriate for patient?: Yes New Consults: Normal [facility] 30 Problem: Respiratory - Adult Goal: [...] of function Outcome: Progressing Flowsheets (Taken 06/19/2024 0145) Return mobility to safest level of function: [...] the shift include VSS, hemodynamic stability Normal [facility] 30 The patient is Moderately Stable [...] labs for bleeding or clotting disorders Normal [facility] APTTon 06-19-2024 ACTIVATED PARTIAL THROMBOPLASTIN TIME IN PPP BY COAGULATION ASSAY 29.8 Seconds Normal 25.0-35.0 [facility] Comment on above: Order Comment: Check aPTT every 6 hours while on heparin infusion, or per protocol. Result Comment: Clin ical significance of the APTT is questionable in the presence of heparin. Performed By: #### L [id number] #### [facility] (BEAKER) [address] [place] [address] ACTIVATED PARTIAL THROMBOPLASTIN TIME IN PPP BY COAGULATION ASSAY 126.6 Seconds High 25.0-35.0 [facility] Comment on above: Order Comment: Check aPTT every 6 hours while on heparin infusion, or per protocol. Result Comment: Clin ical significance of the APTT is questionable in the presence of heparin. Performed By: #### L [id number] #### [facility] (BEAKER) [address] [place] [address] ACTIVATED PARTIAL THROMBOPLASTIN TIME IN PPP BY COAGULATION ASSAY 64.7 Seconds High 25.0-35.0 [facility] Comment on above: Order Comment: Check aPTT every 6 hours while on heparin infusion, or per protocol. Result Comment: Clin ical significance of the APTT is questionable in the presence of heparin. Performed By: #### L [id number] #### [facility] ([facility] [address] [place] [address] BASIC METABOLIC PANELon 06-06 Anion gap [Moles/Vol] 8 mmol/L Normal 7-20 [facility] Comment on above: Performed By: #### L [id number] #### [facility] ([facility]) [address] [place] [address] Calcium [Mass/Vol] 9.2 mg/dL Normal 8.6-10.3 [facility] Comment on above: Performed By: #### L [id number] #### [facility] ([facility]) [address] [place] [address] Chloride [Moles/Vol] 98 mmol/L Normal 98-[address] [facility] Comment on above: Performed By: #### L [id number] #### [facility] ([facility]) [address] [place] [address] CO2 [Moles/Vol] 37 mmol/L High 21-31 [facility] Comment on above: Performed By: #### L [id number] #### [facility] ([facility]) [address] [place] [address] Creatinine [Mass/Vol] 1.12 mg/dL Normal 0.70-1.30 [facility] Comment on above: Performed By: #### L [id number] #### [facility] ([facility]) [address] [place] [address] GLOMERULAR FILTRATION RATE ML/MIN/1.73 SQ M.PREDICTED 75.2 mL/min/1.73m*2 Normal >60.0 [facility] Comment on above: Result Comment: The [facility]???s estimated glomerular filtration rate (eGFR) will [...] individuals. Performed By: #### L [id number] #### [facility] ([facility]) [address] [place] [address] Glucose [Mass/Vol] 115 mg/dL High 70-100 [facility] Comment on above: Performed By: #### L [id number] #### [facility] ([facility]) [address] [place] [address] Potassium [Moles/Vol] 4.1 mmol/L Normal 3.5-5.1 [facility] Comment on above: Performed By: #### L [id number] #### [facility] ([facility]) [address] [place] [address] Sodium [Moles/Vol] 139 mmol/L Normal 136-145 [facility] Comment on above: Performed By: #### L [id number] #### [facility] ([facility]) [address] [place] [address] Urea nitrogen [Mass/Vol] 16 mg/dL Normal 7-25 [facility] Comment on above: Performed By: #### L [id number] #### [facility] ([facility]) [address] [place] [address] UREA NITROGEN/CREATININE (MASS RATIO) IN SER/PLAS 14.3 Normal [facility] Comment on above: Performed By: #### L [id number] #### [facility] ([facility]) [address] [place] [address] CBCon 06-19-2024 Erythrocyte distribution width (RBC) [Ratio] 13.6 % Normal 11.5-15.0 [facility] Comment on above: Performed By: #### L [id number] #### [facility] ([facility]) [address] [place] [address] ERYTHROCYTE MEAN CORPUSCULAR HEMOGLOBIN CONCENTRATION (G/DL) BY AUTOMATED 31.4 g/dL Low 32.0-35.0 [facility] Comment on above: Performed By: #### L [id number] #### [facility] ([facility]) [address] [place] [address] Hematocrit (Bld) [Volume fraction] 44.9 % Normal 39.0-55.0 [facility] Comment on above: Performed By: #### L [id number] #### [facility] ([facility]) [address] [place] [address] Hemoglobin (Bld) [Mass/Vol] 14.1 g/dL Normal 13.0-17.0 [facility] Comment on above: Performed By: #### L [id number] #### [facility] ([facility]) [address] [place] [address] MCH (RBC) [Entitic mass] 30.7 pg Normal 27.0-33.0 [facility] Comment on above: Performed By: #### L [id number] #### [facility] ([facility]) [address] [place] [address] MCV (RBC) [Entitic vol] 97.8 fL Normal 82.0-98.0 [facility] Comment on above: Performed By: #### L [id number] #### [facility] ([facility]) [address] [place] [address] PLATELETS (10*3/UL) IN BLOOD AUTOMATED COUNT 286 10*3/uL Normal 150-400 [facility] Comment on above: Performed By: #### L [id number] #### [facility] ([facility]) [address] [place] [address] RBC (Bld) [#/Vol] 4.59 10*6/uL Normal 4.20-5.70 [facility] Comment on above: Performed By: #### L [id number] #### [facility] ([facility] [address] [place] [address] WBC (Bld) [#/Vol] 10.30 10*3/uL Normal 4.00-10.[address] [facility] Comment on above: Performed By: #### L [id number] #### [facility] ([facility] [address] [place] [address] HPon 06-19-2024 HP H&P reviewed. The patient was examined and there are no changes to the H&P. Discussed risks, benefits, and alternative therapies with the patient, he understands and willing to proceed with RHC/coronary angiogram and possible PCI. Sabine Bernard MD PGY-7 Interventional Legal Department Manager Normal [facility] TROPONIN Ion 06-19-2024 Troponin I.cardiac [Mass/Vol] 0.08 ng/mL High 0.00-0.04 [facility] Comment on above: Performed By: #### L [id number] ####[facility] ([facility])[address] [place] [address] 30on 06-18-2024 30 Daily Case Managemen t Update Multidisciplinary rounds have been completed. Barriers to Discharge: Patient presented from [facility] needing higher level of care for [...] appropriate for patient?: Yes New Consults: Normal [facility] 30 The patient is Moderately Stable [...] Goal: Maintains hematologic stability Outcome: Progressing Normal [facility] 30 The patient is Moderately Stable [...] labs for bleeding or clotting disorders Normal [facility] APTTon 06-18-2024 ACTIVATED PARTIAL THROMBOPLASTIN TIME IN PPP BY COAGULATION ASSAY 56.7 Seconds High 25.0-35.0 [facility] Comment on above: Order Comment: Check aPTT every 6 hours while on heparin infusion, or per protocol. Result Comment: Clin ical significance of the APTT is questionable in the presence of heparin. Performed By: #### L [id number] #### [facility] ([facility]) [address] [place] [address] B-TYPE NATRIURETIC PEPTIDEon 06-18-2024 Natriuretic peptide B (Bld) [Mass/Vol] 309 pg/mL High 0-100 [facility] Comment on above: Performed By: #### L [id number] #### [facility] ([facility]) [address] [place] [address] CONSULTon 06-18-2024 CONSULT -- Attestation signed by [...] of CAD. Patient was a transfer from [facility] for evaluation for coronary angiogram after [...] extremity edema, (more content not included)... Normal [facility] HEMOGLOBIN A1Con 06-18-2024 Glucose [Mass/Vol] 128 mg/dL Normal [facility] Comment on above: Performed By: #### L [id number] #### [facility] ([facility]) [address] [place] [address] HbA1c (Bld) [Mass fraction] 6.1 % High 4.0-6.0 [facility] Comment on above: Performed By: #### L [id number] #### [facility] ([facility]) [address] [place] [address] HPon 06-18-2024 HP -- Attestation signed by [...] of CAD. Patient was a transfer from [facility] for evaluation for coronary angiogram after [...] extremity edema, (more content not included)... Normal [facility] LIPID PANELon 06-18-2024 CHOL/HDL 3.8 mg/dL Normal [facility] Comment on above: Performed By: #### L [id number] #### [facility] ([facility]) [address] [place] [address] Cholesterol [Mass/Vol] 120 mg/dL Normal 120-200 [facility] Comment on above: Performed By: #### L [id number] #### [facility] ([facility]) [address] [place] [address] Magnesium [Mass/Vol] 49 mg/dL Normal 40-[address] [facility] Comment on above: Result Comment: TRIG LYCERIDE REFERENCE RANGE: 20 YEARS AND OLDER CARDIOVASCULAR RISK LESS THAN 150 mg/dL LOW RISK 150 TO 199 mg/dL BORDERLINE RISK 200 mg/dL AND GREATER HIGH RISK Performed By: #### L [id number] #### [facility] ([facility]) [address] [place] [address] Magnesium [Mass/Vol] 78 mg/dL Normal 0-[address] [facility] Comment on above: Performed By: #### L [id number] #### [facility] ([facility]) [address] [place] [address] Magnesium [Mass/Vol] 32 mg/dL Normal 23-[address] [facility] Comment on above: Performed By: #### L [id number] #### [facility] ([facility]) [address] [place] [address] NON HDL CHOL. (LDL+VLDL) 88 Normal [facility] Comment on above: Performed By: #### L [id number] #### [facility] ([facility]) [address] [place] [address] TOTAL VLDL-C 10 mg/dL Normal 0-40 [facility] Comment on above: Performed By: #### L [id number] #### [facility] ([facility]) [address] [place] [address] PLATELET COUNTon 06-18-2024 PLATELETS (10*3/UL) IN BLOOD AUTOMATED COUNT 267 10*3/uL Normal 150-400 [facility] Comment on above: Performed By: #### L [id number] ####[facility] ([facility])[address] [place] [address] TROPONIN Ion 06-18-2024 Troponin I.cardiac [Mass/Vol] 0.10 ng/mL High 0.00-0.04 [facility] Comment on above: Performed By: #### L [id number] #### [facility] ([facility]) [address] [place] [address] APTTon 06-17-2024 ACTIVATED PARTIAL THROMBOPLASTIN TIME IN PPP BY COAGULATION ASSAY 30.6 Seconds Normal 25.0-35.0 [facility] Comment on above: Result Comment: Clin ical significance of the APTT is questionable in the presence of heparin. Performed By: #### L [id number] #### [facility] ([facility]) [address] [place] [address] CBC WITH AUTO DIFFERENTIALon 06-17-2024 Basophils (Bld) [#/Vol] 0.07 10*3/uL Normal 0.00-0.20 [facility] Comment on above: Performed By: #### L [id number] #### [facility] ([facility]) [address] [place] [address] Basophils/100 WBC (Bld) 0.7 % Normal 0.0-1.0 [facility] Comment on above: Performed By: #### L [id number] #### [facility] ([facility]) [address] [place] [address] Eosinophils (Bld) [#/Vol] 0.30 10*3/uL Normal 0.00-0.50 [facility] Comment on above: Performed By: #### L [id number] #### [facility] ([facility]) [address] [place] [address] Eosinophils/100 WBC (Bld) 2.9 % Normal 0.0-6.0 [facility] Comment on above: Performed By: #### L [id number] #### [facility] ([facility]) [address] [place] [address] Erythrocyte distribution width (RBC) [Ratio] 13.6 % Normal 11.5-15.0 [facility] Comment on above: Performed By: #### L [id number] #### [facility] ([facility]) [address] [place] [address] ERYTHROCYTE MEAN CORPUSCULAR HEMOGLOBIN CONCENTRATION (G/DL) BY AUTOMATED 31.4 g/dL Low 32.0-35.0 [facility] Comment on above: Performed By: #### L [id number] #### [facility] ([facility]) [address] [place] [address] Hematocrit (Bld) [Volume fraction] 45.9 % Normal 39.0-55.0 [facility] Comment on above: Performed By: #### L [id number] #### [facility] ([facility]) [address] [place] [address] Hemoglobin (Bld) [Mass/Vol] 14.4 g/dL Normal 13.0-17.0 [facility] Comment on above: Performed By: #### L [id number] #### [facility] ([facility]) [address] [place] [address] Immature granulocytes (Bld) [#/Vol] 0.03 10*3/uL Normal 0.00-0.20 [facility] Comment on above: Performed By: #### L [id number] #### [facility] ([facility]) [address] [place] [address] Immature granulocytes/100 WBC (Bld) 0.3 % Normal 0.0-1.0 [facility] Comment on above: Performed By: #### L [id number] #### [facility] ([facility]) [address] [place] [address] Lymphocytes (Bld) [#/Vol] 1.64 10*3/uL Normal 1.20-4.00 [facility] Comment on above: Performed By: #### L [id number] #### [facility] ([facility]) [address] [place] [address] Lymphocytes/100 WBC (Bld) 16.0 % Low 20.0-45.0 [facility] Comment on above: Performed By: #### L [id number] #### [facility] ([facility]) [address] [place] [address] MCH (RBC) [Entitic mass] 31.2 pg Normal 27.0-33.0 [facility] Comment on above: Performed By: #### L [id number] #### [facility] ([facility]) [address] [place] [address] MCV (RBC) [Entitic vol] 99.6 fL High 82.0-98.0 [facility] Comment on above: Performed By: #### L [id number] #### [facility] ([facility]) [address] [place] [address] Monocytes (Bld) [#/Vol] 0.70 10*3/uL Normal 0.10-1.00 [facility] Comment on above: Performed By: #### L [id number] #### [facility] ([facility]) [address] [place] [address] Monocytes/100 WBC (Bld) 6.8 % Normal 5.0-12.0 [facility] Comment on above: Performed By: #### L [id number] #### [facility] ([facility]) [address] [place] [address] Neutrophils (Bld) [#/Vol] 7.49 10*3/uL Normal 1.60-7.60 [facility] Comment on above: Performed By: #### L [id number] #### [facility] ([facility]) [address] [place] [address] Neutrophils/100 WBC (Bld) 73.3 % High 40.0-72.0 [facility] Comment on above: Performed By: #### L [id number] #### [facility] ([facility]) [address] [place] [address] NRBC (PER 100 WBCS) BY AUTOMATED COUNT 0.0 % Normal 0 [facility] Comment on above: Performed By: #### L [id number] #### [facility] ([facility]) [address] [place] [address] PLATELETS (10*3/UL) IN BLOOD AUTOMATED COUNT 288 10*3/uL Normal 150-400 [facility] Comment on above: Performed By: #### L [id number] #### [facility] ([facility]) [address] [place] [address] RBC (Bld) [#/Vol] 4.61 10*6/uL Normal 4.20-5.70 [facility] Comment on above: Performed By: #### L [id number] #### [facility] ([facility]) [address] [place] [address] WBC (Bld) [#/Vol] 10.23 10*3/uL Normal 4.00-10.[address] [facility] Comment on above: Performed By: #### L [id number] #### [facility] ([facility]) [address] [place] [address] COMPREHENSIVE METABOLIC PANE Damaso 06-17-2024 Albumin [Mass/Vol] 3.6 g/dL Normal 3.5-5.7 [facility] Comment on above: Performed By: #### L [id number] ####[facility] ([facility])[address] [place] [address] ALP [Catalytic activity/Vol] 42 U/L Normal 34-104 [facility] Comment on above: Performed By: #### L [id number] ####[facility] ([facility])[address] [place] [address] ALT [Catalytic activity/Vol] 16 U/L Normal 7-52 [facility] Comment on above: Performed By: #### L [id number] ####[facility] ([facility])[address] [place] [address] Anion gap [Moles/Vol] 9 mmol/L Normal 7-20 [facility] Comment on above: Performed By: #### L [id number] ####[facility] ([facility])[address] [place] [address] AST [Catalytic activity/Vol] 20 U/L Normal 13-39 [facility] Comment on above: Performed By: #### L [id number] ####[facility] ([facility])[address] [place] [address] Bilirubin [Mass/Vol] 0.5 mg/dL Normal 0.3-1.[address] [facility] Comment on above: Performed By: #### L [id number] ####[facility] ([facility])[address] [place] [address] Calcium [Mass/Vol] 9.0 mg/dL Normal 8.6-10.3 [facility] Comment on above: Performed By: #### L [id number] ####[facility] ([facility])[address] [place] [address] Chloride [Moles/Vol] 99 mmol/L Normal 98-[address] [facility] Comment on above: Performed By: #### L [id number] ####[facility] ([facility])[address] [place] [address] CO2 [Moles/Vol] 36 mmol/L High 21-31 [facility] Comment on above: Performed By: #### L [id number] ####[facility] ([facility])[address] [place] [address] Creatinine [Mass/Vol] 1.17 mg/dL Normal 0.70-1.30 [facility] Comment on above: Performed By: #### L [id number] ####[facility] ([facility])[address] [place] [address] GLOMERULAR FILTRATION RATE ML/MIN/1.73 SQ M.PREDICTED 71.4 mL/min/1.73m*2 Normal >60.0 [facility] Comment on above: Result Comment: [facility]???s estimated glomerular filtration rate (eGFR) will [...] of individuals. Performed By: #### L [id number] ####[facility] ([facility])[address] [place] [address] Glucose [Mass/Vol] 90 mg/dL Normal 70-100 [facility] Comment on above: Performed By: #### L [id number] ####[facility] (AKER)[address] [place] [address] Potassium [Moles/Vol] 3.6 mmol/L Normal 3.5-5.1 [facility] Comment on above: Performed By: #### L [id number] ####[facility] ([facility])[address] [place] [address] Protein [Mass/Vol] 6.8 g/dL Normal 6.0-8.3 [facility] Comment on above: Performed By: #### L [id number] ####[facility] ([facility])[address] [place] [address] Sodium [Moles/Vol] 140 mmol/L Normal 136-145 [facility] Comment on above: Performed By: #### L [id number] ####[facility] ([facility])[address] [place] [address] Urea nitrogen [Mass/Vol] 14 mg/dL Normal 7-25 [facility] Comment on above: Performed By: #### L [id number] ####[facility] ([facility])[address] [place] [address] UREA NITROGEN/CREATININE (MASS RATIO) IN SER/PLAS 12.0 Normal [facility] Comment on above: Performed By: #### L [id number] ####[facility] ([facility])[address] [address] MAGNESIUMon 06-17-2024 Magnesium [Mass/Vol] 1.9 mg/dL Normal 1.9-2.[address] [facility] Comment on above: Performed By: #### L [id number] ####[facility] ([facility])[address] [place] [address] PHOSPHORUSon 06-17-2024 Magnesium [Mass/Vol] 2.7 mg/dL Normal 2.5-5.[address] [facility] Comment on above: Performed By: #### L [id number] ####[facility] ([facility])[address] [place] [address] PROTIME-INRon 06-17-2024 INR IN PPP BY COAGULATION ASSAY 1.39 High 0.90-1.10 [facility] Comment on above: Result Comment: ACCC [...] CHEST 1995;108:231S-246S. Performed By: #### L [id number] ####[facility] ([facility])[address] [place] [address] PROTHROMBIN TIME (PT) IN PPP BY COAGULATION ASSAY 17.0 Seconds High 12.3-14.8 [facility] Comment on above: Performed By: #### L [id number] ####[facility] ([facility])[address] [place] [address] Damaso 12-23-2023 L Specimen: [id number] Received: 12/23/23 Status: ANTONINO Galan Num: [id number] Spec Type: Surgical Subm Dr: Alix Milligan [...] Patient Sex Location Account Attending Physician Idris oDdd 58/M [id number] Alix Milligan MD SPEC NUM: [id number] RECD: 12/23/23 STATUS: ANTONINO GALAN NUM: [id number] LAMINE: 12/23/23- SUBM DR: Alix Milligan MD ENTERED: 12/23/23 [facility] DR: SPEC TYPE: Surgical DEPT: S ORDERED: [...] Polyps, rectum, biopsy: Hyperplastic polyps. ---- Specimen: [id number] Received: 12/23/23 Status: ANTONINO Galan Num: [id number] Spec Type: Surgical Subm Dr: Alix Milligan MD Tissues: A GASTRIC FOR HP (GASTRIC BX R/O H.PYLORI) B Esophagus Biopsy (ESOPHAGUS BX R/ BARRETTS) C Colon Biopsy (CECUM POLYP) D Colon Biopsy (ASCENDING POLYP X2) E Colon Biopsy (HEPATIC FLEXURE) F Colon Biopsy (LIPOMA BX SIGMOID) G Colon Biopsy (POLYP RECTAL X2) Procedures: HE/14, Gross/Micro L4/7, H PYLORI ---- Patient: Idris Dodd JR [id number] (Continued) ---- Specimen: [id number] Received: 12/23/23 (Continued) Signed (signature on file) Marcy Ruiz MD 12/26/23 7368 ---- Specimen: [id number] Received: 12/23/23 Status: ANTONINO Galan Num: [id number] Spec Type: Surgical Subm Dr: Alix Milligan MD Tissues: A GASTRIC FOR HP (GASTRIC BX R/O H.PYLORI) B Esophagus Biopsy (ESOPHAGUS BX R/ BARRETTS) C Colon Biopsy (CECUM POLYP) D Colon Biopsy (ASCENDING POLYP X2) E Colon Biopsy (HEPATIC FLEXURE) F Colon Biopsy (LIPOMA BX SIGMOID) G Colon Biopsy (POLYP RECTAL X2) Procedures: , Gross/Micro L4/7, H PYLORI ---- Patient: Idris Dodd JR [id number] (Continued) ---- Specimen: [id number] Received: 12/23/23 (Continued) Clinical Information R/o h. [...] x 0.2 cm, entirely submitted in G1. [facility] Codes [id number] ---- ---- Specimen: [id number] Received: 12/23/23 Status: ANTONINO Galan Num: [id number] Spec Type: Surgi (more content not included)... Normal [facility] CBC AUTO DIFFon 11-25-2021 BASO # 0.1 103/ul Normal 0.0-0.1 [facility] Comment on above: Performed By: #### C BC #### [facility] [address] [place] [address] Dr. Nate Trotter Basophils/100 WBC (Bld) 0.5 % Normal 0.2-2.0 [facility] Comment on above: Performed By: #### C BC #### [facility] [address] [place] [address] Dr. Nate Trotter EO # 0.2 103/ul Normal 0.0-0.7 [facility] Comment on above: Performed By: #### C BC #### [facility] [address] [place] [address] Dr. Nate Trotter Eosinophils/100 WBC (Bld) 1.5 % Normal 0.9-7.0 [facility] Comment on above: Performed By: #### C BC #### [facility] [address] [place] [address] Dr. Nate Trotter Erythrocyte distribution width (RBC) [Ratio] 13.3 % Normal 11.0-15.0 [facility] Comment on above: Performed By: #### C BC #### [facility] [address] [place] [address] Dr. Nate Trotter Hematocrit (Bld) [Volume fraction] 48.7 % Normal 42.0-54.0 [facility] Comment on above: Performed By: #### C BC #### [facility] [address] [place] [address] Dr. Nate Trotter Hemoglobin (Bld) [Mass/Vol] 16.0 g/dL Normal 14.0-18.0 [facility] Comment on above: Performed By: #### C BC #### [facility] [address] [place] [address] Dr. Nate Trotter IG # 0.05 10e3/ul Critically high 0.00-0.03 [facility] Comment on above: Performed By: #### C BC #### [facility] [address] [address] [address] Nate Trotter IG % 0.5 % Normal 0.0-0.5 [facility] Comment on above: Performed By: #### C BC #### [facility] [address] [place] [address] Dr. Nate Trotter LYMPH # 1.8 103/ul Normal 1.2-3.8 [facility] Comment on above: Performed By: #### C BC #### [facility] [address] [place] [address] Dr. Nate Trotter Lymphocytes/100 WBC (Bld) 19.0 % Critically low 20.5-60.0 [facility] Comment on above: Performed By: #### C BC #### [facility] [address] [place] [address] Dr. Nate Trotter MANUAL DIFF REQ NO Normal [facility] Comment on above: Performed By: #### C BC #### [facility] [address] [place] [address] Dr. Nate Trotter MCH (RBC) [Entitic mass] 30.9 pg Normal 25.9-34.0 [facility] Comment on above: Performed By: #### C BC #### [facility] [address] [place] [address] Dr. Nate Trotter MCHC (RBC) [Mass/Vol] 32.9 g/dL Normal 29.9-35.2 [facility] Comment on above: Performed By: #### C BC #### [facility] [address] [place] [address] Dr. Nate Trotter MCV (RBC) [Entitic vol] 94.0 fL Normal 80.0-94.0 [facility] Comment on above: Performed By: #### C BC #### [facility] [address] [place] [address] Dr. Nate Trotter MONO # 0.7 103/ul Normal 0.3-0.8 [facility] Comment on above: Performed By: #### C BC #### [facility] [address] [address] [address] Nate Trotter Monocytes/100 WBC (Bld) 7.2 % Normal 1.7-12.0 [facility] Comment on above: Performed By: #### C BC #### [facility] [address] [address] [address] Nate Trotter NEUT # 6.9 103/ul Critically high 1.4-6.5 [facility] Comment on above: Performed By: #### C BC #### [facility] [address] [address] [address] Nate Trotter Neutrophils/100 WBC (Bld) 71.3 % Normal 43.0-75.0 [facility] Comment on above: Performed By: #### C BC #### [facility] [address] [place] [address] Dr. Nate Trotter Platelet mean volume (Bld) [Entitic vol] 9.4 fL Critically low 9.5-13.5 [facility] Comment on above: Performed By: #### C BC #### [facility] [address] [place] [address] Dr. Nate Trotter PLT 240 103/ul Normal 150-450 [facility] Comment on above: Performed By: #### C BC #### [facility] [facility] [address] [place] [address] Dr. Nate Trotter RBC 5.18 106/ul Normal 4.70-6.10 [facility] Comment on above: Performed By: #### C BC #### [facility] [address] [place] [address] Dr. Nate Trotter WBC 9.7 103/ul Normal 4.0-11.0 [facility] Comment on above: Performed By: #### C BC #### [facility] [address] [place], [place] [id number] Dr. Nate Trotter GLYCOHEMOGLOBIN A1Con 2021 ADA RECOMMENDATION SEE BELOW Normal [facility] Comment on above: Result Comment: ADA RECOMMENDED LIMIT 4.0 - 6.0 ADA THERAPEUTIC TARGET < 7.0 ACTION SUGGESTED > 7.0 Performed By: #### A 1C #### [facility] [address] [address] [address] Nate Trotter Glucose [Mass/Vol] 111 mg/dL Normal [facility] Comment on above: Performed By: #### A 1C #### [facility] [address] [address] [address] Nate Trotter HbA1c (Bld) [Mass fraction] 5.5 % Normal 4.5-6.2 [facility] Comment on above: Performed By: #### A 1C #### [facility] [address] [address] [address] Nate Trotter LIPID PROFILEon 11-25-2021 CHOL-HDL RATIO NORM SEE BELOW Normal [facility] Comment on above: Result Comment: 3.3 - 4.4 LOW RISK 4.4 - 7.1 AVERAGE RISK 7.1 - 11.0 MODERATE RISK >11.0 HIGH RISK Performed By: #### B MP, TSH, LIVER, LIPID #### [facility] [address] [address] [address] Nate Trotter Cholesterol [Mass/Vol] 116 mg/dL Normal <=200 [facility] Comment on above: Performed By: #### B MP, TSH, LIVER, LIPID #### [facility] [address] [place] [address] Dr. Nate Trotter Cholesterol in HDL [Mass/Vol] 42 mg/dL Normal 40-60 [facility] Comment on above: Performed By: #### B MP, TSH, LIVER, LIPID #### [facility] [address] [address] [address] Nate Trotter Cholesterol in LDL [Mass/Vol] 53.6 mg/dL Normal [facility] Comment on above: Performed By: #### B MP, TSH, LIVER, LIPID #### [facility] [address] [address] [address] Nate Trotter Cholesterol.total/Ch olesterol in HDL [Mass ratio] 2.8 {ratio} Normal [facility] Comment on above: Performed By: #### B MP, TSH, LIVER, LIPID #### [facility] [address] [address] [address] Nate Trotter HDL NORMAL > or = 60 mg/dl - LO W CARDIOVASCULAR RISK <40 mg/dl - HIGH CARDIOVASCULAR RISK Normal [facility] Comment on above: Performed By: #### B MP, TSH, LIVER, LIPID #### [facility] [address] [address] [address] Nate Trotter LDL CALC NORMAL SEE BELOW Normal [facility] Comment on above: Result Comment: <100 mg/dl OPTIMAL 100 - 129 mg/dl NEAR OR ABOVE OPTIMAL 130 - 159 mg/dl BORDERLINE HIGH 160 - 189 mg/dl HIGH >190 mg/dl VERY HIGH Performed By: #### B MP, TSH, LIVER, LIPID #### [facility] [address] [address] [address] Nate Trotter Triglyceride [Mass/Vol] 102 mg/dL Normal <=150 [facility] Comment on above: Performed By: #### B MP, TSH, LIVER, LIPID #### [facility] [address] [address] [address] Nate Trotter VLDL CALC 20.4 mg/dL Normal [facility] Comment on above: Performed By: #### B MP, TSH, LIVER, LIPID #### [facility] [address] [place] [address] Dr. Nate Trotter LIVER PROFILEon 11-25-2021 Albumin [Mass/Vol] 3.2 g/dL Critically low 3.4-5.0 [facility] Comment on above: Performed By: #### B MP, TSH, LIVER, LIPID #### [facility] [address] [place] [address] Dr. Nate Trotter Albumin/Globulin [Mass ratio] 0.8 {ratio} Normal [facility] Comment on above: Performed By: #### B MP, TSH, LIVER, LIPID #### [facility] [address] [place] [address] Dr. Nate Trotter ALP [Catalytic activity/Vol] 54 U/L Normal 46-116 [facility] Comment on above: Performed By: #### B MP, TSH, LIVER, LIPID #### [facility] [address] [place] [address] Dr. Nate Trotter ALT [Catalytic activity/Vol] 33 U/L Normal 16-63 [facility] Comment on above: Performed By: #### B MP, TSH, LIVER, LIPID #### [facility] [address] [place] [address] Dr. Nate Trotter AST [Catalytic activity/Vol] 24 U/L Normal 15-37 [facility] Comment on above: Performed By: #### B MP, TSH, LIVER, LIPID #### [facility] [address] [place] [address] Dr. Nate Trotter BILI, CONJUGATED 0.1 mg/dL Normal 0.0-0.2 [facility] Comment on above: Performed By: #### B MP, TSH, LIVER, LIPID #### [facility] [address] [place] [address] Dr. Nate Trotter Bilirubin [Mass/Vol] 0.3 mg/dL Normal 0.2-1.0 [facility] Comment on above: Performed By: #### B MP, TSH, LIVER, LIPID #### [facility] [address] [place] [address] Dr. Nate Trotter Globulin (S) [Mass/Vol] 4.2 g/dL Normal [facility] Comment on above: Performed By: #### B MP, TSH, LIVER, LIPID #### [facility] [address] [place] [address] Dr. Nate Trotter Protein [Mass/Vol] 7.4 g/dL Normal 6.4-8.2 [facility] Comment on above: Performed By: #### B MP, TSH, LIVER, LIPID #### [facility] [address] [place] [address] Dr. Nate Trotter PROF CHEM 8 (BAS METB)on Anion gap [Moles/Vol] 9.3 mmol/L Normal [facility] Comment on above: Performed By: #### B MP, TSH, LIVER, LIPID #### [facility] [address] [place] [address] Dr. Nate Trotter Calcium [Mass/Vol] 9.0 mg/dL Normal 8.5-10.1 [facility] Comment on above: Performed By: #### B MP, TSH, LIVER, LIPID #### [facility] [address] [place] [address] Dr. Nate Trotter Chloride [Moles/Vol] 98 mmol/L Normal 98-107 [facility] Comment on above: Performed By: #### B MP, TSH, LIVER, LIPID #### [facility] [address] [place] [address] Dr. Nate Trotter CO2 [Moles/Vol] 32.7 mmol/L Critically high 21.0-32.0 [facility] Comment on above: Performed By: #### B MP, TSH, LIVER, LIPID #### [facility] [address] [place] [address] Dr. Nate Trotter Creatinine [Mass/Vol] 1.03 mg/dL Normal 0.70-1.30 [facility] Comment on above: Performed By: #### B MP, TSH, LIVER, LIPID #### [facility] [address] [place] [address] Dr. Nate Trotter EGFR-AF LUXEMBOURGER >60 Normal >=60 [facility] Comment on above: Performed By: #### B MP, TSH, LIVER, LIPID #### [facility] [address] [place] [address] Dr. Nate Trotter EGFR-NON AF LUXEMBOURGER >60 Normal >=60 [facility] Comment on above: Performed By: #### B MP, TSH, LIVER, LIPID #### [facility] [address] [place] [address] Dr. Nate Trotter Glucose [Mass/Vol] 110 mg/dL Critically high 74-106 [facility] Comment on above: Performed By: #### B MP, TSH, LIVER, LIPID #### [facility] [address] [place] [address] Dr. Nate Trotter Potassium [Moles/Vol] 4.0 mmol/L Normal 3.5-5.1 [facility] Comment on above: Performed By: #### B MP, TSH, LIVER, LIPID #### [facility] [address] [address] [address] Nate Trotter Sodium [Moles/Vol] 136 mmol/L Normal 136-145 [facility] Comment on above: Performed By: #### B MP, TSH, LIVER, LIPID #### [facility] [address] [address] [address] Nate Trotter Urea nitrogen [Mass/Vol] 14.0 mg/dL Normal 7.0-18.0 [facility] Comment on above: Performed By: #### B MP, TSH, LIVER, LIPID #### [facility] [address] [address] [address] Nate Trotter Urea nitrogen/Creatinine [Mass ratio] 13.6 mg/mg Normal [facility] Comment on above: Performed By: #### B MP, TSH, LIVER, LIPID #### [facility] [address] [address] [address] Nate Trotter TSHon 11-25-2021 TSH 1.323 uIU/mL Normal 0.358-3.740 [facility] Comment on above: Performed By: #### B MP, TSH, LIVER, LIPID #### [facility] [address] [address] [address] CERVICAL SPINE WO [...] Yuri Bautista MD 04/21/20 Final result Normal [facility] No acute fracture or traumatic malalignment. Degenerative disc disease at C5-C6 and C6-C7 not well assessed due to beam hardening artifact. [facility] CT EXAMINATION: CT OF T HE CERVICAL [...] There is no prevertebral soft tissue swelling. [place], [place] Ryan, Mhpn Incoming Radiant Results From [employer]/BULXs - 04/21/2020 7:26 PM EST EXAMINATION: CT [...] well assessed due to beam hardening artifact. [place], [place] CT HEAD WO CONTRASTon 2019 CT [...] Neeraj Cash MD 04/21/20 Final result Normal [facility] No acute intracrania l abnormality. Fluid in left maxillary sinus. Correlate for signs of infection [place], [place] EXAMINATION: CT OF T HE HEAD [...] of the visualized skull or soft tissues. [facility] Ryan, Mhpn Incoming Radiant Results From [employer]/Tutorspree - 04/21/2020 7:21 PM EST EXAMINATION: CT [...] maxillary sinus. Correlate for signs of infection [employer] [place], [place] Vital Signs Date Time Vital Sign Value Performing Clinician Faci lity 03-16-2024 09:40-0400 Body height 167.6 cm Benjy Garcia MD Work Phone: [facility] [employer] 03-16-2024 09:40-0400 Body mass index (BMI) [Ratio] 55.36 kg/m2 Benjy Garcia MD Work Phone: [facility] [employer] 03-16-2024 09:40-0400 Body temperature 98.01 [degF] Benjy Garcia MD Work Phone: [facility] 03-16-2024 09:40-0400 Body weight 155.58 kg Benjy Garcia MD Work Phone: [facility] 03-16-2024 09:40-0400 Diastolic blood pressure 70 mm[Hg] Benjy Garcia MD Work Phone: [facility] 03-16-2024 09:40-0400 Heart rate 84 /min Benjy Garcia MD Work Phone: [facility] 03-16-2024 09:40-0400 Respiratory rate 22 /min Benjy Garcia MD Work Phone: [facility] 03-16-2024 09:40-0400 SaO2% (BldA) [Mass fraction] 94 % Benjy Garcia MD Work Phone: [facility] 03-16-2024 09:40-0400 Systolic blood pressure 136 mm[Hg] Bnejy Garcia MD Work Phone: [facility] 12-23-2023 11:26-0400 Diastolic blood pressure 64 mm[Hg] MD Benjy Garcia Work Phone: [facility] 12-23-2023 11:26-0400 Heart rate 80 /min MD Benjy Garcia Work Phone: [facility] 12-23-2023 11:26-0400 Respiratory rate 16 /min MD Benjy Garcia Work Phone: [facility] 12-23-2023 11:26-0400 SaO2% (BldA) [Mass fraction] 96 % MD Benjy Garcia Work Phone: [facility] 12-23-2023 11:26-0400 Systolic blood pressure 118 mm[Hg] MD Benjy Garcia Work Phone: [facility] 12-23-2023 09:19-0400 Body height 167.64 cm MD Benjy Garcia Work Phone: [facility] 12-23-2023 09:190400 Body weight 149.68 kg MD Benjy Garcia Work Phone: [facility] 04-21-2020 18:32-0500 BMI (Body Mass Index) 57.14 kg/m2 [facility] [place] 04-21-2020 18:32-0500 Body Temperature 98.49 [degF] Ashwin [facility], [place] 04-21-2020 18:32-0500 Body weight 160.57 kg Ashwin [facility], [place] 04-21-2020 18:32-0500 BP Diastolic 71 mm[Hg] [facility], [place] 04-21-2020 18:32-0500 BP Systolic 159 mm[Hg] [facility] [place] 04-21-2020 18:32-0500 Height 167.6 cm Ashwin [facility], [place] 04-21-2020 18:32-0500 Pulse (Heart Rate) 96 /min Ashwin [facility], [place] 04-21-2020 18:32-0500 Pulse Oximetry 95 % Ashwin [facility], [place] 04-21-2020 18:32-0500 Respiratory Rate 20 /min [place], [place] Encounters Encounter Date Encounter Type Care Provider Facility Start: 06-18-2024 Evaluation and management of inpatient [facility] Start: 06-17-2024 End: 06-22-2024 Evaluation and management of inpatient MARTINEZ [facility] Start: 06-14-2024 End: 06-14-2024 Siri Garcia [...] / Non-visit MD Cintia Garcia Work Phone: [facility] Work Phone: Start: 12-23-2023 End: 12-23-2023 Admission to same day surgery center MD Benjy Garcia Work Phone: [facility] Work Phone: Start: 12-23-2023 End: 12-23-2023 ambulatory MD Benjy Garcia Work Phone: [facility] Work Phone: Start: 11-16-2023 End: 11-16-2023 ambulatory BENJY GARCIA Not Available Start: 09-09-2023 End: 09-09-2023 ambulatory BENJY GARCIA Not Available Start: 11-27-2021 Encounter for genera l adult medical examination without abnormal findings DR BENJY GARCIA [facility] Start: 11-25-2021 End: 11-26-[address] BENJY GARCIA Facility:[facility] Start: 11-25-2021 End: 11-26-2021 Encounter for general adult medical examination without abnormal findings DR BENJY GARCIA Facility:[facility] Start: 04-21-2020 End: 04-21-2020 Emergency department patient visit ASHWIN ORLANDO [facility] Start: 04-21-2020 End: 04-21-2020 Emergency department patient visit Ashwin Meet Orlando Work Phone: [facility] ED Comment on above: Closed head injury, initial encounter (Primary Dx); Multiple abrasions Procedures Date Procedure Procedure Detail Performing Clinician Start: 12-23-2023 Esophagogastroduodenoscopy MD Benjy gallo Work Phone: Start: 12-23-2023 Colonoscopy Benjy Garcia MD Work Phone: Start: 11-25-[address] BENJY GARCIA Comment on above: Performed By: #### PSASC #### [facility] [address] [place] [address] Dr. Nate Trotter Start: 04-21-2020 Ct cervical [...] 09/19/2024 8:00 AM EDT [facility] [address] [place] [address] Benjy Garcia MD [address] [place] [phone] [facility] Start: 06-14-2024 End: 06-14-2024 Patient encounter procedure 06/14/2024 9:00 AM EST Office Visit [facility] [address] [place] [phone] Benjy Garcia MD [address] [place] [phone] Arrived [facility] Comment on above: Arrived Start: 03-16-2024 End: 03-16-2024 Patient encounter procedure 03/16/2024 9:30 AM EDT Office Visit [facility] [address] [place] [address] Benjy Garcia MD [address] [place] [phone] Arrived [facility] Comment on above: Arrived Start: 02-05-2024 Influenza vaccination Influenza Vacc ine (#1) [facility] Start: 12-23-2023 [facility] Start: 02-05-2020 Influenza vaccination Flu vaccine (# 1) [place], [place] Start: 08-12-2013 Screening for malignant neoplasm of colon Colon cancer screen colonoscopy [place], [place] Start: 08-12-2013 Shingles Vaccine (1 of 2) Shingles Vaccine (1 of 2) [place], [place] Start: 2003 Diabetes screen Diabetes screen [place], [place] Start: 2003 Lipid panel Lipid screen [place], [place] Start: 08-12-1982 DTaP/Tdap/Td vaccine (1 - Tdap) DTaP/Tdap/Td vaccine (1 - Tdap) [place], [place] Start: 08-12-1978 HIV screening HIV screen [place], [place] Start: 1965 Hepatitis C screening Hepatitis C sc reen [facility] [place], [place] Start: 1965 Screening for malignant neoplasm of colon [facility] Patient Education Colon polyps L ipoma Hemorrhoids (DC) Diverticulosis (DC) Gastritis (DC) Know your [facility] Work Phone: Payers Date Payer Category Payer Self-pay 2021 [employer] [id number] 2021 Unknown BCBS BCBS [id number] 2021-Present [phone] [place], [place] [id number] 1965 Unknown [id number] 1963 Unknown [id number] 1963 Unknown [id number] 1963 Unknown [id number] 1959 Unknown [id number] Unknown [id number] Social History Date Type Detail Facility Start: 04-21-2020 End: 09-09-2023 Tobacco smoking status NHIS Never smoker [facility] Start: 04-21-2020 End: 09-09-2023 Tobacco use and exposure Never used [place], [place] Start: 04-21-2020 Alcohol intake Current drinke r of alcohol (finding) [place] Start: 04-21-2020 Alcohol Comment weekends [place]rea [place] Start: 1965 Sex Assigned At Not on file M [place], [place] Exposure to SARS-CoV -2 (event) Not sure [place], [place] Start: 1965 Sex Assigned At Male [facility] Start: 11-16-2023 End: 03-16-2024 History of Social [...] Diagnosis: Newly decompensated HFrEF (EF 20-25% at Arthur), NYHA class III Non-ischemic cardiomyopathy, 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 CAD, on cath 06/19 Paroxysmal atrial fibrillation on Eliquis [id number] HTN Morbid obesity Family history of CAD, mother had 3 stents at age 64, father has ICD/PPM [place] noncompliant to CPAP Admission Diagnosis: Heart failure (CMS/HCC) [I50.9] Hospital course: Idris Mara Dodd Jr. is an 58 y.o. male who came from [facility] for higher level of care. who [...] DVT. Newly decompensated HFrEF (EF 20-25% at Arthur), NYHA class III Non-ischemic cardiomyopathy, likely alcohol [...] eliquis 5mg twice daily. Toprol 12.5mg daily [id number] HTN Morbid obesity Family history of CAD, [...] Medications These medications were sent to [facility] - [address] [place] [address] [address] [facility] [place] [address], [facility] [address] apixaban 5 mg tablet aspirin 81 mg [...] 10*3/uL 11.08* 8 (more content not included)... [facility] 06-22-2024 Note 2nd heart failure co nsult rec'd. Patient has already denied all [facility] svs and is not interested in further education. Consult cancelled. See note from 06/21 [facility] 06-22-2024 Note Cardiology Progress Note Subjective [...] Value Ventricular Rate 64 Atrial Rate 64 MO Interval 206 QRS DURATION 110 QT Interval 444 QTC CALCULATION(BAZETT) 458 P Wellington 20 R-Wellington 55 T Wave Wellington 81 Impression Normal sinus rhythm T wave [...] > 50. Patient was a transfer from [facility] for evaluation for coronary angiogram after [...] loop diuretic diuresis 3) outpatient follow-up with CT cardiology 4) patient has morbid obesity (BMI [...] and a micropuncture access technique a 6 Uzbek sheath was placed in the right internal jugular vein. The Tapia catheter was advanced under fluoroscopic and hemodynamic monitoring to the right atrium. Pressure obtained of the right atrium, right ventricle, pulmonary artery, pulmonary capillary position. Oxygen saturation drawn for the pulmonary artery and Carroll cardiac with a cardiac index were calculated. 1% lidocaine was infiltrated over the left radial artery. A 6-Uzbek Terumo Glidesheath slender was placed in left [...] with luminal irregularitie (more content not included)... [facility] 06-21-2024 Note Jh rec'd consult thi [...] work. He is not interested in any [facility] svs at this time time. [facility] 06-21-2024 Note Hospital Medicine Daily Progress Note - 06/21/2024 1:00 PM; Room: 3178/3178-01 Admission: 06/17/2024 10:21 PM; Length of stay: 4 days THE HOSPITALIST TEAM PREFERS TO USE [facility] CHAT FOR NON-URGENT COMMUNICATION 7AM-7PM. IF I DO NOT RESPOND WITHIN 20 MINUTES OR URGENT MATTERS, PLEASE CALL THROUGH THE [facility]. FROM 7PM-7AM, PLEASE PAGE [phone](COVR). Code Status: Full Code Barriers to Discharge: [...] Principal Problem: ST elevation myocardial infarction (STEMI) ([facility]) Active Problems: Atrial fibrillation with rapid ventricular response ([facility]/HCC) Acute heart failure with reduced ejection fraction (HFrEF, <= 40%) ([facility]) Obesity GERD (gastroesophageal reflux disease) Hypertension Assessment and Plan Atrial fibrillation with rapid ventricular response ([facility]/HCC) Rate control with Coreg, Eliquis for [...] Component Value Date (more content not included)... [facility] 06-21-2024 Note Attestation signed by Monica [...] Value Ventricular Rate 64 Atrial Rate 64 MO Interval 206 QRS DURATION 110 QT Interval 444 QTC CALCULATION(BAZETT) 458 P Wellington 20 R-Wellington 55 T Wave Wellington 81 Impression Normal sinus rhythm T wave [...] > 50. Patient was a transfer from [facility] for evaluation for coronary angiogram after [...] loop diuretic diuresis 3) outpatient follow-up with CT cardiology 4) patient has morbid obesity (BMI [...] and a micropuncture access technique a 6 Uzbek sheath was placed in the right internal jugular vein. The Tapia catheter was advanced under fluoroscopic and hemodynamic monitoring to the right atrium. Pressure obtained of the right atrium, right ventricle, pulmonary artery, pulmonary capillary position. Oxygen saturation drawn for the pulmonary artery and Carroll cardiac with a cardiac index were calculated. 1% lidocaine was infiltrated over the left radial artery. A 6-Uzbek Terumo Glidesheath slender was placed in left radial artery. Radial anti-vasospasm cocktail of verapamil 2.5 mg and nitroglycerin 200 mcg was administered through the sheath. All catheter exchanges were made over the Alejandro guidewire. Coronary angiogram was performed with a JL3.5 to engage the left main and a JR5 to engage the RC (more content not included)... [facility] 06-20-2024 Note Hospital Medicine Daily Progress Note - 06/20/2024 8:58 AM; Room: [address] [place], [place] [id number] Admission: 06/17/2024 10:21 PM; Length of stay: 3 days THE HOSPITALIST TEAM PREFERS TO USE [facility] CHAT FOR NON-URGENT COMMUNICATION 7AM-7PM. IF I DO NOT RESPOND WITHIN 20 MINUTES OR URGENT MATTERS, PLEASE CALL THROUGH THE [facility]. FROM 7PM-7AM, PLEASE PAGE [phone](COVR). Code Status: Full Code Barriers to Discharge: [...] Principal Problem: ST elevation myocardial infarction (STEMI) ([facility]) Active Problems: Atrial fibrillation with rapid ventricular response ([facility]) Acute heart failure with reduced ejection fraction (HFrEF, <= 40%) ([facility]) Obesity GERD (gastroesophageal reflux disease) Hypertension Assessment and Plan Atrial fibrillation with rapid ventricular response ([facility]) Rate control with Coreg, Eliquis for anticoagulation. Eliquis resumed post cath Acute heart failure with reduced ejection fraction (HFrEF, <= 40%) ([facility]) - NICM, 2/2 alcoholism? EF of [...] No results f (more content not included)... [facility] 06-20-2024 Note Patient admitted to the hospital for: ST elevation myocardial infarction. Chart notes from 06/18/2024 reports [facility] admission echo from 06/18/2024 reports: EF 20-25 %. Patient transferred to [facility]. Current echo information qualifies for Cardiac Rehab services per CMS eligibility criteria. A Cardiac Rehab referral diagnosis and code must also meet CMS criteria. Angelica Kumar, RN, BSN Cardiology Outpatient Coordinator Cardiopulmonary Rehab [facility] 06-19-2024 Note Attestation signed by Monica [...] Value Ventricular Rate 64 Atrial Rate 64 MO Interval 206 QRS DURATION 110 QT Interval 444 QTC CALCULATION(BAZETT) 458 P Wellington 20 R-Wellington 55 T Wave Wellington 81 Impression Normal sinus rhythm T wave abnormality, consider anterior ischemia Abnormal ECG (more content not included)... [facility] 06-19-2024 Note Patient: Idris Christina Jr. Procedure Information Date/Time: 06/19/24 1334 Procedure: Coronary angiography Location: [facility] CONTROL PANEL OPERATOR CRUDE UNIT 3 / [facility] (Cath) Providers: Marilyn Gotti [...] Plan discussed with attending. Additional Equipment Requests [facility] 06-19-2024 Note Hospital Medicine Daily Progress Note - 06/19/2024 1:58 PM; Room: [address] [place] [address] Admission: 06/17/2024 10:21 PM; Length of stay: 2 days THE HOSPITALIST TEAM PREFERS TO USE [facility] FOR NON-URGENT COMMUNICATION 7AM-7PM. IF I DO NOT RESPOND WITHIN 20 MINUTES OR URGENT MATTERS, PLEASE CALL THROUGH THE [facility]. FROM 7PM-7AM, PLEASE PAGE [phone](COVR). Code Status: Full Code Barriers to Discharge: [...] with reduced ejection fraction (HFrEF, <= 40%) ([facility]) Obesity GERD (gastroesophageal reflux disease) Hypertension Assessment and Plan Atrial fibrillation with rapid ventricular response ([facility]/HCC) rate control with Coreg, Eliquis for [...] LDL 88 06/18/2024 No results found for: [id number] , IRON , TIBC , C3 , C4 , KWAN , CANCA , ASO , PSA , CEA , CA125 , CA199 , AFP , CA153 Imaging ECG 12 lead Normal sinus rhythm T wave abnormality, consider a (more content not included)... [facility] 06-18-2024 Note 06/18/24 1318 Admission Assessment [...] Status Interested Does the patient have a correctional case manager assigned to them through their insurance? No [...] to send link and activate MyChart? No [facility] 06-18-2024 Note Plan of care reviewe d with the patient, patient being admitted for cardiac cath by cardiology team, keep n.p.o. cardiology consult to follow [facility] 06-18-2024 Note class III obesity [facility] 06-18-2024 Note Blood pressure contr ol with oral antihypertensives [facility] 06-18-2024 Note rate control with Co reg, Eliquis for anticoagulation [facility] 06-18-2024 Note EF of 20 to 25% with diastolic dysfunction Coreg, losartan, Lasix for IV diuresis Monitor I's and O's, daily weights, low-salt diet Left heart cath in a.m., keep n.p.o. [facility] 06-18-[address] [facility] 06-18-2024 Note Hospital Medicine History and Physical 06/18/2024 1:10 AM THE HOSPITALIST TEAM PREFERS TO USE [facility] FOR NON-URGENT COMMUNICATION 7AM-7PM. IF I DO NOT RESPOND WITHIN 20 MINUTES OR URGENT MATTERS, PLEASE CALL THROUGH THE [facility]. FROM 7PM-7AM, PLEASE PAGE [phone](COVR). Chief Complaint CHF, atrial fibrillation History of Present Illness Idris Dodd . is an 58 y.o. male who came from [facility] for higher level of care. who [...] Plan Atrial fibrillation with rapid ventricular response ([facility]) rate control with Coreg, Eliquis for anticoagulation Acute heart failure with reduced ejection fraction (HFrEF, <= 40%) ([facility]) EF of 20 to 25% with [...] above for m (more content not included)... [facility] 03-16-2024 History of Present illness Narrative [...] daily Aspirin therapy. documented in this encounter [facility] 12-23-2023 History and physical note Note Date/Time December 23, 2023 10:30am [facility] EN[facility] [address] [place] [address] Gastroenterology H&P Signed Patient: Idris Dodd JR MR# : [id number] : 1965 Acct:[id number] Age/Sex: 58 / M Adm Date: 4 Loc: Room: Type: [employer] Attending Dr: Alix Milligan MD Copies to: [...] signed by Alix Milligan MD> 12/23/23 1030 [facility] Work Phone: 1(537) 821-326207-19-2024 [facility] CenterEvaluation noteNo assessment information availableUpper [facility] Center Ctr Work Phone: Evaluation note* Diagnosis Annual physical exam- Primary Routine general medical examination at a health care facility Benign hypertension (CMS/HCC) Essential hypertension, benign Primary osteoarthritis of both knees documented in this encounter [facility] HealthcareEvaluation note* Diagnosis Benign hypertension (CMS/HCC)- [...] of both knees [facility] instructions Additional Instructions DISCHARGE INSTRUCTIONS FOR [...] Follow up with PCP. - Office number [phone]. DISCHARGE INSTRUCTIONS FOR UPPER ENDOSCOPY WHAT TO [...] years -Start Pantoprazole 40 mg daily -Avoid [facility]IDs[facility] Work Phone: Discharge Instructions * Attachments The following attachments cannot be sent through Care Everywhere. * Head Injury: Closed: General Info (Polish) documented in this encounter Assessments Diagnosis Closed [...] both knees Benjy Garcia MD [address] [place] [address] Referral ID Status Reason Start Date Expiration Date V isits Requested Visits Authorized [id number] Pending Review 03/16/2024 09/12/2024 1 1 Additional [...] section and content) DATE CREATED AUTHOR 04/22/2020 [facility] DATE CREATED AUTHOR AUTHOR'S ORGANIZ ATION 11/28/2021 [facility] DATE CREATED AUTHOR AUTHOR'S ORGANIZ ATION 01/06/2024 [facility] DATE CREATED AUTHOR AUTHOR'S ORGANIZ ATION 06/19/2024 [facility] EPIC DATE CREATED AUTHOR AUTHOR'S ORGANCHERRI ATION 06/24/2024 [facility] Care Teams (unrecognized sec tion and [...] Referring Provider Active Start: December 23, 2023 Zoology Teacher Relationship Specialty Start Date End Date Benjy Garcia MD [address] [place] [phone] PCP - General Family Medicine 06/06/22 Benjy Garcia MD [address] [place] [phone] PCP - [employer] 04/06/23 Zoology Teacher Relationship Specialty Start Date End Date Benjy Garcia MD [address] [place] [phone] PCP - General Family Medicine 06/06/22 Benjy Garcia MD [address] [place] [phone] PCP - [employer] 04/06/23 Zoology Teacher Relationship Specialty Start Date End Date Benjy Garcia MD [address] [place] [phone] PCP - General Family Medicine 06/06/22 Benjy Garcia MD [address] [place] [phone] PCP - [facility] 04/06/23 Zoology Teacher Relationship Specialty Start Date End Date Benjy Garcia MD [address] [place] [address] PCP - General Family Medicine 06/06/22 Benjy Garcia MD [address] [place] [address] [facility] FOR RECORDS PERTAINING TO PATIENTS [...] BE BASED ON THE PRIMARY CLINICAL RECORDS. [facility] [employer] [facility]. provides no warranty or guarantee of the accuracy or completeness of information in this document.
[2024-06-26] MEDS: APIXABAN 5 MG TABLET PO (10:31)
[2024-06-26] MEDS: CANAGLIFLOZIN 100 MG TABLET 300 MG PO (10:31)
[2024-06-26] MEDS: FUROSEMIDE 40 MG TABLET PO (10:31)
[2024-06-26] MEDS: ATORVASTATIN CALCIUM 40 MG TABLET PO (10:31)
[2024-06-26] MEDS: ASPIRIN 81 MG TABLET.DR PO (10:32)
[2024-06-26] MEDS: OMEPRAZOLE 40 MG CAPSULE.DR PO (10:32)
[2024-06-26] MEDS: METOPROLOL SUCCINATE 25 MG TAB.ER.24H PO (11:39)
[2024-06-26] MEDS: SACUBITRIL/VALSARTAN 24 MG-26 MG TABLET 1 TAB PO (11:39)
--- NOTE | 2024-06-26 13:05 | P.HP_ITS ---
HPI H&P: HPI History of Present Illness Chief complaint: CHEST PAIN, A FIB W/ RVR Narrative: HPI and Hospital Course: 58 y o male, with recent diagnosis of HFrEF, non ischemic cardiomyopathy and Afib was discharged from [facility] on Life Vest for primary prevention for severely reduced EF, woke up palliative care specialist when his life vest started to beep. He came to ER for further evaluation and was found to have A-fib with RVR. Patient did not experience any signs or symptoms including chest pain, shortness of breath at heart palpitations. In ER he was started on IV Cardizem drip and overnight he reverted to normal sinus rhythm. He has been taken off of Cardizem drip and has remained in normal sinus rhythm with no active symptoms to offer. Patient has untreated obstructive sleep apnea for which she will need to follow-up with sleep physician as outpatient. Currently he is medically stable for discharge. He can resume his home medications. Patient already has an appointment with cardiology in 2 days. Opioid HPI Opioid Management Most Recent Pain and Opioid Data: Last Pain Scale 0 06/26/24 03:17 06/26/24 Last Pain Assessment 06/26/24 12:00 Last ED Pain Assessment 06/26/24 03:17 Last ORT Total Score 3 06/26/24 08:14 06/26/24 Last ORT Risk Category Low Risk 06/26/24 08:14 06/26/24 Review of Systems ROS Status of ROS 10 or more systems reviewed and unremark able except as noted in history and below [facility] (Updated 06/26/24 @ 13:11 by Shaikh Estevan MD) Obstructive sleep apnea ?G47.33 - Obstructive sleep apnea (adult) (pediatric) (ICD-10) Heart failure with reduced ejection fraction ?I50.20 - Unspecified systolic (congestive) heart failure (ICD-10) Morbid obesity ?E66.01 - Morbid (severe) obesity due to excess calories (ICD-10) GERD (gastroesophageal reflux disease) ?K21.9 - Gastro-esophageal reflux disease without esophagitis (ICD-10) Hypertension ?I10 - Essential (primary) hypertension (ICD-10) Surgical History History of knee replacement ?Z96.659 - Presence of unspecified artificial knee joint (ICD-10) H/O repair of rotator cuff ?Z98.890 - Other specified postprocedural states (ICD-10) Hx of tonsillectomy ?Z90.89 - Acquired absence of other organs (ICD-10) Family History Other Total knee replacement status Social History Within the past year, how often did you have a drink containing alcohol: 4 or more times a week Within the past year, how many standard drinks containing alcohol did you have on a typical day: 5 or 6 Within the past year, how often did you have six or more drinks on one occasion: weekly Total score: 7 Score interpretation: A score of 4 or more indicates drinking is likely to affect patient's safety. Smoking status: Former smoker Non-prescribed substance use: former substance user Highest level of school completed/degree received: high school graduate Little interest or pleasure in doing things: not at all Feeling down, depressed, or hopeless: not at all Meds Home Medications and Allergies Home Medications ?Medication ?Instructions ?Recorded ?Confirmed ?Type apixaban 5 mg tablet (Eliquis) 5 mg PO BID 06/26/24 06/26/24 History aspirin 81 mg tablet,delayed 81 mg PO DAILY 06/26/24 06/26/24 History release atorvastatin 40 mg tablet 40 mg PO .QHS 06/26/24 06/26/24 History dapagliflozin propanediol 10 mg 10 mg PO DAILY 06/26/24 06/26/24 History tablet (Farxiga) furosemide 40 mg tablet 40 mg PO DAILY 06/26/24 06/26/24 History metoprolol succinate 25 mg 12.5 mg PO DAILY 06/26/24 06/26/24 History tablet,extended release 24 hr pantoprazole 40 mg tablet,delayed 40 mg PO DAILY 06/26/24 06/26/24 History release (Protonix) sacubitril 24 mg-valsartan 26 mg 1 tab PO BID 06/26/24 06/26/24 History tablet (Entresto) Allergies Allergy/AdvReac Type Severity Reaction Status Date / Time No Known Drug Allergies Allergy Verified 06/26/24 03:25 Exam Constitutional Vital Signs, click to edit/add: Last Vital Signs Temp 97.3 F L 06/26/24 11:37 Pulse 84 06/26/24 12:00 Resp 28 H 06/26/24 11:37 BP 103/72 06/26/24 11:37 Pulse Ox 96 06/26/24 11:37 O2 Del Method Room Air 06/26/24 11:37 Documenting provider has reviewed patient's vital signs: yes Common normals: no apparent distress and oriented x3 General appearance: cooperative HENMT Common normals: normocephalic and head/scalp atraumatic Head and scalp: normocephalic and atraumatic Eye Common normals: conjunctivae normal and no scleral icterus Conjunctiva: conjunctiva(e) normal Respiratory Common normals: normal respiratory effort and clear to auscultation bilaterally Effort & inspection: able to speak in complete sentences Auscultation: clear to auscultation bilaterally Cardio Common normals: regular rate, S1 normal heart sound and S2 normal heart sound Rate: regular rate Heart sounds: S1 normal and S2 normal GI Common normals: Normal to inspection, nondistended, normoactive bowel sounds present, soft to palpation, non-tender and no hepatosplenomegaly Palpation: soft and no hepatosplenomegaly Extremity Common normals: no clubbing, cyanosis or edema Neuro Common normals: oriented x3, moves all extremities and no focal motor deficits Psych Common normals: mental status grossly normal, denies hallucinations, denies homicidal ideation and denies suicidal ideation Results Labs Labs: Short CBC 06/26/24 Range/Units 03:25 WBC 13.3 H (4.0-11.0) 10^3/uL Hgb 17.7 (14.0-18.0) g/dL Hct 54.1 H (42.0-54.0) % Plt Count 285 (150-450) 10^3/uL BMP 06/26/24 03:25 Sodium 140 Potassium 4.0 Chloride 101 Carbon Dioxide 29.2 BUN 13.0 Creatinine 1.32 H Glucose 133 H Calcium 8.6 Liver Function 06/26/24 Range/Units 03:25 Total Bilirubin 0.5 (0.2-1.0) mg/dL AST 31 (15-37) U/L ALT 31 (16-63) U/L Alkaline Phosphatase 60 (46-116) U/L Albumin 3.2 L (3.4-5.0) g/dL Assessment and Plan Assessment and Plan (1) Atrial fibrillation with RVR: (2) Heart failure with reduced ejection fraction: (3) Obstructive sleep apnea: (4) Hypertension: Qualifiers: Hypertension type: primary hypertension Qualified Code(s): I10 - Essential (primary) hypertension (5) Morbid obesity: Plan Patient presented with A-fib with RVR. Reverted to normal sinus rhythm with IV Cardizem infusion. He is asymptomatic and has no active symptoms to offer. He is on appropriate medications for heart failure with reduced ejection fraction. He has an appointment with cardiology this week. I will increase his Toprol to 25 mg once daily. He can resume rest of his medications and follow-up with cardiology as previously scheduled. Medically stable for discharge. He will benefit from following up with sleep provider to discuss treatment of sleep apnea as untreated sleep apnea is strongly associated with poorly controlled A- fib.
--- NOTE | 2024-06-27 09:04 | SWNOTE1 ---
SW consulted for Advanced Directives, pt was discharged prior to SW being able to complete with patient.
--- NOTE | 2024-06-27 14:59 | CM.DCFOLLOWU ---
Person spoke with: Chay How are you feeling? Much better How is your pain? No pain Did you understand your discharge instructions? Yes Do you have any questions about your discharge instructions? No Were you given any prescriptions at discharge? Yes Were you able to get your prescriptions filled? Yes Do you understand how to take your medications as ordered? Yes Do you have any questions about your follow up appointment and do you plan to keep your follow up appointment? Yes scheduled and plan on going Is there anything else that you would like to discuss? Questions/Comments/Concerns/Other:
== END 2024-06-26 13:49 | disposition home or self-care (01) ==
LOC: ER 05:03 → ICU 10:10
PROVIDERS: Registered Nurse; Admitting Provider Internal Medicine; Emergency Provider Emergency Medicine; PCP Family Medicine; Visit Provider Internal Medicine
DX: I48.0 Paroxysmal atrial fibrillation (principal); I11.0 Hypertensive heart disease with heart failure; I50.20 Unspecified systolic (congestive) heart failure; E66.01 Morbid (severe) obesity due to excess calories; I25.10 Atherosclerotic heart disease of native coronary artery without angina pectoris; Z79.82 Long term (current) use of aspirin; Z79.899 Other long term (current) drug therapy; Z87.891 Personal history of nicotine dependence; G47.33 Obstructive sleep apnea (adult) (pediatric); Z98.890 Other specified postprocedural states; I42.8 Other cardiomyopathies; Z68.43 Body mass index [BMI] 50.0-59.9, adult
CPT/HCPCS: 36415; 71045; 80053; 80320; 83735; 83880; 84443; 84484; 85025; 85610; 85730; 93005; 94761; 96365; 96366; 96376; 99285; G0378

== ENCOUNTER 2024-07-06 06:25 | Outpatient (OUT) | payer BC, SELFPAY ==
--- OUTSIDE RECORDS SUMMARY | 2024-07-04 12:00 | XMS_ITS | CCD ---
Author Organization [facility] Care Team Providers Care Rig Hand Name Role Phone Unavailable Primary Care Provider ASHWIN Gaviria Attending DR BENJY Smith Admitting Unavailable JOSE, DR BENJY Anton Attending Unavailable JOSE, DR BENJY Anton Primary Care Unavailable DR BENJY GARCIA Consulting Unavailable MD Alix Milligan Attending Provider MD Benjy Garcia Primary Care Provider MD Benjy Garcia Referring Provider [phone] Benjy Garcia Referring Unavailable Asaad, Imad Admitting Unavailable Mary Milliganad Attending Unavailable Benjy Garcia Primary Care Unavailable Benjy Garcia MD Primary Care Provider Benjy Garcia MD Unavailable BENJY GARCIA Attending Unavailable BENJY GARCIA Attending Unavailable BENJY GARCIA Attending Unavailable JUAN OVERTON Attending Unavailable TIAN VILLALOBOS Admitting Unavailable SHAIKH HALL Referring Unavailable JOSE, INGRIS Referring Unavailable AKASH, MARILYN Attending Unavailable Allergies Allergy Classification Reported Allergen(s) Allergy Type Date of Onset Reaction(s) Facility (2 sources) Clindamycin; Translations: [CLINDAMYCIN] Drug Allergy 01-24-2017 [facility] Repository (1 source) Clindamycin Drug Allergy 12-23-2023 [facility] Repository (5 sources) Clindamycin Drug Allergy 04-02-2020 [facility] Work Phone: Medications Current Medications Medication Drug [...] Abdominal bloating; Translations: [Abdominal distension (gaseous)] Onset: 4 11-16-2023 Episodic Other nervous system disorders (5 [...] Test Name Value Interpretation Reference Range Facility Follow-Upon 06-28-2024 Follow-Up [id number] Idris Dodd Jr. 1965 M Date Provider Department Center 06/28/2024 271-MARILYN GOTTI [facility] Family History Problem Relation Age of Onset Heart failure Father Atrial fibrillation Father Family Status - Relation Status Age at Father Level of Service:17829 [place] OFFICE/OUTPATIENT ESTABLISHED MOD MDM 30 MIN [facility] Documentationon 06-27-2024 Documentation [id number] Idris Dodd Jr. 1965 M Date Provider Department Center 06/27/2024 [id number]-DEYUBNQTIFFANIE EDWARD [facility] No family history on file Reason for Visit and Comments: HF inpatient satisfaction survey sent. [Other] [facility] 36on 06-26-2024 36 DC to home on 06/22/2024 Spoke to pt on 06/26/2024 Meds discussed with pt , no questions Pt is currently admitted at [facility] , thyroid levels off and warning on life vest Pt is aware of follow up appt and he has transportation [facility] 30on 06-22-2024 30 Daily Case Managemen t Update Multidisciplinary rounds have been completed. Barriers to Discharge: Patient is medically ready for discharge. Awaiting lifevest fitting. Rpg Programmer Analyst spoke to Mp with Sandeep Rae who reported the patient will be fit around 3 pm today. 1325: Cardiology progress note faxed to Sandeep at [phone]. Diet: Dietary Orders (From admission, onward) Start [...] PT Recommendations: OT Recommendations: New Consults: [facility] BASIC METABOLIC PANELon 06-06 Anion gap [Moles/Vol] 8 mmol/L Normal 7- [facility] Comment on above: Performed By: #### L [id number] ####[facility] LAB (BEAKER)[address] [place] [address] Calcium [Mass/Vol] 8.7 mg/dL Normal 8.6-10.3 [facility] Comment on above: Performed By: #### L [id number] ####[facility] LAB (BEAKER)[address] [place] [address] Chloride [Moles/Vol] 98 mmol/L Normal 98-107 [facility] Comment on above: Performed By: #### L [id number] ####[facility] LAB (BEAKER)[address] [place] [address] CO2 [Moles/Vol] 33 mmol/L High 21-31 [facility] Comment on above: Performed By: #### L [id number] ####[facility] LAB (BEAKER)[address] [place] [address] Creatinine [Mass/Vol] 0.99 mg/dL Normal 0.70-1.30 [facility] Comment on above: Performed By: #### L [id number] ####[facility] LAB (BEAKER)[address] [place] [address] GLOMERULAR FILTRATION RATE ML/MIN/1.73 SQ M.PREDICTED 87.2 mL/min/1.73m*2 Normal >60.0 [facility] Comment on above: Result Comment: [facility]???s estimated glomerular filtration rate (eGFR) will [...] of individuals. Performed By: #### L [id number] ####[facility] LAB ([facility])[address] [place] [address] Glucose [Mass/Vol] 104 mg/dL High 70-100 [facility] Comment on above: Performed By: #### L [id number] ####[facility] LAB (BEAKER)[address] [place] [address] Potassium [Moles/Vol] 3.9 mmol/L Normal 3.5-5.1 [facility] Comment on above: Performed By: #### L [id number] ####[facility] LAB ([facility])[address] [place] [address] Sodium [Moles/Vol] 135 mmol/L Low 136-145 [facility] Comment on above: Performed By: #### L [id number] ####[facility] LAB (BEAKER)[address] [place] [address] Urea nitrogen [Mass/Vol] 13 mg/dL Normal 7-25 [facility] Comment on above: Performed By: #### L [id number] ####[facility] ([facility])[address] [place] [address] UREA NITROGEN/CREATININE (MASS RATIO) IN SER/PLAS 13.1 Normal [facility] Comment on above: Performed By: #### L [id number] ####[facility] ([facility])[address] [place] [address] CBCon 06-22-2024 Erythrocyte distribution width (RBC) [Ratio] 13.3 % Normal 11.5-15.0 [facility] Comment on above: Performed By: #### L [id number] #### [facility] LAB ([facility]) [address] [place] [address] ERYTHROCYTE MEAN CORPUSCULAR HEMOGLOBIN CONCENTRATION (G/DL) BY AUTOMATED 33.2 g/dL Normal 32.0-35.0 [facility] Comment on above: Performed By: #### L [id number] #### [facility] ([facility]) [address] [place] [address] Hematocrit (Bld) [Volume fraction] 46.1 % Normal 39.0-55.0 [facility] Comment on above: Performed By: #### L [id number] #### [facility] ([facility]) [address] [place] [address] Hemoglobin (Bld) [Mass/Vol] 15.3 g/dL Normal 13.0-17.0 [facility] Comment on above: Performed By: #### L [id number] #### [facility] ([facility]) [address] [place] [address] MCH (RBC) [Entitic mass] 31.0 pg Normal 27.0-33.0 [facility] Comment on above: Performed By: #### L [id number] #### [facility] ([facility]) [address] [place] [address] MCV (RBC) [Entitic vol] 93.5 fL Normal 82.0-98.0 [facility] Comment on above: Performed By: #### L [id number] #### [facility] ([facility]) [address] [place] [address] PLATELETS (10*3/UL) IN BLOOD AUTOMATED COUNT 261 10*3/uL Normal 150-400 [facility] Comment on above: Performed By: #### L [id number] #### [facility] ([facility]) [address] [place] [address] RBC (Bld) [#/Vol] 4.93 10*6/uL Normal 4.20-5.70 [facility] Comment on above: Performed By: #### L [id number] #### [facility] ([facility]) [address] [place] [address] WBC (Bld) [#/Vol] 11.08 10*3/uL High 4.00-10.60 [facility] Comment on above: Performed By: #### L [id number] #### [facility] ([facility]) [address] [place] [address] MAGNESIUMon 06-22-2024 Magnesium [Mass/Vol] 2.0 mg/dL Normal 1.9-2.7 [facility] Comment on above: Performed By: #### L [id number] ####[facility] ([facility])[address] [place] [address] NURSNOTEon 06-22-2024 NURSNOTE Pt discharged with a ll belongings, discharge paperwork, and questions answered to pt's satisfaction. Normal [facility] 30on 06-21-2024 30 The patient is Moderately Stable - Low risk of patient condition declining or worsening The patient's goals for the shift include sleep The clinical goals for the shift include stable vs, safety Over the shift, the patient continues to make progress toward the following goals. Normal [facility] 30 The patient is Moderately Stable - Low risk of patient condition declining or worsening The patient's goals for the shift include comfort and rest The clinical goals for the shift include vss and safety Normal [facility] 30 Daily Case Managemen t Update [...] Other Other: Heart Failure 06/21/24 1111 Normal [facility] BASIC METABOLIC PANELon 06-06 Anion gap [Moles/Vol] 7 mmol/L Normal 7-20 [facility] Comment on above: Performed By: #### L [id number] ####[facility] HOSPITAL LAB (BEAKER)[address] [place] [address] Calcium [Mass/Vol] 8.6 mg/dL Normal 8.6-10.3 [facility] Comment on above: Performed By: #### L [id number] ####[facility] LAB (BEAKER)[address] [place] [address] Chloride [Moles/Vol] 98 mmol/L Normal 98-107 [facility] Comment on above: Performed By: #### L [id number] ####[facility] LAB (BEAKER)[address] [place] [address] CO2 [Moles/Vol] 36 mmol/L High 21-31 [facility] Comment on above: Performed By: #### L [id number] ####[facility] LAB (BEAKER)[address] [place] [address] Creatinine [Mass/Vol] 0.99 mg/dL Normal 0.70-1.30 [facility] Comment on above: Performed By: #### L [id number] ####[facility] (BEAKER)[address] [place] [address] GLOMERULAR FILTRATION RATE ML/MIN/1.73 SQ M.PREDICTED 87.2 mL/min/1.73m*2 Normal >60.0 [facility] Comment on above: Result Comment: [facility]???s estimated glomerular filtration rate (eGFR) will [...] of individuals. Performed By: #### L [id number] ####[facility] ([facility])[address] [place] [address] Glucose [Mass/Vol] 110 mg/dL High 70-100 [facility] Comment on above: Performed By: #### L [id number] ####[facility] ([facility])[address] [place] [address] Potassium [Moles/Vol] 3.8 mmol/L Normal 3.5-5.1 [facility] Comment on above: Performed By: #### L [id number] ####[facility] ([facility])[address] [place] [address] Sodium [Moles/Vol] 137 mmol/L Normal 136-145 [facility] Comment on above: Performed By: #### L [id number] ####[facility] ([facility])[address] [place] [address] Urea nitrogen [Mass/Vol] 13 mg/dL Normal 7-25 [facility] Comment on above: Performed By: #### L [id number] ####[facility] ([facility])[address] [place] [address] UREA NITROGEN/CREATININE (MASS RATIO) IN SER/PLAS 13.1 Normal [facility] Comment on above: Performed By: #### L [id number] ####[facility] ([facility])[address] [place] [address] CBCon 06-21-2024 Erythrocyte distribution width (RBC) [Ratio] 13.2 % Normal 11.5-15.0 [facility] Comment on above: Performed By: #### L [id number] #### [facility] ([facility]) [address] [place] [address] ERYTHROCYTE MEAN CORPUSCULAR HEMOGLOBIN CONCENTRATION (G/DL) BY AUTOMATED 32.9 g/dL Normal 32.0-35.0 [facility] Comment on above: Performed By: #### L [id number] #### [facility] ([facility]) [address] [place] [address] Hematocrit (Bld) [Volume fraction] 43.2 % Normal 39.0-55.0 [facility] Comment on above: Performed By: #### L [id number] #### [facility] ([facility]) [address] [place] [address] Hemoglobin (Bld) [Mass/Vol] 14.2 g/dL Normal 13.0-17.0 [facility] Comment on above: Performed By: #### L [id number] #### [facility] ([facility]) [address] [place] [address] MCH (RBC) [Entitic mass] 30.9 pg Normal 27.0-33.0 [facility] Comment on above: Performed By: #### L [id number] #### [facility] ([facility]) [address] [place] [address] MCV (RBC) [Entitic vol] 94.1 fL Normal 82.0-98.0 [facility] Comment on above: Performed By: #### L [id number] #### [facility] ([facility]) [address] [place] [address] PLATELETS (10*3/UL) IN BLOOD AUTOMATED COUNT 247 10*3/uL Normal 150-400 [facility] Comment on above: Performed By: #### L [id number] #### [facility] ([facility]) [address] [place] [address] RBC (Bld) [#/Vol] 4.59 10*6/uL Normal 4.20-5.70 [facility] Comment on above: Performed By: #### L [id number] #### [facility] ([facility]) [address] [place] [address] WBC (Bld) [#/Vol] 8.62 10*3/uL Normal 4.00-10.60 [facility] Comment on above: Performed By: #### L [id number] #### [facility] ([facility]) [address] [place] [address] CONSULTon 06-21-2024 CONSULT Adult Nutrition Assessment: Name: Idris Dodd Jr. Date: 1965 Date of Visit: 06/21/24 Admission Dx: Heart failure ([facility]) [I50.9] Reason for assessment: MD referral [...] low fat, low cholesterol) 06/19/24 1900 06/18/24 140 Special Kitchen Request Once Comments: Chicken and [...] of Nutrition and Dietetics (AND) and the [place] [employer] of Enteral and Parenteral Nutrition (ASPEN). [...] To reach the Clinical Dietitian, please utilize Bit9 chat Tuesday-Tuesday from 8AM-4PM or call extension [phone]. For weekends (Tuesday-Tuesday) and holidays, the Clinical Dietitian can be reached via pager ([phone]) from 9AM-3PM. The Clinical Nutrition Department is unable to respond to Bit9 chat messages on Sundays and s. Normal [facility] T4, FREEon 06-21-2024 THYROXINE (T4) FREE (NG/DL) IN SER/PLAS 0.94 ng/dL Normal 0.71-1.85 [facility] Comment on above: Performed By: #### L [id number] #### [facility] LAB (BEAKER) [address] [place] [address] TSH3 REFLEX TO FT4on 025 THYROTROPIN (MIU/L) IN SER/PLAS BY DETECTION LIMIT <= 0.05 MIU/L 6.21 mIU/L High 0.34-5.60 [facility] Comment on above: Performed By: #### L [id number] ####[facility] LAB (BEAKER)[address] [place] [address] 30on 06-20-2024 30 The patient is Moderately Stable - Low risk of patient condition declining or worsening The patient's goals for the shift include comfort and rest The clinical goals for the shift include vss and safety Over the shift, the patient continued to make progress toward the following goals. Normal [facility] 30 Problem: Respiratory - Adult Goal: [...] goals for the shift include VSS Normal [facility] APTTon 06-20-2024 ACTIVATED PARTIAL THROMBOPLASTIN TIME IN PPP BY COAGULATION ASSAY 31.2 Seconds Normal 25.0-35.0 [facility] Comment on above: Order Comment: Check aPTT every 6 hours while on heparin infusion, or per protocol. Result Comment: Clin ical significance of the APTT is questionable in the presence of heparin. Performed By: #### L [id number] ####[facility]OSP[facility] LAB (BEAKER)[address] [place] [address] ACTIVATED PARTIAL THROMBOPLASTIN TIME IN PPP BY COAGULATION ASSAY 31.6 Seconds Normal 25.0-35.0 [facility] Comment on above: Order Comment: Check aPTT every 6 hours while on heparin infusion, or per protocol. Result Comment: Clin ical significance of the APTT is questionable in the presence of heparin. Performed By: #### L [id number] ####[facility] LAB ([facility])[address] [place] [address] BASIC METABOLIC PANELon 06-06 Anion gap [Moles/Vol] 8 mmol/L Normal 7-20 [facility] Comment on above: Performed By: #### L [id number] #### [facility] ([facility]) [address] [place] [address] Calcium [Mass/Vol] 8.6 mg/dL Normal 8.6-10.3 [facility] Comment on above: Performed By: #### L [id number] #### [facility] ([facility]) [address] [place] [address] Chloride [Moles/Vol] 100 mmol/L Normal 98-107 [facility] Comment on above: Performed By: #### L [id number] #### [facility] ([facility]) [address] [place] [address] CO2 [Moles/Vol] 34 mmol/L High 21-31 [facility] Comment on above: Performed By: #### L [id number] #### [facility] ([facility]) [address] [place] [address] Creatinine [Mass/Vol] 1.04 mg/dL Normal 0.70-1.30 [facility] Comment on above: Performed By: #### L [id number] #### [facility] ([facility]) [address] [place] [address] GLOMERULAR FILTRATION RATE ML/MIN/1.73 SQ M.PREDICTED 82.2 mL/min/1.73m*2 Normal >60.0 [facility] Comment on above: Result Comment: [facility]???s estimated glomerular filtration rate (eGFR) will [...] of individuals. Performed By: #### L [id number] #### [facility] ([facility]) [address] [place] [address] Glucose [Mass/Vol] 122 mg/dL High 70-100 [facility] Comment on above: Performed By: #### L [id number] #### [facility] ([facility]) [address] [place] [address] Potassium [Moles/Vol] 4.2 mmol/L Normal 3.5-5.1 [facility] Comment on above: Performed By: #### L [id number] #### [facility] ([facility]) [address] [address] Sodium [Moles/Vol] 138 mmol/L Normal 136-145 [facility] Comment on above: Performed By: #### L [id number] #### [facility] ([facility]) [address] [place] [address] Urea nitrogen [Mass/Vol] 13 mg/dL Normal 7-25 [facility] Comment on above: Performed By: #### L [id number] #### [facility] ([facility]) [address] [place] [address] UREA NITROGEN/CREATININE (MASS RATIO) IN SER/PLAS 12.5 Normal [facility] Comment on above: Performed By: #### L [id number] #### [facility] ([facility]) [address] [place] [address] CBCon 06-20-2024 Erythrocyte distribution width (RBC) [Ratio] 13.2 % Normal 11.5-15.0 [facility] Comment on above: Performed By: #### L [id number] ####[facility] ([facility])[address] [place] [address] ERYTHROCYTE MEAN CORPUSCULAR HEMOGLOBIN CONCENTRATION (G/DL) BY AUTOMATED 31.3 g/dL Low 32.0-35.0 [facility] Comment on above: Performed By: #### L [id number] ####[facility] LAB (BEAKER)[address] [place] [address] Hematocrit (Bld) [Volume fraction] 42.8 % Normal 39.0-55.0 [facility] Comment on above: Performed By: #### L [id number] ####[facility] (BEAKER)[address] [place] [address] Hemoglobin (Bld) [Mass/Vol] 13.4 g/dL Normal 13.0-17.0 [facility] Comment on above: Performed By: #### L [id number] ####[facility] (BEAKER)[address] [place] [address] MCH (RBC) [Entitic mass] 30.7 pg Normal 27.0-33.0 [facility] Comment on above: Performed By: #### L [id number] ####[facility] (BEAKER)[address] [place] [address] MCV (RBC) [Entitic vol] 98.2 fL High 82.0-98.0 [facility] Comment on above: Performed By: #### L [id number] ####[facility] (BEAKER)[address] [place] [address] PLATELETS (10*3/UL) IN BLOOD AUTOMATED COUNT 247 10*3/uL Normal 150-400 [facility] Comment on above: Performed By: #### L [id number] ####[facility] (BEAKER)[address] [place] [address] RBC (Bld) [#/Vol] 4.36 10*6/uL Normal 4.20-5.70 [facility] Comment on above: Performed By: #### L [id number] ####[facility] (BEAKER)[address] [place] [address] WBC (Bld) [#/Vol] 7.77 10*3/uL Normal 4.00-10.60 [facility] Comment on above: Performed By: #### L [id number] ####[facility] LAB (BEAKER)[address] [place] [address] MAGNESIUMon 06-20-2024 Magnesium [Mass/Vol] 1.9 mg/dL Normal 1.9-2.7 [facility] Comment on above: Performed By: #### L [id number] ####[facility] LAB (BEAKER)[address] [place] [address] 30on 06-19-2024 30 The patient is Moderately [...] ventilation and oxygenation Outcome: Progressing Flowsheets (Taken 06/19/20241916) Achieves optimal ventilation and oxygenation: Assess for [...] and hemodynamic stability Outcome: Progressing Flowsheets (Taken 06/19/20241916) Maintains optimal cardiac output and hemodynamic stability: Assess for signs of decreased cardiac output Administer vasoactive medications as ordered Administer fluid and/or volume expanders as ordered Monitor blood pressure and heart rate Monitor urine output and notify Licensed Independent Practitioner for values outside of normal range Normal [facility] 30 Daily Case Managemen t Update [...] appropriate for patient?: Yes New Consults: Normal [facility] 30 Problem: Respiratory - Adult Goal: Achieves optimal ventilation and oxygenation Outcome: Progressing Flowsheets (Taken 06/19/2024744) Achieves optimal ventilation and oxygenation: Assess for changes in respiratory status Assess for changes in mentation and behavior Oxygen supplementation based on oxygen saturation or arterial blood gases Problem: Cardiovascular - Adult Goal: Maintains optimal cardiac output and hemodynamic stability Outcome: Progressing Flowsheets (Taken 06/19/2024744) Maintains optimal cardiac output and hemodynamic stability: Monitor blood pressure and heart rate Monitor urine output and notify Licensed Independent Practitioner for values outside of normal range Assess for signs of decreased cardiac output Problem: Skin/Tissue Integrity - Adult Goal: Skin integrity remains intact Outcome: Progressing Flowsheets (Taken 06/19/2024744) Skin integrity remains intact: Monitor for areas of redness and/or skin breakdown Problem: Musculoskeletal - Adult Goal: Return mobility to safest level of function Outcome: Progressing Flowsheets (Taken 06/19/2024744) Return mobility to safest level of function: [...] the shift include VSS, hemodynamic stability Normal [facility] 30 The patient is Moderately Stable [...] labs for bleeding or clotting disorders Normal [facility] APTTon 06-19-2024 ACTIVATED PARTIAL THROMBOPLASTIN TIME IN PPP BY COAGULATION ASSAY 29.8 Seconds Normal 25.0-35.0 [facility] Comment on above: Order Comment: Check aPTT every 6 hours while on heparin infusion, or per protocol. Result Comment: Clin ical significance of the APTT is questionable in the presence of heparin. Performed By: #### L [id number] #### [facility] ([facility]) [address] [place] [address] ACTIVATED PARTIAL THROMBOPLASTIN TIME IN PPP BY COAGULATION ASSAY 126.6 Seconds High 25.0-35.0 [facility] Comment on above: Order Comment: Check aPTT every 6 hours while on heparin infusion, or per protocol. Result Comment: Clin ical significance of the APTT is questionable in the presence of heparin. Performed By: #### L [id number] #### [facility] ([facility]) [address] [place] [address] ACTIVATED PARTIAL THROMBOPLASTIN TIME IN PPP BY COAGULATION ASSAY 64.7 Seconds High 25.0-35.0 [facility] Comment on above: Order Comment: Check aPTT every 6 hours while on heparin infusion, or per protocol. Result Comment: Clin ical significance of the APTT is questionable in the presence of heparin. Performed By: #### L [id number] ####[facility] ([facility])[address] [place] [address] BASIC METABOLIC PANELon 06-06 Anion gap [Moles/Vol] 8 mmol/L Normal 7-20 [facility] Comment on above: Performed By: #### L [id number] #### [facility] ([facility]) [address] [place] [address] Calcium [Mass/Vol] 9.2 mg/dL Normal 8.6-10.3 [facility] Comment on above: Performed By: #### L [id number] #### [facility] ([facility]) [address] [place] [address] Chloride [Moles/Vol] 98 mmol/L Normal 98-107 [facility] Comment on above: Performed By: #### L [id number] #### [facility] ([facility]) [address] [place] [address] CO2 [Moles/Vol] 37 mmol/L High 21-31 [facility] Comment on above: Performed By: #### L [id number] #### [facility] ([facility]) [address] [place] [address] Creatinine [Mass/Vol] 1.12 mg/dL Normal 0.70-1.30 [facility] Comment on above: Performed By: #### L [id number] #### [facility] ([facility]) [address] [place] [address] GLOMERULAR FILTRATION RATE ML/MIN/1.73 SQ M.PREDICTED 75.2 mL/min/1.73m*2 Normal >60.0 [facility] Comment on above: Result Comment: [facility]???s estimated glomerular filtration rate (eGFR) will [...] group of individuals. Performed By: #### L [id number] #### [facility] ([facility]) [address] [place] [address] Glucose [Mass/Vol] 115 mg/dL High 70-100 [facility] Comment on above: Performed By: #### L [id number] #### [facility] ([facility]) [address] [place] [address] Potassium [Moles/Vol] 4.1 mmol/L Normal 3.5-5.1 [facility] Comment on above: Performed By: #### L [id number] #### [facility] ([facility]) [address] [place] [address] Sodium [Moles/Vol] 139 mmol/L Normal 136-145 [facility] Comment on above: Performed By: #### L [id number] #### [facility] ([facility]) [address] [place] [address] Urea nitrogen [Mass/Vol] 16 mg/dL Normal 7-25 [facility] Comment on above: Performed By: #### L [id number] #### [facility] ([facility]) [address] [address] UREA NITROGEN/CREATININE (MASS RATIO) IN SER/PLAS 14.3 Normal [facility] Comment on above: Performed By: #### L [id number] #### [facility] ([facility]) [address] [place] [address] CBCon 06-19-2024 Erythrocyte distribution width (RBC) [Ratio] 13.6 % Normal 11.5-15.0 [facility] Comment on above: Performed By: #### L [id number] #### [facility] ([facility]) [address] [address] ERYTHROCYTE MEAN CORPUSCULAR HEMOGLOBIN CONCENTRATION (G/DL) BY AUTOMATED 31.4 g/dL Low 32.0-35.0 [facility] Comment on above: Performed By: #### L [id number] #### [facility] ([facility]) [address] [place] [address] Hematocrit (Bld) [Volume fraction] 44.9 % Normal 39.0-55.0 [facility] Comment on above: Performed By: #### L [id number] #### [facility] ([facility]) [address] [place] [address] Hemoglobin (Bld) [Mass/Vol] 14.1 g/dL Normal 13.0-17.0 [facility] Comment on above: Performed By: #### L [id number] #### [facility] ([facility]) [address] [place] [address] MCH (RBC) [Entitic mass] 30.7 pg Normal 27.0-33.0 [facility] Comment on above: Performed By: #### L [id number] #### [facility] ([facility]) [address] [address] MCV (RBC) [Entitic vol] 97.8 fL Normal 82.0-98.0 [facility] Comment on above: Performed By: #### L [id number] #### [facility] ([facility]) [address] [address] PLATELETS (10*3/UL) IN BLOOD AUTOMATED COUNT 286 10*3/uL Normal 150-400 [facility] Comment on above: Performed By: #### L [id number] #### [facility] ([facility]) [address] [place] [address] RBC (Bld) [#/Vol] 4.59 10*6/uL Normal 4.20-5.70 [facility] Comment on above: Performed By: #### L [id number] #### [facility] ([facility]) [address] [place] [address] WBC (Bld) [#/Vol] 10.30 10*3/uL Normal 4.00-10.60 [facility] Comment on above: Performed By: #### L [id number] #### [facility] ([facility]) [address] [place] [address] HPon 06-19-2024 HP H&P reviewed. The patient was examined and there are no changes to the H&P. Discussed risks, benefits, and alternative therapies with the patient, he understands and willing to proceed with RHC/coronary angiogram and possible PCI. Sabine Bernard MD PGY-7 Interventional [employer] Normal [facility] TROPONIN Ion 06-19-2024 Troponin I.cardiac [Mass/Vol] 0.08 ng/mL High 0.00-0.04 [facility] Comment on above: Performed By: #### L [id number] #### [facility] ([facility]) [address] [place] [address] 30on 06-18-2024 30 Daily Case Managemen t Update Multidisciplinary rounds have been completed. Barriers to Discharge: Patient presented from [facility] needing higher level of care for [...] appropriate for patient?: Yes New Consults: Normal [facility] 30 The patient is Moderately Stable [...] Goal: Maintains hematologic stability Outcome: Progressing Normal [facility] 30 The patient is Moderately Stable [...] labs for bleeding or clotting disorders Normal [facility] APTTon 06-18-2024 ACTIVATED PARTIAL THROMBOPLASTIN TIME IN PPP BY COAGULATION ASSAY 56.7 Seconds High 25.0-35.0 [facility] Comment on above: Order Comment: Check aPTT every 6 hours while on heparin infusion, or per protocol. Result Comment: Clin ical significance of the APTT is questionable in the presence of heparin. Performed By: #### L [id number] #### [facility] ([facility]) [address] [place] [address] B-TYPE NATRIURETIC PEPTIDEon 06-18-2024 Natriuretic peptide B (Bld) [Mass/Vol] 309 pg/mL High 0-100 [facility] Comment on above: Performed By: #### L [id number] ####[facility] ([facility])[address] [place] [address] CONSULTon 06-18-2024 CONSULT -- Attestation signed by [...] of CAD. Patient was a transfer from [facility] for evaluation for coronary angiogram after he [...] in D5W 0-28 Units/kg/hr intravenous Continuous Kandis Gulilen MD losartan (Cozaar) tablet 50 mg 50 [...] extremity edema, (more content not included)... Normal [facility] HEMOGLOBIN A1Con 06-18-2024 Glucose [Mass/Vol] 128 mg/dL Normal [facility] Comment on above: Performed By: #### L [id number] #### [facility] ([facility]) [address] [place] [address] HbA1c (Bld) [Mass fraction] 6.1 % High 4.0-6.0 [facility] Comment on above: Performed By: #### L [id number] #### [facility] ([facility]) [address] [place] [address] HPon 06-18-2024 -- Attestation signed by Monica Arroyo MD [...] of CAD. Patient was a transfer from [facility] for evaluation for coronary angiogram after he [...] extremity edema, (more content not included)... Normal [facility] LIPID PANELon 06-18-2024 CHOL/HDL 3.8 mg/dL Normal [facility] Comment on above: Performed By: #### L [id number] #### [facility] ([facility]) [address] [place] [address] Cholesterol [Mass/Vol] 120 mg/dL Normal 120-200 [facility] Comment on above: Performed By: #### L [id number] #### [facility] ([facility]) [address] [place] [address] Magnesium [Mass/Vol] 49 mg/dL Normal 40-149 [facility] Comment on above: Result Comment: TRIG LYCERIDE REFERENCE RANGE: 20 YEARS AND OLDER CARDIOVASCULAR RISK LESS THAN 150 mg/dL LOW RISK 150 TO 199 mg/dL BORDERLINE RISK 200 mg/dL AND GREATER HIGH RISK Performed By: #### L [id number] #### [facility] ([facility]) [address] [place] [address] Magnesium [Mass/Vol] 78 mg/dL Normal 0-160 [facility] Comment on above: Performed By: #### L [id number] #### [facility] ([facility]) [address] [place] [address] Magnesium [Mass/Vol] 32 mg/dL Normal 23-92 [facility] Comment on above: Performed By: #### L [id number] #### [facility] ([facility]) [address] [place] [address] NON HDL CHOL. (LDL+VLDL) 88 Normal [facility] Comment on above: Performed By: #### L [id number] #### [facility] ([facility]) [address] [place] [address] TOTAL VLDL-C 10 mg/dL Normal 0-40 [facility] Comment on above: Performed By: #### L [id number] #### [facility] ([facility]) [address] [place] [address] PLATELET COUNTon 06-18-2024 PLATELETS (10*3/UL) IN BLOOD AUTOMATED COUNT 267 10*3/uL Normal 150-400 [facility] Comment on above: Performed By: #### L [id number] ####[facility] ([facility])[address] [place] [address] TROPONIN Ion 06-18-2024 Troponin I.cardiac [Mass/Vol] 0.10 ng/mL High 0.00-0.04 [facility] Comment on above: Performed By: #### L [id number] #### [facility] ([facility]) [address] [place] [address] APTTon 06-17-2024 ACTIVATED PARTIAL THROMBOPLASTIN TIME IN PPP BY COAGULATION ASSAY 30.6 Seconds Normal 25.0-35.0 [facility] Comment on above: Result Comment: Clin ical significance of the APTT is questionable in the presence of heparin. Performed By: #### L [id number] #### [facility] ([facility]) [address] [place] [address] CBC WITH AUTO DIFFERENTIALon 06-17-2024 Basophils (Bld) [#/Vol] 0.07 10*3/uL Normal 0.00-0.20 [facility] Comment on above: Performed By: #### L [id number] #### [facility] ([facility]) [address] [place] [address] Basophils/100 WBC (Bld) 0.7 % Normal 0.0-1.0 [facility] Comment on above: Performed By: #### L [id number] #### [facility] ([facility]) [address] [place] [address] Eosinophils (Bld) [#/Vol] 0.30 10*3/uL Normal 0.00-0.50 [facility] Comment on above: Performed By: #### L [id number] #### [facility] ([facility]) [address] [place] [address] Eosinophils/100 WBC (Bld) 2.9 % Normal 0.0-6.0 [facility] Comment on above: Performed By: #### L [id number] #### [facility] ([facility]) [address] [place] [address] Erythrocyte distribution width (RBC) [Ratio] 13.6 % Normal 11.5-15.0 [facility] Comment on above: Performed By: #### L [id number] #### [facility] ([facility]) [address] [place] [address] ERYTHROCYTE MEAN CORPUSCULAR HEMOGLOBIN CONCENTRATION (G/DL) BY AUTOMATED 31.4 g/dL Low 32.0-35.0 [facility] Comment on above: Performed By: #### L [id number] #### [facility] ([facility]) [address] [place] [address] Hematocrit (Bld) [Volume fraction] 45.9 % Normal 39.0-55.0 [facility] Comment on above: Performed By: #### L [id number] #### [facility] ([facility]) [address] [place] [address] Hemoglobin (Bld) [Mass/Vol] 14.4 g/dL Normal 13.0-17.0 [facility] Comment on above: Performed By: #### L [id number] #### [facility] ([facility]) [address] [place] [address] Immature granulocytes (Bld) [#/Vol] 0.03 10*3/uL Normal 0.00-0.20 [facility] Comment on above: Performed By: #### L [id number] #### [facility] ([facility]) [address] [place] [address] Immature granulocytes/100 WBC (Bld) 0.3 % Normal 0.0-1.0 [facility] Comment on above: Performed By: #### L [id number] #### [facility] ([facility]) [address] [place] [address] Lymphocytes (Bld) [#/Vol] 1.64 10*3/uL Normal 1.20-4.00 [facility] Comment on above: Performed By: #### L [id number] #### [facility] ([facility]) [address] [place] [address] Lymphocytes/100 WBC (Bld) 16.0 % Low 20.0-45.0 [facility] Comment on above: Performed By: #### L [id number] #### [facility] ([facility]) [address] [place] [address] MCH (RBC) [Entitic mass] 31.2 pg Normal 27.0-33.0 [facility] Comment on above: Performed By: #### L [id number] #### [facility] ([facility]) [address] [place] [address] MCV (RBC) [Entitic vol] 99.6 fL High 82.0-98.0 [facility] Comment on above: Performed By: #### L [id number] #### [facility] ([facility]) [address] [place] [address] Monocytes (Bld) [#/Vol] 0.70 10*3/uL Normal 0.10-1.00 [facility] Comment on above: Performed By: #### L [id number] #### [facility] ([facility]) [address] [place] [address] Monocytes/100 WBC (Bld) 6.8 % Normal 5.0-12.0 [facility] Comment on above: Performed By: #### L [id number] #### [facility] ([facility]) [address] [place] [address] Neutrophils (Bld) [#/Vol] 7.49 10*3/uL Normal 1.60-7.60 [facility] Comment on above: Performed By: #### L [id number] #### [facility] ([facility]) [address] [place] [address] Neutrophils/100 WBC (Bld) 73.3 % High 40.0-72.0 [facility] Comment on above: Performed By: #### L [id number] #### [facility] ([facility]) [address] [place] [address] NRBC (PER 100 WBCS) BY AUTOMATED COUNT 0.0 % Normal 0 [facility] Comment on above: Performed By: #### L [id number] #### [facility] ([facility]) [address] [place] [address] PLATELETS (10*3/UL) IN BLOOD AUTOMATED COUNT 288 10*3/uL Normal 150-400 [facility] Comment on above: Performed By: #### L [id number] #### [facility] ([facility]) [address] [place] [address] RBC (Bld) [#/Vol] 4.61 10*6/uL Normal 4.20-5.70 [facility] Comment on above: Performed By: #### L [id number] #### [facility] ([facility]) [address] [place] [address] WBC (Bld) [#/Vol] 10.23 10*3/uL Normal 4.00-10.60 [facility] Comment on above: Performed By: #### L [id number] #### [facility] ([facility]) [address] [place] [address] COMPREHENSIVE METABOLIC PANE Damaso 06-17-2024 Albumin [Mass/Vol] 3.6 g/dL Normal 3.5-5.7 [facility] Comment on above: Performed By: #### L [id number] #### [facility] ([facility]) [address] [place] [address] ALP [Catalytic activity/Vol] 42 U/L Normal 34-104 [facility] Comment on above: Performed By: #### L [id number] #### [facility] ([facility]) [address] [place] [address] ALT [Catalytic activity/Vol] 16 U/L Normal 7-52 [facility] Comment on above: Performed By: #### L [id number] #### [facility] ([facility]) [address] [place] [address] Anion gap [Moles/Vol] 9 mmol/L Normal 7-20 [facility] Comment on above: Performed By: #### L [id number] #### [facility] ([facility]) [address] [place] [address] AST [Catalytic activity/Vol] 20 U/L Normal 13-39 [facility] Comment on above: Performed By: #### L [id number] #### [facility] ([facility]) [address] [place] [address] Bilirubin [Mass/Vol] 0.5 mg/dL Normal 0.3-1.0 [facility] Comment on above: Performed By: #### L [id number] #### [facility] ([facility]) [address] [place] [address] Calcium [Mass/Vol] 9.0 mg/dL Normal 8.6-10.3 [facility] Comment on above: Performed By: #### L [id number] #### [facility] ([facility]) [address] [place] [address] Chloride [Moles/Vol] 99 mmol/L Normal 98-107 [facility] Comment on above: Performed By: #### L [id number] #### [facility] ([facility]) [address] [place] [address] CO2 [Moles/Vol] 36 mmol/L High 21-31 [facility] Comment on above: Performed By: #### L [id number] #### [facility] ([facility]) [address] [place] [address] Creatinine [Mass/Vol] 1.17 mg/dL Normal 0.70-1.30 [facility] Comment on above: Performed By: #### L [id number] #### [facility] ([facility]) [address] [place] [address] GLOMERULAR FILTRATION RATE ML/MIN/1.73 SQ M.PREDICTED 71.4 mL/min/1.73m*2 Normal >60.0 [facility] Comment on above: Result Comment: [facility]???s estimated glomerular filtration rate (eGFR) will [...] of individuals. Performed By: #### L [id number] #### [facility] ([facility]) [address] [place] [address] Glucose [Mass/Vol] 90 mg/dL Normal 70-100 [facility] Comment on above: Performed By: #### L [id number] #### [facility] ([facility]) [address] [place] [address] Potassium [Moles/Vol] 3.6 mmol/L Normal 3.5-5.1 [facility] Comment on above: Performed By: #### L [id number] #### [facility] ([facility]) [address] [place] [address] Protein [Mass/Vol] 6.8 g/dL Normal 6.0-8.3 [facility] Comment on above: Performed By: #### L [id number] #### [facility] ([facility]) [address] [place] [address] Sodium [Moles/Vol] 140 mmol/L Normal 136-145 [facility] Comment on above: Performed By: #### L [id number] #### [facility] ([facility]) [address] [place] [address] Urea nitrogen [Mass/Vol] 14 mg/dL Normal 7-25 [facility] Comment on above: Performed By: #### L [id number] #### [facility] ([facility]) [address] [place] [address] UREA NITROGEN/CREATININE (MASS RATIO) IN SER/PLAS 12.0 Normal [facility] Comment on above: Performed By: #### L [id number] #### [facility] ([facility]) [address] [place] [address] MAGNESIUMon 06-17-2024 Magnesium [Mass/Vol] 1.9 mg/dL Normal 1.9-2.7 [facility] Comment on above: Performed By: #### L [id number] ####[facility] ([facility])[address] [place] [address] PHOSPHORUSon 06-17-2024 Magnesium [Mass/Vol] 2.7 mg/dL Normal 2.5-5.0 [facility] Comment on above: Performed By: #### L [id number] ####[facility] ([facility])[address] [place] [address] PROTIME-INRon 06-17-2024 INR IN PPP BY COAGULATION ASSAY 1.39 High 0.90-1.10 [facility] Comment on above: Result Comment: ACCC [...] CHEST 1995;108:231S-246S. Performed By: #### L [id number] ####[facility] ([facility])[address] [place] [address] PROTHROMBIN TIME (PT) IN PPP BY COAGULATION ASSAY 17.0 Seconds High 12.3-14.8 [facility] Comment on above: Performed By: #### L [id number] ####[facility] ([facility])[address] [place] [address] Damaso 12-23-2023 L Specimen: [id number] Received: 12/23/23 Status: MASHANorma Adama Num: [id number] Spec Type: Surgical Subm Dr: Alix Milligan [...] Age/ Patient Sex Location Account Attending Physician EstefanyIdris Mara 58/M [id number] Alix Milligan MD SPEC NUM: [id number] RECD: 12/23/23 STATUS: ANTONINO ADAMA NUM: [id number] LAMINE: 12/23/23- SUBM DR: Alix Milligan MD ENTERED: 12/23/[address] [facility] [address]: SPEC TYPE: Surgical DEPT: S [...] Polyps, rectum, biopsy: Hyperplastic polyps. ---- Specimen: [id number] Received: 12/23/23 Status: ANTONINO [place] Num: [id number] Spec Type: Surgical Subm Dr: Alix Milligan MD Tissues: A GASTRIC FOR HP (GASTRIC BX R/O H.PYLORI) B Esophagus Biopsy (ESOPHAGUS BX R/ BARRETTS) C Colon Biopsy (CECUM POLYP) D Colon Biopsy (ASCENDING POLYP X2) E Colon Biopsy (HEPATIC FLEXURE) F Colon Biopsy (LIPOMA BX SIGMOID) G Colon Biopsy (POLYP RECTAL X2) Procedures: /14, Gross/Micro L4/7, H PYLORI ---- Patient: Idris Dodd JR [id number] (Continued) ---- Specimen: [id number] Received: 12/23/23 (Continued) Signed (signature on file) Marcy Ruiz MD 12/26/23 1618 ---- Specimen: [id number] Received: 12/23/23 Status: ANTONINO Galan Num: [id number] Spec Type: Surgical Subm Dr: Alix Milligan MD Tissues: A GASTRIC FOR HP (GASTRIC BX R/O H.PYLORI) B Esophagus Biopsy (ESOPHAGUS BX R/ BARRETTS) C Colon Biopsy (CECUM POLYP) D Colon Biopsy (ASCENDING POLYP X2) E Colon Biopsy (HEPATIC FLEXURE) F Colon Biopsy (LIPOMA BX SIGMOID) G Colon Biopsy (POLYP RECTAL X2) Procedures: , Gross/Micro L4/7, H PYLORI ---- Patient: Idris Dodd Mara FREEMAN [id number] (Continued) ---- Specimen: [id number] Received: 12/23/23-1234 (Continued) Clinical Information R/o h. pylori and [...] x 0.2 cm, entirely submitted in G1. CPT Codes [id number] ---- ---- Specimen: [id number] Received: 12/23/23 Status: ANTONINO Galan Num: [id number] Spec Type: Surgi (more content not included)... Normal [facility] CBC AUTO DIFFon 11-25-2021 BASO # 0.1 103/ul Normal 0.0-0.1 [facility] Comment on above: Performed By: #### C BC #### [facility] [address] [place] [address] Dr. Nate Trotter Basophils/100 WBC (Bld) 0.5 % Normal 0.2-2.0 [facility] Comment on above: Performed By: #### C BC #### [facility] [address] [place] [address] Dr. Nate Trotter EO # 0.2 103/ul Normal 0.0-0.7 [facility] Comment on above: Performed By: #### C BC #### [facility] [address] [place] [address] Dr. Nate Trotter Eosinophils/100 WBC (Bld) 1.5 % Normal 0.9-7.0 [facility] Comment on above: Performed By: #### C BC #### [facility] [address] [place] [address] Dr. Nate Trotter Erythrocyte distribution width (RBC) [Ratio] 13.3 % Normal 11.0-15.0 [facility] Comment on above: Performed By: #### C BC #### [facility] [address] [place] [address] Dr. Nate Trotter Hematocrit (Bld) [Volume fraction] 48.7 % Normal 42.0-54.0 [facility] Comment on above: Performed By: #### C BC #### [facility] [address] [place] [address] Dr. Nate Trotter Hemoglobin (Bld) [Mass/Vol] 16.0 g/dL Normal 14.0-18.0 [facility] Comment on above: Performed By: #### C BC #### [facility] [address] [place] [address] Dr. Nate Trotter IG # 0.05 10e3/ul Critically high 0.00-0.03 [facility] Comment on above: Performed By: #### C BC #### [facility] [address] [place] [address] Dr. Nate Trotter IG % 0.5 % Normal 0.0-0.5 [facility] Comment on above: Performed By: #### C BC #### [facility] [address] [place] [address] Dr. Nate Trotter LYMPH # 1.8 103/ul Normal 1.2-3.8 [facility] Comment on above: Performed By: #### C BC #### [facility] [address] [place] [address] Dr. Nate Trotter Lymphocytes/100 WBC (Bld) 19.0 % Critically low 20.5-60.0 [facility] Comment on above: Performed By: #### C BC #### [facility] [address] [place] [address] Dr. Nate Trotter MANUAL DIFF REQ NO Normal [facility] Comment on above: Performed By: #### C BC #### [facility] [address] [place] [address] Dr. Nate Trotter MCH (RBC) [Entitic mass] 30.9 pg Normal 25.9-34.0 [facility] Comment on above: Performed By: #### C BC #### [facility] [address] [place] [address] Dr. Nate Trotter MCHC (RBC) [Mass/Vol] 32.9 g/dL Normal 29.9-35.2 [facility] Comment on above: Performed By: #### C BC #### [facility] [address] [place] [address] Dr. Nate Trotter MCV (RBC) [Entitic vol] 94.0 fL Normal 80.0-94.0 [facility] Comment on above: Performed By: #### C BC #### [facility] [address] [place] [address] Dr. Nate Trotter MONO # 0.7 103/ul Normal 0.3-0.8 [facility] Comment on above: Performed By: #### C BC #### [facility] [address] [place] [address] Dr. Nate Trotter Monocytes/100 WBC (Bld) 7.2 % Normal 1.7-12.0 [facility] Comment on above: Performed By: #### C BC #### [facility] [address] [place] [address] Dr. Nate Trotter NEUT # 6.9 103/ul Critically high 1.4-6.5 [facility] Comment on above: Performed By: #### C BC #### [facility] [address] [place] [address] Dr. Nate Trotter Neutrophils/100 WBC (Bld) 71.3 % Normal 43.0-75.0 [facility] Comment on above: Performed By: #### C BC #### [facility] [address] [address] [address] Nate Trotetr Platelet mean volume (Bld) [Entitic vol] 9.4 fL Critically low 9.5-13.5 [facility] Comment on above: Performed By: #### C BC #### [facility] [address] [address] [address] Nate Trotter PLT 240 103/ul Normal 150-450 [facility] Comment on above: Performed By: #### C BC #### [facility] [address] [address] [address] Nate Trotter RBC 5.18 106/ul Normal 4.70-6.10 [facility] Comment on above: Performed By: #### C BC #### [facility] [address] [address] [address] Nate Trotter WBC 9.7 103/ul Normal 4.0-11.0 [facility] Comment on above: Performed By: #### C BC #### [facility] [address] [address] [address] Nate Trotter GLYCOHEMOGLOBIN A1Con 2021 ADA RECOMMENDATION SEE BELOW Normal [facility] Comment on above: Result Comment: ADA RECOMMENDED LIMIT 4.0 - 6.0 ADA THERAPEUTIC TARGET < 7.0 ACTION SUGGESTED > 7.0 Performed By: #### A 1C #### [facility] [address] [place] [address] Dr. Nate Trotter Glucose [Mass/Vol] 111 mg/dL Normal [facility] Comment on above: Performed By: #### A 1C #### [facility] [address] [place] [address] Dr. Nate Trotter HbA1c (Bld) [Mass fraction] 5.5 % Normal 4.5-6.2 [facility] Comment on above: Performed By: #### A 1C #### [facility] [address] [place] [address] Dr. Nate Trotter LIPID PROFILEon 11-25-2021 CHOL-HDL RATIO NORM SEE BELOW Normal [facility] Comment on above: Result Comment: 3.3 - 4.4 LOW RISK 4.4 - 7.1 AVERAGE RISK 7.1 - 11.0 MODERATE RISK >11.0 HIGH RISK Performed By: #### B MP, TSH, LIVER, LIPID #### [facility] [address] [address] [address] Nate Trotter Cholesterol [Mass/Vol] 116 mg/dL Normal <=200 [facility] Comment on above: Performed By: #### B MP, TSH, LIVER, LIPID #### [facility] [address] [address] [address] Nate Trotter Cholesterol in HDL [Mass/Vol] 42 mg/dL Normal 40-60 [facility] Comment on above: Performed By: #### B MP, TSH, LIVER, LIPID #### [facility] [address] [place] [address] Dr. Nate Trotter Cholesterol in LDL [Mass/Vol] 53.6 mg/dL Normal [facility] Comment on above: Performed By: #### B MP, TSH, LIVER, LIPID #### [facility] [address] [place] [address] Dr. Nate Trotter Cholesterol.total/Ch olesterol in HDL [Mass ratio] 2.8 {ratio} Normal [facility] Comment on above: Performed By: #### B MP, TSH, LIVER, LIPID #### [facility] [address] [place] [address] Dr. Nate Trotter HDL NORMAL > or = 60 mg/dl - LO W CARDIOVASCULAR RISK <40 mg/dl - HIGH CARDIOVASCULAR RISK Normal [facility] Comment on above: Performed By: #### B MP, TSH, LIVER, LIPID #### [facility] [address] [place] [address] Dr. Nate Trotter LDL CALC NORMAL SEE BELOW Normal [facility] Comment on above: Result Comment: <100 mg/dl OPTIMAL 100 - 129 mg/dl NEAR OR ABOVE OPTIMAL 130 - 159 mg/dl BORDERLINE HIGH 160 - 189 mg/dl HIGH >190 mg/dl VERY HIGH Performed By: #### B MP, TSH, LIVER, LIPID #### [facility] [address] [place] [address] Dr. Nate Trotter Triglyceride [Mass/Vol] 102 mg/dL Normal <=150 [facility] Comment on above: Performed By: #### B MP, TSH, LIVER, LIPID #### [facility] [address] [place] [address] Dr. Nate Trotter VLDL CALC 20.4 mg/dL Normal [facility] Comment on above: Performed By: #### B MP, TSH, LIVER, LIPID #### [facility] [address] [place] [address] Dr. Nate Trotter LIVER PROFILEon 11-25-2021 Albumin [Mass/Vol] 3.2 g/dL Critically low 3.4-5.0 [facility] Comment on above: Performed By: #### B MP, TSH, LIVER, LIPID #### [facility] [address] [place] [address] Dr. Nate Trotter Albumin/Globulin [Mass ratio] 0.8 {ratio} Normal [facility] Comment on above: Performed By: #### B MP, TSH, LIVER, LIPID #### [facility] [address] [place] [address] Dr. Nate Trotter ALP [Catalytic activity/Vol] 54 U/L Normal 46-116 [facility] Comment on above: Performed By: #### B MP, TSH, LIVER, LIPID #### [facility] [address] [place] [address] Dr. Nate Trotter ALT [Catalytic activity/Vol] 33 U/L Normal 16-63 [facility] Comment on above: Performed By: #### B MP, TSH, LIVER, LIPID #### [facility] [address] [place] [address] Dr. Nate Trotter AST [Catalytic activity/Vol] 24 U/L Normal 15-37 [facility] Comment on above: Performed By: #### B MP, TSH, LIVER, LIPID #### [facility] [address] [place] [address] Dr. Nate Trotter BILI, CONJUGATED 0.1 mg/dL Normal 0.0-0.2 [facility] Comment on above: Performed By: #### B MP, TSH, LIVER, LIPID #### [facility] [address] [place] [address] Dr. Nate Trotter Bilirubin [Mass/Vol] 0.3 mg/dL Normal 0.2-1.0 [facility] Comment on above: Performed By: #### B MP, TSH, LIVER, LIPID #### [facility] [address] [place] [address] Dr. Nate Trotter Globulin (S) [Mass/Vol] 4.2 g/dL Normal [facility] Comment on above: Performed By: #### B MP, TSH, LIVER, LIPID #### [facility] [address] [place] [address] Dr. Nate Tortter Protein [Mass/Vol] 7.4 g/dL Normal 6.4-8.2 [facility] Comment on above: Performed By: #### B MP, TSH, LIVER, LIPID #### [facility] [address] [place] [address] Dr. Nate Trotter PROF CHEM 8 (BAS METB)on Anion gap [Moles/Vol] 9.3 mmol/L Normal [facility] Comment on above: Performed By: #### B MP, TSH, LIVER, LIPID #### [facility] [address] [place] [address] Dr. Nate Trotter Calcium [Mass/Vol] 9.0 mg/dL Normal 8.5-10.1 [facility] Comment on above: Performed By: #### B MP, TSH, LIVER, LIPID #### [facility] [address] [place] [address] Dr. Nate Trotter Chloride [Moles/Vol] 98 mmol/L Normal 98-107 [facility] Comment on above: Performed By: #### B MP, TSH, LIVER, LIPID #### [facility] [address] [place] [address] Dr. Nate Trotter CO2 [Moles/Vol] 32.7 mmol/L Critically high 21.0-32.0 [facility] Comment on above: Performed By: #### B MP, TSH, LIVER, LIPID #### [facility] [address] [place] [address] Dr. Nate Trotter Creatinine [Mass/Vol] 1.03 mg/dL Normal 0.70-1.30 [facility] Comment on above: Performed By: #### B MP, TSH, LIVER, LIPID #### [facility] [address] [address] [address] Nate Trotter EGFR-AF SPANISH >60 Normal >=60 [facility] Comment on above: Performed By: #### B MP, TSH, LIVER, LIPID #### [facility] [address] [address] [address] Nate Trotter EGFR-NON AF SPANISH >60 Normal >=60 [facility] Comment on above: Performed By: #### B MP, TSH, LIVER, LIPID #### [facility] [address] [address] [address] Nate Trotter Glucose [Mass/Vol] 110 mg/dL Critically high 74-106 [facility] Comment on above: Performed By: #### B MP, TSH, LIVER, LIPID #### [facility] [address] [address] [address] Nate Trotter Potassium [Moles/Vol] 4.0 mmol/L Normal 3.5-5.1 [facility] Comment on above: Performed By: #### B MP, TSH, LIVER, LIPID #### [facility] [address] [address] [address] Nate Trotter Sodium [Moles/Vol] 136 mmol/L Normal 136-145 [facility] Comment on above: Performed By: #### B MP, TSH, LIVER, LIPID #### [facility] [address] [address] [address] Nate Trotter Urea nitrogen [Mass/Vol] 14.0 mg/dL Normal 7.0-18.0 [facility] Comment on above: Performed By: #### B MP, TSH, LIVER, LIPID #### [facility] [address] [address] [address] Nate Trotter Urea nitrogen/Creatinine [Mass ratio] 13.6 mg/mg Normal [facility] Comment on above: Performed By: #### B MP, TSH, LIVER, LIPID #### [facility] [address] [place], [place] [address] Dr. Nate Trotter TSHon 11-25-2021 TSH 1.323 uIU/mL Normal 0.358-3.740 [facility] Comment on above: Performed By: #### B MP, TSH, LIVER, LIPID #### [facility] [address] [place], [place] [address] CERVICAL SPINE WO [...] Yuri Bautista MD 04/21/20 Final result Normal [facility] No acute fracture or traumatic malalignment. Degenerative disc disease at C5-C6 and C6-C7 not well assessed due to beam hardening artifact. [facility], [place] EXAMINATION: CT OF T HE CERVICAL SPINE [...] There is no prevertebral soft tissue swelling. [facility] [place] Ryan, Mh[employer] Incoming Radiant Results From [employer] - 04/21/2020 7:26 PM EST EXAMINATION: CT [...] well assessed due to beam hardening artifact. [employer], Enefgy CT HEAD WO CONTRASTon 2019 CT HEAD [...] Neeraj Cash MD 04/21/20 Final result Normal [facility] No acute intracrania l abnormality. Fluid in left maxillary sinus. Correlate for signs of infection [place], [place] EXAMINATION: CT OF T HE HEAD WITHOUT CONTRAST 04/21/2020 6:52 pm TECHNIQUE: CT of the head was performed without the administration of intravenous contrast. Dose modulation, iterative reconstruction, and/or weight based adjustment of the mA/kV was utilized to reduce the radiation dose to as low as reasonably achievable. COMPARISON: None. HISTORY: ORDERING SYSTEM PROVIDED HISTORY: fall , head injury TECHNOLOGIST PROVIDED HISTORY: fall 16', [...] of the visualized skull or soft tissues. [place], [place] Ryan, Mh[employer] Incoming Radiant Results From [employer] - 04/21/2020 7:21 PM EST EXAMINATION: CT OF THE HEAD WITHOUT CONTRAST 04/21/2020 6:52 pm TECHNIQUE: CT of the head was performed without the administration of intravenous contrast. Dose modulation, iterative reconstruction, and/or weight based adjustment of the mA/kV was utilized to reduce the radiation dose to as low as reasonably achievable. COMPARISON: None. HISTORY: ORDERING SYSTEM PROVIDED HISTORY: fall , head injury TECHNOLOGIST PROVIDED HISTORY: fall , head injury Reason for Exam: fall of [...] maxillary sinus. Correlate for signs of infection [facility], [place] Vital Signs Date Time Vital Sign Value Performing Clinician [facility] 03-16-2024 09:40-0400 Body height 167.6 cm Benjy Garcia MD Work Phone: [facility] 03-16-2024 09:40-0400 Body mass index (BMI) [Ratio] 55.36 kg/m2 Benjy Garcia MD Work Phone: [facility] 03-16-2024 09:40-0400 Body temperature 98.01 [degF] Benjy Garcia MD Work Phone: [facility] 03-16-2024 09:40-0400 Body weight 155.58 kg Benjy Garcia MD Work Phone: [facility] 03-16-2024 09:40-0400 Diastolic blood pressure 70 mm[Hg] Benjy Garcia MD Work Phone: [facility] 03-16-2024 09:40-0400 Heart rate 84 /min Benjy Garcia MD Work Phone: [facility] 03-16-2024 09:40-0400 Respiratory rate 22 /min Benjy Garcia MD Work Phone: [facility] 03-16-2024 09:40-0400 SaO2% (BldA) [Mass fraction] 94 % Benjy Garcia MD Work Phone: [facility] 03-16-2024 09:40-0400 Systolic blood pressure 136 mm[Hg] Benjy Garcia MD Work Phone: [facility] 12-23-2023 11:26-0400 Diastolic blood pressure 64 mm[Hg] MD Benjy Garcia Work Phone: [facility] 12-23-2023 11:26-0400 Heart rate 80 /min MD Benjy Garcia Work Phone: [facility] 12-23-2023 11:26-0400 Respiratory rate 16 /min MD Benjy Garcia Work Phone: [facility] 12-23-2023 11:26-0400 SaO2% (BldA) [Mass fraction] 96 % MD Benjy Garcia Work Phone: [facility] 12-23-2023 11:26-0400 Systolic blood pressure 118 mm[Hg] MD Benjy Garcia Work Phone: [facility] 12-23-2023 09:19-0400 Body height 167.64 cm MD Benjy Garcia Work Phone: [facility] 12-23-2023 09:19-0400 Body weight 149.68 kg MD Benjy Garcia Work Phone: [facility] 04-21-2020 18:32-0500 BMI (Body Mass Index) 57.14 kg/m2 [facility] [place] 04-21-2020 18:32-0500 Body Temperature 98.49 [degF] Ashwin [facility] 04-21-2020 18:32-0500 Body weight 160.57 kg Ashwin [facility] 04-21-2020 18:32-0500 BP Diastolic 71 mm[Hg] Ashwin [place] 04-21-2020 18:32-0500 BP Systolic 159 mm[Hg] [facility] [place] 04-21-2020 18:32-0500 Height 167.6 cm [facility] [place] 04-21-2020 18:32-0500 Pulse (Heart Rate) 96 /min [facility] [place] 04-21-2020 18:32-0500 Pulse Oximetry 95 % [facility] [place] 04-21-2020 18:32-0500 Respiratory Rate 20 /min [facility] [place] Encounters Encounter Date Encounter Type Care Provider Facility Start: 06-28-2024 End: 06-28-2024 ambulatory EHAB [facility] Start: 06-18-2024 Evaluation and management of inpatient [facility] Start: 06-17-2024 End: 06-22-2024 Evaluation and management of inpatient [facility] Start: 06-14-2024 End: 06-14-2024 Bamboo flowsheet Benjy Garcia MD Work Phone: [facility] Start: 06-14-2024 End: 06-14-2024 Bamboo flowsheet Benjy Garcia MD Work Phone: [...] 03-16-2024 Periodic preventive med est patient 40-64yrs eBnjy Garcia MD Work Phone: [facility] Comment on above: Annual physical exam (Primary Dx); Benign hypertension (CMS/HCC); Primary osteoarthritis of both knees Start: 03-16-2024 End: 03-16-2024 ambulatory BENJY GARCIA Not Available Start: 12-23-2023 Non-patient / Non-visit MD Cintia Garcia Work Phone: [facility] G[facility] Work Phone: Start: 12-23-2023 End: 12-23-2023 Admission to same day surgery center MD Benjy Garcia Work Phone: [facility] Work Phone: Start: 12-23-2023 End: 12-23-2023 ambulatory MD Benjy Garcia Work Phone: [facility] Work Phone: Start: 11-16-2023 End: 11-16-2023 ambulatory BENJY GARCIA Not Available Start: 09-09-2023 End: 09-09-2023 ambulatory BENJY GARCIA Not Available Start: 11-27-2021 Encounter for genera l adult medical examination without abnormal findings DR BENJY GARCIA [facility] Start: 11-25-2021 End: 11-26-[address] BENJY GARCIA Facility:[facility] Start: 11-25-2021 End: 11-26-2021 Encounter for general adult medical examination without abnormal findings DR BENJY GARCIA Facility:[facility] Start: 04-21-2020 End: 04-21-2020 Emergency department patient visit ASHWIN ORLANDO [facility] Start: 04-21-2020 End: 04-21-2020 Emergency department patient visit Ashwin Orlando Work Phone: [facility] Comment on above: Closed head injury, initial encounter (Primary Dx); Multiple abrasions Procedures Date Procedure Procedure Detail Performing Clinician Start: 12-23-2023 Esophagogastroduodenoscopy MD Benjy gallo Work Phone: Start: 12-23-2023 Colonoscopy Benjy Garcia MD Work Phone: Start: 11-25-[address] BENJY GARCIA Comment on above: Performed By: #### PSASC #### [facility] [address] [place] [address] Dr. Nate Trotter Start: 04-21-2020 Ct cervical spine w/o contrast material ASHWIN WICKENHEISER Start: 04-21-2020 Ct head/brain w/o contrast material ASHWIN WICKENHEISER Start: 04-21-2020 Ct cervical spine w/o contrast material Ashwin J Wickenheiser Work Phone: Start: 04-21-2020 Ct head/brain w/o contrast material Ashwin J Wickenheiser Work Phone: Plan of Treatment Date Care Activity Detail Author Start: 12-22-2033 [facility] Start: 09-19-2024 End: 09-19-2024 Patient encounter procedure 09/19/2024 8:00 AM EDT Office Visit [facility] [address] [place] [phone] Benjy Garcia MD [address] [place] [phone] [facility] Start: 06-14-2024 End: 06-14-2024 Patient encounter procedure 06/14/2024 9:00 AM EST Office Visit [facility] [address] [place] [phone] Benjy Garcia MD [address] [place] [phone] [facility] Comment on above: Arrived Start: 03-16-2024 End: 03-16-2024 Patient encounter procedure 03/16/2024 9:30 AM EDT Office Visit [facility] [address] [place] [address] Benjy Garcia MD [address] [place] [address] Arrived [facility] Comment on above: Arrived Start: 02-05-2024 Influenza vaccination Influenza Vacc ine (#1) [facility] Start: 12-23-2023 [facility] Start: 02-05-2020 Influenza vaccination Flu vaccine (# 1) [place], [place] Start: 08-12-2013 Screening for malignant neoplasm of colon Colon cancer screen colonoscopy [place], [place] Start: 08-12-2013 Shingles Vaccine (1 of 2) Shingles Vaccine (1 of 2) [place], [place] Start: 2003 Diabetes screen Diabetes screen [place], [place] Start: 2003 Lipid panel Lipid screen [place], [place] Start: 08-12-1982 DTaP/Tdap/Td vaccine (1 - Tdap) DTaP/Tdap/Td vaccine (1 - Tdap) [place], [place] Start: 08-12-1978 HIV screening HIV screen [place], [place] Start: 1963 Hepatitis C screening Hepatitis C sc reen [place], [place] Start: 1963 Screening for malignant neoplasm of colon [facility] Patient Education Colon polyps L ipoma Hemorrhoids (DC) Diverticulosis (DC) Gastritis (DC) Know your Meds [facility] Work Phone: Payers Date Payer Category Payer Self-pay 2021 [facility] [id number] 2021 Unknown BCBS BCBS xxxxxx [id number] 2021-Present [phone] [address] [place] [address] [id number] 1963 Unknown [id number] 1963 Unknown [id number] 1963 Unknown [id number] 1963 Unknown [id number] 1959 Unknown [id number] Unknown [id number] Social History Date Type Detail Facility Start: 04-21-2020 End: 09-09-2023 Tobacco smoking status NHIS Never smoker [facility] Start: 04-21-2020 End: 09-09-2023 Tobacco use and exposure Never used [place], [place] Start: 04-21-2020 Alcohol intake Current drinke r of alcohol (finding) [place] Start: 04-21-2020 Alcohol Comment weekends [facility] Jules [place], [place] Start: 1965 Sex Assigned At Not on file M [place] Exposure to SARS-CoV -2 (event) Not sure [place], [place] Start: 1965 Sex Assigned At Male F [facility] Start: 11-16-2023 End: 03-16-2024 History of Social function [facility] Start: 11-16-2023 End: 03-16-2024 Tobacco use panel [facility] Goals Date Patient Goal Desired Activity /State Clinical Notes 12-23-2023 to 06-28-2024 Benjy Garcia MD - 03/16/2024 10:09 AM Cristiano Garcia MD - 03/16/2024 10:09 AM Cristiano Garcia MD - 03/16/2024 9:30 AM EDT Note Date & Type Note Facility 06-28-2024 Note [facility] Cardiology Clinic Note Chief Complaint: Patient here for follow up [facility]. Underwent heart cath with Dr. Cid. He was discharged wearing a LifeVest. Dr. Garcia just prescribed Synthroid today so he has not started it yet. Denies chest pain, SOB, and LE edema. Says he's feeling much better. Denies palpitations and bleeding on Eliquis. HPI: Idris Dodd Jr. is a 58 y.o. 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 CAD, on cath 06/19 Paroxysmal atrial fibrillation on Eliquis [id number] HTN Morbid obesity Family history of CAD, mother had 3 stents at age 64, father has ICD/PPM [place] noncompliant to CPAP Admission Diagnosis: Heart failure (CMS/[facility]) [I50.9] Hospital course: Idris Dodd Jr. is an 58 y.o. male who came from [facility] for higher level of care. who presented [...] DVT. Newly decompensated HFrEF (EF 20-25% at [facility]), NYHA class III Non-ischemic cardiomyopathy, likely alcohol [...] eliquis 5mg twice daily. Toprol 12.5mg daily [id number] HTN Morbid obesity Family history of CAD, [...] Center 06/28/2024 1:00 PM Marilyn Gotti MD C[facility] Your medication list START taking [...] Medications These medications were sent to [facility] - [address] [place] [address] [address] [facility] [place] [address], [facility] [address] apixaban 5 mg tablet aspirin 81 mg EC tablet atorvastatin 40 mg tablet dapagliflozin propanedi (more content not included)... 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 CAD, on cath 06/19 Paroxysmal atrial fibrillation on Eliquis [id number]=6 HTN Morbid obesity Family history of CAD, mother had 3 stents at age 64, father has ICD/PPM [place] noncompliant to CPAP Admission Diagnosis: Heart failure (CMS/HCC) [I50.9] Hospital course: Idris Terry Estefany Jimenez is an 58 y.o. male who came from [facility] for higher level of care. who presented [...] DVT. Newly decompensated HFrEF (EF 20-25% at [place]), NYHA class III Non-ischemic cardiomyopathy, likely alcohol [...] eliquis 5mg twice daily. Toprol 12.5mg daily [id number]=6 HTN Morbid obesity Family history of CAD, [...] 06/28/2024 1:00 PM Marilyn Gotti MD [facility] Your medication list START taking these [...] Medications These medications were sent to [facility] [address] [place] [address] [address] [facility] [place] [address], [facility] [address] apixaban 5 mg tablet aspirin 81 mg [...] 10*3/uL 11.08* 8 (more content not included)... [facility] 06-22-2024 Note 2nd heart failure co nsult rec'd. Patient has already denied all [facility] svs and is not interested in further education. Consult cancelled. See note from 06/21 [facility] 06-22-2024 Note Cardiology Progress Note Subjective [...] (!) 85/49 36.2 ???C (97.2 ???F) Temporal 22 94 % -- 06/22/24 0750 115/85 36.3 ???C (97.4 ???F) 17 96 % -- 06/22/24 0550 110/90 [...] Value Ventricular Rate 64 Atrial Rate 64 WA Interval 206 QRS DURATION 110 QT Interval 444 QTC CALCULATION(BAZETT) 458 P Model 20 R-Model 55 T Wave Model 81 Impression Normal sinus rhythm T wave [...] > 50. Patient was a transfer from [facility] for evaluation for coronary angiogram after he [...] loop diuretic diuresis 3) outpatient follow-up with [place] cardiology 4) patient has morbid obesity (BMI [...] and a micropuncture access technique a 6 Upper Sorbian sheath was placed in the right internal jugular vein. The Tapia catheter was advanced under fluoroscopic and hemodynamic monitoring to the right atrium. Pressure obtained of the right atrium, right ventricle, pulmonary artery, pulmonary capillary position. Oxygen saturation drawn for the pulmonary artery and Carroll cardiac with a cardiac index were calculated. 1% lidocaine was infiltrated over the left radial artery. A 6-Upper Sorbian Terumo Glidesheath slender was placed in left [...] with luminal irregularitie (more content not included)... [facility] 06-21-2024 Note Jh rec'd consult thi [...] work. He is not interested in any [facility] svs at this time time. [facility] 06-21-2024 Note Hospital Medicine Daily Progress Note - 06/21/2024 1:00 PM; Room: [facility]- Admission: 06/17/2024 10:21 PM; Length of stay: 4 days THE HOSPITALIST TEAM PREFERS TO USE Bit9 CHAT FOR NON-URGENT COMMUNICATION 7AM-7PM. IF I DO NOT RESPOND WITHIN 20 MINUTES OR URGENT MATTERS, PLEASE CALL THROUGH THE LOG CHIPPER OPERATOR. FROM 7PM-7AM, PLEASE PAGE [phone](COVR). Code Status: Full Code Barriers to Discharge: [...] Principal Problem: ST elevation myocardial infarction (STEMI) ([facility]/HCC) Active Problems: Atrial fibrillation with rapid ventricular response ([facility]/HCC) Acute heart failure with reduced ejection fraction (HFrEF, <= 40%) ([facility]) Obesity GERD (gastroesophageal reflux disease) Hypertension Assessment and Plan Atrial fibrillation with rapid ventricular response ([facility]) Rate control with Coreg, Eliquis for anticoagulation. Eliquis resumed post cath Acute heart failure with reduced ejection fraction (HFrEF, <= 40%) ([facility]) - NICM, 2/2 alcoholism? EF of [...] Component Value Date (more content not included)... [facility] 06-21-2024 Note Attestation signed by Monica [...] Value Ventricular Rate 64 Atrial Rate 64 WA Interval 206 QRS DURATION 110 QT Interval 444 QTC CALCULATION(BAZETT) 458 P Model 20 R-Model 55 T Wave Model 81 Impression Normal sinus rhythm T wave [...] > 50. Patient was a transfer from [facility] for evaluation for coronary angiogram after he [...] loop diuretic diuresis 3) outpatient follow-up with [place] cardiology 4) patient has morbid obesity (BMI [...] and a micropuncture access technique a 6 Upper Sorbian sheath was placed in the right internal jugular vein. The Tapia catheter was advanced under fluoroscopic and hemodynamic monitoring to the right atrium. Pressure obtained of the right atrium, right ventricle, pulmonary artery, pulmonary capillary position. Oxygen saturation drawn for the pulmonary artery and Carroll cardiac with a cardiac index were calculated. 1% lidocaine was infiltrated over the left radial artery. A 6-Upper Sorbian Terumo Glidesheath slender was placed in left radial artery. Radial anti-vasospasm cocktail of verapamil 2.5 mg and nitroglycerin 200 mcg was administered through the sheath. All catheter exchanges were made over the Alejandro guidewire. Coronary angiogram was performed with a JL3.5 to engage the left main and a JR5 to engage the RC (more content not included)... [facility] 06-20-2024 Note Hospital Medicine Daily Progress Note - 06/20/2024 8:58 AM; Room: [facility]- Admission: 06/17/2024 10:21 PM; Length of stay: 3 days THE HOSPITALIST TEAM PREFERS TO USE Bit9 CHAT FOR NON-URGENT COMMUNICATION 7AM-7PM. IF I DO NOT RESPOND WITHIN 20 MINUTES OR URGENT MATTERS, PLEASE CALL THROUGH THE LOG CHIPPER OPERATOR. FROM 7PM-7AM, PLEASE PAGE [phone](COVR). Code Status: Full Code Barriers to Discharge: [...] Principal Problem: ST elevation myocardial infarction (STEMI) ([facility]) Active Problems: Atrial fibrillation with rapid ventricular response ([facility]) Acute heart failure with reduced ejection fraction (HFrEF, <= 40%) ([facility]) Obesity GERD (gastroesophageal reflux disease) Hypertension Assessment and Plan Atrial fibrillation with rapid ventricular response ([facility]) Rate control with Coreg, Eliquis for anticoagulation. Eliquis resumed post cath Acute heart failure with reduced ejection fraction (HFrEF, <= 40%) ([facility]) - NICM, 2/2 alcoholism? EF of [...] No results f (more content not included)... [facility] 06-20-2024 Note Patient admitted to the hospital for: ST elevation myocardial infarction. Chart notes from 06/18/2024 reports [facility] admission echo from 06/18/2024 reports: EF 20-25 %. Patient transferred to [facility]. Current echo information qualifies for Cardiac Rehab services per CMS eligibility criteria. A Cardiac Rehab referral diagnosis and code must also meet CMS criteria. Angelica Kumar RN, BSN Cardiology Outpatient Coordinator Cardiopulmonary Rehab [facility] 06-19-2024 Note Attestation signed by Monica [...] BID Jermaine Rey MD 12.5 mg at 06/18/242113 dapagliflozin propanediol (Farxiga) tablet 10 mg 10 [...] Value Ventricular Rate 64 Atrial Rate 64 WA Interval 206 QRS DURATION 110 QT Interval 444 QTC CALCULATION(BAZETT) 458 P Model 20 R-Model 55 T Wave Model 81 Impression Normal sinus rhythm T wave abnormality, consider anterior ischemia Abnormal ECG (more content not included)... [facility] 06-19-2024 Note Patient: Idris Christina Jr. Procedure Information Date/Time: 06/19/24 1334 Procedure: Coronary angiography Location: [facility] / [facility] (Cath) Providers: Marilyn Gotti [...] Plan discussed with attending. Additional Equipment Requests [facility] 06-19-2024 Note Hospital Medicine Daily Progress Note - 06/19/2024 1:58 PM; Room: [facility]- Admission: 06/17/2024 10:21 PM; Length of stay: 2 days THE HOSPITALIST TEAM PREFERS TO USE [employer] FOR NON-URGENT COMMUNICATION 7AM-7PM. IF I DO NOT RESPOND WITHIN 20 MINUTES OR URGENT MATTERS, PLEASE CALL THROUGH THE LOG CHIPPER OPERATOR. FROM 7PM-7AM, PLEASE PAGE [phone](COVR). Code Status: Full Code Barriers to Discharge: [...] reduced ejection fraction (HFrEF, <= 40%) (CMS/HCC) Obesity GERD (gastroesophageal reflux disease) Hypertension Assessment and Plan Atrial fibrillation with rapid ventricular response (CMS/HCC) rate control with Coreg, Eliquis for anticoagulation. [...] LDL 88 06/18/2024 No results found for: [id number] , IRON , TIBC , C3 , C4 , KWAN , CANCA , ASO , PSA , CEA , CA125 , CA199 , AFP , CA153 Imaging ECG 12 lead Normal sinus rhythm T wave abnormality, consider a (more content not included)... [facility] 06-18-2024 Note 06/18/24 1318 Admission Assessment [...] Status Interested Does the patient have a nurse outreach case manager assigned to them through their [...] to send link and activate MyChart? No [facility] 06-18-2024 Note Plan of care reviewe d with the patient, patient being admitted for cardiac cath by cardiology team, keep n.p.o. cardiology consult to follow [facility] 06-18-2024 Note Blood pressure contr ol with oral antihypertensives [facility] 06-18-2024 Note class III obesity [facility] 06-18-2024 Note EF of 20 to 25% with diastolic dysfunction Coreg, losartan, Lasix for IV diuresis Monitor I's and O's, daily weights, low-salt diet Left heart cath in a.m., keep n.p.o. [facility] 06-18-2024 Note rate control with Co reg, Eliquis for anticoagulation [facility] 06-18-2024 Note on PPI [facility] 06-18-2024 Note Hospital Medicine History and Physical 06/18/2024 1:10 AM THE HOSPITALIST TEAM PREFERS TO USE Bit9 CHAT FOR NON-URGENT COMMUNICATION 7AM-7PM. IF I DO NOT RESPOND WITHIN 20 MINUTES OR URGENT MATTERS, PLEASE CALL THROUGH THE LOG CHIPPER OPERATOR. FROM 7PM-7AM, PLEASE PAGE [phone](COVR). Chief Complaint CHF, atrial fibrillation History of Present Illness Idris Dodd . is an 58 y.o. male who came from [facility] for higher level of care. who presented [...] Plan Atrial fibrillation with rapid ventricular response ([facility]) rate control with Coreg, Eliquis for anticoagulation Acute heart failure with reduced ejection fraction (HFrEF, <= 40%) ([facility]) EF of 20 to 25% with [...] above for m (more content not included)... [facility] 03-16-2024 History of Present illness Narrative [...] daily Aspirin therapy. documented in this encounter [facility] 12-23-2023 History and physical note Note Date/Time December 23, 2023 10:30am [facility] [address] [place] [address] Gastroenterology H&P Signed Patient: Idris Dodd JR MR# : [id number] : [id number] Acct:[id number] Age/Sex: 58 / M Adm Date: 4 Loc: Room: Type: [facility] Attending Dr: Alix Milligan MD Copies to: [...] signed by Alix Milligan MD> 12/23/23 1030 [facility] Work Phone: 1(857) 265-607507-19-2024 [facility]Prem[facility] CenterEvaluation noteNo assessment information availableCherrington Hospital [facility]tr Work Phone: Evaluation note* Diagnosis Annual physical exam- Primary Routine general medical examination at a health care facility Benign hypertension (CMS/HCC) Essential hypertension, benign Primary osteoarthritis of both knees documented in this encounter [facility] HealthcareEvaluation note* Diagnosis Benign hypertension (CMS/HCC)- [...] of both knees [facility] instructions Additional Instructions DISCHARGE INSTRUCTIONS [...] stomach, liquids high in sugar content (soda, Oly-Aid, non-acid juices) are recommended. - You can [...] Follow up with PCP. - Office number [phone]. DISCHARGE INSTRUCTIONS FOR UPPER ENDOSCOPY WHAT TO [...] years -Start Pantoprazole 40 mg daily -Avoid NSAIDsCherrington Hospital Ctr Work Phone: Discharge Instructions * Attachments The following attachments cannot be sent through Care Everywhere. * Head Injury: Closed: General Info (Bulgarian) documented in this encounter Assessments Diagnosis Closed [...] both knees Benjy Garcia MD [address] [place] [address] Referral ID Status Reason Start Date Expiration Date V isits Requested Visits Authorized [id number] Pending Review 03/16/2024 09/12/2024 1 1 Additional [...] section and content) DATE CREATED AUTHOR 04/22/2020 [facility] DATE CREATED AUTHOR AUTHOR'S ORGANIZ ATION 11/28/2021 [facility] DATE CREATED AUTHOR AUTHOR'S ORGANIZ ATION 01/06/2024 [facility] DATE CREATED AUTHOR AUTHOR'S ORGANIZ ATION 06/19/2024 [facility] EPIC DATE CREATED AUTHOR AUTHOR'S ORGANIZ ATION 06/30/2024 [facility] Care Teams (unrecognized sec tion and content) [...] Referring Provider Active Start: December 23, 2023 Rig Hand Relationship Specialty Start Date End Date Benjy Garcia MD [address] [place] [id number] PCP - General Family Medicine 06/06/22 Benjy Garcia MD [address] [place] [id number] PCP - [employer] [employer] 04/06/23 Rig Hand Relationship Specialty Start Date End Date Benjy Garcia MD [address] [place] [id number] PCP - General Family Medicine 06/06/22 Benjy Garcia MD [address] [place] [id number] PCP - [employer] 04/06/23 Rig Hand Relationship Specialty Start Date End Date Benjy Garcia MD [address] [place] [id number] PCP - General Family Medicine 06/06/22 Benjy Garcia MD [address] [place] [address] [facility] 04/06/23 Rig Hand Relationship Specialty Start Date End Date Benjy Garcia MD [address] [place] [address] PCP - [facility] 06/06/22 Benjy Garcia MD [address] [place] [address] [facility] 04/06/23 FOR RECORDS PERTAINING TO PATIENTS WHO [...] BE BASED ON THE PRIMARY CLINICAL RECORDS. [employer] [facility]. provides no warranty or guarantee of the accuracy or completeness of information in this document.
--- OUTSIDE RECORDS SUMMARY | 2024-07-06 06:28 | XMS_ITS | CCD ---
Author Organization [facility] Care Team Providers Care Sound Equipment Mechanic Name Role Phone Unavailable Primary Care Provider ASHWIN Gaviria Attending DR BNEJY Smith Admitting Unavailable DR BENJY GARCIA Attending Unavailable DR BENJY GARCIA Primary Care Unavailable DR BENJY GARCIA Consulting Unavailable MD Alix Milligan Attending Provider MD Benjy Garcia Primary Care Provider MD Benjy Garcia Referring Provider Benjy Garcia Referring Unavailable Asaad, Imad Admitting Unavailable Srini Imad Attending Unavailable Benjy Garcia Primary Care Unavailable Benjy Garcia MD Primary Care Provider [phone] Benjy Garcia MD Unavailable JUAN OVERTON Attending Unavailable TIAN VILLALOBOS Admitting Unavailable SHAIKH HALL Referring Unavailable JOSE, INGRIS Referring Unavailable ELTAHAWY, EHAB Attending Unavailable BENJY GARCIA Attending Unavailable BENJY GARCIA Attending Unavailable BENJY GARCIA Attending Unavailable BENJY GARCIA Attending Unavailable Allergies Allergy Classification Reported Allergen(s) Allergy Type Date of Onset Reaction(s) Facility (2 sources) Clindamycin; Translations: [CLINDAMYCIN] Drug Allergy 01-24-2017 [facility] Repository (1 source) Clindamycin Drug Allergy 12-23-2023 [facility] Repository (8 sources) Clindamycin Drug Allergy 04-02-2020 [facility] Work Phone: Medications Current Medications Medication [...] / oxyCODONE hydrochloride 5 mg oral tablet (9 sources) Opioid Agonist Start: 07-04-2024 End: 08-03-2024 take 1 tablet by mouth four times daily as needed for pain oxyCODONE-acetaminop hen (Percocet) 5-325 MG tablet Indications: Primary osteoarthritis of both knees Take 1 tablet by mouth 4 (four) times a day as needed for severe pain 120 tablet 07/04/2024 08/03/2024 Active Start: 03-16-2024 End: 04-28-2024 take 1 tablet by mouth four times daily as needed for pain oxyCODONE-acetaminophen (Percocet) 5-325 MG tablet Indications: Primary osteoarthritis of both knees Take 1 tablet by mouth 4 (four) times a day as needed for severe pain 120 tablet 03/29/2024 04/28/2024 Active End: 03-16-2024 oxyCODONE-acetaminophen (Per cocet) 5-325 MG tablet 03/16/2024 Discontinued (Reorder) apixaban 5 mg oral tablet (3 sources) Factor Xa Inhibitor Start: 06-22-2024 take 1 tablet by mouth in the morning apixaban (Eliquis) 5 MG tablet Take 5 mg by mouth in the morning and 5 mg in the evening. 06/22/2024 Active aspirin 81 mg delayed release oral tablet (3 sources) Platelet Aggregation Inhibitor, Nonsteroidal Anti-inflammatory Drug Start: 06-23-2024 take 1 tablet by mouth in the morning aspirin 81 MG EC tablet Take 81 mg by mouth in the morning. 06/23/2024 Active atorvastatin 40 mg oral tablet (3 sources) HMG-CoA Reductase Inhibitor Start: 06-22-2024 take 1 tablet by mouth at bedtime atorvastatin (Lipitor) 40 MG tablet Take 40 mg by mouth at bedtime 06/22/2024 Active dapagliflozin 10 mg oral tablet (3 sources) Sodium-Glucose Cotransporter 2 Inhibitor Start: 06-23-2024 take 10 mg by mouth in the morning dapagliflozin (Farxiga) 10 MG Take 10 mg by mouth in the morning. 06/23/2024 Active furosemide 40 mg oral tablet (3 sources) Loop Diuretic Start: 06-22-2024 take 1 tablet by mouth in the morning furosemide (Lasix) 40 MG tablet Take 40 mg by mouth in the morning. 06/22/2024 Active hydroCHLOROthiazide 25 mg / lisinopril 20 mg oral tablet (6 sources) Thiazide Diuretic, Angiotensin Converting Enzyme Inhibitor Start: 05-21-2024 take 1 tablet by mouth once daily lisinopril-hydroC HLOROthiazide 20-25 MG tablet Indications: Benign hypertension (CMS/HCC) Take 1 tablet by mouth once daily 90 tablet 05/21/2024 Active Start: 08-03-2023 take 1 tablet by saundra th once daily lisinopril-hydroCHLOROthiazide 20-25 MG tablet Take 1 tablet by mouth Daily 08/03/2023 Active levothyroxine sodium 0.075 mg oral tablet (3 sources) l-Thyroxine Start: 06-28-2024 take 1 tablet by mouth before mealtime levothyroxine (Synthroid) 75 MCG tablet Indications: Adult hypothyroidism (CMS/HCC) Take 1 tablet (75 mcg) by mouth in the morning. Take before meals. 30 tablet 3 06/28/2024 Active 24 hr metoprolol succinate 25 mg extended release oral tablet (2 sources) beta-Adrenergic Ethel Start: 06-28-2024 take 1 tablet by mouth once daily metoprolol succinate XL (Toprol-XL) 25 MG 24 hr tablet Take 12.5 mg by mouth Daily 06/28/2024 Active pantoprazole 40 mg delayed release oral tablet (4 sources) Proton Pump Inhibitor Start: 06-22-2024 take 1 tablet by mouth before mealtime pantoprazole (ProtoNix) 40 MG EC tablet Take 40 mg by mouth in the morning. Take before meals. 06/22/2024 Active Start: 12-23-2023 take 40 mg by mouth once daily Pantoprazole Active 40 MG PO Daily 90 December 23, 2023 12:00am sacubitril 24 mg / valsartan 26 mg oral tablet (3 sources) Angiotensin 2 Receptor Ethel Start: 06-22-2024 take 1 tablet by mouth in the morning Entresto 24-26 MG tablet Take 1 tablet by mouth in the morning and 1 tablet before bedtime. 06/22/2024 Active zolpidem tartrate 10 mg oral tablet (9 sources) gamma-Aminobutyric Acid-ergic Agonist Start: 06-28-2024 End: 07-28-2024 zolpidem (Ambien) 10 MG tablet Indications: Primary insomnia Take 1 tablet (10 mg) by mouth as needed at bedtime for sleep 30 tablet 2 06/28/2024 07/28/2024 Active Start: 11-16-2023 zolpidem (Ambi en) 10 MG tablet Indications: Primary insomnia Take 1 tablet (10 mg) by mouth as needed at bedtime for sleep 30 tablet 11/16/2023 Active Problems Active Problems Problem Classification Problem Date Documented Date Episodic/Chronic Acute myocardial infarction (2 sources) ST elevation (STEMI) myocardial infarction of unspecified site; Translations: [ST elevation (STEMI) myocardial infarction of unspecified site] Onset: 06-17-2024 Chronic Cardiac dysrhythmias (6 sources) Unspecified atrial fibrillation; Translations: [Paroxysmal atrial fibrillation] Onset: 06-17-2024 Chronic Congestive heart failure; nonhypertensive (8 sources) Heart failure, unspecified; Translations: [Chronic systolic (congestive) heart failure] Onset: 06-17-2024 Chronic Coronary atherosclerosis and other heart disease (4 sources) Non-obstructive atherosclerosis of coronary artery; Translations: [Atherosclerotic heart disease of lummi coronary artery without angina pectoris] Onset: 07-04-2024 07-04-2024 Chronic Esophageal disorders (10 sources) Gastroesophageal reflux disease without esophagitis; Translations: [Gastro-esophageal reflux disease without esophagitis] Onset: 09-09-2023 09-09-2023 Chronic Essential hypertension (12 sources) Benign hypertension; Translations: [Essential (primary) hypertension] Onset: 09-09-2023 09-09-2023 Chronic Miscellaneous mental health disorders (8 sources) Primary insomnia; Translations: [Primary insomnia] Onset: 11-16-2023 11-16-2023 Chronic Osteoarthritis (20 sources) Localized, primary osteoarthritis of the shoulder region; Translations: [Primary osteoarthritis, unspecified shoulder] Onset: 09-09-2023 09-09-2023 Chronic Other inflammatory condition of skin (8 sources) Rosacea; Translations: [Rosacea, unspecified] Onset: 09-09-2023 09-09-2023 Chronic Other injuries and conditions due to external causes (1 source) Closed injury of head; Translations: [Closed head injury, initial encounter] Episodic Other injuries and conditions due to external causes (1 source) Abrasion AND/OR friction burn of multiple sites; Translations: [Multiple abrasions] Episodic Other nutritional; endocrine; and metabolic disorders (6 sources) Morbid obesity; Translations: [Morbid (severe) obesity due to excess calories] Onset: 09-09-2023 09-09-2023 Chronic Other nutritional; endocrine; and metabolic disorders (4 sources) Severe obesity; Translations: [Class 3 severe obesity due to excess calories with serious comorbidity and body mass index (BMI) of 50.0 to 59.9 in adult ([facility])] Onset: 09-09-2023 07-04-2024 Chronic Other screening for suspected conditions (not mental disorders or infectious disease) (2 sources) Encounter for screening for malignant neoplasm of prostate; Translations: [Encounter for screening for malignant neoplasm of colon] Onset: 11-27-2021 Episodic Other upper respiratory infections (8 sources) Chronic sinusitis; Translations: [Chronic sinusitis, unspecified] Onset: 04-02-2020 09-09-2023 Chronic Residual codes; unclassified (10 sources) Obstructive sleep apnea syndrome; Translations: [Obstructive sleep apnea (adult) (pediatric)] Onset: 04-02-2020 09-09-2023 Chronic Thyroid disorders (5 sources) Hypothyroidism; Translations: [Hypothyroidism, unspecified] Onset: 06-28-2024 06-28-2024 Chronic Past or Other Problems Problem Classification Problem Date Documented Da te Episodic/Chronic Other gastrointestinal disorders (8 sources) Abdominal bloating; Translations: [Abdominal distension (gaseous)] Onset: 4 Resolved: 5 11-16-2023 Episodic Other nervous system disorders (8 sources) Bad taste in mouth; Translations: [Other disturbances of smell and taste] Onset: 4 Resolved: 5 11-16-2023 Episodic Phlebitis; thrombophlebitis and thromboembolism (8 sources) Thrombophlebitis of superficial vein of left lower limb; Translations: [Phlebitis and thrombophlebitis of superficial vessels of left lower extremity] Onset: 4 09-09-2023 Episodic Residual codes; unclassified (8 sources) Hypersomnia; Translations: [Hypersomnia, unspecified] Onset: 4 Resolved: 4 09-09-2023 Chronic Results Test Name Value Interpretation Reference Range Facility Follow-Upon 06-28-2024 Follow-Up [id number] Chay Allison Jr. 1965 M Date Provider Department Center 06/28/2024 [id number], EHAB BH CARD [facility] Family History Problem Relation Age of Onset Heart failure Father Atrial fibrillation Father Family Status - Relation Status Age at Father Level of Service:11242 [place] OFFICE/OUTPATIENT ESTABLISHED MOD MDM 30 MIN [facility] Documentationon 06-27-2024 Documentation [id number] Chay Allison Jr. 1965 M Date Provider Department Center 06/27/2024 [id number] [facility] No family history on file Reason for Visit and Comments: HF inpatient satisfaction survey sent. [Other] [facility] 36on 06-26-2024 36 DC to home on 06/22/2024 Spoke to pt on 06/26/2024 Meds discussed with pt , no questions Pt is currently admitted at [facility] , thyroid levels off and warning on life vest Pt is aware of follow up appt and he has transportation [facility] 30on 06-22-2024 30 Daily Case Managemen t Update Multidisciplinary rounds have been completed. Barriers to Discharge: Patient is medically ready for discharge. Awaiting lifevest fitting. Monkey Breeder spoke to Mp with Sandeep Rae who reported the patient will be fit around 3 pm today. 1325: Cardiology progress note faxed to Sandeep at [phone]. Diet: Dietary Orders (From admission, onward) Start [...] PT Recommendations: OT Recommendations: New Consults: Normal [facility] BASIC METABOLIC PANELon 06-06 Anion gap [Moles/Vol] 8 mmol/L Normal 7-20 [facility] Comment on above: Performed By: #### L [id number] ####[facility] ([facility])[address] [place] [address] Calcium [Mass/Vol] 8.7 mg/dL Normal 8.6-10.3 [facility] Comment on above: Performed By: #### L [id number] ####[facility] ([facility] [place] [address] Chloride [Moles/Vol] 98 mmol/L Normal 98-107 [facility] Comment on above: Performed By: #### L [id number] ####[facility] [place] [address] CO2 [Moles/Vol] 33 mmol/L High 21-31 [facility] Comment on above: Performed By: #### L [id number] ####[facility] [place] [address] Creatinine [Mass/Vol] 0.99 mg/dL Normal 0.70-1.30 [facility] Comment on above: Performed By: #### L [id number] ####[facility] ([facility])[address] [place] [address] GLOMERULAR FILTRATION RATE ML/MIN/1.73 SQ M.PREDICTED 87.2 mL/min/1.73m*2 Normal >60.0 [facility] Comment on above: Result Comment: The [facility]???s estimated glomerular filtration rate (eGFR) will no [...] of individuals. Performed By: #### L [id number] ####[facility] [place] [address] Glucose [Mass/Vol] 104 mg/dL High 70-100 [facility] Comment on above: Performed By: #### L [id number] ####[facility] [place] [place] [address] Potassium [Moles/Vol] 3.9 mmol/L Normal 3.5-5.1 [facility] Comment on above: Performed By: #### L [id number] ####[facility] [place] [address] Sodium [Moles/Vol] 135 mmol/L Low 136-145 [facility] Comment on above: Performed By: #### L [id number] ####[facility] [place] [address] Urea nitrogen [Mass/Vol] 13 mg/dL Normal 7-25 [facility] Comment on above: Performed By: #### L [id number] ####[facility] [place] [place] [address] UREA NITROGEN/CREATININE (MASS RATIO) IN SER/PLAS 13.1 Normal [facility] Comment on above: Performed By: #### L [id number] ####[facility] [place] [address] CBCon 06-22-2024 Erythrocyte distribution width (RBC) [Ratio] 13.3 % Normal 11.5-15.0 [facility] Comment on above: Performed By: #### L [id number] #### [facility] ([facility]) [address] [place] [address] ERYTHROCYTE MEAN CORPUSCULAR HEMOGLOBIN CONCENTRATION (G/DL) BY AUTOMATED 33.2 g/dL Normal 32.0-35.0 [facility] Comment on above: Performed By: #### L [id number] #### [facility] [address] [place] [id number] Hematocrit (Bld) [Volume fraction] 46.1 % Normal 39.0-55.0 [facility] Comment on above: Performed By: #### L [id number] #### [facility] [address] [place] [id number] Hemoglobin (Bld) [Mass/Vol] 15.3 g/dL Normal 13.0-17.0 [facility] Comment on above: Performed By: #### L [id number] #### [facility] [address] [place] [id number] MCH (RBC) [Entitic mass] 31.0 pg Normal 27.0-33.0 [facility] Comment on above: Performed By: #### L [id number] #### [facility] [address] [place] [id number] MCV (RBC) [Entitic vol] 93.5 fL Normal 82.0-98.0 [facility] Comment on above: Performed By: #### L [id number] #### [facility]) [address] [place] [id number] PLATELETS (10*3/UL) IN BLOOD AUTOMATED COUNT 261 10*3/uL Normal 150-400 [facility] Comment on above: Performed By: #### L [id number] #### [facility]) [address] [place] [id number] RBC (Bld) [#/Vol] 4.93 10*6/uL Normal 4.20-5.70 [facility] Comment on above: Performed By: #### L [id number] #### [facility] ([facility]) [address] [place] [id number] WBC (Bld) [#/Vol] 11.08 10*3/uL High 4.00-10.60 [facility] Comment on above: Performed By: #### L [id number] #### [facility] ([facility]) [address] [place] [address] MAGNESIUMon 06-22-2024 Magnesium [Mass/Vol] 2.0 mg/dL Normal 1.9-2.7 [facility] Comment on above: Performed By: #### L [id number] ####[facility] ([facility])[address] [place] [id number] NURSNOTEon 06-22-2024 NURSNOTE Pt discharged with a ll belongings, discharge paperwork, and questions answered to pt's satisfaction. [facility] 30on 06-21-2024 30 The patient is Moderately Stable - Low risk of patient condition declining or worsening The patient's goals for the shift include sleep The clinical goals for the shift include stable vs, safety Over the shift, the patient continues to make progress toward the following goals. [facility] 30 The patient is Moderately Stable - Low risk of patient condition declining or worsening The patient's goals for the shift include comfort and rest The clinical goals for the shift include vss and safety [facility] 30 Daily Case Managemen t Update [...] Other Other: Heart Failure 06/21/24 1111 Normal [facility] BASIC METABOLIC PANELon 06-06 Anion gap [Moles/Vol] 7 mmol/L Normal 7-20 [facility] Comment on above: Performed By: #### L [id number] ####[facility] [place] [address] Calcium [Mass/Vol] 8.6 mg/dL Normal 8.6-10.3 [facility] Comment on above: Performed By: #### L [id number] ####[facility])[address] [place] [address] Chloride [Moles/Vol] 98 mmol/L Normal 98-107 [facility] Comment on above: Performed By: #### L [id number] ####[facility] [place] [address] CO2 [Moles/Vol] 36 mmol/L High 21-31 [facility] Comment on above: Performed By: #### L [id number] ####[facility] [place] [address] Creatinine [Mass/Vol] 0.99 mg/dL Normal 0.70-1.30 [facility] Comment on above: Performed By: #### L [id number] ####[facility])[address] [place] [address] GLOMERULAR FILTRATION RATE ML/MIN/1.73 SQ M.PREDICTED 87.2 mL/min/1.73m*2 Normal >60.0 [facility] Comment on above: Result Comment: The [facility]???s estimated glomerular filtration rate (eGFR) will no [...] of individuals. Performed By: #### L [id number] ####[facility])[address] [place] [address] Glucose [Mass/Vol] 110 mg/dL High 70-100 [facility] Comment on above: Performed By: #### L [id number] ####[facility] [place] [address] Potassium [Moles/Vol] 3.8 mmol/L Normal 3.5-5.1 [facility] Comment on above: Performed By: #### L [id number] ####[facility])[address] [place] [address] Sodium [Moles/Vol] 137 mmol/L Normal 136-145 [facility] Comment on above: Performed By: #### L [id number] ####[facility] [place] [address] Urea nitrogen [Mass/Vol] 13 mg/dL Normal 7-25 [facility] Comment on above: Performed By: #### L [id number] ####[facility])[address] [place] [address] UREA NITROGEN/CREATININE (MASS RATIO) IN SER/PLAS 13.1 Normal [facility] Comment on above: Performed By: #### L [id number] ####[facility])[address] [place] [address] CBCon 06-21-2024 Erythrocyte distribution width (RBC) [Ratio] 13.2 % Normal 11.5-15.0 [facility] Comment on above: Performed By: #### L [id number] #### [facility]) [address] [place] [address] ERYTHROCYTE MEAN CORPUSCULAR HEMOGLOBIN CONCENTRATION (G/DL) BY AUTOMATED 32.9 g/dL Normal 32.0-35.0 [facility] Comment on above: Performed By: #### L [id number] #### [facility] [address] [place] [id number] Hematocrit (Bld) [Volume fraction] 43.2 % Normal 39.0-55.0 [facility] Comment on above: Performed By: #### L [id number] #### [facility]) [address] [place] [id number] Hemoglobin (Bld) [Mass/Vol] 14.2 g/dL Normal 13.0-17.0 [facility] Comment on above: Performed By: #### L [id number] #### [facility] [address] [place] [id number] MCH (RBC) [Entitic mass] 30.9 pg Normal 27.0-33.0 [facility] Comment on above: Performed By: #### L [id number] #### [facility] [address] [place] [id number] MCV (RBC) [Entitic vol] 94.1 fL Normal 82.0-98.0 [facility] Comment on above: Performed By: #### L [id number] #### [facility] [address] [place] [id number] PLATELETS (10*3/UL) IN BLOOD AUTOMATED COUNT 247 10*3/uL Normal 150-400 [facility] Comment on above: Performed By: #### L [id number] #### [facility] [address] [place] [address] RBC (Bld) [#/Vol] 4.59 10*6/uL Normal 4.20-5.70 [facility] Comment on above: Performed By: #### L [id number] #### [facility] [address] [place] [id number] WBC (Bld) [#/Vol] 8.62 10*3/uL Normal 4.00-10.60 [facility] Comment on above: Performed By: #### L [id number] #### [facility] ([facility]) [address] [place] [address] CONSULTon 06-21-2024 CONSULT Adult Nutrition Assessment: Name: Chay Allison Jr. Date: 1965 Date of Visit: 06/21/24 Admission Dx: Heart failure (CMS/HCC) [I50.9] Reason for assessment: MD referral (HF [...] 156 kg office visit 11/16/23 165 kg [facility] medicine 2020 160.6 kg ED IBW: 64.5 [...] of Nutrition and Dietetics (AND) and the [place] Society of Enteral and Parenteral Nutrition (ASPEN). [...] To reach the Clinical Dietitian, please utilize [employer] chat Tuesday-Tuesday from 8AM-4PM or call extension [phone]. For weekends (Tuesday-Tuesday) and hols, the Clinical Dietitian can be reached via pager ([phone]) from 9AM-3PM. The Clinical Nutrition Department is unable to respond to [employer] chat messages on Sundays and . Normal [facility] T4, FREEon 06-21-2024 THYROXINE (T4) FREE (NG/DL) IN SER/PLAS 0.94 ng/dL Normal 0.71-1.85 [facility] Comment on above: Performed By: #### L [id number] #### [facility] ([facility]) [address] [place] [address] TSH3 REFLEX TO FT4on 025 THYROTROPIN (MIU/L) IN SER/PLAS BY DETECTION LIMIT <= 0.05 MIU/L 6.21 mIU/L High 0.34-5.60 [facility] Comment on above: Performed By: #### L [id number] ####[facility] ([facility])[address] [place] [address] 30on 06-20-2024 30 The patient is Moderately Stable - Low risk of patient condition declining or worsening The patient's goals for the shift include comfort and rest The clinical goals for the shift include vss and safety Over the shift, the patient continued to make progress toward the following goals. Normal [facility] 30 Problem: Respiratory - Adult Goal: Achieves optimal ventilation and oxygenation Outcome: Progressing Problem: Cardiovascular - Adult Goal: Maintains optimal cardiac output and hemodynamic stability Outcome: Progressing Flowsheets (Taken 06/20/2024 0749) Maintains optimal cardiac output and hemodynamic stability: [...] goals for the shift include VSS Normal [facility] APTTon 06-20-2024 ACTIVATED PARTIAL THROMBOPLASTIN TIME IN PPP BY COAGULATION ASSAY 31.2 Seconds Normal 25.0-35.0 [facility] Comment on above: Order Comment: Check aPTT every 6 hours while on heparin infusion, or per protocol. Result Comment: Clin ical significance of the APTT is questionable in the presence of heparin. Performed By: #### L [id number] ####[facility] ([facility])[address] [place] [address] ACTIVATED PARTIAL THROMBOPLASTIN TIME IN PPP BY COAGULATION ASSAY 31.6 Seconds Normal 25.0-35.0 [facility] Comment on above: Order Comment: Check aPTT every 6 hours while on heparin infusion, or per protocol. Result Comment: Clin ical significance of the APTT is questionable in the presence of heparin. Performed By: #### L [id number] ####[facility] ([facility])[address] [place] [address] BASIC METABOLIC PANELon 06-06 Anion gap [Moles/Vol] 8 mmol/L Normal 7-20 [facility] Comment on above: Performed By: #### L [id number] #### [facility] ([facility]) [address] [place] [address] Calcium [Mass/Vol] 8.6 mg/dL Normal 8.6-10.3 [facility] Comment on above: Performed By: #### L [id number] #### [facility] ([facility]) [address] [place] [address] Chloride [Moles/Vol] 100 mmol/L Normal 98-107 [facility] Comment on above: Performed By: #### L [id number] #### [facility] ([facility]) [address] [place] [address] CO2 [Moles/Vol] 34 mmol/L High 21-31 [facility] Comment on above: Performed By: #### L [id number] #### [facility] ([facility]) [address] [place] [address] Creatinine [Mass/Vol] 1.04 mg/dL Normal 0.70-1.30 [facility] Comment on above: Performed By: #### L [id number] #### [facility] ([facility]) [address] [place] [address] GLOMERULAR FILTRATION RATE ML/MIN/1.73 SQ M.PREDICTED 82.2 mL/min/1.73m*2 Normal >60.0 [facility] Comment on above: Result Comment: The [facility]???s estimated glomerular filtration rate (eGFR) will no [...] individuals. Performed By: #### L [id number] #### [facility] ([facility]) [address] [place] [address] Glucose [Mass/Vol] 122 mg/dL High 70-100 [facility] Comment on above: Performed By: #### L [id number] #### [facility] ([facility]) [address] [place] [id number] Potassium [Moles/Vol] 4.2 mmol/L Normal 3.5-5.1 [facility] Comment on above: Performed By: #### L [id number] #### [facility] [address] [place] [id number] Sodium [Moles/Vol] 138 mmol/L Normal 136-145 [facility] Comment on above: Performed By: #### L [id number] #### [facility] [address] [place] [address] Urea nitrogen [Mass/Vol] 13 mg/dL Normal 7-25 [facility] Comment on above: Performed By: #### L [id number] #### [facility] ([facility]) [address] [place] [address] UREA NITROGEN/CREATININE (MASS RATIO) IN SER/PLAS 12.5 Normal [facility] Comment on above: Performed By: #### L [id number] #### [facility] ([facility] [address] [place] [id number] CBCon 06-20-2024 Erythrocyte distribution width (RBC) [Ratio] 13.2 % Normal 11.5-15.0 [facility] Comment on above: Performed By: #### L [id number] ####[facility] ([facility])[address] [place] [address] ERYTHROCYTE MEAN CORPUSCULAR HEMOGLOBIN CONCENTRATION (G/DL) BY AUTOMATED 31.3 g/dL Low 32.0-35.0 [facility] Comment on above: Performed By: #### L [id number] ####[facility] ([facility])[address] [place] [address] Hematocrit (Bld) [Volume fraction] 42.8 % Normal 39.0-55.0 [facility] Comment on above: Performed By: #### L [id number] ####[facility] ([facility] [place] [id number] Hemoglobin (Bld) [Mass/Vol] 13.4 g/dL Normal 13.0-17.0 [facility] Comment on above: Performed By: #### L [id number] ####[facility] ([facility])[address] [place] [id number] MCH (RBC) [Entitic mass] 30.7 pg Normal 27.0-33.0 [facility] Comment on above: Performed By: #### L [id number] ####[facility] ([facility])[address] [place] [id number] MCV (RBC) [Entitic vol] 98.2 fL High 82.0-98.0 [facility] Comment on above: Performed By: #### L [id number] ####[facility] ([facility])[address] [place] [id number] PLATELETS (10*3/UL) IN BLOOD AUTOMATED COUNT 247 10*3/uL Normal 150-400 [facility] Comment on above: Performed By: #### L [id number] ####[facility] ([facility])[address] [place] [id number] RBC (Bld) [#/Vol] 4.36 10*6/uL Normal 4.20-5.70 [facility] Comment on above: Performed By: #### L [id number] ####[facility] ([facility])[address] [place] [id number] WBC (Bld) [#/Vol] 7.77 10*3/uL Normal 4.00-10.60 [facility] Comment on above: Performed By: #### L [id number] ####[facility])[address] [place] [id number] MAGNESIUMon 06-20-2024 Magnesium [Mass/Vol] 1.9 mg/dL Normal 1.9-2.7 [facility] Comment on above: Performed By: #### L [id number] ####[facility] ([facility])[address] [place] [address] 30on 06-19-2024 30 The patient is Moderately [...] for values outside of normal range Normal [facility] 30 Daily Case Managemen t Update Multidisciplinary [...] appropriate for patient?: Yes New Consults: Normal [facility] 30 Problem: Respiratory - Adult Goal: Achieves [...] the shift include VSS, hemodynamic stability Normal [facility] 30 The patient is Moderately Stable - [...] labs for bleeding or clotting disorders Normal [facility] APTTon 06-19-2024 ACTIVATED PARTIAL THROMBOPLASTIN TIME IN PPP BY COAGULATION ASSAY 29.8 Seconds Normal 25.0-35.0 [facility] Comment on above: Order Comment: Check aPTT every 6 hours while on heparin infusion, or per protocol. Result Comment: Clin ical significance of the APTT is questionable in the presence of heparin. Performed By: #### L [id number] #### [facility] ([facility]) [address] [place] [address] ACTIVATED PARTIAL THROMBOPLASTIN TIME IN PPP BY COAGULATION ASSAY 126.6 Seconds High 25.0-35.0 [facility] Comment on above: Order Comment: Check aPTT every 6 hours while on heparin infusion, or per protocol. Result Comment: Clin ical significance of the APTT is questionable in the presence of heparin. Performed By: #### L [id number] #### [facility] ([facility]) [address] [place] [address] ACTIVATED PARTIAL THROMBOPLASTIN TIME IN PPP BY COAGULATION ASSAY 64.7 Seconds High 25.0-35.0 [facility] Comment on above: Order Comment: Check aPTT every 6 hours while on heparin infusion, or per protocol. Result Comment: Clin ical significance of the APTT is questionable in the presence of heparin. Performed By: #### L [id number] ####[facility] ([facility])[address] [facility] [place] [address] BASIC METABOLIC PANELon 06-06 Anion gap [Moles/Vol] 8 mmol/L Normal 7-20 [facility] Comment on above: Performed By: #### L [id number] #### [facility] ([facility]) [address] [place] [address] Calcium [Mass/Vol] 9.2 mg/dL Normal 8.6-10.3 [facility] Comment on above: Performed By: #### L [id number] #### [facility] ([facility]) [address] [place] [address] Chloride [Moles/Vol] 98 mmol/L Normal 98-107 [facility] Comment on above: Performed By: #### L [id number] #### [facility] ([facility]) [address] [place] [address] CO2 [Moles/Vol] 37 mmol/L High 21-31 [facility] Comment on above: Performed By: #### L [id number] #### [facility] ([facility]) [address] [place] [address] Creatinine [Mass/Vol] 1.12 mg/dL Normal 0.70-1.30 [facility] Comment on above: Performed By: #### L [id number] #### [facility] ([facility]) [address] [place] [address] GLOMERULAR FILTRATION RATE ML/MIN/1.73 SQ M.PREDICTED 75.2 mL/min/1.73m*2 Normal >60.0 [facility] Comment on above: Result Comment: The [facility]???s estimated glomerular filtration rate (eGFR) will no [...] group of individuals. Performed By: #### L [id number] #### [facility] ([facility]) [address] [place] [address] Glucose [Mass/Vol] 115 mg/dL High 70-100 [facility] Comment on above: Performed By: #### L [id number] #### [facility] ([facility]) [address] [place] [address] Potassium [Moles/Vol] 4.1 mmol/L Normal 3.5-5.1 [facility] Comment on above: Performed By: #### L [id number] #### [facility] ([facility]) [address] [place] [address] Sodium [Moles/Vol] 139 mmol/L Normal 136-145 [facility] Comment on above: Performed By: #### L [id number] #### [facility] ([facility]) [address] [place] [address] Urea nitrogen [Mass/Vol] 16 mg/dL Normal 7-25 [facility] Comment on above: Performed By: #### L [id number] #### [facility] ([facility]) [address] [place] [address] UREA NITROGEN/CREATININE (MASS RATIO) IN SER/PLAS 14.3 Normal [facility] Comment on above: Performed By: #### L [id number] #### [facility] ([facility]) [address] [place] [address] CBCon 06-19-2024 Erythrocyte distribution width (RBC) [Ratio] 13.6 % Normal 11.5-15.0 [facility] Comment on above: Performed By: #### L [id number] #### [facility] ([facility]) [address] [address] ERYTHROCYTE MEAN CORPUSCULAR HEMOGLOBIN CONCENTRATION (G/DL) BY AUTOMATED 31.4 g/dL Low 32.0-35.0 [facility] Comment on above: Performed By: #### L [id number] #### [facility] ([facility]) [address] [address] Hematocrit (Bld) [Volume fraction] 44.9 % Normal 39.0-55.0 [facility] Comment on above: Performed By: #### L [id number] #### [facility] ([facility]) [address] [address] Hemoglobin (Bld) [Mass/Vol] 14.1 g/dL Normal 13.0-17.0 [facility] Comment on above: Performed By: #### L [id number] #### [facility] ([facility]) [address] [address] MCH (RBC) [Entitic mass] 30.7 pg Normal 27.0-33.0 [facility] Comment on above: Performed By: #### L [id number] #### [facility] ([facility]) [address] [place] [address] MCV (RBC) [Entitic vol] 97.8 fL Normal 82.0-98.0 [facility] Comment on above: Performed By: #### L [id number] #### [facility] ([facility]) [address] [place] [address] PLATELETS (10*3/UL) IN BLOOD AUTOMATED COUNT 286 10*3/uL Normal 150-400 [facility] Comment on above: Performed By: #### L [id number] #### [facility] ([facility]) [address] [place] [address] RBC (Bld) [#/Vol] 4.59 10*6/uL Normal 4.20-5.70 [facility] Comment on above: Performed By: #### L [id number] #### [facility] ([facility]) [address] [place] [address] WBC (Bld) [#/Vol] 10.30 10*3/uL Normal 4.00-10.60 [facility] Comment on above: Performed By: #### L [id number] #### [facility] ([facility]) [address] [place] [address] HPon 06-19-2024 HP H&P reviewed. The patient was examined and there are no changes to the H&P. Discussed risks, benefits, and alternative therapies with the patient, he understands and willing to proceed with RHC/coronary angiogram and possible PCI. Sabine Bernard MD PGY-7 Interventional [place] Operator Normal [facility] TROPONIN Ion 06-19-2024 Troponin I.cardiac [Mass/Vol] 0.08 ng/mL High 0.00-0.04 [facility] Comment on above: Performed By: #### L [id number] #### [facility] ([facility]) [address] [place] [address] 30on 06-18-2024 30 Daily Case Managemen t Update Multidisciplinary rounds have been completed. Barriers to Discharge: Patient presented from [facility] needing higher level of care for [...] appropriate for patient?: Yes New Consults: Normal [facility] 30 The patient is Moderately Stable - [...] Goal: Maintains hematologic stability Outcome: Progressing Normal [facility] 30 The patient is Moderately Stable - Low risk of patient condition declining or worsening The patient's goals for the shift include The clinical goals for the shift include VSS Problem: Respiratory - Adult Goal: Achieves optimal ventilation and oxygenation Outcome: Progressing Flowsheets (Taken 06/17/2024 2230) Achieves optimal ventilation and oxygenation: Assess for [...] labs for bleeding or clotting disorders Normal [facility] APTTon 06-18-2024 ACTIVATED PARTIAL THROMBOPLASTIN TIME IN PPP BY COAGULATION ASSAY 56.7 Seconds High 25.0-35.0 [facility] Comment on above: Order Comment: Check aPTT every 6 hours while on heparin infusion, or per protocol. Result Comment: Clin ical significance of the APTT is questionable in the presence of heparin. Performed By: #### L [id number] #### [facility] ([facility]) [address] [place] [address] B-TYPE NATRIURETIC PEPTIDEon 06-18-2024 Natriuretic peptide B (Bld) [Mass/Vol] 309 pg/mL High 0-100 [facility] Comment on above: Performed By: #### L [id number] ####[facility] ([facility])[address] [place] [address] CONSULTon 06-18-2024 CONSULT -- Attestation signed by [...] Note Reason for Consult: Afib, HFrEF HPI: Chay Allison Jr. is a 58 y.o. male with a past medical history significant for hypertension, [place], morbid obesity, family history of CAD. Patient was a transfer from [facility] for evaluation for coronary angiogram after he [...] extremity edema, (more content not included)... Normal [facility] HEMOGLOBIN A1Con 06-18-2024 Glucose [Mass/Vol] 128 mg/dL Normal [facility] Comment on above: Performed By: #### L [id number] #### [facility] ([facility]) [address] [place] [address] HbA1c (Bld) [Mass fraction] 6.1 % High 4.0-6.0 [facility] Comment on above: Performed By: #### L [id number] #### [facility] ([facility]) [address] [place] [address] HPon 06-18-2024 HP -- Attestation signed by [...] Note Reason for Consult: Afib, HFrEF HPI: Chay Allison Jr. is a 58 y.o. male with a past medical history significant for hypertension, [place], morbid obesity, family history of CAD. Patient was a transfer from [facility] for evaluation for coronary angiogram after he [...] extremity edema, (more content not included)... Normal [facility] LIPID PANELon 06-18-2024 CHOL/HDL 3.8 mg/dL Normal [facility] Comment on above: Performed By: #### L [id number] #### [facility] ([facility]) [address] [place] [address] Cholesterol [Mass/Vol] 120 mg/dL Normal 120-200 [facility] Comment on above: Performed By: #### L [id number] #### [facility] ([facility]) [address] [place] [address] Magnesium [Mass/Vol] 49 mg/dL Normal 40-149 [facility] Comment on above: Result Comment: TRIG LYCERIDE REFERENCE RANGE: 20 YEARS AND OLDER CARDIOVASCULAR RISK LESS THAN 150 mg/dL LOW RISK 150 TO 199 mg/dL BORDERLINE RISK 200 mg/dL AND GREATER HIGH RISK Performed By: #### L [id number] #### [facility] ([facility]) [address] [place] [address] Magnesium [Mass/Vol] 78 mg/dL Normal 0-160 [facility] Comment on above: Performed By: #### L [id number] #### [facility] ([facility]) [address] [place] [address] Magnesium [Mass/Vol] 32 mg/dL Normal 23-92 [facility] Comment on above: Performed By: #### L [id number] #### [facility] ([facility]) [address] [facility] [place] [address] NON HDL CHOL. (LDL+VLDL) 88 Normal [facility] Comment on above: Performed By: #### L [id number] #### [facility] ([facility]) [address] [place] [address] TOTAL VLDL-C 10 mg/dL Normal 0-40 [facility] Comment on above: Performed By: #### L [id number] #### [facility] ([facility]) [address] [place] [address] PLATELET COUNTon 06-18-2024 PLATELETS (10*3/UL) IN BLOOD AUTOMATED COUNT 267 10*3/uL Normal 150-400 [facility] Comment on above: Performed By: #### L [id number] ####[facility] ([facility])[address] [place] [address] TROPONIN Ion 06-18-2024 Troponin I.cardiac [Mass/Vol] 0.10 ng/mL High 0.00-0.04 [facility] Comment on above: Performed By: #### L [id number] #### [facility] ([facility]) [address] [place] [address] APTTon 06-17-2024 ACTIVATED PARTIAL THROMBOPLASTIN TIME IN PPP BY COAGULATION ASSAY 30.6 Seconds Normal 25.0-35.0 [facility] Comment on above: Result Comment: Clin ical significance of the APTT is questionable in the presence of heparin. Performed By: #### L [id number] #### [facility] ([facility]) [address] [place] [address] CBC WITH AUTO DIFFERENTIALon 06-17-2024 Basophils (Bld) [#/Vol] 0.07 10*3/uL Normal 0.00-0.20 [facility] Comment on above: Performed By: #### L [id number] #### [facility] ([facility]) [address] [place] [address] Basophils/100 WBC (Bld) 0.7 % Normal 0.0-1.0 [facility] Comment on above: Performed By: #### L [id number] #### [facility] [address] [place] [address] Eosinophils (Bld) [#/Vol] 0.30 10*3/uL Normal 0.00-0.50 [facility] Comment on above: Performed By: #### L [id number] #### [facility] ([facility]) [address] [place] [address] Eosinophils/100 WBC (Bld) 2.9 % Normal 0.0-6.0 [facility] Comment on above: Performed By: #### L [id number] #### [facility] ([facility]) [address] [place] [address] Erythrocyte distribution width (RBC) [Ratio] 13.6 % Normal 11.5-15.0 [facility] Comment on above: Performed By: #### L [id number] #### [facility] ([facility]) [address] [place] [address] ERYTHROCYTE MEAN CORPUSCULAR HEMOGLOBIN CONCENTRATION (G/DL) BY AUTOMATED 31.4 g/dL Low 32.0-35.0 [facility] Comment on above: Performed By: #### L [id number] #### [facility]) [address] [place] [address] Hematocrit (Bld) [Volume fraction] 45.9 % Normal 39.0-55.0 [facility] Comment on above: Performed By: #### L [id number] #### [facility] ([facility]) [address] [place] [address] Hemoglobin (Bld) [Mass/Vol] 14.4 g/dL Normal 13.0-17.0 [facility] Comment on above: Performed By: #### L [id number] #### [facility] ([facility]) [address] [place] [address] Immature granulocytes (Bld) [#/Vol] 0.03 10*3/uL Normal 0.00-0.20 [facility] Comment on above: Performed By: #### L [id number] #### [facility] [address] [place] [address] Immature granulocytes/100 WBC (Bld) 0.3 % Normal 0.0-1.0 [facility] Comment on above: Performed By: #### L [id number] #### [facility] ([facility]) [address] [place] [address] Lymphocytes (Bld) [#/Vol] 1.64 10*3/uL Normal 1.20-4.00 [facility] Comment on above: Performed By: #### L [id number] #### [facility] ([facility]) [address] [place] [address] Lymphocytes/100 WBC (Bld) 16.0 % Low 20.0-45.0 [facility] Comment on above: Performed By: #### L [id number] #### [facility] ([facility]) [address] [place] [address] MCH (RBC) [Entitic mass] 31.2 pg Normal 27.0-33.0 [facility] Comment on above: Performed By: #### L [id number] #### [facility] [address] [place] [address] MCV (RBC) [Entitic vol] 99.6 fL High 82.0-98.0 [facility] Comment on above: Performed By: #### L [id number] #### [facility] [address] [place] [address] Monocytes (Bld) [#/Vol] 0.70 10*3/uL Normal 0.10-1.00 [facility] Comment on above: Performed By: #### L [id number] #### [facility] ([facility]) [address] [place] [id number] Monocytes/100 WBC (Bld) 6.8 % Normal 5.0-12.0 [facility] Comment on above: Performed By: #### L [id number] #### [facility] ([facility]) [address] [place] [address] Neutrophils (Bld) [#/Vol] 7.49 10*3/uL Normal 1.60-7.60 [facility] Comment on above: Performed By: #### L [id number] #### [facility] ([facility]) [address] [place] [address] Neutrophils/100 WBC (Bld) 73.3 % High 40.0-72.0 [facility] Comment on above: Performed By: #### L [id number] #### [facility] ([facility]) [address] [place] [id number] NRBC (PER 100 WBCS) BY AUTOMATED COUNT 0.0 % Normal 0 [facility] Comment on above: Performed By: #### L [id number] #### [facility] ([facility]) [address] [place] [id number] PLATELETS (10*3/UL) IN BLOOD AUTOMATED COUNT 288 10*3/uL Normal 150-400 [facility] Comment on above: Performed By: #### L [id number] #### [facility] [address] [place] [id number] RBC (Bld) [#/Vol] 4.61 10*6/uL Normal 4.20-5.70 [facility] Comment on above: Performed By: #### L [id number] #### [facility] ([facility]AKER) [address] [place] [address] WBC (Bld) [#/Vol] 10.23 10*3/uL Normal 4.00-10.60 [facility] Comment on above: Performed By: #### L [id number] #### [facility] ([facility]AKER) [address] [place] [address] COMPREHENSIVE METABOLIC PANE Damaso 06-17-2024 Albumin [Mass/Vol] 3.6 g/dL Normal 3.5-5.7 [facility] Comment on above: Performed By: #### L [id number] #### [facility] ([facility]AK[facility]) [address] [place] [address] ALP [Catalytic activity/Vol] 42 U/L Normal 34-104 [facility] Comment on above: Performed By: #### L [id number] #### [facility] (BEAKER) [address] [place] [address] ALT [Catalytic activity/Vol] 16 U/L Normal 7-52 [facility] Comment on above: Performed By: #### L [id number] #### [facility] (BEAKER) [address] [place] [address] Anion gap [Moles/Vol] 9 mmol/L Normal 7-20 [facility] Comment on above: Performed By: #### L [id number] #### [facility] (BEAKER) [address] [place] [address] AST [Catalytic activity/Vol] 20 U/L Normal 13-39 [facility] Comment on above: Performed By: #### L [id number] #### [facility] ([facility]ER) [address] [place] [address] Bilirubin [Mass/Vol] 0.5 mg/dL Normal 0.3-1.0 [facility] Comment on above: Performed By: #### L [id number] #### [facility] (BEAKER) [address] [place] [address] Calcium [Mass/Vol] 9.0 mg/dL Normal 8.6-10.3 [facility] Comment on above: Performed By: #### L [id number] #### [facility] (BEAKER) [address] [place] [address] Chloride [Moles/Vol] 99 mmol/L Normal 98-107 [facility] Comment on above: Performed By: #### L [id number] #### [facility] [address] [place] [address] CO2 [Moles/Vol] 36 mmol/L High 21-31 [facility] Comment on above: Performed By: #### L [id number] #### [facility] ([place]) [address] [place] [address] Creatinine [Mass/Vol] 1.17 mg/dL Normal 0.70-1.30 [facility] Comment on above: Performed By: #### L [id number] #### [facility] ([place]) [address] [place] [address] GLOMERULAR FILTRATION RATE ML/MIN/1.73 SQ M.PREDICTED 71.4 mL/min/1.73m*2 Normal >60.0 [facility] Comment on above: Result Comment: [facility]???s estimated glomerular filtration rate (eGFR) will no [...] individuals. Performed By: #### L [id number] #### [facility] ([place]) [address] [place] [address] Glucose [Mass/Vol] 90 mg/dL Normal 70-100 [facility] Comment on above: Performed By: #### L [id number] #### [facility] ([place]) [address] [place] [address] Potassium [Moles/Vol] 3.6 mmol/L Normal 3.5-5.1 [facility] Comment on above: Performed By: #### L [id number] #### [facility] ([place]) [address] [place] [address] Protein [Mass/Vol] 6.8 g/dL Normal 6.0-8.3 [facility] Comment on above: Performed By: #### L [id number] #### [facility] ([place]) [address] [place] [id number] Sodium [Moles/Vol] 140 mmol/L Normal 136-145 [facility] Comment on above: Performed By: #### L [id number] #### [facility] ([place]) [address] [place] [id number] Urea nitrogen [Mass/Vol] 14 mg/dL Normal 7-25 [facility] Comment on above: Performed By: #### L [id number] #### [facility] ([place]) [address] [place] [address] UREA NITROGEN/CREATININE (MASS RATIO) IN SER/PLAS 12.0 Normal [facility] Comment on above: Performed By: #### L [id number] #### [facility] ([place]) [address] [place] [id number] MAGNESIUMon 06-17-2024 Magnesium [Mass/Vol] 1.9 mg/dL Normal 1.9-2.7 [facility] Comment on above: Performed By: #### L [id number] ####[facility] ([place])[address] [place] [id number] PHOSPHORUSon 06-17-2024 Magnesium [Mass/Vol] 2.7 mg/dL Normal 2.5-5.0 [facility] Comment on above: Performed By: #### L [id number] ####[facility] ([place])[address] [place] [address] PROTIME-INRon 06-17-2024 INR IN PPP BY COAGULATION ASSAY 1.39 High 0.90-1.10 [facility] Comment on above: Result Comment: [facility] WARFARIN THERAPY CONDITION [...] CHEST 1995;108:231S-246S. Performed By: #### L [id number] ####[facility] (BEAKER)[address] [place] [address] PROTHROMBIN TIME (PT) IN PPP BY COAGULATION ASSAY 17.0 Seconds High 12.3-14.8 [facility] Comment on above: Performed By: #### L [id number] ####[facility] (BEAKER)[address] [place] [address] Damaso 12-23-2023 L Specimen: [id number] Received: 12/23/23 Status: ANTONINO Galan Num: [id number] Spec Type: Surgical Subm Dr: Alix Milligan [...] Age/ Patient Sex Location Account Attending Physician Chay Allison JR 58/M [id number] Alix Milligan MD SPEC NUM: [id number] RECD: 12/23/23 STATUS: ANTONINO GALAN NUM: [id number] LAMINE: 12/23/23- SUBM DR: Alix Milligan MD ENTERED: 12/23/[address] [facility] [address]: SPEC TYPE: Surgical DEPT: S ORDERED: [...] Polyps, rectum, biopsy: Hyperplastic polyps. ---- Specimen: [id number] Received: 12/23/23 Status: ANTONINO Adama Num: [id number] Spec Type: Surgical Subm Dr: Alix Milligan MD Tissues: A GASTRIC FOR HP (GASTRIC BX R/O H.PYLORI) B Esophagus Biopsy (ESOPHAGUS BX R/ BARRETTS) C Colon Biopsy (CECUM POLYP) D Colon Biopsy (ASCENDING POLYP X2) E Colon Biopsy (HEPATIC FLEXURE) F Colon Biopsy (LIPOMA BX SIGMOID) G Colon Biopsy (POLYP RECTAL X2) Procedures: HE/14, Gross/Micro L4/7, H PYLORI ---- Patient: Chay Allison JR [id number] (Continued) ---- Specimen: [id number] Received: 12/23/23 (Continued) Signed (signature on file) Marcy Ruiz MD 12/26/23 1618 ---- Specimen: [id number] Received: 12/23/23 Status: ANTONINO Galan Num: [id number] Spec Type: Surgical Subm Dr: Alix Milligan MD Tissues: A GASTRIC FOR HP (GASTRIC BX R/O H.PYLORI) B Esophagus Biopsy (ESOPHAGUS BX R/ BARRETTS) C Colon Biopsy (CECUM POLYP) D Colon Biopsy (ASCENDING POLYP X2) E Colon Biopsy (HEPATIC FLEXURE) F Colon Biopsy (LIPOMA BX SIGMOID) G Colon Biopsy (POLYP RECTAL X2) Procedures: /, Gross/Micro L4/7, H PYLORI ---- Patient: Chay Allison JR [id number] (Continued) ---- Specimen: [id number] Received: 12/23/23-1233 (Continued) Clinical Information R/o h. pylori and [...] cm, entirely submitted in G1. CPT Codes [id number] ---- ---- Specimen: [id number] Received: 12/23/23 Status: ANTONINO Galan Num: [id number] Spec Type: Surgi (more content not included)... Normal [facility] CBC AUTO DIFFon 11-25-2021 BASO # 0.1 103/ul Normal 0.0-0.1 [facility] Comment on above: Performed By: #### C BC #### [facility] [address] [place] [address] Dr. Nate Trotter Basophils/100 WBC (Bld) 0.5 % Normal 0.2-2.0 [facility] Comment on above: Performed By: #### C BC #### [facility] [address] [place] [address] Dr. Nate Trotter EO # 0.2 103/ul Normal 0.0-0.7 [facility] Comment on above: Performed By: #### C BC #### [facility] [address] [place] [address] Dr. Nate Trotter Eosinophils/100 WBC (Bld) 1.5 % Normal 0.9-7.0 [facility] Comment on above: Performed By: #### C BC #### [facility] [address] [place] [address] Dr. Nate Trotter Erythrocyte distribution width (RBC) [Ratio] 13.3 % Normal 11.0-15.0 [facility] Comment on above: Performed By: #### C BC #### [facility] [address] [place] [address] Dr. Nate Trotter Hematocrit (Bld) [Volume fraction] 48.7 % Normal 42.0-54.0 [facility] Comment on above: Performed By: #### C BC #### [facility] [address] [place] [address] Dr. Nate Trotter Hemoglobin (Bld) [Mass/Vol] 16.0 g/dL Normal 14.0-18.0 [facility] Comment on above: Performed By: #### C BC #### [facility] [address] [place] [address] Dr. Nate Trotter IG # 0.05 10e3/ul Critically high 0.00-0.03 [facility] Comment on above: Performed By: #### C BC #### [facility] [address] [place] [address] Dr. Nate Trotter IG % 0.5 % Normal 0.0-0.5 [facility] Comment on above: Performed By: #### C BC #### [facility] [address] [place] [address] Dr. Nate Trotter LYMPH # 1.8 103/ul Normal 1.2-3.8 [facility] Comment on above: Performed By: #### C BC #### [facility] [address] [place] [address] Dr. Nate Trotter Lymphocytes/100 WBC (Bld) 19.0 % Critically low 20.5-60.0 [facility] Comment on above: Performed By: #### C BC #### [facility] [address] [place] [address] Dr. Nate Trotter MANUAL DIFF REQ NO Normal [facility] Comment on above: Performed By: #### C BC #### [facility] [address] [place] [address] Dr. Nate Trotter MCH (RBC) [Entitic mass] 30.9 pg Normal 25.9-34.0 [facility] Comment on above: Performed By: #### C BC #### [facility] [address] [place] [address] Dr. Nate Trotter MCHC (RBC) [Mass/Vol] 32.9 g/dL Normal 29.9-35.2 [facility] Comment on above: Performed By: #### C BC #### [facility] [address] [place] [address] Dr. Nate Trotter MCV (RBC) [Entitic vol] 94.0 fL Normal 80.0-94.0 [facility] Comment on above: Performed By: #### C BC #### [facility] [address] [place] [address] Dr. Nate Trotter MONO # 0.7 103/ul Normal 0.3-0.8 [facility] Comment on above: Performed By: #### C BC #### [facility] [address] [place] [address] Dr. Nate Trotter Monocytes/100 WBC (Bld) 7.2 % Normal 1.7-12.0 [facility] Comment on above: Performed By: #### C BC #### [facility] [address] [place] [address] Dr. Nate Trotter NEUT # 6.9 103/ul Critically high 1.4-6.5 [facility] Comment on above: Performed By: #### C BC #### [facility] [address] [place] [address] Dr. Nate Trotter Neutrophils/100 WBC (Bld) 71.3 % Normal 43.0-75.0 [facility] Comment on above: Performed By: #### C BC #### [facility] [address] [place] [address] Dr. Nate Trotter Platelet mean volume (Bld) [Entitic vol] 9.4 fL Critically low 9.5-13.5 [facility] Comment on above: Performed By: #### C BC #### [facility] [address] [place] [address] Dr. Nate Trotter PLT 240 103/ul Normal 150-450 [facility] Comment on above: Performed By: #### C BC #### [facility] [address] [place] [address] Dr. Nate Trotter RBC 5.18 106/ul Normal 4.70-6.10 [facility] Comment on above: Performed By: #### C BC #### [facility] [address] [place] [address] Dr. Nate Trotter WBC 9.7 103/ul Normal 4.0-11.0 [facility] Comment on above: Performed By: #### C BC #### [facility] [address] [place] [address] Dr. Nate Trotter GLYCOHEMOGLOBIN A1Con 2021 ADA RECOMMENDATION SEE BELOW Normal [facility] Comment on above: Result Comment: ADA RECOMMENDED LIMIT 4.0 - 6.0 ADA THERAPEUTIC TARGET < 7.0 ACTION SUGGESTED > 7.0 Performed By: #### A 1C #### [facility] [address] [place] [address] Dr. Nate Trotter Glucose [Mass/Vol] 111 mg/dL Normal [facility] Comment on above: Performed By: #### A 1C #### [facility] [address] [place] [address] Dr. Nate Trotter HbA1c (Bld) [Mass fraction] 5.5 % Normal 4.5-6.2 [facility] Comment on above: Performed By: #### A 1C #### [facility] [address] [place] [address] Dr. Nate Trotter LIPID PROFILEon 11-25-2021 CHOL-HDL RATIO NORM SEE BELOW Normal [facility] Comment on above: Result Comment: 3.3 - 4.4 LOW RISK 4.4 - 7.1 AVERAGE RISK 7.1 - 11.0 MODERATE RISK >11.0 HIGH RISK Performed By: #### B MP, TSH, LIVER, LIPID #### [facility] [address] [place] [address] Dr. Nate Trotter Cholesterol [Mass/Vol] 116 mg/dL Normal <=200 [facility] Comment on above: Performed By: #### B MP, TSH, LIVER, LIPID #### [facility] [address] [place] [address] Dr. Nate Trotter Cholesterol in HDL [Mass/Vol] 42 mg/dL Normal 40-60 [facility] Comment on above: Performed By: #### B MP, TSH, LIVER, LIPID #### [facility] [address] [address] [address] Nate Trotter Cholesterol in LDL [Mass/Vol] 53.6 mg/dL Normal [facility] Comment on above: Performed By: #### B MP, TSH, LIVER, LIPID #### [facility] [address] [address] [address] Nate Trotter Cholesterol.total/Ch olesterol in HDL [Mass ratio] 2.8 {ratio} Normal [facility] Comment on above: Performed By: #### B MP, TSH, LIVER, LIPID #### [facility] [address] [address] [address] Nate Trotter HDL NORMAL > or = 60 mg/dl - LO W CARDIOVASCULAR RISK <40 mg/dl - HIGH CARDIOVASCULAR RISK Normal [facility] Comment on above: Performed By: #### B MP, TSH, LIVER, LIPID #### [facility] [address] [address] [address] Nate Trotter LDL CALC NORMAL SEE BELOW Normal [facility] Comment on above: Result Comment: <100 mg/dl OPTIMAL 100 - 129 mg/dl NEAR OR ABOVE OPTIMAL 130 - 159 mg/dl BORDERLINE HIGH 160 - 189 mg/dl HIGH >190 mg/dl VERY HIGH Performed By: #### B MP, TSH, LIVER, LIPID #### [facility] [address] [address] [address] Nate Trotter Triglyceride [Mass/Vol] 102 mg/dL Normal <=150 [facility] Comment on above: Performed By: #### B MP, TSH, LIVER, LIPID #### [facility] [address] [address] [address] Nate Trotter VLDL CALC 20.4 mg/dL Normal [facility] Comment on above: Performed By: #### B MP, TSH, LIVER, LIPID #### [facility] [address] [address] [address] Nate Trotter LIVER PROFILEon 11-25-2021 Albumin [Mass/Vol] 3.2 g/dL Critically low 3.4-5.0 [facility] Comment on above: Performed By: #### B MP, TSH, LIVER, LIPID #### [facility] [address] [place] [address] Dr. Nate Trotter Albumin/Globulin [Mass ratio] 0.8 {ratio} Normal [facility] Comment on above: Performed By: #### B MP, TSH, LIVER, LIPID #### [facility] [address] [place] [address] Dr. Nate Trotter ALP [Catalytic activity/Vol] 54 U/L Normal 46-116 [facility] Comment on above: Performed By: #### B MP, TSH, LIVER, LIPID #### [facility] [address] [place] [address] Dr. Nate Trotter ALT [Catalytic activity/Vol] 33 U/L Normal 16-63 [facility] Comment on above: Performed By: #### B MP, TSH, LIVER, LIPID #### [facility] [address] [place] [address] Dr. Nate Trotter AST [Catalytic activity/Vol] 24 U/L Normal 15-37 [facility] Comment on above: Performed By: #### B MP, TSH, LIVER, LIPID #### [facility] [address] [place] [address] Dr. Nate Trotter BILI, CONJUGATED 0.1 mg/dL Normal 0.0-0.2 [facility] Comment on above: Performed By: #### B MP, TSH, LIVER, LIPID #### [facility] [address] [place] [address] Dr. Nate Trotter Bilirubin [Mass/Vol] 0.3 mg/dL Normal 0.2-1.0 [facility] Comment on above: Performed By: #### B MP, TSH, LIVER, LIPID #### [facility] [address] [place] [address] Dr. Nate Trotter Globulin (S) [Mass/Vol] 4.2 g/dL Normal [facility] Comment on above: Performed By: #### B MP, TSH, LIVER, LIPID #### [facility] [address] [place] [address] Dr. Nate Trotter Protein [Mass/Vol] 7.4 g/dL Normal 6.4-8.2 [facility] Comment on above: Performed By: #### B MP, TSH, LIVER, LIPID #### [facility] [address] [place] [address] Dr. Nate Trotter PROF CHEM 8 (BAS METB)on Anion gap [Moles/Vol] 9.3 mmol/L Normal [facility] Comment on above: Performed By: #### B MP, TSH, LIVER, LIPID #### [facility] [address] [place] [address] Dr. Nate Trotter Calcium [Mass/Vol] 9.0 mg/dL Normal 8.5-10.1 [facility] Comment on above: Performed By: #### B MP, TSH, LIVER, LIPID #### [facility] [address] [place] [address] Dr. Nate Trotter Chloride [Moles/Vol] 98 mmol/L Normal 98-107 [facility] Comment on above: Performed By: #### B MP, TSH, LIVER, LIPID #### [facility] [address] [place] [address] Dr. Nate Trotter CO2 [Moles/Vol] 32.7 mmol/L Critically high 21.0-32.0 [facility] Comment on above: Performed By: #### B MP, TSH, LIVER, LIPID #### [facility] [address] [place] [address] Dr. Nate Trotter Creatinine [Mass/Vol] 1.03 mg/dL Normal 0.70-1.30 [facility] Comment on above: Performed By: #### B MP, TSH, LIVER, LIPID #### [facility] [address] [place] [address] Dr. Nate Trotter EGFR-AF ECUADOREAN >60 Normal >=60 [facility] Comment on above: Performed By: #### B MP, TSH, LIVER, LIPID #### [facility] [address] [place] [address] Dr. Nate Trotter EGFR-NON AF ECUADOREAN >60 Normal >=60 [facility] Comment on above: Performed By: #### B MP, TSH, LIVER, LIPID #### [facility] [address] [address] [address] Nate Trotter Glucose [Mass/Vol] 110 mg/dL Critically high 74-106 [facility] Comment on above: Performed By: #### B MP, TSH, LIVER, LIPID #### [facility] [address] [address] [address] Nate Trotter Potassium [Moles/Vol] 4.0 mmol/L Normal 3.5-5.1 [facility] Comment on above: Performed By: #### B MP, TSH, LIVER, LIPID #### [facility] [address] [place] [address] Dr. Nate Trotter Sodium [Moles/Vol] 136 mmol/L Normal 136-145 [facility] Comment on above: Performed By: #### B MP, TSH, LIVER, LIPID #### [facility] [address] [place] [address] Dr. Nate Trotter Urea nitrogen [Mass/Vol] 14.0 mg/dL Normal 7.0-18.0 [facility] Comment on above: Performed By: #### B MP, TSH, LIVER, LIPID #### [facility] [address] [place] [address] Dr. Nate Trotter Urea nitrogen/Creatinine [Mass ratio] 13.6 mg/mg Normal [facility] Comment on above: Performed By: #### B MP, TSH, LIVER, LIPID #### [facility] [address] [place] [address] Dr. Nate Trotter TSHon 11-25-2021 TSH 1.323 uIU/mL Normal 0.358-3.740 [facility] Comment on above: Performed By: #### B MP, TSH, LIVER, LIPID #### [facility] [address] [place] [address] CERVICAL SPINE WO [...] Yuri Bautista MD 04/21/20 Final result Normal [facility] No acute fracture or traumatic malalignment. Degenerative disc disease at C5-C6 and C6-C7 not well assessed due to beam hardening artifact. [facility], [place] EXAMINATION: CT OF T HE CERVICAL SPINE [...] There is no prevertebral soft tissue swelling. [facility] [place] Ryan, Mhpn Incoming Radiant Results From [employer]acs - 04/21/2020 7:26 PM EST EXAMINATION: CT [...] neck pain Reason for Exam: fall of check for [...] well assessed due to beam hardening artifact. [facility] [place] CT HEAD WO CONTRASTon 2019 CT HEAD [...] head injury Reason for Exam: fall of ' check for injuries, lac to top of [...] Neeraj Cash MD 04/21/20 Final result Normal [facility] No acute intracrania l abnormality. Fluid in left maxillary sinus. Correlate for signs of infection [place], [place] EXAMINATION: CT OF T HE HEAD [...] of the visualized skull or soft tissues. [place], [place] Ryan, pn Incoming Radiant Results From [employer] [facility]acs - 04/21/2020 7:21 PM EST EXAMINATION: CT [...] maxillary sinus. Correlate for signs of infection [facility] [place], [place] Vital Signs Date Time Vital Sign Value Performing Clinician Faci lity 07-04-2024 11:01-0500 Body height 167.6 cm Benjy Garcia MD Work Phone: [facility] 07-04-2024 11:01-0500 Body mass index (BMI) [Ratio] 53.42 kg/m2 Benjy Garcia MD Work Phone: [facility] 07-04-2024 11:01-0500 Body temperature 97.81 [degF] Benjy Garcia MD Work Phone: [facility] 07-04-2024 11:01-0500 Body weight 150.14 kg Benjy Garcia MD Work Phone: [facility] 07-04-2024 11:01-0500 Diastolic blood pressure 76 mm[Hg] Benjy Garcia MD Work Phone: [facility] 07-04-2024 11:01-0500 Heart rate 96 /min Benjy Garcia MD Work Phone: [facility] 07-04-2024 11:01-0500 Respiratory rate 18 /min Benjy Garcia MD Work Phone: [facility] 07-04-2024 11:01-0500 SaO2% (BldA) [Mass fraction] 97 % Benjy Garcia MD Work Phone: [facility] 07-04-2024 11:01-0500 Systolic blood pressure 140 mm[Hg] Benjy Garcia MD Work Phone: [facility] 03-16-2024 09:40-0400 Body height 167.6 cm Benjy Garcia MD Work Phone: [facility] 03-16-2024 09:40-0400 Body mass index (BMI) [Ratio] 55.36 kg/m2 Benjy Garcia MD Work Phone: [facility] 03-16-2024 09:40-0400 Body temperature 98.01 [degF] Benjy Garcia MD Work Phone: [facility] 03-16-2024 09:40-0400 Body weight 155.58 kg Benjy Garcia MD Work Phone: [facility] 03-16-2024 09:40-0400 Diastolic blood pressure 70 mm[Hg] Benjy Garcia MD Work Phone: [facility] 03-16-2024 09:40-0400 Heart rate 84 /min Benjy Garcia MD Work Phone: [facility] 03-16-2024 09:40-0400 Respiratory rate 22 /min Benjy Garcia MD Work Phone: [facility] 03-16-2024 09:40-0400 SaO2% (BldA) [Mass fraction] 94 % Benjy Garcia MD Work Phone: [facility] 03-16-2024 09:40-0400 Systolic blood pressure 136 mm[Hg] Benjy Garcia MD Work Phone: [facility] 12-23-2023 11:26-0400 Diastolic blood pressure 64 mm[Hg] MD Benjy Garcia Work Phone: [facility] 12-23-2023 11:26-0400 Heart rate 80 /min MD Benjy Garcia Work Phone: [facility] 12-23-2023 11:26-0400 Respiratory rate 16 /min MD Benjy Garcia Work Phone: [facility] 12-23-2023 11:26-0400 SaO2% (BldA) [Mass fraction] 96 % MD Benjy Garcia Work Phone: [facility] 12-23-2023 11:26-0400 Systolic blood pressure 118 mm[Hg] MD Benjy Garcia Work Phone: [facility] 12-23-2023 09:190400 Body height 167.64 cm MD Benjy Garcia Work Phone: [facility] 12-23-2023 09:0400 Body weight 149.68 kg MD Benjy Garcia Work Phone: [facility] 04-21-2020 18:32-0500 BMI (Body Mass Index) 57.14 kg/m2 [place] 04-21-2020 18:32-0500 Body Temperature 98.49 [degF] [place], [place] 04-21-2020 18:32-0500 Body weight 160.57 kg [place] 04-21-2020 18:32-0500 BP Diastolic 71 mm[Hg] [place] 04-21-2020 18:32-0500 BP Systolic 159 mm[Hg] [place] 04-21-2020 18:32-0500 Height 167.6 cm [place] 04-21-2020 18:32-0500 Pulse (Heart Rate) 96 /min [place] 04-21-2020 18:32-0500 Pulse Oximetry 95 % [place] 04-21-2020 18:32-0500 Respiratory Rate 20 /min [place], [place] Encounters Encounter Date Encounter Type Care Provider Facility Start: 07-04-2024 End: 07-04-2024 Bamboo flowsheet Benjy Garcia MD Work Phone: [facility] Start: 07-04-2024 End: 07-04-2024 Leaho flowsheet Benjy Garcia MD Work Phone: [facility] Start: 07-04-2024 End: 07-04-2024 Transitional care manage srvc 14 day discharge Benjy Garcia MD Work Phone: [facility] Comment on above: Chronic HFrEF (heart failure with reduced ejection fraction) (CMS/HCC) (Primary Dx); Benign hypertension (CMS/HCC); Paroxysmal atrial fibrillation (CMS/HCC); Adult hypothyroidism (CMS/HCC); Nonobstructive atherosclerosis of coronary artery (CMS/HCC); Obstructive sleep apnea; Class 3 severe obesity due to excess calories with serious comorbidity and body mass index (BMI) of 50.0 to 59.9 in adult (CMS/[facility]); Primary osteoarthritis of both knees Start: 07-04-2024 End: 07-04-2024 ambulatory BENJY GARCIA Not Available Start: 06-28-2024 End: 06-28-[address] [facility] Start: 06-18-2024 Evaluation and management of inpatient [facility] Start: 06-17-2024 End: 06-22-2024 Evaluation and management of inpatient [facility] Start: 06-14-2024 End: 06-14-2024 Bamboo flowsheet Benjy Garcia MD Work Phone: [facility] Start: 06-14-2024 End: 06-14-2024 Bamboo flowsheet Bejny Garcia MD Work Phone: [facility] [...] patient 40-64yrs Benjy Garcia MD Work Phone: [facility] Comment on above: Annual physical exam (Primary Dx); Benign hypertension (CMS/HCC); Primary osteoarthritis of both knees Start: 03-16-2024 End: 03-16-2024 ambulatory BENJY GARCIA Not Available Start: 12-23-2023 Non-patient / Non-visit MD Cintia Garcia Work Phone: [facility] G[facility] Work Phone: Start: 12-23-2023 End: 12-23-2023 Admission to same day surgery center MD Benjy Garcia Work Phone: [facility] Work Phone: Start: 12-23-2023 End: 12-23-2023 ambulatory MD Benjy Garcia Work Phone: [facility] Work Phone: Start: 11-16-2023 End: 11-16-2023 ambulatory BENJY GARCIA Not Available Start: 09-09-2023 End: 09-09-2023 ambulatory BENJY GARCIA Not Available Start: 11-27-2021 Encounter for genera l adult medical examination without abnormal findings DR BENJY GARCIA [facility] Start: 11-25-2021 End: 11-26-[address] BENJY GARCIA Facility:[facility] Start: 11-25-2021 End: 11-26-2021 Encounter for general adult medical examination without abnormal findings DR BENJY GARCIA Facility:[facility] Start: 04-21-2020 End: 04-21-2020 Emergency department patient visit ASHWIN ORLANDO [facility] Start: 04-21-2020 End: 04-21-2020 Emergency department patient visit Ashwin Orlando Work Phone: [facility] Comment on above: Closed head injury, initial encounter (Primary Dx); Multiple abrasions Procedures Date Procedure Procedure Detail Performing Clinician Start: 12-23-2023 Esophagogastroduodenoscopy MD Benjy gallo Work Phone: Start: 12-23-2023 Colonoscopy Benjy Garcia MD Work Phone: Start: 11-25-[address] BENJY GARCIA Comment on above: Performed By: #### [facility]ASC #### [facility] [address] [place] [address] Dr. Nate Trotter Start: 04-21-2020 Ct cervical spine w/o contrast material ASHWIN WICKENHEISER Start: 04-21-2020 Ct head/brain w/o contrast material ASHWIN WICKENHEISER Start: 04-21-2020 Ct cervical spine w/o contrast material Ashwin J Wickenheiser Work Phone: Start: 04-21-2020 Ct head/brain w/o contrast material Ashwin J Wickenheiser Work Phone: Plan of Treatment Date Care Activity Detail Author Start: 12-22-2033 Screening for malignant neoplasm of colon [facility] Start: 09-19-2024 End: 09-19-2024 Patient encounter procedure 09/19/2024 8:00 AM EDT Office Visit [facility] [address] [place] [phone] Benjy Garcia MD [address] [place] [phone] [facility] Start: 09-03-2024 End: 09-03-2024 Patient encounter procedure 09/03/2024 9:45 AM EDT Office Visit JESÚS Carmen [address] [place] [phone] Benjy Garcia MD [address] [place] [phone] [facility] Start: 07-04-2024 End: 07-04-2024 Patient encounter procedure 07/04/2024 11:00 AM EST Office Visit [facility] [address] [place] [phone] Benjy Garcia MD [address] [place] [phone] Arrived [facility] Comment on above: Arrived Start: 06-14-2024 End: 06-14-2024 Patient encounter procedure 06/14/2024 9:00 AM EST Office Visit [facility] [address] [place] [phone] Benjy Garcia MD [address] [place] [phone] Arrived [facility] Comment on above: Arrived Start: 03-16-2024 End: 03-16-2024 Patient encounter procedure 03/16/2024 9:30 AM EDT Office Visit [facility] [address] [place] [phone] Benjy Garcia MD [address] [place] [phone] Arrived [facility] Comment on above: Arrived Start: 02-05-2024 Influenza vaccination Influenza Vacc ine (#1) [facility] Start: 12-23-2023 [facility] Start: 02-05-2020 Influenza vaccination Flu vaccine (# 1) [place], [place] Start: 08-12-2013 Screening for malignant neoplasm of colon Colon cancer screen colonoscopy [place], [place] Start: 08-12-2013 Shingles Vaccine (1 of 2) Shingles Vaccine (1 of 2) [place] Start: 2003 Diabetes screen Diabetes screen [place], [place] Start: 2003 Lipid panel Lipid screen [place], [place] Start: 08-12-1982 DTaP/Tdap/Td vaccine (1 - Tdap) DTaP/Tdap/Td vaccine (1 - Tdap) [place], [place] Start: 08-12-1978 HIV screening HIV screen Alexandrea Winters [place], [place] Start: 1963 Hepatitis C screening Hepatitis C sc ivonne [place], [place] Start: 1965 Screening for malignant neoplasm of colon [facility] Patient Education Colon polyps L ipoma Hemorrhoids (DC) Diverticulosis (DC) Gastritis (DC) Know your [facility] Work Phone: Payers Date Payer Category Payer Self-pay 2021 [facility] BCBS Memb er Subscriber Plan / Payer (Effective 2021-Present) Name: Chay Allison Jr Relation to Subscriber: Self Name: Chay Allison Jr Payer ID: Not on file Type: Not on file Address: [address] [place] [id number] 2021 Unknown BCBS BCBS xxxxxx [id number] 2021-Present [phone] [address] [place] [address] [id number] 1963 Unknown [id number] 1963 Unknown [id number] 1963 Unknown [id number] 1963 Unknown [id number] 1963 Unknown [id number] 1959 Unknown [id number] Unknown [id number] Social History Date Type Detail Facility Start: 04-21-2020 End: 09-09-2023 Tobacco smoking status NHIS Never smoker [facility] Start: 04-21-2020 End: 09-09-2023 Tobacco use and exposure [facility] [employer] [place] Start: 04-21-2020 Alcohol intake Current drinke r of alcohol (finding) [facility] [place] Start: 04-21-2020 Alcohol Comment weekends [facility] [place], [place] Start: 1965 Sex Assigned At Not on file M [place], [place] Exposure to SARS-CoV -2 (event) Not sure [place], [place] Start: 1965 Sex Assigned At Male F [facility] Start: 11-16-2023 End: 07-04-2024 History of Social function [facility] Start: 11-16-2023 End: 07-04-2024 Tobacco use panel [facility] Goals Date Patient Goal Desired Activity /State Clinical Notes 12-23-2023 to 07-04-2024 Benjy Garcia MD - 07/04/2024 12:04 PM Ariel Garcia MD - 07/04/2024 12:03 PM Ariel Garcia MD - 07/04/2024 12:03 PM Ariel Garcia MD - 07/04/2024 12:03 PM EST Note Date & Type Note Facility 07-04-2024 History of Present illness Narrative Associated Problem(s): Paroxysmal atrial fibrillation (CMS/HCC) In NSR and continue medication. Follow with cardiology. Associated Problem(s): Obstructive sleep apnea Previously did not tolerate CPAP and interested in alternative options. Will check to see if patient qualifies. Associated Problem(s): Nonobstructive atherosclerosis of coronary artery (CMS/HCC) Cath shows mild CAD. Continue medication. Associated Problem(s): Class 3 severe obesity due to excess calories with serious comorbidity and body mass index (BMI) of 50.0 to 59.9 in adult (CMS/HCC) Weight down 24 pounds. Associated Problem(s): Chronic HFrEF (heart failure with reduced ejection fraction) (CMS/HCC) Edema much improved and continue medication. Follow up with cardiology. Associated Problem(s): Benign hypertension (CMS/HCC) BP controlled and monitor PRN. Associated Problem(s): Adult hypothyroidism (CMS/HCC) Started synthroid and will repeat labs next visit. Images from the original note were not included. Subjective Patient ID: Chay Allison Jr is a 58 y.o. male who presents for Follow-up ([facility] er f/up). Hospital follow up from 06/14-06/22 for CHF and afib. Presented to office and c/o swelling and noted rapid pulse. Directed to ER and found rapid afib and fluid overload. Admitted on cardizem drip and cardioverted. BNP elevated and started IV lasix. Echo showed EF 20-25% and transferred to [facility] 06/19 for heart cath which showed non-obstructing CAD. Adjusted medication and discharged. Developed rapid afib 06/26 and returned to hospital. Converted to NSR with cardizem. Seen by cardiology and doing well. Edema improved and able to sleep laying flat. Weight down 24 pounds. No palpitations or heart racing. In hospital TSH elevated and started synthroid. Noted sleep apnea in hospital. Prior sleep study in 2022 showed DAKOTA. Tried CPAP but did not tolerate. [place] like choking and couldn't stand the pressure. Interested in alternative options. Review of Systems Constitutional: Negative for fatigue. [...] There is no guarding or rebound. Musculoskeletal: Left lower leg: No edema. Neurological: Mental Status: He is alert. Assessment/Plan Problem List Items Addressed This Visit Benign hypertension ([facility]) BP controlled and monitor PRN. Primary osteoarthritis of both knees Relevant Medications oxyCODONE-acetaminophen (Percocet) 5-325 MG tablet Obstructive sleep apnea Previously did not tolerate CPAP and interested in alternative options. Will check to see if patient qualifies. Class 3 severe obesity due to excess calories with serious comorbidity and body mass index (BMI) of 50.0 to 59.9 in adult ([facility]) Weight down 24 pounds. Adult hypothyroidism ([facility]) Started synthroid and will repeat labs next visit. Chronic HFrEF (heart failure with reduced ejection fraction) ([facility]) - Primary Edema much improved and continue medication. Follow up with cardiology. Paroxysmal atrial fibrillation ([facility]) In NSR and continue medication. Follow with cardiology. Nonobstructive atherosclerosis of coronary artery ([facility]) Cath shows mild CAD. Continue medication. documented in this encounter [facility] 06-28-2024 Note [facility] Cardiology Clinic Note Chief Complaint: Patient here for follow up [facility]. Underwent heart cath with Dr. Cid. He was discharged wearing a LifeVest. Dr. Garcia just prescribed Synthroid today so he has not started it yet. Denies chest pain, SOB, and LE edema. Says he's feeling much better. Denies palpitations and bleeding on Eliquis. HPI: Chay Allison Jr. is a 58 y.o. 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 CAD, on cath 06/19 Paroxysmal atrial fibrillation on Eliquis [id number] HTN Morbid obesity Family history of CAD, mother had 3 stents at age 64, father has ICD/PPM DAKOTA noncompliant to CPAP Admission Diagnosis: Heart failure ([facility]) [I50.9] Hospital course: Chay Allison Jr. is an 58 y.o. male who came from [facility] for higher level of care. who presented [...] DVT. Newly decompensated HFrEF (EF 20-25% at [place]), NYHA class III Non-ischemic cardiomyopathy, likely alcohol [...] eliquis 5mg twice daily. Toprol 12.5mg daily [id number]=2 HTN Morbid obesity Family history of CAD, mother had 3 stents at age 64, father has ICD/PPM DAKOTA noncompliant to CPAP Surgical, Invasive or Diagnostic Procedures Done During Admission: Cardiac Cath Consultations During Admission: Cardiology Dear Dr. Shagufta MD, Chay is advised to follow up with you within 1-2 weeks. Items to follow up in ambulatory setting: Follow-up serial BMPs Follow-up with: Cardiology and CHF clinic Scheduled appointments: Future Appointments Date Time Provider Department Center 06/28/2024 1:00 PM Marilyn Gotti MD [facility] Your medication list START taking these [...] Medications These medications were sent to [facility] [place], [place] - [address] [place] [address] [place] [address], [facility] [address] apixaban 5 mg tablet aspirin 81 mg EC tablet atorvastatin 40 mg tablet dapagliflozin propanedi (more content not included)... 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 CAD, on cath 06/19 Paroxysmal atrial fibrillation on Eliquis [id number] HTN Morbid obesity Family history of CAD, mother had 3 stents at age 64, father has ICD/PPM DAKOTA noncompliant to CPAP Admission Diagnosis: Heart failure ([facility]) [I50.9] Hospital course: Chay Allison is an 58 y.o. male who came from [facility] for higher level of care. who presented [...] DVT. Newly decompensated HFrEF (EF 20-25% at [place]), NYHA class III Non-ischemic cardiomyopathy, likely alcohol [...] eliquis 5mg twice daily. Toprol 12.5mg daily [id number]=5 HTN Morbid obesity Family history of CAD, mother had 3 stents at age 64, father has ICD/PPM DAK[place] noncompliant to CPAP Surgical, Invasive or Diagnostic Procedures Done During Admission: Cardiac Cath Consultations During Admission: Cardiology Dear Dr. Shagufta MD, Chay is advised to follow up with you [...] Medications These medications were sent to [facility] - [address] [place] [address] [facility] [place] [address], [facility] [address] apixaban 5 mg tablet aspirin 81 mg EC tablet atorvastatin 40 mg tablet dapagliflozin propanediol 10 mg furosemide 40 mg tablet metoprolol succinate XL 25 mg 24 hr tablet pantoprazole 40 mg EC tablet sacubitril-valsartan 24-26 mg tablet Chay has No Known Allergies. Disposition: Home or Self Care () Discharge Condition: Stable Code Status: Full Code Diagnostic Results Hematology: Results from last 7 days Lab Units 06/22/24 0610 06/21/24 0613 06/18/24 1436 06/17/24 2321 WBC AUTO 10*3/uL 11.08* 8 (more content not included)... [facility] 06-22-2024 Note 2nd heart failure co nsult rec'd. Patient has already denied all [facility] svs and is not interested in further education. Consult cancelled. See note from 06/21 [facility] 06-22-2024 Note Cardiology Progress Note Subjective No [...] No murmur, rubs, or gallops. RESPIRATORY: decrease RADAH ABDOMEN: Soft, nontender, nondistended. EXTREMITIES: right sided lower leg swelling > left leg Relevant Lab Results Encounter Date: 06/17/24 ECG 12 lead Result Value Ventricular Rate 64 Atrial Rate 64 IL Interval 206 QRS DURATION 110 QT Interval 444 QTC CALCULATION(BAZETT) 458 P Loami 20 R-Loami 55 T Wave Loami 81 Impression Normal sinus rhythm T wave [...] > 50. Patient was a transfer from [facility] for evaluation for coronary angiogram after he was admitted for A-fib RVR and new onset HFrEF. Echo shows EF 20 to 25%. Final Impression: 1) Right heart catheterization shows severely decompensated heart failure with mean wedge pressure of 35 mmHg and reduced cardiac index of 1.8 L/min/m??? 2) coronary angiogram shows mild CAD Plan: 1) optimize GDMT for HFrEF as tolerated including beta-ethel, Entresto, Farxiga, spironolactone. 2) Right atrial and wedge pressures are severely elevated. .Increase loop diuretic diuresis 3) outpatient follow-up with [facility] 4) patient has morbid obesity (BMI [...] and a micropuncture access technique a 6 [place] sheath was placed in the right internal jugular vein. The Tapia catheter was advanced under fluoroscopic and hemodynamic monitoring to the right atrium. Pressure obtained of the right atrium, right ventricle, pulmonary artery, pulmonary capillary position. Oxygen saturation drawn for the pulmonary artery and Carroll cardiac with a cardiac index were calculated. 1% lidocaine was infiltrated over the left radial artery. A 6-[place] Terumo Glidesheath slender was placed in left [...] with luminal irregularitie (more content not included)... [facility] 06-21-2024 Note Sw rec'd consult thi s afternoon for Heart Failure . NATE met with patient to discuss consult. Patient [...] work. He is not interested in any [facility] svs at this time time. [facility] 06-21-2024 Note Hospital Medicine Daily Progress Note - 06/21/2024 1:00 PM; Room: [address] [place] [address] Admission: 06/17/2024 10:21 PM; Length of stay: 4 days THE HOSPITALIST TEAM PREFERS TO USE [employer] CH[employer] FOR NON-URGENT COMMUNICATION 7AM-7PM. IF I DO NOT RESPOND WITHIN 20 MINUTES OR URGENT MATTERS, PLEASE CALL THROUGH THE GENERAL MATCHER. FROM 7PM-7AM, PLEASE PAGE [phone](COVR). Code Status: Full Code Barriers to Discharge: Diuresis Expected Discharge Date: 06/22 Discharge Destination: home Overview Patient is seen for evaluation and management of NSTEMI. Davey Allison Jr. was seen and examined at bedside. [...] Principal Problem: ST elevation myocardial infarction (STEMI) ([facility]) Active Problems: Atrial fibrillation with rapid ventricular response ([facility]/HCC) Acute heart failure with reduced ejection fraction (HFrEF, <= 40%) ([facility]) Obesity GERD (gastroesophageal reflux disease) Hypertension Assessment and Plan Atrial fibrillation with rapid ventricular response ([facility]/HCC) Rate control with Coreg, Eliquis for anticoagulation. Eliquis resumed post cath Acute heart failure with reduced ejection fraction (HFrEF, <= 40%) ([facility]) - NICM, 2/2 alcoholism? EF of 20 [...] Component Value Date (more content not included)... [facility] 06-21-2024 Note Attestation signed by Monica Arroyo [...] 77 (!) 27 96 % -- 06/21/24 9149 -- -- -- -- -- -- (!) [...] Value Ventricular Rate 64 Atrial Rate 64 IL Interval 206 QRS DURATION 110 QT Interval 444 QTC CALCULATION(BAZETT) 458 P Loami 20 R-Loami 55 T Wave Loami 81 Impression Normal sinus rhythm T wave [...] > 50. Patient was a transfer from [facility] for evaluation for coronary angiogram after he was admitted for A-fib RVR and new onset HFrEF. Echo shows EF 20 to 25%. Final Impression: 1) Right heart catheterization shows severely decompensated heart failure with mean wedge pressure of 35 mmHg and reduced cardiac index of 1.8 L/min/m??? 2) coronary angiogram shows mild CAD Plan: 1) optimize GDMT for HFrEF as tolerated including beta-ethel, Entresto, Farxiga, spironolactone. 2) Right atrial and wedge pressures are severely elevated. .Increase loop diuretic diuresis 3) outpatient follow-up with [facility] 4) patient has morbid obesity (BMI [...] and a micropuncture access technique a 6 [place] sheath was placed in the right internal jugular vein. The Tapia catheter was advanced under fluoroscopic and hemodynamic monitoring to the right atrium. Pressure obtained of the right atrium, right ventricle, pulmonary artery, pulmonary capillary position. Oxygen saturation drawn for the pulmonary artery and Carroll cardiac with a cardiac index were calculated. 1% lidocaine was infiltrated over the left radial artery. A 6-[place] Terumo Glidesheath slender was placed in left radial artery. Radial anti-vasospasm cocktail of verapamil 2.5 mg and nitroglycerin 200 mcg was administered through the sheath. All catheter exchanges were made over the Alejandro guidewire. Coronary angiogram was performed with a JL3.5 to engage the left main and a JR5 to engage the RC (more content not included)... [facility] 06-20-2024 Note Hospital Medicine Daily Progress Note - 06/20/2024 8:58 AM; Room: 3178/3178-01 Admission: 06/17/2024 10:21 PM; Length of stay: 3 days THE HOSPITALIST TEAM PREFERS TO USE [employer] FOR NON-URGENT COMMUNICATION 7AM-7PM. IF I DO NOT RESPOND WITHIN 20 MINUTES OR URGENT MATTERS, PLEASE CALL THROUGH THE GENERAL MATCHER. FROM 7PM-7AM, PLEASE PAGE [phone](COVR). Code Status: Full Code Barriers to Discharge: L & R cardiac cath Expected Discharge Date: 06/21 Discharge Destination: home Overview Patient is seen for evaluation and management of NSTEMI. Subjective Chay Allison Jr. was seen and examined at bedside. [...] Principal Problem: ST elevation myocardial infarction (STEMI) ([facility]) Active Problems: Atrial fibrillation with rapid ventricular response ([facility]) Acute heart failure with reduced ejection fraction (HFrEF, <= 40%) ([facility]) Obesity GERD (gastroesophageal reflux disease) Hypertension Assessment and Plan Atrial fibrillation with rapid ventricular response ([facility]) Rate control with Coreg, Eliquis for anticoagulation. Eliquis resumed post cath Acute heart failure with reduced ejection fraction (HFrEF, <= 40%) ([facility]) - NICM, 2/2 alcoholism? EF of 20 [...] 0.25 mcg/kg/min, Last Rate: 0.25 mcg/kg/min (06/20/24 0504) Pertinent Investigations Hematology: Results from last 7 [...] No results f (more content not included)... [facility] 06-20-2024 Note Patient admitted to the hospital for: ST elevation myocardial infarction. Chart notes from 06/18/2024 reports [facility] admission echo from 06/18/2024 reports: EF 20-25 %. Patient transferred to [facility]. Current echo information qualifies for Cardiac Rehab services per CMS eligibility criteria. A Cardiac Rehab referral diagnosis and code must also meet CMS criteria. Angelica Kumar RN, BSN Cardiology Outpatient Coordinator Cardiopulmonary Rehab [facility] 06-19-2024 Note Attestation signed by Monica Arroyo [...] Value Ventricular Rate 64 Atrial Rate 64 IL Interval 206 QRS DURATION 110 QT Interval 444 QTC CALCULATION(BAZETT) 458 P Loami 20 R-Loami 55 T Wave Loami 81 Impression Normal sinus rhythm T wave abnormality, consider anterior ischemia Abnormal ECG (more content not included)... [facility] 06-19-2024 Note Patient: Chay Christina Jr. Procedure Information Date/Time: 06/19/24 1334 Procedure: Coronary angiography Location: [facility] / [facility] (Cath) Providers: Marilyn Gotti [...] Plan discussed with attending. Additional Equipment Requests [facility] 06-19-2024 Note Hospital Medicine Daily Progress Note - 06/19/2024 1:58 PM; Room: 3178/3178-01 Admission: 06/17/2024 10:21 PM; Length of stay: 2 days THE HOSPITALIST TEAM PREFERS TO USE [employer] FOR NON-URGENT COMMUNICATION 7AM-7PM. IF I DO NOT RESPOND WITHIN 20 MINUTES OR URGENT MATTERS, PLEASE CALL THROUGH THE GENERAL MATCHER. FROM 7PM-7AM, PLEASE PAGE [phone](COVR). Code Status: Full Code Barriers to Discharge: L & R cardiac cath Expected Discharge Date: 06/20 vs 06/21 Discharge Destination: home Overview Patient is seen for evaluation and management of NSTEMI. Subjective Chay Allison Jr. was seen and examined at bedside. [...] Principal Problem: ST elevation myocardial infarction (STEMI) ([facility]) Active Problems: Atrial fibrillation with rapid ventricular response ([facility]) Acute heart failure with reduced ejection fraction (HFrEF, <= 40%) ([facility]) Obesity GERD (gastroesophageal reflux disease) Hypertension Assessment and Plan Atrial fibrillation with rapid ventricular response ([facility]) rate control with Coreg, Eliquis for anticoagulation. Currently held for R&L heart cath today. Will resume once cardiology is comfortable post cath. Acute heart failure with reduced ejection fraction (HFrEF, <= 40%) ([facility]) EF of 20 to 25% with diastolic [...] LDL 88 06/18/2024 No results found for: [id number] , IRON , TIBC , C3 , C4 , KWAN , CANCA , ASO , PSA , CEA , CA125 , CA199 , AFP , CA153 Imaging ECG 12 lead Normal sinus rhythm T wave abnormality, consider a (more content not included)... [facility] 06-18-2024 Note 06/18/24 1318 Admission Assessment Questions [...] to send link and activate MyChart? No [facility] 06-18-2024 Note Plan of care reviewe d with the patient, patient being admitted for cardiac cath by cardiology team, keep n.p.o. cardiology consult to follow [facility] 06-18-2024 Note Blood pressure contr ol with oral antihypertensives [facility] 06-18-2024 Note class III obesity [facility] 06-18-2024 Note EF of 20 to 25% with diastolic dysfunction Coreg, losartan, Lasix for IV diuresis Monitor I's and O's, daily weights, low-salt diet Left heart cath in a.m., keep n.p.o. [facility] 06-18-2024 Note rate control with Co reg, Eliquis for anticoagulation [facility] 06-18-2024 Note on PPI [facility] 06-18-2024 Note Hospital Medicine History and Physical 06/18/2024 1:10 AM THE HOSPITALIST TEAM PREFERS TO USE [employer] FOR NON-URGENT COMMUNICATION 7AM-7PM. IF I DO NOT RESPOND WITHIN 20 MINUTES OR URGENT MATTERS, PLEASE CALL THROUGH THE GENERAL MATCHER. FROM 7PM-7AM, PLEASE PAGE [phone](COVR). Chief Complaint CHF, atrial fibrillation History of Present Illness Chay Allison Jr. is an 58 y.o. male who came from [facility] for higher level of care. who presented [...] (CMS/HCC) rate control with Coreg, Eliquis for anticoagulation [...] above for m (more content not included)... [facility] 03-16-2024 History of Present illness Narrative Associated [...] note were not included. Subjective Patient ID: Chay Allison Jr is a 58 y.o. male who presents for Follow-up ([address] [place] [address]). Presents for annual PE. Weight down 17 [...] daily Aspirin therapy. documented in this encounter [facility] 12-23-2023 History and physical note Note Date/Time December 23, 2023 10:30am [facility] [address] [place], [place] [id number] Gastroenterology H&P Signed Patient: Chay Allison JR MR# : [id number] : 1965 Acct:[id number] Age/Sex: 58 / M Adm Date: 4 Loc: Room: Type: [facility] Attending Dr: Alix Milligan MD [...] signed by Alix Milligan MD> 12/23/23 1030 [facility] Work Phone: [phone]) 324-517607-19-2024 [facility] noteGreene [facility] HospitalEvaluation noteNo assessment information availableTrihealth Good Sam[facility] Work Phone: Evaluation note* Diagnosis Annual physical [...] hypertension, benign Primary osteoarthritis of both knees Chronic HFrEF (heart failure with reduced ejection fraction) ([facility])- Primary Benign hypertension ([facility]) Essential hypertension, benign Paroxysmal atrial fibrillation ([facility]) Atrial fibrillation Adult hypothyroidism ([facility]) Unspecified hypothyroidism Nonobstructive atherosclerosis of coronary artery ([facility]) Obstructive sleep apnea Obstructive sleep apnea (adult) (pediatric) Class 3 severe obesity due to excess calories with serious comorbidity and body mass index (BMI) of 50.0 to 59.9 in adult ([facility]) Primary osteoarthritis of both knees documented in this encounter [facility] Discharge instructions Additional Instructions DISCHARGE INSTRUCTIONS FOR [...] NOT operate machinery such as power tools, [employer] mowers, snow blowers, sewing machines, etc. for [...] Follow up with PCP. - Office number [phone]. DISCHARGE INSTRUCTIONS FOR UPPER ENDOSCOPY WHAT TO [...] years -Start Pantoprazole 40 mg daily -[facility]IDs[facility] Work Phone: Discharge Instructions * Attachments The following attachments cannot be sent through Care Everywhere. * Head Injury: Closed: General Info (Danish) documented in this encounter Assessments Diagnosis Closed [...] Referral Specialty Diagnoses / Procedures Referred By Contmaria luz t Referred To Contact Diagnoses Primary osteoarthritis of both knees Benjy Garcia MD [address] [place] [address] Referral ID Status Reason Start Date Expiration Date V isits Requested Visits Authorized [id number] Pending Review 03/16/2024 09/12/2024 1 1 Additional Source Comments Reason for Visit (unrecogniz ed section and content) Reason Comments Fall Head Injury Reason Comments Follow-up [facility] Reason Onset Date Comments Med Refill 03/29/2024 Reason Comments Follow-up Tbh er f/up (unrecognized sect ion and content) No Status Records FoundNo Status Records FoundNo Status Records FoundNo Status Records FoundNo Status Records Found INFORMATION SOURCE (unrecogn ized section and content) DATE CREATED AUTHOR 04/22/2020 [facility] DATE CREATED AUTHOR AUTHOR'S ORGANIZ ATION 11/28/2021 [facility] DATE CREATED AUTHOR AUTHOR'S ORGANIZ ATION 01/06/2024 [facility] DATE CREATED AUTHOR AUTHOR'S ORGANIZ ATION 06/30/2024 [facility] DATE CREATED AUTHOR AUTHOR'S ORGANIZ ATION 07/06/[address] [facility] d[facility] Specialists [employer]IC Care Teams (unrecognized sec tion and content) [...] Referring Provider Active Start: December 23, 2023 Sound Equipment Mechanic Relationship Specialty Start Date End Date Benjy Garcia MD [address] [place] [address] PCP - General Family Medicine 06/06/22 Benjy Garcia MD [address] [place] [phone] PCP - [employer] 04/06/23 Sound Equipment Mechanic Relationship Specialty Start Date End Date Benjy Garcia MD [address] [place] [phone] PCP - General Family Medicine 06/06/22 Benjy Garcia MD [address] [place] [phone] PCP - [employer] 04/06/23 Sound Equipment Mechanic Relationship Specialty Start Date End Date Benjy Garcia MD [address] [place] [phone] PCP - General [facility] 06/06/22 Benjy Garcia MD [address] [place] [phone] PCP - [employer] 04/06/23 Sound Equipment Mechanic Relationship Specialty Start Date End Date Benjy Garcia MD [address] [place] [phone] PCP - General Family Medicine 06/06/22 Benjy Garcia MD [address] [place] [phone] PCP - [employer] 04/06/23 Sound Equipment Mechanic Relationship Specialty Start Date End Date Benjy Garcia MD [address] [place] [phone] PCP - General Family Medicine 06/06/22 Benjy Garcia MD [address] [place] [phone] PCP - [employer] 04/06/23 Sound Equipment Mechanic Relationship Specialty Start Date End Date Benjy Garcia MD [address] [place] [address] PCP - General Family Medicine 06/06/22 Benjy Garcia MD [address] [place] [address] PCP - [employer] 04/06/23 FOR RECORDS PERTAINING TO PATIENTS WHO [...] BE BASED ON THE PRIMARY CLINICAL RECORDS. [facility] [employer] [facility]. provides no warranty or guarantee of the accuracy or completeness of information in this document.
[2024-07-06 07:28] LABS: Alanine Aminotransferase 24 U/L (16-63); Albumin Globulin Ratio 0.8; Albumin Level 2.8 g/dL (3.4-5.0); Alkaline Phosphatase 54 U/L (46-116); Anion Gap 6.3; Aspartate Amino Transferase 24 U/L (15-37); BUN Creatinine Ratio 9.7; Bilirubin Total 0.4 mg/dL (0.2-1.0); Calcium 8.7 mg/dL (8.5-10.1); Carbon Dioxide 33.8 mmol/L (21.0-32.0); Chloride 105 mmol/L (98-107); Chol HDL Ratio 1.8; Cholesterol 75 mg/dL (<=200); Estimated GFR (African America >60 (>=60 mL/min/1.73m^2); Estimated GFR (Non-African Ame >60 (>=60 mL/min/1.73m^2); Globulin 3.7 g/dL; Glucose 117 mg/dL (74-106); HDL Cholesterol 42 mg/dL (40-60); Potassium 4.1 mmol/L (3.5-5.1); Sodium 141 mmol/L (136-145); Total Protein 6.5 g/dL (6.4-8.2); Triglycerides 65 mg/dL (<=150)
== END 2024-07-06 06:26 | disposition home or self-care (01) ==
LOC: LAB 06:25
PROVIDERS: PCP Family Medicine; Visit Provider Internal Medicine Interventional Cardiology
DX: E78.5 Hyperlipidemia, unspecified (principal); I50.9 Heart failure, unspecified
CPT/HCPCS: 36415; 80053; 80061

== ENCOUNTER 2024-08-31 14:22 | Outpatient (OUT) | payer BC, SELFPAY ==
--- NOTE | 2024-08-31 14:30 | CA_ITS ---
Patient Name: IDRIS DODD MR#: [id number] : 1965 Exam Date: 08/31/2024 Ordering Doctor: DR CRISTAL BUSTOS M.D. ECHOCARDIOGRAM REPORT PROCEDURE: CA ECHO DOPPLER COMPLETE INDICATIONS: Heart failure with reduced ejection fraction COMPARISON: None. DESCRIPTION: COMPLETE ECHOCARDIOGRAM Real-time transthoracic echocardiography with 2D, M-mode, spectral and color flow Doppler performed. QUALITY: Technical quality was adequate. LEFT VENTRICLE: Normal chamber size. Mild concentric left ventricular hypertrophy. Systolic function is mildly to moderately reduced. LV EF: Mildly to moderately reduced left ventricular ejection fraction, (40%). DIASTOLIC: ATRIAL SEPTUM: LEFT ATRIUM: Normal chamber size. RIGHT ATRIUM: Mild dilatation. RIGHT VENTRICLE: Normal chamber size. Borderline right ventricular systolic function. TRICUSPID VALVE: Normal mobility and thickness. No stenosis with no regurgitation. Unable to assess right-sided pressures due to lack of measurable tricuspid regurgitation. MITRAL VALVE: Normal mobility and thickness. No evidence of mitral valve stenosis. There is no mitral annular calcification. No mitral regurgitation. AORTIC VALVE: Normal trileaflet appearance. No visible sclerosis. Normal leaflet mobility. No evidence of aortic valve stenosis. No aortic regurgitation. AORTIC ROOT: Normal diameter and appearance, measuring 3.7 cm. Ascending aorta is normal in size, measuring 3.6 cm. PULMONIC VALVE: Normal thickness and mobility. No stenosis. No regurgitation. PERICARDIUM: No evidence of pericardial effusion. IVC: IVC is dilated (2.3 cm), does not collapse. PLEURA: CONCLUSION: 1. Mild concentric left ventricular hypertrophy with mildly to moderately reduced systolic function. Estimated LVEF is 40%. 2. Normal right ventricular size with borderline systolic function. 3. No significant valvular dysfunction. 4. Unable to assess right-sided pressures due to lack of measurable tricuspid regurgitation. Adult Echocardiography Procedure Report Left Ventricle LVEDD (3.7 - 5.6 cm): 5.68 cm LVESD (2.2 - 4.0 cm): 4.64 cm LVIVS thickness (0.6 - 1.2 cm): 1.35 cm LVPW thickness (0.5 - 1.0 cm): 1.42 cm e': 0.07 m/s E - e': 9.27 LVOT Max Gradient: 1.54 mm[Hg] LVOT Area (cm2): 0.62 m/s Peak Velocity (LVOT): 0.62 m/s Mean Velocity (LVOT): 0.46 m/s LVOT Diameter 2.81 cm Left Atrium LA Volume Index (2D A2C): 27.21 ml/m2 Left Atrium Systolic Dimension: 4.55 cm Mitral Valve MV E to A Ratio: 1.07 Mitral Valve A-Wave Peak Velocity: 0.64 m/s Mitral Valve E-Wave Peak Velocity: 0.69 m/s Right Ventricle Aorta AO Root Diam: 3.67 cm Ascending Ao Diam: 3.60 cm Aortic Valve AoV Area (Peak Bassem): 4.31 cm2, 4.31 cm2 AoV Area (VTI): 5.07 cm2, 5.07 cm2 Peak Velocity(Antegrade Flow): 0.89 m/s Peak Gradient(Antegrade Flow): 3.17 mm[Hg] Mean Velocity(Antegrade Flow): 0.57 m/s Mean Gradient(Antegrade Flow): 1.53 mm[Hg] Velocity Time Integral: 15.90 cm Tricuspid Valve Pulmonic Valve Mean Gradient: 2.88 mm[Hg] Mean Velocity: 0.81 m/s Peak Velocity: 1.10 m/s, 1.03 m/s Peak Gradient: 4.21 mm[Hg], 4.84 mm[Hg] Right Atrium Right Atrium Systolic Pressure: 56.06 ml, 56.06 ml Dictated by: Jose Frazier M.D. on 08/31/2024 at 18:04 Approved by: Jose Frazier M.D. on 08/31/2024 at 18:08
== END 2024-08-31 14:23 | disposition home or self-care (01) ==
LOC: CARD 14:22
PROVIDERS: PCP Family Medicine; Visit Provider Internal Medicine Interventional Cardiology
DX: I50.22 Chronic systolic (congestive) heart failure (principal)
CPT/HCPCS: 93306

== ENCOUNTER 2024-09-03 10:32 | Outpatient (OUT) | payer BC, SELFPAY ==
[2024-09-03 12:06] LABS: Thyroid Stimulating Hormone 0.816 uIU/mL (0.358-3.740)
[2024-09-03 12:32] LABS: Free T4 1.01 ng/dL (0.76-1.46)
== END 2024-09-03 10:33 | disposition home or self-care (01) ==
LOC: LAB 10:33
PROVIDERS: PCP Family Medicine; Visit Provider Family Medicine
DX: E03.9 Hypothyroidism, unspecified (principal)
CPT/HCPCS: 36415; 84439; 84443

== ENCOUNTER 2024-10-12 07:47 | Outpatient (OUT) | payer BC, SELFPAY ==
[2024-10-12 08:22] LABS: Anion Gap 4.5; BUN Creatinine Ratio 10.7; Calcium 8.7 mg/dL (8.5-10.1); Carbon Dioxide 36.7 mmol/L (21.0-32.0); Chloride 98 mmol/L (98-107); Estimated GFR (African America >60 (>=60 mL/min/1.73m^2); Estimated GFR (Non-African Ame >60 (>=60 mL/min/1.73m^2); Glucose 102 mg/dL (74-106); Potassium 4.2 mmol/L (3.5-5.1); Sodium 135 mmol/L (136-145)
== END 2024-10-12 07:48 | disposition home or self-care (01) ==
LOC: LAB 07:50
PROVIDERS: PCP Family Medicine; Visit Provider Internal Medicine Interventional Cardiology
DX: I50.9 Heart failure, unspecified (principal)
CPT/HCPCS: 36415; 80048

== ENCOUNTER 2025-01-30 06:56 | Outpatient (OUT) | payer BC, SELFPAY ==
--- OUTSIDE RECORDS SUMMARY | 2022-11-04 06:40 | XMS_ITS | Continuity of Care Document ---
Author Organization [facility] Address [address] [place] [address] Phone Care Team Providers Care Solution Professional Name Role Phone Taylor ANDREYLnida Unavailable Unavailable Allergies, Adverse Reactions, Alerts Substance Reaction Status Criticality No Known Allergies Active No Inform ation Medications Medication Instructions Dosage Effective Dates (start - stop) Status Comments loperamide 2 mg capsule TAKE 1 CAPSULE B Y MOUTH THREE TIMES A DAY NEEDED - Active promethazine 25 mg tablet - Active sulfamethoxazole 800 mg-trimethoprim 160 mg tablet - Active benzonatate 100 mg capsule - Active atorvastatin 40 mg tablet - Active methylprednisolone 4 mg tablets in a dose pack TAKE 6 TABLETS ON DAY 1 DIRECTED ON PACKAGE AND DECREASE BY 1 TAB EACH DAY FOR A TOTAL OF 6 DAYS - Active Paxlovid 300 mg (150 mg x 2)-100 mg tablets in a dose pack (EUA) - Active buspirone 15 mg tablet - Act amanda escitalopram 10 mg tablet - Active Dexcom G6 Sensor device use as directed - Active Dexcom G6 Transmitter device use as directed - Active hydrocodone 5 mg-acetaminophen 325 mg tablet - Active Procedures Procedure Date Postop followup visit Knee arthscpy mnsctmy medial or lat Office/outpatient visit,est, mod 2022 MRI Lwr Ext Joint wo Contrast 3 Office/outpatient visit,new, mod 2022 X-ray exam of knee, 1 or2 views 023 Advance Directives Directive Yes / No Effective Date File Name No Information Encounters Encounter Description Practice Location Reason(s) For Visit Diagnoses Date Provider Providers Copied on Encounter [facility], [facility] [place], [address], [place] tel:[phone] [facility] [place] post op rt knee scope (chief complaint) Other tear of medial meniscus of right knee as current injury, initial encounterOth tear of medial meniscus, current injury, r knee, subs Nov- 3 [facility] [address] [place], [place], [id number] , [place]. tel: [phone] Referring Provider: Linda Gonzales, [facility], [place], [address] . tel:[phone] [facility], [address] [place] [address], [address], [place] tel:[phone] [facility] No Information 3 Janey Rosen. [address] [place] [address], [address]. tel:[phone] Referring Provider: Silas Alegre, [address] [place] [address], [address]. tel:[phone] Office/outpat ient visit,est, mod [facility], [facility] [place], [address], [place] tel:[phone] [facility] [place] MRI test results Rt Knee (chief complaint) Oth tear of medial meniscus, current injury, r knee, subs 3 Janey Rosen. [address] [place] [address], [address]. tel:[phone] Referring Provider: Silas Alegre, [address] [place] [address], [address]. tel:[phone] [facility], [facility] [place], [address], [place] tel:[phone] [facility] No Information 3 aJney Rosen. [address] [place], [address]. tel: [phone] Referring Provider: Silas Alegre, [address] [place], [address]. tel:[phone] Office/outpat ient visit,[facility], [address], [place], [address], [place] tel:[phone] OID Rafiq rt knee pain (chief complaint) Other tear of medial meniscus of right knee as current injury, initial encounter 3 Brandon Mckeon. [address], [place], [place], [id number] , [place]. tel: [phone] Referring Provider: Humza Guajardo, [address], [place], [address] . tel:[phone] Family History Family Member Type Diagnosis Age At Onset Mother Problem (finding) Cancer Father Problem (finding) Cancer Mother Problem (finding) Diabetes mellitus Payers Payer name Insurance type Covered republican ID Authordarvina dereck(s) [place] - [id number] Social History Type Description Quantity Date Captured Comments Alcohol Use Details Unknown Caffeine Use Details Unknown Tobacco Use Status No Information Smoking Status No Information Sex Male Chief Complaint And Reason For Visit From encounter dated '11/04/2022 10:40'. post op rt knee scope (chief complaint) Reason For Referral Reason For Referral No Information Plan Of Treatment Date Type Action Status Referral Ordered: MRI Lwr Ext Joint wo Contrast RT knee ordered History Of Present Illness Encounter Date Complaint History Of Prese nt Illness post op rt knee scope MRI test results Rt Knee rt knee pain Functional Status Date Functional Assessmen t No Information Instructions Date Instruction Additional Infor mation No Information Assessments Type Assessment Date assessment Other tear of medial meniscus of right knee as current injury, initial encounter Patient Care Teams Name Effective Dates (start - stop) Status Members No Information
--- NOTE | 2025-01-30 06:58 | CA_ITS ---
Patient Name: IDRIS DODD MR#: [id number] : 1965 Exam Date: 01/30/2025 Ordering Doctor: DR CRISTAL BUSTOS M.D. ECHOCARDIOGRAM REPORT PROCEDURE: CA ECHO DOPPLER COMPLETE INDICATIONS: Chronic diastolic heart failure COMPARISON: None. DESCRIPTION: COMPLETE ECHOCARDIOGRAM Real-time transthoracic echocardiography with 2D, M-mode, spectral and color flow Doppler performed. QUALITY: Technical quality was adequate. LEFT VENTRICLE: Normal chamber size. Moderate concentric left ventricular hypertrophy. Global left ventricular systolic function is probably mildly decreased. Calculated left ventricular ejection fraction is 48%. The endocardium was poorly defined therefore I recommend to repeat 2D study with Lumason injection LV EF: DIASTOLIC: Diastolic function is indeterminate ATRIAL SEPTUM: Grossly appears intact LEFT ATRIUM: Mild dilatation. RIGHT ATRIUM: Moderate dilatation. RIGHT VENTRICLE: Mild dilatation. Normal right ventricular systolic function. TRICUSPID VALVE: Normal mobility and thickness. No stenosis with trivial regurgitation. No evidence of pulmonary hypertension.RVSP 16mmHg. MITRAL VALVE: Normal mobility and thickness. No evidence of mitral valve stenosis. There is no mitral annular calcification. Trivial mitral regurgitation. AORTIC VALVE: Normal trileaflet appearance. No visible sclerosis. Normal leaflet mobility. No evidence of aortic valve stenosis. No aortic regurgitation. AORTIC ROOT: Normal diameter and appearance.Measuring 3.6cm. The ascending aorta is mildly dilated measuring 4.0cm. PULMONIC VALVE: Normal thickness and mobility. No stenosis. Trivial regurgitation. PERICARDIUM: No evidence of pericardial effusion. IVC: Not well visualized. PLEURA: CONCLUSION: Technically difficult study with poor definition of the endocardium, recommend to repeat 2D study with Lumason for better evaluation of ejection fraction Moderate concentric left ventricle hypertrophy Left ventricle systolic function is probably mildly reduced in a global fashion, ejection fraction 48% Left ventricle diastolic function is indeterminate Mildly enlarged right ventricle with normal systolic function Normal right-sided pressures No significant valvular abnormalities Mildly dilated ascending aorta measuring 4 cm [facility] Ech[facility] Procedure Report Left Ventricle LVEDD (3.7 - 5.6 cm): 5.31 cm LVESD (2.2 - 4.0 cm): 4.01 cm LVIVS thickness (0.6 - 1.2 cm): 1.58 cm LVPW thickness (0.5 - 1.0 cm): 1.28 cm e': 0.13 m/s E - e': 4.95 LVOT Max Gradient: 2.86 mm[Hg] LVOT Area (cm2): 0.85 m/s Peak Velocity (LVOT): 0.85 m/s Mean Velocity (LVOT): 0.60 m/s LVOT Diameter 2.30 cm Left Ventricular Ejection Fraction: 47.58 % Left Atrium LA Volume Index (2D A2C): 36.74 ml/m2 Left Atrium Systolic Dimension: 4.43 cm Mitral Valve MV E to A Ratio: 0.88 MV Max Gradient: MV Mean Gradient: Mitral Valve A-Wave Peak Velocity: 0.72 m/s Mitral Valve E-Wave Peak Velocity: 0.63 m/s Cardiovascular Orifice Area: Right Ventricle RV Internal Diastolic Dimension: 4.41 cm Aorta AO Root Diam: 3.61 cm Ascending Ao Diam: 3.99 cm Aortic Valve AoV Area (Peak Bassem): 3.86 cm2, 3.86 cm2 AoV Area (VTI): 4.00 cm2, 4.00 cm2 Deceleration Victoria: Pressure Half-Time: Peak Velocity(Antegrade Flow): 0.91 m/s Peak Gradient(Antegrade Flow): 3.30 mm[Hg] Mean Velocity(Antegrade Flow): 0.61 m/s Mean Gradient(Antegrade Flow): 1.73 mm[Hg] Velocity Time Integral: 16.54 cm Tricuspid Valve Peak Velocity (Regurgitant Flow): 1.83 m/s, 1.81 m/s Peak Velocity: Pulmonic Valve Mean Gradient: 0.03 mm[Hg], 2.40 mm[Hg], 1.82 mm[Hg] Mean Velocity: 0.07 m/s, 0.74 m/s, 0.62 m/s Peak Velocity: 0.68 m/s Peak Gradient: 0.08 mm[Hg], 3.96 mm[Hg], 3.25 mm[Hg] Right Atrium Right Atrium Systolic Pressure: 86.74 ml, 86.74 ml Dictated by: Ashlee Miramontes MD on 02/01/2025 at 16:01 Approved by: Ashlee Miramontes MD on 02/01/2025 at 16:25
--- OUTSIDE RECORDS SUMMARY | 2025-01-30 06:58 | XMS_ITS | Encounter Summary ---
Author Organization [facility] Address [address] [place] [address] Care Team Providers Care Foreign Student Adviser Name Role Phone Benjy Eagle MD Primary Care Provider [phone] Encounter Details Date Type Department Care Team (Late Contact Info) Description 11/07/2024 Orders Only [facility] [address] [place] [phone] Benjy Eagle MD [address] [place] [address] Social History Tobacco Use Types Packs/Day Years Used Date Smoking Tobacco: Never Smokeless Tobacco: Never Sex and Gender Information Value Date Recorded Sex Assigned at Not on file Legal Sex Male 7:21 PM EDT Gender Identity Not on file Sexual Orientation Not on file documented as of this encounter Plan of Treatment Upcoming Encounters Date Type Department Care Team (Late Contact Info) Description 02/21/2025 2:45 PM EDT Office Visit [facility] [address] [place] [phone] Benjy Eagle MD [address] [place] [phone] 06/12/2025 7:00 AM EST Office Visit [facility] [address] [place] [phone] Benjy Eagle MD [address] [place] [phone] documented as of this encounter Visit Diagnoses Not on filedocumented in this encounter Care Teams Foreign Student Adviser Relationship Specialty Start Date End Date Benjy Eagle MD [address] [place] [phone] PCP - General Family Medicine 06/06/22 documented as of this encounter
--- OUTSIDE RECORDS SUMMARY | 2025-01-30 06:58 | XMS_ITS | Clinical Summary ---
Author Organization [facility] Address [address] [place] [address] Care Team Providers Care Ehs Teacher Name Role Phone Benjy Eagle MD Primary Care Provider [phone] Allergies Active Allergy Reactions Criticality Noted Date Comments Clindamycin Rash Low 04/02/2020 Medications apixaban (Eliquis) 5 MG tablet Take 5 mg by mouth in the morning and 5 mg in the evening. 06/22/19 25 Active aspirin 81 MG EC tablet Take 81 mg by mouth in the morning. 06/23/19 25 Active dapagliflozin (Farxiga) 10 MG Take 10 mg by mouth in the morning. 06/23/19 25 Active pantoprazole (ProtoNix) 40 MG EC tablet Take 40 mg by mouth in the morning. Take before meals. 06/22/19 25 Active Entresto 24-26 MG tablet Take 1 tablet by mouth in the morning and 1 tablet before bedtime. 06/22/19 25 Active metoprolol succinate XL (Toprol-XL) 25 MG 24 hr tabletIndications: Chronic HFrEF (heart failure with reduced ejection fraction) ([facility]) Take 0.5 tablets (12.5 mg) by mouth Daily 45 tablet 3 07/11/19 25 Active atorvastatin (Lipitor) 40 MG tabletIndications: Nonobstructive atherosclerosis of coronary artery Take 1 tablet (40 mg) by mouth at bedtime 90 tablet 3 07/11/19 25 Active furosemide (Lasix) 40 MG tabletIndications: Chronic HFrEF (heart failure with reduced ejection fraction) ([facility]) Take 1 tablet (40 mg) by mouth in the morning. 90 tablet 3 07/11/19 25 Active spironolactone (Aldactone) 25 MG tablet Take 25 mg by mouth Daily 09/13/19 25 026 Active levothyroxine (Synthroid, Levoxyl) 75 MCG tabletIndications: Adult hypothyroidism TAKE 1 TABLET BY MOUTH ONCE DAILY IN THE MORNING BEFORE MEAL(S) 30 tablet 12/27/19 25 Active FLUoxetine (PROzac) 20 MG capsuleIndications :Major depressive disorder, recurrent episode, moderate (HCC) Take 1 capsule (20 mg) by mouth Daily 30 capsule 5 01/16/20 25 Active zolpidem (Ambien) 10 MG tabletIndications: Primary insomnia TAKE 1 TABLET BY MOUTH NEEDED AT BEDTIME FOR SLEEP 30 tablet 2 01/25/20 25 Active zolpidem (Ambien) 10 MG tabletIndications: Primary insomnia Take 1 tablet (10 mg) by mouth as needed at bedtime for sleep 30 tablet 2 06/28/19 25 025 Discontinued FLUoxetine (PROzac) 10 MG capsuleIndications :Major depressive disorder, recurrent episode, moderate (HCC) Take 1 capsule (10 mg) by mouth Daily 30 capsule 2 01/04/20 25 025 Discontinued(R eorder) Active Problems Problem Noted Date Diagnosed Date 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 Major depressive disorder, recurrent episode, mo derate 01/03/2025 Assessment & Plan (01/15/2025 12:25 PM EDT): Depression worse since stopped drinking and increase prozac. Chronic HFrEF (heart failure with reduced ejection fraction) 07/04/2024 Assessment & Plan (12/04/2024 10:39 AM EDT): Edema controlled with medication and continue. Follow up with cardiology. Assessment & Plan (09/03/2024 10:24 AM EDT): Edema controlled with medication and continue. Recent echo showed EF improved at 40%. Follow up with cardiology. Assessment & Plan (07/04/2024 12:02 PM EST): Edema much improved and continue medication. Follow up with cardiology. Paroxysmal atrial fibrillation 07/04/2024 Assessment & Plan (12/04/2024 10:39 AM EDT): In NSR and continue medication. Follow with cardiology. Assessment & Plan (09/03/2024 10:25 AM EDT): In NSR and continue medication. Follow with cardiology. Assessment & Plan (07/04/2024 12:04 PM EST): In NSR and continue medication. Follow with cardiology. Nonobstructive atherosclerosis of coronary arter y 07/04/2024 Assessment & Plan (07/04/2024 12:03 PM EST): Cath shows mild CAD. Continue medication. Adult hypothyroidism 06/28/2024 Assessment & Plan (09/03/2024 10:22 AM EDT): Repeat labs. Assessment & Plan (07/04/2024 12:02 PM EST): Started synthroid and will repeat labs next visit. Annual physical exam 03/16/2024 Assessment & Plan (03/16/2024 10:09 AM EDT): Declined labs. Discussed proper diet and regular aerobic exercise. Need aerobic exercise 5-6 days a week for 30 minutes at a time. Smaller portions and limit total calories. Colonoscopy every 10 years. Tetanus every 10 years. Advised not to smoke. Discussed daily Aspirin therapy. Primary insomnia 11/16/2023 Assessment & Plan (12/04/2024 10:39 AM EDT): Sleeping well with ambien and use PRN. Assessment & Plan (09/03/2024 10:25 AM EDT): Sleeping well with ambien and use PRN. Assessment & Plan (11/16/2023 4:46 PM EDT): Not sleeping well and try ambien. Benign hypertension 09/09/2023 Assessment & Plan (12/04/2024 10:39 AM EDT): BP okay and monitor PRN. Assessment & Plan (09/03/2024 10:23 AM EDT): BP okay and monitor PRN. Assessment & Plan (07/04/2024 12:02 PM EST): BP controlled and monitor PRN. Assessment & Plan (03/16/2024 10:09 AM EDT): BP controlled and monitor PRN. Assessment & Plan (11/16/2023 4:45 PM EDT): BP controlled and monitor PRN. Assessment & Plan (09/09/2023 9:56 AM EDT): BP controlled and monitor PRN. Gastroesophageal reflux disease without esophagi tis 09/09/2023 Osteoarthrosis, localized, p rimary, involving shoulder region 09/09/2023 Primary osteoarthritis of both knees 09/09/2023 Assessment & Plan (12/04/2024 10:39 AM EDT): Pain stable and use percocet PRN. Discussed risks and benefits of opiate therapy. Warned medication is narcotic and risk of addiction. OARRS reviewed. Assessment & Plan (09/03/2024 10:25 AM EDT): Pain stable and use percocet PRN. Discussed risks and benefits of opiate therapy. Warned medication is narcotic and risk of addiction. OARRS reviewed. Assessment & Plan (09/09/2023 9:56 AM EDT): Pain stable and use percocet PRN. Discussed risks and benefits of opiate therapy. Warned medication is narcotic and risk of addiction. OARRS reviewed. Rosacea 09/09/2023 Thrombophlebitis of superfic ial veins of left lower extremity 09/09/2023 Class 3 severe obesity due t o excess calories with serious comorbidity and body mass index (BMI) of 50.0 to 59.9 in adult 09/09/2023 Assessment & Plan (12/04/2024 10:39 AM EDT): Weight loss indicated. Assessment & Plan (09/03/2024 10:24 AM EDT): Weight loss indicated. Assessment & Plan (07/04/2024 12:03 PM EST): Weight down 24 pounds. Assessment & Plan (09/09/2023 9:57 AM EDT): Discussed proper diet and regular aerobic exercise. Recommend Weight Watchers and need to limit calories and smaller portions. Need to increase activity and regular aerobic exercise several days a week for 30 minutes at a time. Chronic sinusitis 04/02/2020 Assessment & Plan (11/16/2023 4:46 PM EDT): Chronic congestion and postnasal drip. Recommend flonase daily. Obstructive sleep apnea 04/02/2020 Assessment & Plan (09/03/2024 10:25 AM EDT): Not using CPAP and refuses. Assessment & Plan (07/04/2024 12:20 PM EST): Previously did not tolerate CPAP and interested in alternative options. Will refer to ENT to see if patient qualifies. Assessment & Plan (09/09/2023 9:56 AM EDT): Not sleeping well but did not tolerate CPAP. Recommend try different type of mask but declined. Resolved Problems Problem Noted Date Diagnosed Date Resolved Date Abdominal bloating 11/16/2023 Assessment & Plan (11/16/2023 4:45 PM EDT): Frequent bloating and abdomen distended. Bad taste in mouth and prior GERD. Refer to GI for possible EGD. Bad taste in mouth 11/16/2023 Hypersomnia 09/09/2023 09/09/2023 Encounters Date Type Department Care Team Description 01/24/2025 [facility]ill [facility] [address] 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 [address] [place] [address] Benjy Eagle MD Benign hypertension (Primary Dx); Chronic HFrEF (heart failure with reduced ejection fraction) (HCC); Primary osteoarthritis of both knees; Paroxysmal atrial fibrillation (HCC); Primary insomnia; Class 3 severe obesity due to excess calories with serious comorbidity and body mass index (BMI) of 50.0 to 59.9 in adult ([facility]) 12/04/2024 Bamboo flowsheet [facility] [address] [place] [address] Benjy Eagle MD 11/16/2024 Refill [facility] [address] [place] [address] Benjy Eagle MD Adult hypothyroidism 11/07/2024 Orders Only [facility] [address] [place] [address] Benjy Eagle MD 11/06/2024 Patient Outreach [facility] [address] [place] [address] Dave Sutton MA from Last 3 Months Social History Tobacco Use Types Packs/Day Years Used Date Smoking Tobacco: Never Smokeless Tobacco: Never Tobacco Cessation:Counseling Given: Not Answered Sex and Gender Information Value Date Recorded Sex Assigned at Not on file Legal Sex Male 7:21 PM EDT Gender Identity Not on file Sexual Orientation Not on file Last Filed Vital Signs Vital Sign Reading Time Taken Comments Blood Pressure 122/78 01/15/2025 11:32 AM EDT Pulse 80 01/15/2025 11:32 AM EDT Temperature 36.6 C (97.8 F) 01/15/2025 11:32 AM EDT Respiratory Rate 20 01/15/2025 11:32 AM EDT Oxygen Saturation 91% 01/15/2025 11:32 AM EDT Inhaled Oxygen Concentration - - Weight 158 kg (348 lb) 01/15/2025 11:32 AM EDT Height 167.6 cm (5' 6 ) 01/15/2025 11:32 AM EDT Body Mass Index 56.17 01/15/2025 11:32 AM EDT Plan of Treatment Upcoming Encounters Date Type Department Care Team (Late st Contact Info) Description 02/21/2025 2:45 PM EDT Office Visit [facility] [address] [place] [address] Benyj Eagle MD [address] [place] [address] 06/12/2025 7:00 AM EST Office Visit [facility] [address] [place] [address] Benjy Eagle MD [address] [place] [address] Health Maintenance Due Date Last Done Comments CT Colonography 1965 FIT-DNA 1965 FIT 1965 FOBT 1965 Sigmoidoscopy 1965 Influenza Vaccine (#1) 2025 Colonoscopy 12/22/2033 12/23/2023 Colorectal Cancer Screening 12/22/2033 Insurance BCBS Care Teams Ehs Teacher Relationship Specialty Start Date End Date Benjy Eagle MD [address] [place] [address] PCP - General Family Medicine 06/06/22
--- OUTSIDE RECORDS SUMMARY | 2025-01-30 06:58 | XMS_ITS | Encounter Summary ---
Author Organization [facility] Address [address] [place] [address] Care Team Providers Care Boiler Repair Supervisor Name Role Phone Benjy Eagle MD Primary Care Provider [phone] Benjy Eagle MD Unavailable Dave Sutton MA Unavailable [phone] Encounter Details Date Type Department Care Team (Late Contact Info) Description 09/09/2023 Orders Only [facility] [address] [place] [address] Benjy Eagle MD [address] [place] [address] Social History Tobacco Use Types Packs/Day Years [...] Office Visit [facility] [address] [place] [address] Benjy Eagle MD [address] [place] [address] 06/12/2025 7:00 AM EST Office Visit [facility] [address] [place] [address] Benjy Eagle MD [address] [place] [address] documented as of this encounter Procedures Procedure Name Priority Date/Time Associated Diagnosis Comments SCANNED LABS Routine 09/09/2023 12:12 PM EDT SCANNED LABS Routine 09/09/2023 10:55 AM EDT documented in this encounter Results * SCANNED LABS (09/09/2023 12:12 PM EDT) us Benjy Eagle MD LAB CHG PERFORMABLES Final Resul t * SCANNED LABS (09/09/2023 10:55 AM EDT) us Benjy Eagle MD LAB CHG PERFORMABLES Final Resul t documented in this encounter Visit Diagnoses Not on filedocumented in this encounter Care Teams Boiler Repair Supervisor Relationship Specialty Start Date End Date Benjy Eagle MD [address] [place] [phone] PCP - General Family Medicine 06/06/22 Benjy Eagle MD [address] [place] [address] [facility] 04/06/23 Dave Sutton MA [address] [place] [address] Family Medicine 09/12/24 09/19/24 documented as of this encounter
--- OUTSIDE RECORDS SUMMARY | 2025-01-30 06:58 | XMS_ITS | Encounter Summary ---
Author Organization [facility] Address [address] [place] [address] Care Team Providers Care Supervisor Screen Making Name Role Phone Benjy Eagle MD Primary Care Provider [phone] Reason for Visit * Reason Comments Med Refill Encounter Details Date Type Department Care Team (Late st Contact Info) Description 01/24/2025 Refill [facility] [address] [place] [phone] Benjy Eagle MD [address] [place] [address] Primary insomnia Social History Tobacco Use Types Packs/Day Years [...] Office Visit [facility] [address] [place] [address] Benjy Eagle MD [address] [place] [address] 06/12/2025 7:00 AM EST Office Visit [facility] [address] [place] [address] Benjy Eagle MD [address] [place] [address] documented as of this encounter Visit Diagnoses Diagnosis Primary insomnia Persistent disorder of initiating or maintaining sleep documented in this encounter Care Teams Supervisor Screen Making Relationship Specialty Start Date End Date Benjy Eagle MD [address] [place] [address] PCP - General Family Medicine 06/06/22 documented as of this encounter
--- OUTSIDE RECORDS SUMMARY | 2025-01-30 06:58 | XMS_ITS | Encounter Summary ---
Author Organization [facility] Address [id number] [address] [place] [address] Care Team Providers Care Template Reproduction Technician Name Role Phone Benjy Eagle MD Primary Care Provider [phone] Encounter Details Date Type Department Care Team (Late st Contact Info) Description 11/07/2020 Orders Only [facility] - Pre Admit [address] [place] [address] Marlin Mtz RN Pre-op testing (Primary Dx); Contact with and (suspected) exposure to covid-19 Social History Tobacco Use Types Packs/Day Years Used Date Smoking Tobacco: Never Smokeless Tobacco: Never Alcohol Use Standard Drinks/Week Comments Yes 0 (1 standard drink = 0.6 oz pur e alcohol) occassional PHQ-2 Answer Date Recorded Total Score 0 11/05/2020 Childcare Answer Date Recorded Childcare Unknown 04/02/2020 Employment Answer Date Recorded Employment Unknown 04/02/2020 Purpose - Life Answer Date Recorded Purpose and direction in life Unknown Sex and Gender Information Value Date Recorded Sex Assigned at Not on file Legal Sex Male 11:35 AM EDT Gender Identity Not on file Sexual Orientation Not on file COVID-19 Exposure Response Date Recorded In the last month, have you been in contact with someone who was confirmed or suspected to have Coronavirus / COVID-19? No / Unsure 11/07/2020 10:56 AM EDT documented as of this encounter Plan of Treatment Not on file documented as of this encounter Results * SARS COV 2 (COVID-19) (12/19/2020 10:19 AM EDT) Specimen Naso Pharynx 12/19/2020 9:12 PM EDT [facility] 12/19/2020 9:12 PM EDT [facility] COVID-19 [facility] Report to Follow. 12/19/2020 9:12 PM EDT [facility] Nasopharyngeal structure / Unknown 12/19/2020 10:19 AM EDT 12/19/2020 3:43 PM EDT Roshan Basurto MD MICROBIOLOGY - GENERAL ORDERA BLES Final Result [facility] documented in this encounter Visit Diagnoses Diagnosis Pre-op testing- Primary Unspecified pre-operative examination Contact with and (suspected) exposure to covid-19 documented in this encounter Additional Health Concerns Assessment Noted Time PHQ-9 Depression Total Score: 0 11/06/19 21 10:15 AM EDT documented as of this encounter Care Teams Template Reproduction Technician Relationship Specialty Start Date End Date Benjy Eagle MD PCP - General Family Medicine 03/13/19 documented as of this encounter
--- OUTSIDE RECORDS SUMMARY | 2025-01-30 06:58 | XMS_ITS | Clinical Summary ---
Author Organization [facility] Address [address] [place] [address] Care Team Providers Care Lamp Decorator Name Role Phone Benjy Eagle MD Primary Care Provider [phone] Allergies Active Allergy Reactions Criticality Noted Date Comments Clindamycin Rash Low 04/02/2020 Medications levothyroxine (Synthroid, Levoxyl) 75 mcg tablet Take 75 mcg by mouth before breakfast. 06/28/2024 Active apixaban (Eliquis) 5 mg tabletIndications :Atrial fibrillation with rapid ventricular response (CMS/HCC) Take 1 tablet (5 mg) by mouth two times daily. 180 tablet 3 06/28/2024 Active aspirin 81 mg EC tabletIndications :ST elevation myocardial infarction (STEMI), unspecified artery (CMS/HCC) Take 1 tablet (81 mg) by mouth once daily as directed. 90 tablet 3 06/28/2024 Active atorvastatin (Lipitor) 40 mg tabletIndications :ST elevation myocardial infarction (STEMI), unspecified artery (CMS/HCC) Take 1 tablet (40 mg) by mouth at bedtime. 90 tablet 3 06/28/2024 Active dapagliflozin propanediol (Farxiga) 10 mgIndications:hea rt failure Take 1 tablet (10 mg) by mouth once daily as directed. 90 tablet 3 06/28/2024 Active furosemide (Lasix) 40 mg tabletIndications :Heart failure (CMS/HCC) Take 1 tablet (40 mg) by mouth in the morning. 90 tablet 3 06/28/2024 Active pantoprazole (ProtoNix) 40 mg EC tabletIndications :Gastroesophageal reflux disease, unspecified whether esophagitis present Take 1 tablet (40 mg) by mouth before breakfast. Do not crush, chew, or split. 90 tablet 3 06/28/2024 Active sacubitril-valsar alexandra (Entresto) 24-26 mg tabletIndications :Heart failure (CMS/HCC) Take 1 tablet by mouth two times daily. 180 tablet 3 06/28/2024 06/28/19 26 Active oxyCODONE-acetami nophen (Percocet) 5-325 mg tablet Take 1 tablet by mouth every 4 (four) hours if needed. 07/04/2024 Active spironolactone (Aldactone) 25 mg tabletIndications :Heart failure (CMS/HCC) Take 1 tablet (25 mg) by mouth once daily as directed. 90 tablet 3 09/12/2024 09/13/19 26 Active metoprolol succinate XL (Toprol-XL) 25 mg 24 hr tabletIndications :Heart failure (CMS/HCC) Take 1 tablet (25 mg) by mouth once daily as directed. Do not crush or chew. 90 tablet 3 09/13/2024 Active Active Problems Problem Noted Date Diagnosed Date Nonobstructive atherosclerosis of coronary arter y 07/04/2024 Adult hypothyroidism 06/28/2024 Acute heart failure with red uced ejection fraction (HFrEF, <= 40%) 06/18/2024 Assessment & Plan (06/18/2024 1:47 AM EST): EF of 20 to 25% with diastolic dysfunction Coreg, losartan, Lasix for IV diuresis Monitor I's and O's, daily weights, low-salt diet Left heart cath in a.m., keep n.p.o. Atrial fibrillation with rapid ventricular respo nse 06/17/2024 Assessment & Plan (06/18/2024 1:47 AM EST): rate control with Coreg, Eliquis for anticoagulation ST elevation myocardial infarction (STEMI) 06/17 Annual physical exam 03/16/2024 Abdominal bloating 11/16/2023 Bad taste in mouth 11/16/2023 Primary insomnia 11/16/2023 Osteoarthrosis, localized, p rimary, involving shoulder region 09/09/2023 Primary osteoarthritis of both knees 09/09/2023 Rosacea 09/09/2023 Thrombophlebitis of superfic ial veins of left lower extremity 09/09/2023 S/P nasal septoplasty 01/12/2021 Chronic sinusitis 04/02/2020 Deviated septum 04/02/2020 Obstructive sleep apnea 04/02/2020 Obesity Assessment & Plan (06/18/2024 1:47 AM EST): class III obesity GERD (gastroesophageal reflux disease) Assessment & Plan (06/18/2024 1:47 AM EST): on PPI Hypertension Assessment & Plan (06/18/2024 1:47 AM EST): Blood pressure control with oral antihypertensives Family History Medical History Relation Name Comments Atrial fibrillation Father Heart failure Father Relation Name Status Comments Father Social History Tobacco Use Types Packs/Day Years Used Date Smoking Tobacco: Never Smokeless Tobacco: Never Tobacco Cessation:Counseling Given: Not Answered Alcohol Use Standard Drinks/Week Comments Yes 0 (1 standard drink = 0.6 oz pur e alcohol) 6-8 beers 3 times a week [facility] Utilities Answer Date Recorded In the past 12 months has th e [employer], gas, oil, or water [employer] threatened to shut off services in your home? No 06/17/2024 Humiliation, Afraid, Rape, and Kick questionnair e Answer Date Recorded Within the last year, have y ou been afraid of your partner or ex-partner? No 06/17/2024 Emotionally Abused Not on file 06/17/2024 Physically Abused Not on file 06/17/2024 Sexually Abused Not on file 06/17/2024 Overall Financial Resource Strain (CARDIA) Answe r Date Recorded How hard is it for you to pa y for the very basics like food, housing, medical care, and heating? Not hard at all 06/17/2024 Transportation Answer Date Recorded In the past 12 months, has l ack of transportation kept you from medical appointments or from getting medications? No 06/17/2024 Lack of Transportation (Non-Medical) Not on file 06/17/2024 Housing Stability Vital Sign Answer Messi e Recorded In the last 12 months, was t here a time when you were not able to pay the mortgage or rent on time? No 06/17/2024 Number of Times Moved in the Last Year Not on fi le 06/17/2024 At any time in the past 12 m [facility], were you homeless or living in a custodial (including now)? No 06/17/2024 Hunger Vital Sign Answer Date Recorded Within the past 12 months, y ou worried that your food would run out before you got the money to buy more. Never true 06/17/19 25 Ran Out of Food in the Last Year Not on file 06/17/2024 Sex and Gender Information Value Date Recorded Sex Assigned at Not on file Legal Sex Male 11:18 AM EST Gender Identity Male 06/17/2024 10:36 PM EST Sexual Orientation Heterosexual or Straight 06/06 10:36 PM EST Last Filed Vital Signs Vital Sign Reading Time Taken Comments Blood Pressure 128/80 09/12/2024 9:04 AM EDT Pulse 74 09/12/2024 9:04 AM EDT Temperature 36.2 C (97.2 F) 06/22/2024 12:11 PM EST Respiratory Rate 21 06/22/2024 1:25 PM EST Oxygen Saturation 91% 09/12/2024 9:04 AM EDT Inhaled Oxygen Concentration - - Weight 147 kg (323 lb) 09/12/2024 9:04 AM EDT Height 167.6 cm (5' 6 ) 09/12/2024 9:04 AM EDT Body Mass Index 52.13 09/12/2024 9:04 AM EDT Plan of Treatment Upcoming Encounters Date Type Department Care Team (Late st Contact Info) Description 03/04/2025 1:00 PM EDT Office Visit [facility] [address] [place] [address] Marilyn Gotti MD [address] [facility] [place] [address] Health Maintenance Due Date Last Done Comments CT Colonography 1963 Colonoscopy 1963 Colorectal Cancer Screening 1963 FIT-DNA 1963 FIT 1963 FOBT 1965 Sigmoidoscopy 1963 Depression Screening 1975 Pneumococcal Vaccine: Pediat rics (0 to 5 Years) and At-Risk Patients (6 to 64 Years) (1 of 2 - PCV) 08/12/1982 Adult Tetanus 08/12/1985 Zoster Vaccines (1 of 2) 08/12/2013 COVID-19 Vaccine (1 - 2023-2 5 season) 2024 Influenza Vaccine (#1) 2025 Diabetes: Hemoglobin A1C 06/18/2025 06/18/2024 HIB Vaccines Aged Out No longer eligi ble based on patient's age to complete this topic HPV Vaccines Aged Out No longer eligi ble based on patient's age to complete this topic IPV Vaccines Aged Out No longer eligi ble based on patient's age to complete this topic Meningococcal B Vaccine Aged Out No l onger eligible based on patient's age to complete this topic Meningococcal Vaccine Aged Out No patience duy eligible based on patient's age to complete this topic Rotavirus Vaccines Aged Out No longer eligible based on patient's age to complete this topic Procedures Procedure Name Priority Date/Time Associated Diagnosis Comments HEMOGLOBIN A1C Add-On 06/18/2024 2:36 PM EST from Last 3 Months or Most Recently Relevant to Health Maintenance Results * (ABNORMAL) Hemoglobin A1c (06/18/2024 2:36 PM EST) Hemoglobin A1C 6.1(H) 4.0 - 6.0 % 06/19/2024 7:[address] [facility] ([facility]) Estimated Average Glucose 128 mg/dL 06/19/2024 7:[address] [facility] ([facility]) Blood Venous blood specimen / Unknown Arterial Line / Unknown 06/18/2024 2:36 PM EST 06/18/2024 3:07 PM EST us Vasile Sosa MD LAB BLOOD ORDERABLES Final Resul t [facility] ([facility]) [address] [place] [address] from Last 3 Months or Most Recently Relevant to Health Maintenance Insurance [facility] Advance Directives * Full Code (Latest Code Status on File) Date Activated Date Inactivated Comments 06/17/2024 11:02 PM 06/22/2024 7:26 PM Care Teams Lamp Decorator Relationship Specialty Start Date End Date Benjy Eagle MD [address] [place] [phone] PCP - General Family Medicine 06/18/24
--- OUTSIDE RECORDS SUMMARY | 2025-01-30 06:58 | XMS_ITS | Encounter Summary ---
Author Organization [facility] Address [address] [place] [address] Care Team Providers Care Order Planner Name Role Phone Benjy Eagle MD Primary Care Provider [phone] Encounter Details Date Type Department Care Team (Late st Contact Info) Description 01/03/2025 Telephone [facility] [address] [place] [address] Benjy Eagle MD [address] [place] [address] Social History Tobacco Use Types Packs/Day Years Used Date Smoking Tobacco: Never Smokeless Tobacco: Never Sex and Gender Information Value Date Recorded Sex Assigned at Not on file Legal Sex Male 7:21 PM EDT Gender Identity Not on file Sexual Orientation Not on file documented as of this encounter Miscellaneous Notes * Telephone Encounter - Benjy Eagle MD - 01/03/2025 1:44 PM EDT Sent. Follow up as scheduled. * Telephone Encounter - Jennifer Gonzalez - 01/03/2025 11:32 AM EDT Chay has quit drinking. He has appointment with Dr. Eagle scheduled for January 15. He would like a prescription called in for depression. documented in this encounter Plan of Treatment Upcoming Encounters Date Type Department Care Team (Late st Contact Info) Description 02/21/2025 2:45 PM EDT Office Visit [facility] [address] [place] [phone] Benjy Eagle MD [address] [place] [address] 06/12/2025 7:00 AM EST Office Visit [facility] [address] [place] [address] Benjy Eagle MD [address] [place] [address] documented as of this encounter Visit Diagnoses Diagnosis Major depressive disorder, recurrent episode, moderate (HCC)- Primary Major depressive disorder, recurrent episode, moderate documented in this encounter Care Teams Order Planner Relationship Specialty Start Date End Date Benjy Eagle MD [address] [place] [address] PCP - General Family Medicine 06/06/22 documented as of this encounter
--- OUTSIDE RECORDS SUMMARY | 2025-01-30 06:58 | XMS_ITS | Encounter Summary ---
Author Organization [facility] Address [address] [place] [address] Care Team Providers Care Tankerman Name Role Phone Benjy Eagle MD Primary Care Provider [phone] Benjy Eagle MD Unavailable Dave Sutton MA Unavailable [phone] Encounter Details Date Type Department Care Team (Late Contact Info) Description 06/15/2024 Orders Only [facility] [address] [place] [address] Benjy Eagle MD [address] [place] [address] Social History Tobacco Use Types Packs/Day Years [...] Office Visit [facility] [address] [place] [address] Benjy Eagle MD [address] [place] [address] 06/12/2025 7:00 AM EST Office Visit [facility] [address] [place] [address] Benjy Eagle MD [address] [place] [address] documented as of this encounter Procedures Procedure Name Priority Date/Time Associated Diagnosis Comments RHYTHM ECG, REPORT Routine 06/15/2024 9:26 AM EST documented in this encounter Results * ECG 3 Lead (06/15/2024 9:26 AM EST) us Benjy Eagle MD IN CLINIC/BEDSIDE ORDERABLES Fin al Result documented in this encounter Visit Diagnoses Not on filedocumented in this encounter Care Teams Tankerman Relationship Specialty Start Date End Date Benjy Eagle MD [address] [place] [address] PCP - General Family Medicine 06/06/22 Benjy Eagle MD [address] [place] [address] PCP - [place] [employer] 04/06/23 Dave Sutton MA [address] [place] [address] Family Medicine 09/12/24 09/19/24 documented as of this encounter
--- OUTSIDE RECORDS SUMMARY | 2025-01-30 06:59 | XMS_ITS | Encounter Summary ---
Author Organization [facility] Address [address] [place] [address] Care Team Providers Care Defensive Fire Control Systems Operator Name Role Phone Benjy Eagle MD Primary Care Provider [phone] Benjy Eagle MD Unavailable Dave Sutton MA Unavailable [phone] Encounter Details Date Type Department Care Team (Late Contact Info) Description 06/14/2024 Orders Only [facility] [address] [place] [address] Benjy Eagle MD [address] [place] [address] Social History Tobacco Use Types Packs/Day Years [...] Office Visit [facility] [address] [place] [address] Benjy Eagle MD [address] [place] [address] 06/12/2025 7:00 AM EST Office Visit [facility] [address] [place] [address] Benjy Eagle MD [address] [place] [address] documented as of this encounter Procedures Procedure Name Priority Date/Time Associated Diagnosis Comments ULTRASOUND : DOPPLER : VEINS LEG RIGHT Routine 06/14/2024 2:56 PM EST XR CHEST 1 VIEW Routine 06/14/2024 2:[address] ANGIO CHEST W CONT(INCL WO) Routine 06/14/2024 1:05 PM EST documented in this encounter Results * ULTRASOUND : DOPPLER : VEINS LEG RIGHT (06/14/2024 2:56 PM EST) Anatomical Region Laterality Modality Radiographic Cece ging us Benjy Eagle MD IMG XR PROCEDURES Final Result * XR chest 1 view (06/14/2024 2:11 PM EST) Anatomical Region Laterality Modality Chest Radiographic Cece ging us Benjy Eagle MD IMG XR PROCEDURES Final Result * CT ANGIO CHEST W CONT(INCL WO) (06/14/2024 1:05 PM EST) Anatomical Region Laterality Modality Radiographic Cece ging us Benjy Eagle MD IMG XR PROCEDURES Final Result documented in this encounter Visit Diagnoses Not on filedocumented in this encounter Care Teams Defensive Fire Control Systems Operator Relationship Specialty Start Date End Date Benjy Eagle MD [address] [place] [address] PCP - General Family Medicine 06/06/22 Benjy Eagle MD [address] [place] [address] PCP - [place] [employer] 04/06/23 Dave Sutton, JENNIFER [address] [place] [address] Family Medicine 09/12/24 09/19/24 documented as of this encounter
--- OUTSIDE RECORDS SUMMARY | 2025-01-30 06:59 | XMS_ITS | Encounter Summary ---
Author Organization [facility] Address [address] [place] [address] Care Team Providers Care Disability Advocate Name Role Phone Benjy Eagle MD Primary Care Provider [phone] Benjy Eagle MD Unavailable Dave Sutton MA Unavailable [phone] Encounter Details Date Type Department Care Team (Late Contact Info) Description 06/18/2024 Orders Only [facility] [address] [place] [address] Benjy Eagle MD [address] [place] [address] Social History Tobacco Use Types Packs/Day Years [...] Office Visit [facility] [address] [place] [address] Benjy Eagle MD [address] [place] [address] 06/12/2025 7:00 AM EST Office Visit [facility] [address] [place] [address] Benjy Eagle MD [address] [place] [address] documented as of this encounter Procedures Procedure Name Priority Date/Time Associated Diagnosis Comments RHYTHM ECG, REPORT Routine 06/18/2024 10:17 AM EST documented in this encounter Results * ECG 3 Lead (06/18/2024 10:17 AM EST) us Benjy Eagle MD IN CLINIC/BEDSIDE ORDERABLES Fin al Result documented in this encounter Visit Diagnoses Not on filedocumented in this encounter Care Teams Disability Advocate Relationship Specialty Start Date End Date Benjy Eagle MD [address] [place] [address] PCP - General Family Medicine 06/06/22 Benjy Eagle MD [address] [place] [address] PCP - [place] [employer] 04/06/23 Dave Sutton MA [address] [place] [address] Family Medicine 09/12/24 09/19/24 documented as of this encounter
--- OUTSIDE RECORDS SUMMARY | 2025-01-30 06:59 | XMS_ITS | Clinical Summary ---
Author Organization [employer] [facility] Address [id number] [place] [address] Care Team Providers Care Tax Associate Name Role Phone Benjy Eagle MD Primary Care Provider [phone] Allergies Active Allergy Reactions Criticality Noted Date Comments Clindamycin Rash Low 04/02/2020 Medications lisinopril-hydr oCHLOROthiazide (PRINZIDE,ZESTO RETIC) 20-25 mg per tablet Take by mouth daily. 0 Active mometasone (NASONEX) 50 mcg/actuation nasal sprayIndication s:Chronic sinusitis, unspecified location Administer 2 sprays into each nostril daily. 17 g 12 0 Active predniSONE (DELTASONE) 10 mg tablet Daily dose: 5 tabs for 2 days, then 4 tabs for 2 days, then 3 tabs for 2 days, then 2 tabs for 2 days, then 1 tab for 2 days 30 tablet 1 Active Additional Information Patient not taking.Reported on 01/26/2021 sod riojw-hdhvxt-xg ueez bottle (NEILMED SINUS RINSE COMPLETE) packet with rinse device nasal solution Administer 1 packet into each nostril 2 (two) times a day. 60 packet 1 Active mupirocin (BACTROBAN) 2 % ointment Applied intranasally bilaterally 2 times daily 15 g 1 Active omeprazole (PriLOSEC) 20 mg capsuleIndicati ons:Gastroesoph ageal reflux disease, unspecified whether esophagitis present Take 1 capsule by mouth twice daily 60 capsule 1 Active Active Problems Problem Noted Date Diagnosed Date S/P nasal septoplasty 01/12/2021 Obstructive sleep apnea 04/02/2020 Chronic sinusitis 04/02/2020 Deviated septum 04/02/2020 GERD (gastroesophageal reflux disease) 0 Family History Medical History Relation Name Comments Colon cancer Father Colon cancer Mother Heart disease Mother Relation Name Status Comments Father Alive Mother Alive Social History Tobacco Use Types Packs/Day Years Used Date Smoking Tobacco: Never Smokeless Tobacco: Never Alcohol Use Standard Drinks/Week Comments Yes 0 (1 standard drink = 0.6 oz pur e alcohol) occassional PHQ-2 Answer Date Recorded Total Score 0 01/26/2021 Childcare Answer Date Recorded Childcare Unknown 04/02/2020 [...] Sign Reading Time Taken Comments Blood Pressure 150/77 01/05/2021 1:47 PM EDT Pulse 80 01/05/2021 1:47 PM EDT Temperature 36.2 C (97.2 F) 01/05/2021 12:05 PM EDT Respiratory Rate 11 01/05/2021 1:47 PM EDT Oxygen Saturation 90% 01/05/2021 1:47 PM EDT Inhaled Oxygen Concentration - - Weight 155.1 kg (342 lb) 01/26/2021 2:45 PM EDT Height 167.6 cm (5' 6 ) 01/26/2021 2:45 PM EDT Body Mass Index 55.2 01/26/2021 2:45 PM EDT Plan of Treatment Health Maintenance Due Date Last Done Comments Depression Screening 1975 Tobacco Screening 1975 Adult BMI Screening 08/12/1981 DTaP,Tdap and Td Vaccines (1 - Tdap) 08/12/1982 Zoster (Shingles) Vaccine (1 of 2) 08/12/2013 Influenza Vaccine 02/04/2025 Medical Devices Not on file Insurance [employer] Care Teams Tax Associate Relationship Specialty Start Date End Date Benjy Eagle MD PCP - General Family Medicine 03/13/19
--- OUTSIDE RECORDS SUMMARY | 2025-01-30 06:59 | XMS_ITS | Encounter Summary ---
Author Organization [facility] Address [address] [place] [address] Care Team Providers Care Facilities Coordinator Name Role Phone Benjy Eagle MD Primary Care Provider [phone] Benjy Eagle MD Unavailable Dave Sutton MA Unavailable [phone] Encounter Details Date Type Department Care Team (Late Contact Info) Description 06/26/2024 Orders Only [facility] [address] [place] [address] Benjy Eagle MD [address] [place] [address] Social History Tobacco Use Types Packs/Day Years [...] Office Visit [facility] [address] [place] [address] Benjy Eagle MD [address] [place] [address] 06/12/2025 7:00 AM EST Office Visit [facility] [address] [place] [address] Benjy Eagle MD [address] [place] [address] documented as of this encounter Procedures Procedure Name Priority Date/Time Associated Diagnosis Comments RHYTHM ECG, REPORT Routine 06/26/2024 9:22 AM EST documented in this encounter Results * ECG 3 Lead (06/26/2024 9:22 AM EST) us Benjy Eagle MD IN CLINIC/BEDSIDE ORDERABLES Fin al Result documented in this encounter Visit Diagnoses Not on filedocumented in this encounter Care Teams Facilities Coordinator Relationship Specialty Start Date End Date Benjy Eagle MD [address] [place] [address] PCP - General Family Medicine 06/06/22 Benjy Eagle MD [address] [place] [address] PCP - [place] [employer] 04/06/23 Dave Sutton MA [address] [place] [address] Family Medicine 09/12/24 09/19/24 documented as of this encounter
--- OUTSIDE RECORDS SUMMARY | 2025-01-30 06:59 | XMS_ITS | CCD ---
Author Organization [facility] Care Team Providers Care [employer]ision [employer] Grinder Name Role Phone Unavailable Primary Care Provider UnavailASHWIN Knott Attending DR BENJY Smith Admitting Unavailable DR BENJY GARCIA Attending Unavailable DR BENJY GARCIA Primary Care Unavailable DR BENJY GARCIA Consulting Unavailable MD Alix Milligan Attending Provider [phone] MD Benjy Garcia Primary Care Provider MD Benjy Garcia Referring Provider [phone] Benjy Garcia Referring Unavailable Asaad, Imad Admitting Unavailable Srini, Imad Attending Unavailable Benjy Garcia Primary Care Unavailable Benjy Garcia MD Primary Care Provider [phone] Benjy Garcia MD Unavailable MARILYN GOTTI Attending Unavailable JOSE, INGRIS Referring Unavailable FAWWAD, HATFIELD Referring Unavailable HORANI, TIAN Admitting Unavailable TIAN, MARTINEZ Attending Unavailable MARILYN GOTTI Attending Unavailable BENJY GARCIA Attending Unavailable BENJY GARCIA Attending Unavailable BENJY GARCIA Attending Unavailable BENJY GARCIA Attending Unavailable BENJY GARCIA Attending Unavailable Allergies Allergy Classification Reported Allergen(s) Allergy Type Date of Onset Reaction(s) Facility (2 sources) Clindamycin; Translations: [CLINDAMYCIN] Drug Allergy 01-24-2017 [facility] Repository (1 source) Clindamycin Drug Allergy 12-23-2023 [facility] Repository (20 sources) Clindamycin Drug Allergy 04-02-2020 Rash [facility] [employer] Work Phone: Medications Current Medications Medication Drug [...] / oxyCODONE hydrochloride 5 mg oral tablet (16 sources) Opioid Agonist Start: 11-07-2024 End: 12-07-2024 take 1 tablet by mouth four times daily as needed for pain oxyCODONE-acetaminop hen (Percocet) 5-325 MG tablet Indications: Primary osteoarthritis of both knees Take 1 tablet by mouth 4 (four) times a day as needed for moderate pain or severe pain 120 tablet 11/07/2024 12/07/2024 Active Start: 07-04-2024 End: 11-06-2024 take 1 tablet by mouth every four hours as needed oxyCODONE-acetaminophen (Percocet) 5-325 MG tablet Take 1 tablet by mouth every 4 (four) hours if needed 07/04/2024 11/06/2024 Discontinued (Reorder) Start: 07-04-2024 End: 08-03-2024 take 1 tablet [...] Discontinued (Reorder) apixaban 5 mg oral tablet (19 sources) Factor Xa Inhibitor Start: 06-22-2024 take 1 tablet by mouth in the morning apixaban (Eliquis) 5 MG tablet Take 5 mg by mouth in the morning and 5 mg in the evening. 06/22/2024 Active aspirin 81 mg delayed release oral tablet (19 sources) Platelet Aggregation Inhibitor, Nonsteroidal Anti-inflammatory Drug Start: 06-23-2024 take 1 tablet by mouth in the morning aspirin 81 MG EC tablet Take 81 mg by mouth in the morning. 06/23/2024 Active atorvastatin 40 mg oral tablet (20 sources) HMG-CoA Reductase Inhibitor Start: 06-22-2024 End: 07-11-2024 take 1 tablet by mouth at bedtime atorvastatin (Lipitor) 40 MG tablet Indications: Nonobstructive atherosclerosis of coronary artery Take 1 tablet (40 mg) by mouth at bedtime 90 tablet 3 07/11/2024 Active dapagliflozin 10 mg oral tablet (19 sources) Sodium-Glucose Cotransporter 2 Inhibitor Start: 06-23-2024 take 10 mg by mouth in the morning dapagliflozin (Farxiga) 10 MG Take 10 mg by mouth in the morning. 06/23/2024 Active FLUoxetine 20 mg oral capsule (6 sources) Serotonin Reuptake Inhibitor Start: 01-15-2025 take 1 capsule by mouth once daily FLUoxetine (PROzac) 20 MG capsule Indications: Major depressive disorder, recurrent episode, moderate (HCC) Take 1 capsule (20 mg) by mouth Daily 30 capsule 5 01/15/2025 Active Start: 01-15-2025 take 1 capsule by mo ut once daily FLUoxetine (PROzac) 20 MG capsule Indications: Major depressive disorder, recurrent episode, moderate (HCC) Take 1 capsule (20 mg) by mouth Daily 30 capsule 5 01/15/2025 Active Start: 01-03-2025 End: 01-15-2025 take 1 capsule by mouth once daily FLUoxetine (PROzac) 10 MG capsule Indications: Major depressive disorder, recurrent episode, moderate (HCC) Take 1 capsule (10 mg) by mouth Daily 30 capsule 2 01/03/2025 01/15/2025 Discontinued (Reorder) furosemide 40 mg oral tablet (20 sources) Loop Diuretic Start: 06-22-2024 End: 07-11-2024 take 1 tablet by mouth in the morning furosemide (Lasix) 40 MG tablet Indications: Chronic HFrEF (heart failure with reduced ejection fraction) (HCC) Take 1 tablet (40 mg) by mouth in the morning. 90 tablet 3 07/11/2024 Active hydroCHLOROthiazide 25 mg / lisinopril 20 [...] Active levothyroxine sodium 0.075 mg oral tablet (19 sources) l-Thyroxine Start: 12-26-2024 take 1 tablet by mouth once daily before mealtime levothyroxine (Synthroid, Levoxyl) 75 MCG tablet Indications: Adult hypothyroidism TAKE 1 TABLET BY MOUTH ONCE DAILY IN THE MORNING BEFORE MEAL(S) 30 tablet 12/26/2024 Active Start: 11-19-2024 take 1 tablet by saundra th once daily before mealtime levothyroxine (Synthroid, Levoxyl) 75 MCG tablet Indications: Adult hypothyroidism TAKE 1 TABLET BY MOUTH ONCE DAILY IN THE MORNING BEFORE MEAL(S) 30 tablet 11/19/2024 Active Start: 10-22-2024 take 1 tablet by saundra th once daily before mealtime levothyroxine (Synthroid, Levoxyl) 75 MCG tablet Indications: Adult hypothyroidism (CMS/HCC) TAKE 1 TABLET BY MOUTH ONCE DAILY IN THE MORNING BEFORE MEALS 30 tablet 10/22/2024 Active Start: 06-28-2024 take 1 tablet by saundra th before mealtime levothyroxine (Synthroid) 75 MCG tablet Indications: Adult hypothyroidism (CMS/HCC) Take 1 tablet (75 mcg) by mouth in the morning. Take before meals. 30 tablet 3 06/28/2024 Active 24 hr metoprolol succinate 25 mg extended release oral tablet (19 sources) beta-Adrenergic Toni Start: 07-11-2024 take 0.5 tablet by mouth once daily metoprolol succinate XL (Toprol-XL) 25 MG 24 hr tablet Indications: Chronic HFrEF (heart failure with reduced ejection fraction) ([facility]) Take 0.5 tablets (12.5 mg) by mouth Daily 45 tablet 3 07/11/2024 Active Start: 06-28-2024 End: 07-11-2024 take 1 tablet by mouth once daily metoprolol succinate XL (Toprol-XL) 25 MG 24 hr tablet Take 12.5 mg by mouth Daily 06/28/2024 07/11/2024 Discontinued (Reorder) pantoprazole 40 mg delayed release oral tablet (20 sources) Proton Pump Inhibitor Start: 06-22-2024 take 1 tablet by mouth before mealtime pantoprazole (ProtoNix) 40 MG EC tablet Take 40 mg by mouth in the morning. Take before meals. 06/22/2024 Active Start: 12-23-2023 take 40 mg by mouth once daily Pantoprazole Active 40 MG PO Daily December 23, 2023 12:00am sacubitril 24 mg / valsartan 26 mg oral tablet (19 sources) Angiotensin 2 Receptor Toni Start: 06-22-2024 take 1 tablet by mouth in the morning Entresto 24-26 MG tablet Take 1 tablet by mouth in the morning and 1 tablet before bedtime. 06/22/2024 Active spironolactone 25 mg oral tablet (6 sources) Aldosterone Antagonist Start: 09-12-2024 End: 09-12-2025 take 1 tablet by mouth once daily spironolactone (Aldactone) 25 MG tablet Take 25 mg by mouth Daily 09/12/2024 09/12/2025 Active zolpidem tartrate 10 mg oral tablet (20 sources) gamma-Aminobutyri c Acid-ergic Agonist Start: 06-28-2024 End: 01-24-2025 zolpidem (Ambien) 10 MG tablet Indications: Primary insomnia TAKE 1 TABLET BY MOUTH NEEDED AT BEDTIME FOR SLEEP 30 tablet 2 01/24/2025 Active Start: 11-16-2023 zolpidem (Ambi en) 10 MG tablet Indications: Primary insomnia Take 1 tablet (10 mg) by mouth as needed at bedtime for sleep 30 tablet 11/16/2023 Active Problems Active Problems Problem Classification Problem Date Documented Date Episodic/Chronic Acute myocardial infarction (2 [address]) ST elevation (STEMI) myocardial infarction of unspecified site; Translations: [ST elevation (STEMI) myocardial infarction of unspecified site] Onset: 06-18-2024 Chronic Alcohol-related disorders (5 sources) Alcohol abuse; Translations: [Alcohol abuse, in remission] Onset: 01-15-2025 01-15-2025 Chronic Cardiac dysrhythmias (20 sources) Paroxysmal atrial fibrillation; Translations: [Paroxysmal atrial fibrillation] Onset: 06-17-2024 07-04-2024 Chronic Congestive heart failure; nonhypertensive (20 sources) Chronic systolic heart failure; Translations: [Chronic systolic (congestive) heart failure] Onset: 06-17-2024 07-04-2024 Chronic Coronary atherosclerosis and other heart disease (20 sources) Non-obstructive atherosclerosis of coronary artery; Translations: [Atherosclerotic heart disease of [place]' coronary artery without angina pectoris] Onset: 07-04-2024 07-04-2024 Chronic Esophageal disorders (20 sources) Gastroesophageal reflux disease without esophagitis; Translations: [Gastro-esophageal reflux disease without esophagitis] Onset: 09-09-2023 09-09-2023 Chronic Essential hypertension (20 sources) Benign hypertension; Translations: [Essential (primary) hypertension] Onset: 09-09-2023 09-09-2023 Chronic Miscellaneous mental health disorders (20 sources) Primary insomnia; Translations: [Primary insomnia] Onset: 11-16-2023 11-16-2023 Chronic Mood disorders (6 sources) Moderate recurrent major depression; Translations: [Major depressive disorder, recurrent, moderate] Onset: 01-03-2025 01-03-2025 Chronic Osteoarthritis (20 sources) Localized, primary osteoarthritis of the shoulder region; Translations: [Primary osteoarthritis, unspecified shoulder] Onset: 09-09-2023 09-09-2023 Chronic Other inflammatory condition of skin (20 sources) Rosacea; Translations: [Rosacea, unspecified] Onset: 09-09-2023 [...] Chronic Other nutritional; endocrine; and metabolic disorders (20 sources) Severe obesity; Translations: [Class 3 severe obesity due to excess calories with serious comorbidity and body mass index (BMI) of 50.0 to 59.9 in adult ([facility])] Onset: 09-09-2023 07-04-2024 Chronic Other screening for suspected conditions (not mental disorders or infectious disease) (2 sources) Encounter for screening for malignant neoplasm of prostate; Translations: [Encounter for screening for malignant neoplasm of colon] Onset: 11-27-2021 Episodic Other upper respiratory infections (20 sources) Chronic sinusitis; Translations: [Chronic sinusitis, unspecified] Onset: 04-02-2020 09-09-2023 Chronic Residual codes; unclassified (20 sources) Obstructive sleep apnea syndrome; Translations: [Obstructive sleep apnea (adult) (pediatric)] Onset: 04-02-2020 09-09-2023 Chronic Thyroid disorders (20 sources) Hypothyroidism; Translations: [Hypothyroidism, unspecified] Onset: 06-28-2024 06-28-2024 Chronic Past or Other Problems Problem Classification Problem Date Documented Da te Episodic/Chronic Other gastrointestinal disorders (20 sources) Abdominal bloating; Translations: [Abdominal distension (gaseous)] Onset: 4 Resolved: 5 11-16-2023 Episodic Other nervous system disorders (20 sources) Bad taste in mouth; Translations: [Other disturbances of smell and taste] Onset: 4 Resolved: 5 11-16-2023 Episodic Phlebitis; thrombophlebitis and thromboembolism (20 sources) Thrombophlebitis of superficial vein of left lower limb; Translations: [Phlebitis and thrombophlebitis of superficial vessels of left lower extremity] Onset: 4 09-09-2023 Episodic Residual codes; unclassified (20 sources) Hypersomnia; Translations: [Hypersomnia, unspecified] Onset: 4 Resolved: 4 09-09-2023 Chronic Results Test Name Value Interpretation Reference Range Facility ALL BASIC METABOLIC PANELon 10-12-2024 Anion gap [Moles/Vol] 4.5 mmol/L [facility] Calcium [Mass/Vol] 8.7 mg/dL 8.5 - 10. 1 mg/dL [facility] Chloride [Moles/Vol] 98 mmol/L 98 - 10 7 mmol/L [facility] CO2 [Moles/Vol] 36.7 mmol/L High 21.0 - 32.0 mmol/L [facility] Creatinine [Mass/Vol] 1.12 mg/dL 0.70 - 1.30 mg/dL [facility] GFR/1.73 sq M.predicted CKD-EPI (S/P/Bld) [Vol rate/Area] >60 >=60 mL/min/1.73m 2 [facility] Glucose [Mass/Vol] 102 mg/dL 74 - 106 mg/dL [facility] Interpretation and review of laboratory results Abnormal [facility] Potassium [Moles/Vol] 4.2 mmol/L 3.5 - 5.1 mmol/L [facility] Sodium [Moles/Vol] 135 mmol/L Low 136 - 145 mmol/L [facility] TBH EGFR-NON AF BOTSWANAN >60 >=60 mL/min/1.73m 2 [facility] Urea nitrogen [Mass/Vol] 12 mg/dL 7.0 - 18.0 mg/dL [facility] Urea nitrogen/Creatinine [Mass ratio] 10.7 mg/mg [facility] 36 Pt had appt with Dr Gotti today and meds were sent. [facility] 36 Patient is calling f or medication refill to be sent to pharmacy/ Thank you This phone message was created by the Ambulatory float staff. If you need it support manager follow up regarding this patient, please make your appropriate clinic staff member aware. Thank you. [facility] Office Visiton 09-12-2024 Follow-up visit [id number] Chay Dodd Jr. 1965 M Date Provider Department Center 09/12/2024 [facility]-MARILYN GOTTI [facility] Family History Problem Relation Age of Onset Heart failure Father Atrial fibrillation Father Family Status - Relation Status Age at Father Level of Service:98377 NE OFFICE/OUTPATIENT ESTABLISHED MOD MDM 30 MIN [facility] ALL THYROID STIM HORMONEon 0 09-03-2024 TSH Qn 0.816 m[IU]/L [facility] ECHO DOPPLER COMPLETEon 0 08-31-2024 [facility] [address] [place] [address] Cardiology Report Signed Patient: CHAY DODD Jr. MR#: [id number] : 1965 Acct:[id number] Age/Sex: 59 / M ADM Date: 08/31/24 Loc: CARD Attending Dr: Marilyn Gotti M.D. Ordering Physician: Marilyn Gotti M.D. Date of Service: 08/31/24 Procedure(s): CA echo doppler complete Accession Number(s): [id number] cc: Marilyn Gotti M.D.; Benjy Garcia M.D. Patient Name: CHAY DODD MR#: [id number] : 1965 Exam Date: 08/31/2024 Ordering Doctor: DR MARILYN GOTTI M.D. ECHOCARDIOGRAM REPORT PROCEDURE: CA ECHO DOPPLER COMPLETE INDICATIONS: Heart failure with reduced ejection fraction COMPARISON: None. DESCRIPTION: COMPLETE ECHOCARDIOGRAM Real-time transthoracic echocardiography with 2D, M-mode, spectral and color flow Doppler performed. QUALITY: Technical quality was adequate. LEFT VENTRICLE: Normal chamber size. Mild concentric left ventricular hypertrophy. Systolic function is mildly to moderately reduced. LV EF: Mildly to moderately reduced left ventricular ejection fraction, (40%). DIASTOLIC: ATRIAL SEPTUM: LEFT ATRIUM: Normal chamber size. RIGHT ATRIUM: Mild dilatation. RIGHT VENTRICLE: Normal chamber size. Borderline right ventricular systolic function. TRICUSPID VALVE: Normal mobility and thickness. No stenosis with no regurgitation. Unable to assess right-sided pressures due to lack of measurable tricuspid regurgitation. MITRAL VALVE: Normal mobility and thickness. No evidence of mitral valve stenosis. There is no mitral annular calcification. No mitral regurgitation. AORTIC VALVE: Normal trileaflet appearance. No visible sclerosis. Normal leaflet mobility. No evidence of aortic valve stenosis. No aortic regurgitation. AORTIC ROOT: Normal diameter and appearance, measuring 3.7 cm. Ascending aorta is normal in size, measuring 3.6 cm. PULMONIC VALVE: Normal thickness and mobility. No stenosis. No regurgitation. PERICARDIUM: No evidence of pericardial effusion. IVC: IVC is dilated (2.3 cm), does not collapse. PLEURA: CONCLUSION: 1. Mild concentric left ventricular hypertrophy with mildly to moderately reduced systolic function. Estimated LVEF is 40%. 2. Normal right ventricular size with borderline systolic function. 3. No significant valvular dysfunction. 4. Unable to assess right-sided pressures due to lack of measurable tricuspid regurgitation. Adult Echocardiography Procedure Report Left Ventricle LVEDD (3.7 - 5.6 cm): 5.68 cm LVESD (2.2 - 4.0 cm): 4.64 cm LVIVS thickness (0.6 - 1.2 cm): 1.35 cm LVPW thickness (0.5 - 1.0 cm): 1.42 cm e': 0.07 m/s E - e': 9.27 LVOT Max Gradient: 1.54 mm[Hg] LVOT Area (cm2): 0.62 m/s Peak Velocity (LVOT): 0.62 m/s Mean Velocity (LVOT): 0.46 m/s LVOT Diameter 2.81 cm Left Atrium LA Volume Index (2D A2C): 27.21 ml/m2 Left Atrium Systolic Dimension: 4.55 cm Mitral Valve MV E to A Ratio: 1.07 Mitral Valve A-Wave Peak Velocity: 0.64 m/s Mitral Valve E-Wave Peak Velocity: 0.69 m/s Right Ventricle Aorta AO Root Diam: 3.67 cm Ascending Ao Diam: 3.60 cm Aortic Valve AoV Area (Peak Bassem): 4.31 cm2, 4.31 cm2 AoV Area (VTI): 5.07 cm2, 5.07 cm2 Peak Velocity(Antegrade Flow): 0.89 m/s Peak Gradient(Antegrade Flow): 3.17 mm[Hg] Mean Velocity(Antegrade Flow): 0.57 m/s Mean Gradient(Antegrade Flow): 1.53 mm[Hg] Velocity Time Integral: 15.90 cm Tricuspid Valve Pulmonic Valve Mean Gradient: 2.88 mm[Hg] Mean Velocity: 0.81 m/s Peak Velocity: 1.10 m/s, 1.03 m/s Peak Gradient: 4.21 mm[Hg], 4.84 mm[Hg] Right Atrium Right Atrium Systolic Pressure: 56.06 ml, 56.06 ml Dictated by: Audra Leiva M.D. on 08/31/2024 at 18:04 Approved by: Audra Leiva M.D. on 08/31/2024 at 18:08 Dictated By: (more content not included)... [facility] Radiology, Radiologist, - 08/31/2024 The [address] [place] [address] Cardiology Report Signed Patient: CHAY DODD Jr. MR#: [id number] : 1965 Acct:[id number] Age/Sex: 59 / M ADM Date: 08/31/24 Loc: CARD Attending Dr: Marilyn Gotti M.D. Ordering Physician: Marilyn Gotti M.D. Date of Service: 08/31/24 Procedure(s): CA echo doppler complete Accession Number(s): [id number] cc: Marilyn Gotti M.D.; Benjy Garcia M.D. Patient Name: CHAY DODD MR#: [id number] : 1965 Exam Date: 08/31/2024 Ordering Doctor: DR MARILYN GOTTI M.D. ECHOCARDIOGRAM REPORT PROCEDURE: CA ECHO DOPPLER COMPLETE INDICATIONS: Heart failure with reduced ejection fraction COMPARISON: None. DESCRIPTION: COMPLETE ECHOCARDIOGRAM Real-time transthoracic echocardiography with 2D, M-mode, spectral and color flow Doppler performed. QUALITY: Technical quality was adequate. LEFT VENTRICLE: Normal chamber size. Mild concentric left ventricular hypertrophy. Systolic function is mildly to moderately reduced. LV EF: Mildly to moderately reduced left ventricular ejection fraction, (40%). DIASTOLIC: ATRIAL SEPTUM: LEFT ATRIUM: Normal chamber size. RIGHT ATRIUM: Mild dilatation. RIGHT VENTRICLE: Normal chamber size. Borderline right ventricular systolic function. TRICUSPID VALVE: Normal mobility and thickness. No stenosis with no regurgitation. Unable to assess right-sided pressures due to lack of measurable tricuspid regurgitation. MITRAL VALVE: Normal mobility and thickness. No evidence of mitral valve stenosis. There is no mitral annular calcification. No mitral regurgitation. AORTIC VALVE: Normal trileaflet appearance. No visible sclerosis. Normal leaflet mobility. No evidence of aortic valve stenosis. No aortic regurgitation. AORTIC ROOT: Normal diameter and appearance, measuring 3.7 cm. Ascending aorta is normal in size, measuring 3.6 cm. PULMONIC VALVE: Normal thickness and mobility. No stenosis. No regurgitation. PERICARDIUM: No evidence of pericardial effusion. IVC: IVC is dilated (2.3 cm), does not collapse. PLEURA: CONCLUSION: 1. Mild concentric left ventricular hypertrophy with mildly to moderately reduced systolic function. Estimated LVEF is 40%. 2. Normal right ventricular size with borderline systolic function. 3. No significant valvular dysfunction. 4. Unable to assess right-sided pressures due to lack of measurable tricuspid regurgitation. Adult Echocardiography Procedure Report Left Ventricle LVEDD (3.7 - 5.6 cm): 5.68 cm LVESD (2.2 - 4.0 cm): 4.64 cm LVIVS thickness (0.6 - 1.2 cm): 1.35 cm LVPW thickness (0.5 - 1.0 cm): 1.42 cm e': 0.07 m/s E - e': 9.27 LVOT Max Gradient: 1.54 mm[Hg] LVOT Area (cm2): 0.62 m/s Peak Velocity (LVOT): 0.62 m/s Mean Velocity (LVOT): 0.46 m/s LVOT Diameter 2.81 cm Left Atrium LA Volume Index (2D A2C): 27.21 ml/m2 Left Atrium Systolic Dimension: 4.55 cm Mitral Valve MV E to A Ratio: 1.07 Mitral Valve A-Wave Peak Velocity: 0.64 m/s Mitral Valve E-Wave Peak Velocity: 0.69 m/s Right Ventricle Aorta AO Root Diam: 3.67 cm Ascending Ao Diam: 3.60 cm Aortic Valve AoV Area (Peak Bassem): 4.31 cm2, 4.31 cm2 AoV Area (VTI): 5.07 cm2, 5.07 cm2 Peak Velocity(Antegrade Flow): 0.89 m/s Peak Gradient(Antegrade Flow): 3.17 mm[Hg] Mean Velocity(Antegrade Flow): 0.57 m/s Mean Gradient(Antegrade Flow): 1.53 mm[Hg] Velocity Time Integral: 15.90 cm Tricuspid Valve Pulmonic Valve Mean Gradient: 2.88 mm[Hg] Mean Velocity: 0.81 m/s Peak Velocity: 1.10 m/s, 1.03 m/s Peak Gradient: 4.21 mm[Hg], 4.84 mm[Hg] Right Atrium Right Atrium Systolic Pressure: 56.06 ml, 56.06 ml Dictated by: Audra Leiva M.D. on 08/31/2024 at 18:04 Approved by: Audra Leiva M.D. on 08/31/2024 at 18:08 Dictated By: AUDRA LEIVA Signed By: 08/31/241809 DD/ 07 TD/TT: Finisher Cold Rolling: [facility] Radiology Study observation (narrative) [facility] CA ECHO DOPPLER COMPLETEOrde red By: Radiologist Radiology on 08-31-2024 [facility] Work Phone: [phone] 08-16-2024 36 Diane a nurse from [facility] reached out to pt since he was recently released from the hospital. Pt stated that he is not undergoing cardiac rehab as he does not have time for that. He also told Diane that after flu like symptoms last week he has not been odette his life vest as it interferes with his work. He has begone working again, and states that he will keep follow up with Dr Gotti 09/12 and has been taking his meds as prescribed. Diane is available if there are further questions. [phone] [place] [id number] Normal [facility] Telephoneon 08-08-2024 Telephone [id number] Chay Dodd Jr. 1965 M Date Provider Department Center 08/08/2024 [place] JOYA [facility] Family History Problem Relation Age of Onset Heart failure Father Atrial fibrillation Father Family Status - Relation Status Age at Father Normal [facility] ALL LIPID PROFILE (FASTING)o n 07-06-2024 CHOL HDL RATIO 1.8 [facility] Comment on above: 3.3 - 4.4 LOW RISK 4.4 - 7.1 AVERAGE RISK 7.1 - 11.0 MODERATE RISK >11.0 HIGH RISK Cholesterol [Mass/Vol] 75 mg/dL NINF - 200 mg/dL [facility] Cholesterol in HDL [Mass/Vol] 42 mg/dL 40 - 60 mg/dL [facility] Comment on above: > or =60 mg/dl - LOW CARDIOVASCULAR RISK <40 mg/dl - HIGH CARDIOVASCULAR RISK Magnesium [Mass/Vol] 20 mg/dL [facility] Comment on above: <100 mg/dl OPTIMAL 100-129 mg/dl NEAR OR ABOVE OPTIMAL 130-159 mg/dl BORDERLINE HIGH 160-189 mg/dl HIGH >190 mg/dl VERY HIGH Magnesium [Mass/Vol] 13 mg/dL [facility] Triglyceride [Mass/Vol] 65 mg/dL NINF - 150 mg/dL [facility] CMP (CMP) (FOR REMOTE FH C USE)on 07-06-2024 Albumin [Mass/Vol] 2.8 g/dL Low 3.4 - 5.0 g/dL [facility] ALBUMIN GLOBULIN RATIO 0.8 [facility] ALP [Catalytic activity/Vol] 54 U/L 46 - 116 U/L [facility] ALT [Catalytic activity/Vol] 24 U/L 16 - 63 U/L [facility] Anion gap [Moles/Vol] 6.3 mmol/L [facility] AST [Catalytic activity/Vol] 24 U/L 15 - 37 U/L [facility] Bilirubin [Mass/Vol] 0.4 mg/dL 0.2 - 1 .0 mg/dL [facility] Calcium [Mass/Vol] 8.7 mg/dL 8.5 - 10. 1 mg/dL [facility] Chloride [Moles/Vol] 105 mmol/L 98 - 10 7 mmol/L [facility] CO2 [Moles/Vol] 33.8 mmol/L High 21.0 - 32.0 mmol/L [facility] Creatinine [Mass/Vol] 1.13 mg/dL 0.70 - 1.30 mg/dL [facility] GFR/1.73 sq M.predicted CKD-EPI (S/P/Bld) [Vol rate/Area] >60 >=60 mL/min/1.73m 2 [facility] Globulin (S) [Mass/Vol] 3.7 g/dL [facility] Glucose [Mass/Vol] 117 mg/dL High 74 - 106 mg/dL [facility] Interpretation and review of laboratory results Abnormal [facility] Potassium [Moles/Vol] 4.1 mmol/L 3.5 - 5.1 mmol/L [facility] Protein [Mass/Vol] 6.5 g/dL 6.4 - 8.2 g/dL [facility] Sodium [Moles/Vol] 141 mmol/L 136 - 145 mmol/L [facility] TBH EGFR-NON AF BOTSWANAN >60 >=60 mL/min/1.73m 2 [facility] Urea nitrogen [Mass/Vol] 11 mg/dL 7.0 - 18.0 mg/dL [facility] Urea nitrogen/Creatinine [Mass ratio] 9.7 mg/mg [facility] No Panel Informationon 07-06 [facility] Follow-Upon 06-28-2024 Follow-Up [id number] Chya Dodd 1965 M Date Provider Department Center 06/28/2024 271-MARILYN GOTTI BH CARD [facility] Family History Problem Relation Age of Onset Heart failure Father Atrial fibrillation Father Family Status - Relation Status Age at Father Level of Service:50159 NE OFFICE/OUTPATIENT ESTABLISHED MOD MDM 30 MIN [facility] Documentationon 06-27-2024 Documentation [id number] Chay Dodd 1965 M Date Provider Department Center 06/27/2024 [id number]-IIKUZYHTIFFANIE EDWARD [facility] VASC [facility] No family history on file Reason for Visit and Comments: HF inpatient satisfaction survey sent. [Other] [facility] 36on 06-26-2024 36 DC to home on 06/22/2024 Spoke to pt on 06/26/2024 Meds discussed with pt , no questions Pt is currently admitted at [facility] , thyroid levels off and warning on life vest Pt is aware of follow up appt and he has transportation [facility] 30on 06-22-2024 30 Daily Case Managemen t Update Multidisciplinary rounds have been completed. Barriers to Discharge: Patient is medically ready for discharge. Awaiting lifevest fitting. Livestock Breeder spoke to Mp with Sandeep Rae who reported the patient will be fit around 3 pm today. 1325: Cardiology progress note faxed to Sandeep at [phone]. Diet: Dietary Orders (From admission, onward) Start [...] PT Recommendations: OT Recommendations: New Consults: Normal [facility] BASIC METABOLIC PANELon 06-06 Anion gap [Moles/Vol] 8 mmol/L Normal 7-20 [facility] Comment on above: Performed By: #### L [id number] ####[facility] (BEAKER)[address] [place] [address] Calcium [Mass/Vol] 8.7 mg/dL Normal 8.6-10.3 [facility] Comment on above: Performed By: #### L [id number] ####[facility] (BEAKER)[address] [place] [address] Chloride [Moles/Vol] 98 mmol/L Normal 98-107 [facility] Comment on above: Performed By: #### L [id number] ####[facility] (BEAKER)[address] [place] [address] CO2 [Moles/Vol] 33 mmol/L High 21- [facility] Comment on above: Performed By: #### L [id number] ####[facility] (BEAKER)[address] [place] [address] Creatinine [Mass/Vol] 0.99 mg/dL Normal 0.70-1.30 [facility] Comment on above: Performed By: #### L [id number] ####[facility] (BEAKER)[address] [place] [address] GLOMERULAR FILTRATION RATE ML/MIN/1.73 SQ M.PREDICTED 87.2 mL/min/1.73m*2 Normal >60.0 [facility] Comment on above: Result Comment: [facility]???s estimated glomerular filtration rate (eGFR) [...] of individuals. Performed By: #### L [id number] ####[facility] ([facility])[address] [facility] [place] [address] Glucose [Mass/Vol] 104 mg/dL High 70-100 [facility] Comment on above: Performed By: #### L [id number] ####[facility] ([facility])[address] [place] [address] Potassium [Moles/Vol] 3.9 mmol/L Normal 3.5-5.1 [facility] Comment on above: Performed By: #### L [id number] ####[facility] ([facility])[address] [place] [address] Sodium [Moles/Vol] 135 mmol/L Low 136-145 [facility] Comment on above: Performed By: #### L [id number] ####[facility] ([facility])[address] [place] [address] Urea nitrogen [Mass/Vol] 13 mg/dL Normal 7-25 [facility] Comment on above: Performed By: #### L [id number] ####[facility] ([facility])[address] [place] [address] UREA NITROGEN/CREATININE (MASS RATIO) IN SER/PLAS 13.1 Normal [facility] Comment on above: Performed By: #### L [id number] ####[facility] ([facility])[address] [place] [address] CBCon 06-22-2024 Erythrocyte distribution width (RBC) [Ratio] 13.3 % Normal 11.5-15.0 [facility] Comment on above: Performed By: #### L [id number] #### [facility] ([facility]) [address] [place] [address] ERYTHROCYTE MEAN CORPUSCULAR HEMOGLOBIN CONCENTRATION (G/DL) BY AUTOMATED 33.2 g/dL Normal 32.0-35.0 [facility] Comment on above: Performed By: #### L [id number] #### [facility] ([facility]) [address] [place] [address] Hematocrit (Bld) [Volume fraction] 46.1 % Normal 39.0-55.0 [facility] Comment on above: Performed By: #### L [id number] #### [facility] [address] [place] [address] Hemoglobin (Bld) [Mass/Vol] 15.3 g/dL Normal 13.0-17.0 [facility] Comment on above: Performed By: #### L [id number] #### [facility] [address] [place] [address] MCH (RBC) [Entitic mass] 31.0 pg Normal 27.0-33.0 [facility] Comment on above: Performed By: #### L [id number] #### [facility] [address] [place] [address] MCV (RBC) [Entitic vol] 93.5 fL Normal 82.0-98.0 [facility] Comment on above: Performed By: #### L [id number] #### [facility] ([facility] [address] [place] [address] PLATELETS (10*3/UL) IN BLOOD AUTOMATED COUNT 261 10*3/uL Normal 150-400 [facility] Comment on above: Performed By: #### L [id number] #### [facility] ([facility] [address] [place] [address] RBC (Bld) [#/Vol] 4.93 10*6/uL Normal 4.20-5.70 [facility] Comment on above: Performed By: #### L [id number] #### [facility] (BEAKER) [address] [place] [address] WBC (Bld) [#/Vol] 11.08 10*3/uL High 4.00-10.60 [facility] Comment on above: Performed By: #### L [id number] #### [facility] (BEAKER) [address] [place] [address] MAGNESIUMon 06-22-2024 Magnesium [Mass/Vol] 2.0 mg/dL Normal 1.9-2.7 [facility] Comment on above: Performed By: #### L [id number] ####[facility] (BEAKER)[address] [place] [address] NURSNOTEon 06-22-2024 NURSNOTE Pt discharged with a ll belongings, discharge paperwork, and questions answered to pt's satisfaction. [facility] 30on 06-21-2024 30 The patient is Moderately Stable - Low risk of patient condition declining or worsening The patient's goals for the shift include sleep The clinical goals for the shift include stable vs, safety Over the shift, the patient continues to make progress toward the following goals. [facility] 30 The patient is Moderately Stable - Low risk of patient condition declining or worsening The patient's goals for the shift include comfort and rest The clinical goals for the shift include vss and safety [facility] 30 Daily Case Managemen t Update Multidisciplinary [...] Other Other: Heart Failure 06/21/24 1111 Normal [facility] BASIC METABOLIC PANELon 06-06 Anion gap [Moles/Vol] 7 mmol/L Normal - [facility] Comment on above: Performed By: #### L [id number] ####[facility] (BEAKER)[address] [place] [address] Calcium [Mass/Vol] 8.6 mg/dL Normal 8.6-10.3 [facility] Comment on above: Performed By: #### L [id number] ####[facility] (BEAKER)[address] [place] [address] Chloride [Moles/Vol] 98 mmol/L Normal 98-107 [facility] Comment on above: Performed By: #### L [id number] ####[facility] (BEAKER)[address] [place] [address] CO2 [Moles/Vol] 36 mmol/L High 21-31 [facility] Comment on above: Performed By: #### L [id number] ####[facility] (BEAKER)[address] [place] [address] Creatinine [Mass/Vol] 0.99 mg/dL Normal 0.70-1.30 [facility] Comment on above: Performed By: #### L [id number] ####[facility] (BEAKER)[address] [place] [address] GLOMERULAR FILTRATION RATE ML/MIN/1.73 SQ M.PREDICTED 87.2 mL/min/1.73m*2 Normal >60.0 [facility] Comment on above: Result Comment: [facility]???s estimated glomerular filtration rate (eGFR) [...] of individuals. Performed By: #### L [id number] ####[facility] ([facility])[address] [place] [address] Glucose [Mass/Vol] 110 mg/dL High 70-100 [facility] Comment on above: Performed By: #### L [id number] ####[facility] ([facility])[address] [place] [address] Potassium [Moles/Vol] 3.8 mmol/L Normal 3.5-5.1 [facility] Comment on above: Performed By: #### L [id number] ####[facility] ([facility])[address] [place] [address] Sodium [Moles/Vol] 137 mmol/L Normal 136-145 [facility] Comment on above: Performed By: #### L [id number] ####[facility] ([facility])[address] [place] [address] Urea nitrogen [Mass/Vol] 13 mg/dL Normal 7-25 [facility] Comment on above: Performed By: #### L [id number] ####[facility] ([facility])[address] [place] [address] UREA NITROGEN/CREATININE (MASS RATIO) IN SER/PLAS 13.1 Normal [facility] Comment on above: Performed By: #### L [id number] ####[facility] ([facility])[address] [place] [address] CBCon 06-21-2024 Erythrocyte distribution width (RBC) [Ratio] 13.2 % Normal 11.5-15.0 [facility] Comment on above: Performed By: #### L [id number] #### [facility] ([facility]) [address] [place] [address] ERYTHROCYTE MEAN CORPUSCULAR HEMOGLOBIN CONCENTRATION (G/DL) BY AUTOMATED 32.9 g/dL Normal 32.0-35.0 [facility] Comment on above: Performed By: #### L [id number] #### [facility] ([facility] [address] [place] [address] Hematocrit (Bld) [Volume fraction] 43.2 % Normal 39.0-55.0 [facility] Comment on above: Performed By: #### L [id number] #### [facility] ([facility]) [address] [place] [address] Hemoglobin (Bld) [Mass/Vol] 14.2 g/dL Normal 13.0-17.0 [facility] Comment on above: Performed By: #### L [id number] #### [facility] ([facility]) [address] [place] [address] MCH (RBC) [Entitic mass] 30.9 pg Normal 27.0-33.0 [facility] Comment on above: Performed By: #### L [id number] #### [facility] ([facility]) [address] [place] [address] MCV (RBC) [Entitic vol] 94.1 fL Normal 82.0-98.0 [facility] Comment on above: Performed By: #### L [id number] #### [facility] ([facility]) [address] [place] [address] PLATELETS (10*3/UL) IN BLOOD AUTOMATED COUNT 247 10*3/uL Normal 150-400 [facility] Comment on above: Performed By: #### L [id number] #### [facility] ([facility]) [address] [place] [address] RBC (Bld) [#/Vol] 4.59 10*6/uL Normal 4.20-5.70 [facility] Comment on above: Performed By: #### L [id number] #### [facility] ([facility]) [address] [place] [address] WBC (Bld) [#/Vol] 8.62 10*3/uL Normal 4.00-10.60 [facility] Comment on above: Performed By: #### L [id number] #### [facility] (BEAKER) [address] [place] [address] CONSULTon 06-21-2024 CONSULT Adult Nutrition Assessment: Name: Chay Dodd Jr. Date: 1965 Date of Visit: 06/21/24 Admission Dx: Heart failure (CMS/[facility]) [I50.9] Reason for assessment: MD referral (HF [...] of Nutrition and Dietetics (AND) and the [place] [employer] of Enteral and Parenteral Nutrition (ASPEN). [...] To reach the Clinical Dietitian, please utilize [employer] chat Tuesday-Tuesday from 8AM-4PM or call extension [phone]. For weekends (Tuesday-Tuesday) and s, the Clinical Dietitian can be reached via pager ([phone]) from 9AM-3PM. The Clinical Nutrition Department is unable to respond to [employer] chat messages on Sundays and . Normal [facility] T4, FREEon 06-21-2024 THYROXINE (T4) FREE (NG/DL) IN SER/PLAS 0.94 ng/dL Normal 0.71-1.85 [facility] Comment on above: Performed By: #### L [id number] #### [facility] (BEAKER) [address] [place] [address] TSH3 REFLEX TO FT4on 025 THYROTROPIN (MIU/L) IN SER/PLAS BY DETECTION LIMIT <= 0.05 MIU/L 6.21 mIU/L High 0.34-5.60 [facility] Comment on above: Performed By: #### L [id number] ####[facility] (BEAKER)[address] [place] [address] 30on 06-20-2024 30 The patient is Moderately Stable - Low risk of patient condition declining or worsening The patient's goals for the shift include comfort and rest The clinical goals for the shift include vss and safety Over the shift, the patient continued to make progress toward the following goals. Normal [facility] 30 Problem: Respiratory - Adult [...] level of function Outcome: Progressing Flowsheets (Taken 06/20/2024 0749) Return mobility to safest level of function: [...] goals for the shift include VSS Normal [facility] APTTon 06-20-2024 ACTIVATED PARTIAL THROMBOPLASTIN TIME IN PPP BY COAGULATION ASSAY 31.2 Seconds Normal 25.0-35.0 [facility] Comment on above: Order Comment: Check aPTT every 6 hours while on heparin infusion, or per protocol. Result Comment: Clin ical significance of the APTT is questionable in the presence of heparin. Performed By: #### L [id number] ####[facility] ([facility])[address] [place] [address] ACTIVATED PARTIAL THROMBOPLASTIN TIME IN PPP BY COAGULATION ASSAY 31.6 Seconds Normal 25.0-35.0 [facility] Comment on above: Order Comment: Check aPTT every 6 hours while on heparin infusion, or per protocol. Result Comment: Clin ical significance of the APTT is questionable in the presence of heparin. Performed By: #### L [id number] #### [facility] ([employer]) [address] [place] [address] BASIC METABOLIC PANELon 06-06 Anion gap [Moles/Vol] 8 mmol/L Normal 7-20 [facility] Comment on above: Performed By: #### L [id number] #### [facility] ([facility]) [address] [place] [address] Calcium [Mass/Vol] 8.6 mg/dL Normal 8.6-10.3 [facility] Comment on above: Performed By: #### L [id number] #### [facility] ([facility]) [address] [place] [address] Chloride [Moles/Vol] 100 mmol/L Normal 98-107 [facility] Comment on above: Performed By: #### L [id number] #### [facility] ([facility]) [address] [place] [address] CO2 [Moles/Vol] 34 mmol/L High 21-31 [facility] Comment on above: Performed By: #### L [id number] #### [facility] ([facility]) [address] [place] [address] Creatinine [Mass/Vol] 1.04 mg/dL Normal 0.70-1.30 [facility] Comment on above: Performed By: #### L [id number] #### [facility] ([facility]) [address] [place] [address] GLOMERULAR FILTRATION RATE ML/MIN/1.73 SQ M.PREDICTED 82.2 mL/min/1.73m*2 Normal >60.0 [facility] Comment on above: Result Comment: [facility]???s estimated glomerular filtration rate (eGFR) [...] individuals. Performed By: #### L [id number] #### [facility] ([facility]) [address] [place] [address] Glucose [Mass/Vol] 122 mg/dL High 70-100 [facility] Comment on above: Performed By: #### L [id number] #### [facility] (BEAKER) [address] [place] [address] Potassium [Moles/Vol] 4.2 mmol/L Normal 3.5-5.1 [facility] Comment on above: Performed By: #### L [id number] #### [facility] (BEAKER) [address] [place] [address] Sodium [Moles/Vol] 138 mmol/L Normal 136-145 [facility] Comment on above: Performed By: #### L [id number] #### [facility] [address] [place] [address] Urea nitrogen [Mass/Vol] 13 mg/dL Normal 7-25 [facility] Comment on above: Performed By: #### L [id number] #### [facility] ([facility]) [address] [place] [address] UREA NITROGEN/CREATININE (MASS RATIO) IN SER/PLAS 12.5 Normal [facility] Comment on above: Performed By: #### L [id number] #### [facility] ([facility]) [address] [place] [address] CBCon 06-20-2024 Erythrocyte distribution width (RBC) [Ratio] 13.2 % Normal 11.5-15.0 [facility] Comment on above: Performed By: #### L [id number] ####[facility] ([facility] [place] [address] ERYTHROCYTE MEAN CORPUSCULAR HEMOGLOBIN CONCENTRATION (G/DL) BY AUTOMATED 31.3 g/dL Low 32.0-35.0 [facility] Comment on above: Performed By: #### L [id number] ####[facility] ([facility] [place] [address] Hematocrit (Bld) [Volume fraction] 42.8 % Normal 39.0-55.0 [facility] Comment on above: Performed By: #### L [id number] ####[facility] ([facility] [place] [address] Hemoglobin (Bld) [Mass/Vol] 13.4 g/dL Normal 13.0-17.0 [facility] Comment on above: Performed By: #### L [id number] ####[facility] ([facility] [place] [address] MCH (RBC) [Entitic mass] 30.7 pg Normal 27.0-33.0 [facility] Comment on above: Performed By: #### L [id number] ####[facility] ([facility])[address] [place] [address] MCV (RBC) [Entitic vol] 98.2 fL High 82.0-98.0 [facility] Comment on above: Performed By: #### L [id number] ####[facility] ([facility])[address] [place] [address] PLATELETS (10*3/UL) IN BLOOD AUTOMATED COUNT 247 10*3/uL Normal 150-400 [facility] Comment on above: Performed By: #### L [id number] ####[facility] ([facility])[address] [place] [address] RBC (Bld) [#/Vol] 4.36 10*6/uL Normal 4.20-5.70 [facility] Comment on above: Performed By: #### L [id number] ####[facility] ([facility] [place] [address] WBC (Bld) [#/Vol] 7.77 10*3/uL Normal 4.00-10.60 [facility] Comment on above: Performed By: #### L [id number] ####[facility] (BEAKER)[address] [place] [address] MAGNESIUMon 06-20-2024 Magnesium [Mass/Vol] 1.9 mg/dL Normal 1.9-2.7 [facility] Comment on above: Performed By: #### L [id number] ####[facility] (BEAKER)[address] [place] [address] 30on 06-19-2024 30 The patient is Moderately [...] Practitioner for values outside of normal range [facility] 30 Daily Case Managemen t Update Multidisciplinary [...] appropriate for patient?: Yes New Consults: Normal [facility] 30 Problem: Respiratory - Adult [...] the shift include VSS, hemodynamic stability Normal [facility] 30 The patient is Moderately [...] labs for bleeding or clotting disorders Normal [facility] APTTon 06-19-2024 ACTIVATED PARTIAL THROMBOPLASTIN TIME IN PPP BY COAGULATION ASSAY 29.8 Seconds Normal 25.0-35.0 [facility] Comment on above: Order Comment: Check aPTT every 6 hours while on heparin infusion, or per protocol. Result Comment: Clin ical significance of the APTT is questionable in the presence of heparin. Performed By: #### L [id number] #### [facility] (BEAKER) [address] [place] [address] ACTIVATED PARTIAL THROMBOPLASTIN TIME IN PPP BY COAGULATION ASSAY 126.6 Seconds High 25.0-35.0 [facility] Comment on above: Order Comment: Check aPTT every 6 hours while on heparin infusion, or per protocol. Result Comment: Clin ical significance of the APTT is questionable in the presence of heparin. Performed By: #### L [id number] #### [facility] ([facility]) [address] [place] [address] ACTIVATED PARTIAL THROMBOPLASTIN TIME IN PPP BY COAGULATION ASSAY 64.7 Seconds High 25.0-35.0 [facility] Comment on above: Order Comment: Check aPTT every 6 hours while on heparin infusion, or per protocol. Result Comment: Clin ical significance of the APTT is questionable in the presence of heparin. Performed By: #### L [id number] ####[facility] ([facility])[address] [place] [address] BASIC METABOLIC PANELon 06-06 Anion gap [Moles/Vol] 8 mmol/L Normal 7-20 [facility] Comment on above: Performed By: #### L [id number] #### [facility] ([facility]) [address] [place] [address] Calcium [Mass/Vol] 9.2 mg/dL Normal 8.6-10.3 [facility] Comment on above: Performed By: #### L [id number] #### [facility] ([facility]) [address] [place] [address] Chloride [Moles/Vol] 98 mmol/L Normal 98-107 [facility] Comment on above: Performed By: #### L [id number] #### [facility] ([facility]) [address] [place] [address] CO2 [Moles/Vol] 37 mmol/L High 21-31 [facility] Comment on above: Performed By: #### L [id number] #### [facility] ([facility]) [address] [place] [address] Creatinine [Mass/Vol] 1.12 mg/dL Normal 0.70-1.30 [facility] Comment on above: Performed By: #### L [id number] #### [facility] ([facility]) [address] [place] [address] GLOMERULAR FILTRATION RATE ML/MIN/1.73 SQ M.PREDICTED 75.2 mL/min/1.73m*2 Normal >60.0 [facility] Comment on above: Result Comment: [facility]???s estimated glomerular filtration rate (eGFR) [...] group of individuals. Performed By: #### L [id number] #### [facility] ([facility]) [address] [place] [address] Glucose [Mass/Vol] 115 mg/dL High 70-100 [facility] Comment on above: Performed By: #### L [id number] #### [facility] ([facility]) [address] [place] [address] Potassium [Moles/Vol] 4.1 mmol/L Normal 3.5-5.1 [facility] Comment on above: Performed By: #### L [id number] #### [facility] ([facility]) [address] [place] [address] Sodium [Moles/Vol] 139 mmol/L Normal 136-145 [facility] Comment on above: Performed By: #### L [id number] #### [facility] ([facility]) [address] [place] [address] Urea nitrogen [Mass/Vol] 16 mg/dL Normal 7-25 [facility] Comment on above: Performed By: #### L [id number] #### [facility] ([facility]) [address] [place] [address] UREA NITROGEN/CREATININE (MASS RATIO) IN SER/PLAS 14.3 Normal [facility] Comment on above: Performed By: #### L [id number] #### [facility] ([facility]) [address] [place] [address] CBCon 06-19-2024 Erythrocyte distribution width (RBC) [Ratio] 13.6 % Normal 11.5-15.0 [facility] Comment on above: Performed By: #### L [id number] #### [facility] ([facility]) [address] [place] [address] ERYTHROCYTE MEAN CORPUSCULAR HEMOGLOBIN CONCENTRATION (G/DL) BY AUTOMATED 31.4 g/dL Low 32.0-35.0 [facility] Comment on above: Performed By: #### L [id number] #### [facility] ([facility]) [address] [place] [address] Hematocrit (Bld) [Volume fraction] 44.9 % Normal 39.0-55.0 [facility] Comment on above: Performed By: #### L [id number] #### [facility] ([facility]) [address] [place] [address] Hemoglobin (Bld) [Mass/Vol] 14.1 g/dL Normal 13.0-17.0 [facility] Comment on above: Performed By: #### L [id number] #### [facility] ([facility]) [address] [place] [address] MCH (RBC) [Entitic mass] 30.7 pg Normal 27.0-33.0 [facility] Comment on above: Performed By: #### L [id number] #### [facility] ([facility]) [address] [place] [address] MCV (RBC) [Entitic vol] 97.8 fL Normal 82.0-98.0 [facility] Comment on above: Performed By: #### L [id number] #### [facility] ([facility]) [address] [place] [address] PLATELETS (10*3/UL) IN BLOOD AUTOMATED COUNT 286 10*3/uL Normal 150-400 [facility] Comment on above: Performed By: #### L [id number] #### [facility] ([facility]) [address] [place] [address] RBC (Bld) [#/Vol] 4.59 10*6/uL Normal 4.20-5.70 [facility] Comment on above: Performed By: #### L [id number] #### [facility] ([facility]) [address] [place] [address] WBC (Bld) [#/Vol] 10.30 10*3/uL Normal 4.00-10.60 [facility] Comment on above: Performed By: #### L [id number] #### [facility] ([facility]) [address] [facility] [facility] [place] [address] HPon 06-19-2024 HP H&P reviewed. The patient was examined and there are no changes to the H&P. Discussed risks, benefits, and alternative therapies with the patient, he understands and willing to proceed with RHC/coronary angiogram and possible PCI. Sabine Bernard MD PGY-7 Interventional Apartment Assistant Manager Normal [facility] TROPONIN Ion 06-19-2024 Troponin I.cardiac [Mass/Vol] 0.08 ng/mL High 0.00-0.04 [facility] Comment on above: Performed By: #### L [id number] ####[facility] ([facility])[address] [place] [address] 30on 06-18-2024 30 Daily Case Managemen t Update Multidisciplinary rounds have been completed. Barriers to Discharge: Patient presented from [facility] needing higher level of care for SOB [...] appropriate for patient?: Yes New Consults: Normal [facility] 30 The patient is Moderately [...] Goal: Maintains hematologic stability Outcome: Progressing Normal [facility] 30 The patient is Moderately [...] labs for bleeding or clotting disorders Normal [facility] APTTon 06-18-2024 ACTIVATED PARTIAL THROMBOPLASTIN TIME IN PPP BY COAGULATION ASSAY 56.7 Seconds High 25.0-35.0 [facility] Comment on above: Order Comment: Check aPTT every 6 hours while on heparin infusion, or per protocol. Result Comment: Clin ical significance of the APTT is questionable in the presence of heparin. Performed By: #### L [id number] #### [facility] ([facility]) [address] [place] [address] B-TYPE NATRIURETIC PEPTIDEon 06-18-2024 Natriuretic peptide B (Bld) [Mass/Vol] 309 pg/mL High 0-100 [facility] Comment on above: Performed By: #### L [id number] ####[facility] ([facility])[address] [place] [address] CONSULTon 06-18-2024 CONSULT -- Attestation signed by [...] Reason for Consult: Afib, HFrEF HPI: Chay Dodd Jr. is a 58 y.o. male with a past medical history significant for hypertension, [place], morbid obesity, family history of CAD. Patient was a transfer from [facility] for evaluation for coronary angiogram after he [...] extremity edema, (more content not included)... Normal [facility] HEMOGLOBIN A1Con 06-18-2024 Glucose [Mass/Vol] 128 mg/dL Normal [facility] Comment on above: Performed By: #### L [id number] #### [facility] ([facility]) [address] [place] [address] HbA1c (Bld) [Mass fraction] 6.1 % High 4.0-6.0 [facility] Comment on above: Performed By: #### L [id number] #### [facility] ([facility]) [address] [place] [address] HPon 06-18-2024 HP -- Attestation signed by [...] Reason for Consult: Afib, HFrEF HPI: Chay Dodd Jr. is a 58 y.o. male with a past medical history significant for hypertension, [place], morbid obesity, family history of CAD. Patient was a transfer from [facility] for evaluation for coronary angiogram after he [...] extremity edema, (more content not included)... Normal [facility] LIPID PANELon 06-18-2024 CHOL/HDL 3.8 mg/dL Normal [facility] Comment on above: Performed By: #### L [id number] #### [facility] ([facility]) [address] [place] [address] Cholesterol [Mass/Vol] 120 mg/dL Normal 120-200 [facility] Comment on above: Performed By: #### L [id number] #### [facility] ([facility]) [address] [place] [address] Magnesium [Mass/Vol] 49 mg/dL Normal 40-149 [facility] Comment on above: Result Comment: TRIG LYCERIDE REFERENCE RANGE: 20 YEARS AND OLDER CARDIOVASCULAR RISK LESS THAN 150 mg/dL LOW RISK 150 TO 199 mg/dL BORDERLINE RISK 200 mg/dL AND GREATER HIGH RISK Performed By: #### L [id number] #### [facility] ([facility]) [address] [place] [address] Magnesium [Mass/Vol] 78 mg/dL Normal 0-160 [facility] Comment on above: Performed By: #### L [id number] #### [facility] ([facility]) [address] [place] [address] Magnesium [Mass/Vol] 32 mg/dL Normal 23-92 [facility] Comment on above: Performed By: #### L [id number] #### [facility] ([facility]) [address] [place] [address] NON HDL CHOL. (LDL+VLDL) 88 Normal [facility] Comment on above: Performed By: #### L [id number] #### [facility] ([facility]) [address] [place] [address] TOTAL VLDL-C 10 mg/dL Normal 0-40 [facility] Comment on above: Performed By: #### L [id number] #### [facility] ([facility]) [address] [place] [address] PLATELET COUNTon 06-18-2024 PLATELETS (10*3/UL) IN BLOOD AUTOMATED COUNT 267 10*3/uL Normal 150-400 [facility] Comment on above: Performed By: #### L [id number] ####[facility] ([facility])[address] [place] [address] TROPONIN Ion 06-18-2024 Troponin I.cardiac [Mass/Vol] 0.10 ng/mL High 0.00-0.04 [facility] Comment on above: Performed By: #### L [id number] #### [facility] ([facility]) [address] [place] [address] APTTon 06-17-2024 ACTIVATED PARTIAL THROMBOPLASTIN TIME IN PPP BY COAGULATION ASSAY 30.6 Seconds Normal 25.0-35.0 [facility] Comment on above: Result Comment: Clin ical significance of the APTT is questionable in the presence of heparin. Performed By: #### L [id number] #### [facility] ([facility]) [address] [place] [address] CBC WITH AUTO DIFFERENTIALon 06-17-2024 Basophils (Bld) [#/Vol] 0.07 10*3/uL Normal 0.00-0.20 [facility] Comment on above: Performed By: #### L [id number] #### [facility] ([facility]) [address] [place] [address] Basophils/100 WBC (Bld) 0.7 % Normal 0.0-1.0 [facility] Comment on above: Performed By: #### L [id number] #### [facility] ([facility]) [address] [place] [address] Eosinophils (Bld) [#/Vol] 0.30 10*3/uL Normal 0.00-0.50 [facility] Comment on above: Performed By: #### L [id number] #### [facility] ([facility]) [address] [place] [address] Eosinophils/100 WBC (Bld) 2.9 % Normal 0.0-6.0 [facility] Comment on above: Performed By: #### L [id number] #### [facility] [address] [place] [address] Erythrocyte distribution width (RBC) [Ratio] 13.6 % Normal 11.5-15.0 [facility] Comment on above: Performed By: #### L [id number] #### [facility] ([facility]) [address] [place] [address] ERYTHROCYTE MEAN CORPUSCULAR HEMOGLOBIN CONCENTRATION (G/DL) BY AUTOMATED 31.4 g/dL Low 32.0-35.0 [facility] Comment on above: Performed By: #### L [id number] #### [facility] ([facility]) [address] [place] [address] Hematocrit (Bld) [Volume fraction] 45.9 % Normal 39.0-55.0 [facility] Comment on above: Performed By: #### L [id number] #### [facility] ([facility]) [address] [place] [address] Hemoglobin (Bld) [Mass/Vol] 14.4 g/dL Normal 13.0-17.0 [facility] Comment on above: Performed By: #### L [id number] #### [facility] ([facility]) [address] [place] [address] Immature granulocytes (Bld) [#/Vol] 0.03 10*3/uL Normal 0.00-0.20 [facility] Comment on above: Performed By: #### L [id number] #### [facility] ([facility]) [address] [address] Immature granulocytes/100 WBC (Bld) 0.3 % Normal 0.0-1.0 [facility] Comment on above: Performed By: #### L [id number] #### [facility] ([facility]) [address] [place] [address] Lymphocytes (Bld) [#/Vol] 1.64 10*3/uL Normal 1.20-4.00 [facility] Comment on above: Performed By: #### L [id number] #### [facility] ([facility]) [address] [place] [address] Lymphocytes/100 WBC (Bld) 16.0 % Low 20.0-45.0 [facility] Comment on above: Performed By: #### L [id number] #### [facility] ([facility]) [address] [place] [address] MCH (RBC) [Entitic mass] 31.2 pg Normal 27.0-33.0 [facility] Comment on above: Performed By: #### L [id number] #### [facility] ([facility]) [address] [place] [address] MCV (RBC) [Entitic vol] 99.6 fL High 82.0-98.0 [facility] Comment on above: Performed By: #### L [id number] #### [facility] ([facility]) [address] [place] [address] Monocytes (Bld) [#/Vol] 0.70 10*3/uL Normal 0.10-1.00 [facility] Comment on above: Performed By: #### L [id number] #### [facility] ([facility]) [address] [place] [address] Monocytes/100 WBC (Bld) 6.8 % Normal 5.0-12.0 [facility] Comment on above: Performed By: #### L [id number] #### [facility] [address] [place] [address] Neutrophils (Bld) [#/Vol] 7.49 10*3/uL Normal 1.60-7.60 [facility] Comment on above: Performed By: #### L [id number] #### [facility] ([facility]) [address] [place] [address] Neutrophils/100 WBC (Bld) 73.3 % High 40.0-72.0 [facility] Comment on above: Performed By: #### L [id number] #### [facility] [address] [place] [address] NRBC (PER 100 WBCS) BY AUTOMATED COUNT 0.0 % Normal 0 [facility] Comment on above: Performed By: #### L [id number] #### [facility] ([facility]) [address] [place] [address] PLATELETS (10*3/UL) IN BLOOD AUTOMATED COUNT 288 10*3/uL Normal 150-400 [facility] Comment on above: Performed By: #### L [id number] #### [facility] [address] [place] [address] RBC (Bld) [#/Vol] 4.61 10*6/uL Normal 4.20-5.70 [facility] Comment on above: Performed By: #### L [id number] #### [facility] ([facility]ER) [address] [place] [address] WBC (Bld) [#/Vol] 10.23 10*3/uL Normal 4.00-10.60 [facility] Comment on above: Performed By: #### L [id number] #### [facility] ([facility]ER) [address] [place] [address] COMPREHENSIVE METABOLIC PANE Damaso 06-17-2024 Albumin [Mass/Vol] 3.6 g/dL Normal 3.5-5.7 [facility] Comment on above: Performed By: #### L [id number] #### [facility] ([facility]) [address] [place] [address] ALP [Catalytic activity/Vol] 42 U/L Normal 34-104 [facility] Comment on above: Performed By: #### L [id number] #### [facility] ([facility]) [address] [place] [address] ALT [Catalytic activity/Vol] 16 U/L Normal 7-52 [facility] Comment on above: Performed By: #### L [id number] #### [facility] ([facility]) [address] [facility] [place] [address] Anion gap [Moles/Vol] 9 mmol/L Normal 7-20 [facility] Comment on above: Performed By: #### L [id number] #### [facility] ([facility]) [address] [facility] [facility] [place] [address] AST [Catalytic activity/Vol] 20 U/L Normal 13-39 [facility] Comment on above: Performed By: #### L [id number] #### [facility] ([facility]) [address] [facility] [facility] [place] [address] Bilirubin [Mass/Vol] 0.5 mg/dL Normal 0.3-1.0 [facility] Comment on above: Performed By: #### L [id number] #### [facility] ([facility]) [address] [place] [address] Calcium [Mass/Vol] 9.0 mg/dL Normal 8.6-10.3 [facility] Comment on above: Performed By: #### L [id number] #### [facility] ([facility]) [address] [place] [address] Chloride [Moles/Vol] 99 mmol/L Normal 98-107 [facility] Comment on above: Performed By: #### L [id number] #### [facility] ([facility]) [address] [place] [address] CO2 [Moles/Vol] 36 mmol/L High 21-31 [facility] Comment on above: Performed By: #### L [id number] #### [facility] ([facility]) [address] [place] [address] Creatinine [Mass/Vol] 1.17 mg/dL Normal 0.70-1.30 [facility] Comment on above: Performed By: #### L [id number] #### [facility] ([facility]) [address] [place] [address] GLOMERULAR FILTRATION RATE ML/MIN/1.73 SQ M.PREDICTED 71.4 mL/min/1.73m*2 Normal >60.0 [facility] Comment on above: Result Comment: [facility]???s estimated glomerular filtration rate (eGFR) [...] individuals. Performed By: #### L [id number] #### [facility] ([facility]) [address] [place] [address] Glucose [Mass/Vol] 90 mg/dL Normal 70-100 [facility] Comment on above: Performed By: #### L [id number] #### [facility] ([facility]) [address] [place] [address] Potassium [Moles/Vol] 3.6 mmol/L Normal 3.5-5.1 [facility] Comment on above: Performed By: #### L [id number] #### [facility] ([facility]) [address] [place] [address] Protein [Mass/Vol] 6.8 g/dL Normal 6.0-8.3 [facility] Comment on above: Performed By: #### L [id number] #### [facility] ([facility]) [address] [place] [address] Sodium [Moles/Vol] 140 mmol/L Normal 136-145 [facility] Comment on above: Performed By: #### L [id number] #### [facility] ([facility]) [address] [place] [address] Urea nitrogen [Mass/Vol] 14 mg/dL Normal 7-25 [facility] Comment on above: Performed By: #### L [id number] #### [facility] ([facility]) [address] [place] [address] UREA NITROGEN/CREATININE (MASS RATIO) IN SER/PLAS 12.0 Normal [facility] Comment on above: Performed By: #### L [id number] #### [facility] ([facility]) [address] [place] [address] MAGNESIUMon 06-17-2024 Magnesium [Mass/Vol] 1.9 mg/dL Normal 1.9-2.7 [facility] Comment on above: Performed By: #### L [id number] ####[facility] ([facility])[address] [facility] [place] [address] PHOSPHORUSon 06-17-2024 Magnesium [Mass/Vol] 2.7 mg/dL Normal 2.5-5.0 [facility] Comment on above: Performed By: #### L [id number] ####[facility] ([facility])[address] [place] [address] PROTIME-INRon 06-17-2024 INR IN PPP BY COAGULATION ASSAY 1.39 High 0.90-1.10 [facility] Comment on above: Result Comment: [...] CHEST 1995;108:231S-246S. Performed By: #### L [id number] ####[facility] (BEAKER)[address] [place] [address] PROTHROMBIN TIME (PT) IN PPP BY COAGULATION ASSAY 17.0 Seconds High 12.3-14.8 [facility] Comment on above: Performed By: #### L [id number] ####[facility] (BEAKER)[address] [place] [address] Damaso 12-23-2023 L Specimen: [id number] Received: 12/23/23 Status: ANTONINO Galan Num: [id number] Spec Type: Surgical Subm Dr: Alix Milligan [...] Patient Sex Location Account Attending Physician Chay Dodd JR 58/M [id number] Alix Milligan MD SPEC NUM: [id number] RECD: 12/23/23 STATUS: ANTONINO GALAN NUM: [id number] LAMINE: 12/23/23- SUBM DR: Alix Milligan MD ENTERED: 12/23/23 [facility] DR: SPEC TYPE: Surgical DEPT: S [...] Polyps, rectum, biopsy: Hyperplastic polyps. ---- Specimen: [id number] Received: 12/23/23 Status: ANTONINO Chanc[place]anford Num: [id number] Spec Type: Surgical Subm Dr: Alix Milligan MD Tissues: A GASTRIC FOR HP (GASTRIC BX R/O H.PYLORI) B Esophagus Biopsy (ESOPHAGUS BX R/ BARRETTS) C Colon Biopsy (CECUM POLYP) D Colon Biopsy (ASCENDING POLYP X2) E Colon Biopsy (HEPATIC FLEXURE) F Colon Biopsy (LIPOMA BX SIGMOID) G Colon Biopsy (POLYP RECTAL X2) Procedures: HE/14, Gross/Micro L4/7, H PYLORI ---- Patient: Chay Dodd JR [id number] (Continued) ---- Specimen: [id number] Received: 12/23/23 (Continued) Signed (signature on file) Marcy Ruiz MD 12/26/23 1618 ---- Specimen: [id number] Received: 12/23/23 Status: ANTONINO Galan Num: [id number] Spec Type: Surgical Subm Dr: Alix Milligan MD Tissues: A GASTRIC FOR HP (GASTRIC BX R/O H.PYLORI) B Esophagus Biopsy (ESOPHAGUS BX R/ BARRETTS) C Colon Biopsy (CECUM POLYP) D Colon Biopsy (ASCENDING POLYP X2) E Colon Biopsy (HEPATIC FLEXURE) F Colon Biopsy (LIPOMA BX SIGMOID) G Colon Biopsy (POLYP RECTAL X2) Procedures: HE/14, Gross/Micro L4/7, H PYLORI ---- Patient: Chay Dodd JR [id number] (Continued) ---- Specimen: [id number] Received: 12/23/23-1233 (Continued) Clinical Information R/o h. [...] cm, entirely submitted in G1. CPT Codes [id number] ---- ---- Specimen: [id number] Received: 12/23/23 Status: ANTONINO Galan Num: [id number] Spec Type: Surgi (more content not included)... Normal [facility] CBC AUTO DIFFon 11-25-2021 BASO # 0.1 103/ul Normal 0.0-0.1 [facility] Comment on above: Performed By: #### C BC #### [facility] [address] [place] [address] Dr. Nate Trotter Basophils/100 WBC (Bld) 0.5 % Normal 0.2-2.0 [facility] Comment on above: Performed By: #### C BC #### [facility] [address] [place] [address] Dr. Nate Trotter EO # 0.2 103/ul Normal 0.0-0.7 [facility] [facility] Comment [facility] above: Performed By: #### C BC #### [facility] [address] [place] [address] Dr. Nate Trotter Eosinophils/100 WBC (Bld) 1.5 % Normal 0.9-7.0 [facility] Comment on above: Performed By: #### C BC #### [facility] [address] [place] [address] Dr. Nate Trotter Erythrocyte distribution width (RBC) [Ratio] 13.3 % Normal 11.0-15.0 [facility] Comment on above: Performed By: #### C BC #### [facility] [address] [place] [address] Dr. Nate Trotter Hematocrit (Bld) [Volume fraction] 48.7 % Normal 42.0-54.0 [facility] Comment on above: Performed By: #### C BC #### [facility] [address] [place] [address] Dr. Nate Trotter Hemoglobin (Bld) [Mass/Vol] 16.0 g/dL Normal 14.0-18.0 [facility] Comment on above: Performed By: #### C BC #### [facility] [address] [place] [address] Dr. Nate Trotter IG # 0.05 10e3/ul Critically high 0.00-0.03 [facility] Comment on above: Performed By: #### C BC #### [facility] [address] [place] [address] Dr. Naet Trotter IG % 0.5 % Normal 0.0-0.5 [facility] Comment on above: Performed By: #### C BC #### [facility] [address] [place] [address] Dr. Nate Trotter LYMPH # 1.8 103/ul Normal 1.2-3.8 [facility] Comment on above: Performed By: #### C BC #### [facility] [address] [place] [address] Dr. Nate Trotter Lymphocytes/100 WBC (Bld) 19.0 % Critically low 20.5-60.0 [facility] Comment on above: Performed By: #### C BC #### [facility] [address] [place] [address] Dr. Nate Trotter MANUAL DIFF REQ NO Normal [facility] Comment on above: Performed By: #### C BC #### [facility] [address] [place] [address] Dr. Nate Trotter MCH (RBC) [Entitic mass] 30.9 pg Normal 25.9-34.0 [facility] Comment on above: Performed By: #### C BC #### [facility] [address] [place] [address] Dr. Nate Trotter MCHC (RBC) [Mass/Vol] 32.9 g/dL Normal 29.9-35.2 [facility] Comment on above: Performed By: #### C BC #### [facility] [address] [address] [address] Nate Trotter MCV (RBC) [Entitic vol] 94.0 fL Normal 80.0-94.0 [facility] Comment on above: Performed By: #### C BC #### [facility] [address] [address] [address] Nate Trotter MONO # 0.7 103/ul Normal 0.3-0.8 [facility] Comment on above: Performed By: #### C BC #### [facility] [address] [address] [address] Nate Trotter Monocytes/100 WBC (Bld) 7.2 % Normal 1.7-12.0 [facility] Comment on above: Performed By: #### C BC #### [facility] [address] [place] [address] Dr. Nate Trotter NEUT # 6.9 103/ul Critically high 1.4-6.5 [facility] Comment on above: Performed By: #### C BC #### [facility] [address] [place] [address] Dr. Nate Trotter Neutrophils/100 WBC (Bld) 71.3 % Normal 43.0-75.0 [facility] Comment on above: Performed By: #### C BC #### [facility] [address] [address] [address] Nate Trotter Platelet mean volume (Bld) [Entitic vol] 9.4 fL Critically low 9.5-13.5 [facility] Comment on above: Performed By: #### C BC #### [facility] [address] [address] [address] Nate Trotter PLT 240 103/ul Normal 150-450 [facility] Comment on above: Performed By: #### C BC #### [facility] [address] [place] [address] Dr. Nate Trotter RBC 5.18 106/ul Normal 4.70-6.10 [facility] Comment on above: Performed By: #### C BC #### [facility] [address] [address] [address] Nate Trotter WBC 9.7 103/ul Normal 4.0-11.0 [facility] Comment on above: Performed By: #### C BC #### [facility] [address] [place] [address] Dr. Nate Trotter GLYCOHEMOGLOBIN A1Con 2021 ADA RECOMMENDATION SEE BELOW Normal [facility] Comment on above: Result Comment: ADA RECOMMENDED LIMIT 4.0 - 6.0 ADA THERAPEUTIC TARGET < 7.0 ACTION SUGGESTED > 7.0 Performed By: #### A 1C #### [facility] [address] [place] [address] Dr. Nate Trotter Glucose [Mass/Vol] 111 mg/dL Normal [facility] Comment on above: Performed By: #### A 1C #### [facility] [address] [place] [address] Dr. Nate Trotter HbA1c (Bld) [Mass fraction] 5.5 % Normal 4.5-6.2 [facility] Comment on above: Performed By: #### A 1C #### [facility] [address] [place] [address] Dr. Nate Trotter LIPID PROFILEon 11-25-2021 CHOL-HDL RATIO NORM SEE BELOW Normal [facility] Comment on above: Result Comment: 3.3 - 4.4 LOW RISK 4.4 - 7.1 AVERAGE RISK 7.1 - 11.0 MODERATE RISK >11.0 HIGH RISK Performed By: #### B MP, TSH, LIVER, LIPID #### [facility] [address] [place] [address] Dr. Nate Trotter Cholesterol [Mass/Vol] 116 mg/dL Normal <=200 [facility] Comment on above: Performed By: #### B MP, TSH, LIVER, LIPID #### [facility] [address] [place] [address] Dr. Nate Trotter Cholesterol in HDL [Mass/Vol] 42 mg/dL Normal 40-60 [facility] Comment on above: Performed By: #### B MP, TSH, LIVER, LIPID #### [facility] [address] [address] [address] Nate Trotter Cholesterol in LDL [Mass/Vol] 53.6 mg/dL Normal [facility] Comment on above: Performed By: #### B MP, TSH, LIVER, LIPID #### [facility] [address] [address] [address] Nate Trotter Cholesterol.total/Ch olesterol in HDL [Mass ratio] 2.8 {ratio} Normal [facility] Comment on above: Performed By: #### B MP, TSH, LIVER, LIPID #### [facility] [address] [address] [address] Nate Trotter HDL NORMAL > or = 60 mg/dl - LO W CARDIOVASCULAR RISK <40 mg/dl - HIGH CARDIOVASCULAR RISK Normal [facility] Comment on above: Performed By: #### B MP, TSH, LIVER, LIPID #### [facility] [address] [place] [address] Dr. Nate Trotter LDL CALC NORMAL SEE BELOW Normal [facility] Comment on above: Result Comment: <100 mg/dl OPTIMAL 100 - 129 mg/dl NEAR OR ABOVE OPTIMAL 130 - 159 mg/dl BORDERLINE HIGH 160 - 189 mg/dl HIGH >190 mg/dl VERY HIGH Performed By: #### B MP, TSH, LIVER, LIPID #### [facility] [address] [address] [address] Nate Trotter Triglyceride [Mass/Vol] 102 mg/dL Normal <=150 [facility] Comment on above: Performed By: #### B MP, TSH, LIVER, LIPID #### [facility] [address] [place] [address] Dr. Nate Trotter VLDL CALC 20.4 mg/dL Normal [facility] Comment on above: Performed By: #### B MP, TSH, LIVER, LIPID #### [facility] [address] [place] [address] Dr. Nate Trotter LIVER PROFILEon 11-25-2021 Albumin [Mass/Vol] 3.2 g/dL Critically low 3.4-5.0 [facility] Comment on above: Performed By: #### B MP, TSH, LIVER, LIPID #### [facility] [address] [address] [address] Nate Trotter Albumin/Globulin [Mass ratio] 0.8 {ratio} Normal [facility] Comment on above: Performed By: #### B MP, TSH, LIVER, LIPID #### [facility] [address] [address] [address] Nate Trotter ALP [Catalytic activity/Vol] 54 U/L Normal 46-116 [facility] Comment on above: Performed By: #### B MP, TSH, LIVER, LIPID #### [facility] [address] [place] [address] Dr. Nate Trotter ALT [Catalytic activity/Vol] 33 U/L Normal 16-63 [facility] Comment on above: Performed By: #### B MP, TSH, LIVER, LIPID #### [facility] [address] [place] [address] Dr. Nate Trotter AST [Catalytic activity/Vol] 24 U/L Normal 15-37 [facility] Comment on above: Performed By: #### B MP, TSH, LIVER, LIPID #### [facility] [address] [place] [address] Dr. Nate Trotter BILI, CONJUGATED 0.1 mg/dL Normal 0.0-0.2 [facility] Comment on above: Performed By: #### B MP, TSH, LIVER, LIPID #### [facility] [address] [place] [address] Dr. Nate Trotter Bilirubin [Mass/Vol] 0.3 mg/dL Normal 0.2-1.0 [facility] Comment on above: Performed By: #### B MP, TSH, LIVER, LIPID #### [facility] [address] [place] [address] Dr. Nate Trotter Globulin (S) [Mass/Vol] 4.2 g/dL Normal [facility] Comment on above: Performed By: #### B MP, TSH, LIVER, LIPID #### [facility] [address] [place] [address] Dr. Nate Trotter Protein [Mass/Vol] 7.4 g/dL Normal 6.4-8.2 [facility] Comment on above: Performed By: #### B MP, TSH, LIVER, LIPID #### [facility] [address] [place] [address] Dr. Nate Trotter PROF CHEM 8 (BAS METB)on Anion gap [Moles/Vol] 9.3 mmol/L Normal [facility] Comment on above: Performed By: #### B MP, TSH, LIVER, LIPID #### [facility] [address] [place] [address] Dr. Nate Trotter Calcium [Mass/Vol] 9.0 mg/dL Normal 8.5-10.1 [facility] Comment on above: Performed By: #### B MP, TSH, LIVER, LIPID #### [facility] [address] [place] [address] Dr. Nate Trotter Chloride [Moles/Vol] 98 mmol/L Normal 98-107 [facility] Comment on above: Performed By: #### B MP, TSH, LIVER, LIPID #### [facility] [address] [place] [address] Dr. Nate Trotter CO2 [Moles/Vol] 32.7 mmol/L Critically high 21.0-32.0 [facility] Comment on above: Performed By: #### B MP, TSH, LIVER, LIPID #### [facility] [address] [place] [address] Dr. Nate Trotter Creatinine [Mass/Vol] 1.03 mg/dL Normal 0.70-1.30 [facility] Comment on above: Performed By: #### B MP, TSH, LIVER, LIPID #### [facility] [address] [place] [address] Dr. Nate Trotter EGFR-AF BOTSWANAN >60 Normal >=60 [facility] Comment on above: Performed By: #### B MP, TSH, LIVER, LIPID #### [facility] [address] [place] [address] Dr. Nate Trotter EGFR-NON AF BOTSWANAN >60 Normal >=60 [facility] Comment on above: Performed By: #### B MP, TSH, LIVER, LIPID #### [facility] [address] [place] [address] Dr. Nate Trotter Glucose [Mass/Vol] 110 mg/dL Critically high 74-106 [facility] Comment on above: Performed By: #### B MP, TSH, LIVER, LIPID #### [facility] [address] [place] [address] Dr. Nate Trotter Potassium [Moles/Vol] 4.0 mmol/L Normal 3.5-5.1 [facility] Comment on above: Performed By: #### B MP, TSH, LIVER, LIPID #### [facility] [address] [place] [address] Dr. Nate Trotter Sodium [Moles/Vol] 136 mmol/L Normal 136-145 [facility] Comment on above: Performed By: #### B MP, TSH, LIVER, LIPID #### [facility] [address] [place] [address] Dr. Nate Trotter Urea nitrogen [Mass/Vol] 14.0 mg/dL Normal 7.0-18.0 [facility] Comment on above: Performed By: #### B MP, TSH, LIVER, LIPID #### [facility] [address] [place] [address] Dr. Nate Trotter Urea nitrogen/Creatinine [Mass ratio] 13.6 mg/mg Normal [facility] Comment on above: Performed By: #### B MP, TSH, LIVER, LIPID #### [facility] [address] [place] [address] Dr. Nate Trotter TSHon 11-25-2021 TSH 1.323 uIU/mL Normal 0.358-3.740 [facility] Comment on above: Performed By: #### B MP, TSH, LIVER, LIPID #### [facility] [address] [place] [address] CERVICAL SPINE WO [...] MD 04/21/20 Final result Normal [facility] No acute fracture or traumatic malalignment. Degenerative disc disease at C5-C6 and C6-C7 not well assessed due to beam hardening artifact. [facility] [place] EXAMINATION: CT OF T HE CERVICAL SPINE [...] There is no prevertebral soft tissue swelling. [facility], [place] Ryan, [employer] Incoming Radiant Results From [employer] - 04/21/2020 7:26 PM EST EXAMINATION: CT [...] well assessed due to beam hardening artifact. [facility]- [place] CT HEAD WO CONTRASTon 2019 CT HEAD [...] MD 04/21/20 Final result Normal [facility] No acute intracrania l abnormality. Fluid in left maxillary sinus. Correlate for signs of infection [place], [place] EXAMINATION: CT OF T HE HEAD WITHOUT CONTRAST 04/21/2020 6:52 pm TECHNIQUE: CT of the head was performed without the administration of intravenous contrast. Dose modulation, iterative reconstruction, and/or weight based adjustment of the mA/kV was utilized to reduce the radiation dose to as low as reasonably achievable. COMPARISON: None. HISTORY: ORDERING SYSTEM PROVIDED HISTORY: fall, head injury TECHNOLOGIST PROVIDED HISTORY: fall , head injury Reason for Exam: fall check for injuries, lac to top of [...] of the visualized skull or soft tissues. [place], [place] Ryan, [employer] Incoming Radiant Results From [employer] - 04/21/2020 7:21 PM EST EXAMINATION: CT OF THE HEAD WITHOUT CONTRAST 04/21/2020 6:52 pm TECHNIQUE: CT of the head was performed without the administration of intravenous contrast. Dose modulation, iterative reconstruction, and/or weight based adjustment of the mA/kV was utilized to reduce the radiation dose to as low as reasonably achievable. COMPARISON: None. HISTORY: ORDERING SYSTEM PROVIDED HISTORY: fall, head injury TECHNOLOGIST PROVIDED HISTORY: fall , [...] maxillary sinus. Correlate for signs of infection [facility] [place], [place] Vital Signs Date Time Vital Sign Value Performing Clinician Faci lity 01-15-2025 11:32-0400 Body height 167.6 cm Benjy Garcia MD Work Phone: [facility] 01-15-2025 11:32-0400 Body mass index (BMI) [Ratio] 56.17 kg/m2 Benjy Garcia MD Work Phone: [facility] 01-15-2025 11:32-0400 Body temperature 97.81 [degF] Benjy Garcia MD Work Phone: [facility] 01-15-2025 11:32-0400 Body weight 157.85 kg Benjy Garcia MD Work Phone: [facility] 01-15-2025 11:32-0400 Diastolic blood pressure 78 mm[Hg] Benjy Garcia MD Work Phone: [facility] 01-15-2025 11:32-0400 Heart rate 80 /min Benjy Garcia MD Work Phone: [facility] 01-15-2025 11:32-0400 Respiratory rate 20 /min Benjy Garcia MD Work Phone: [facility] 01-15-2025 11:32-0400 SaO2% (BldA) [Mass fraction] 91 % Benjy Garcia MD Work Phone: [facility] 01-15-2025 11:32-0400 Systolic blood pressure 122 mm[Hg] Benjy Garcia MD Work Phone: [facility] 12-04-2024 09:59-0400 Body height 167.6 cm Benjy Garcia MD Work Phone: [facility] 12-04-2024 09:59-0400 Body mass index (BMI) [Ratio] 56.17 kg/m2 Benjy Garcia MD Work Phone: [facility] 12-04-2024 09:59-0400 Body temperature 97.81 [degF] Benjy Garcia MD Work Phone: [facility] 12-04-2024 09:59-0400 Body weight 157.85 kg Benjy Garcia MD Work Phone: [facility] 12-04-2024 09:59-0400 Diastolic blood pressure 78 mm[Hg] Benjy Garcia MD Work Phone: [facility] 12-04-2024 09:59-0400 Heart rate 71 /min Benjy Garcia MD Work Phone: [facility] 12-04-2024 09:59-0400 Respiratory rate 20 /min Benjy Garcia MD Work Phone: [facility] 12-04-2024 09:59-0400 SaO2% (BldA) [Mass fraction] 97 % Benjy Garcia MD Work Phone: [facility] 12-04-2024 09:59-0400 Systolic blood pressure 136 mm[Hg] Benjy Garcia MD Work Phone: [facility] 09-03-2024 09:46-0400 Body height 167.6 cm Benjy Garcia MD Work Phone: [facility] 09-03-2024 09:46-0400 Body mass index (BMI) [Ratio] 52.62 kg/m2 Benjy Garcia MD Work Phone: [facility] 09-03-2024 09:46-0400 Body temperature 97.5 [degF] Benjy Garcia MD Work Phone: [facility] 09-03-2024 09:46-0400 Body weight 147.87 kg Benjy Garcia MD Work Phone: [facility] 09-03-2024 09:46-0400 Diastolic blood pressure 72 mm[Hg] Benjy Garcia MD Work Phone: [facility] 09-03-2024 09:46-0400 Heart rate 76 /min Benjy Garcia MD Work Phone: [facility] 09-03-2024 09:46-0400 Respiratory rate 20 /min Benjy Garcia MD Work Phone: [facility] 09-03-2024 09:46-0400 SaO2% (BldA) [Mass fraction] 93 % Benjy Garcia MD Work Phone: [facility] 09-03-2024 09:46-0400 Systolic blood pressure 144 mm[Hg] Benjy Garcia MD Work Phone: [facility] 07-04-2024 11:01-0500 Body height 167.6 cm Benjy Garcia MD Work Phone: [facility] 07-04-2024 11:01-0500 Body mass index (BMI) [Ratio] 53.42 kg/m2 Benjy Garcia MD Work Phone: [facility] 07-04-2024 11:01-0500 Body temperature 97.81 [degF] Benjy Garcia MD Work Phone: [facility] 07-04-2024 11:01-0500 Body weight 150.14 kg Benjy Garcia MD Work Phone: [facility] 07-04-2024 11:01-0500 Diastolic blood pressure 76 mm[Hg] Benjy Garcia MD Work Phone: [facility] 07-04-2024 11:01-0500 Heart rate 96 /min Benjy Garcia MD Work Phone: [facility] 07-04-2024 11:01-0500 Respiratory rate 18 /min Benjy Garcia MD Work Phone: [facility] 07-04-2024 11:01-0500 SaO2% (BldA) [Mass fraction] 97 % Benjy Garcia MD Work Phone: [facility] 07-04-2024 11:01-0500 Systolic blood pressure 140 mm[Hg] Benjy Garcia MD Work Phone: [facility] 03-16-2024 09:40-0400 Body height 167.6 cm Benjy Garcia MD Work Phone: [facility] 03-16-2024 09:40-0400 Body mass index (BMI) [Ratio] 55.36 kg/m2 Benjy Garcia MD Work Phone: [facility] 03-16-2024 09:40-0400 Body temperature 98.01 [degF] Benjy Garcia MD Work Phone: [facility] 03-16-2024 09:40-0400 Body weight 155.58 kg Benjy Garcia MD Work Phone: [facility] 03-16-2024 09:40-0400 Diastolic blood pressure 70 mm[Hg] Benjy Gacria MD Work Phone: [facility] 03-16-2024 09:40-0400 Heart rate 84 /min Benjy Garcia MD Work Phone: [facility] 03-16-2024 09:40-0400 Respiratory rate 22 /min Benjy Garcia MD Work Phone: [facility] 03-16-2024 09:40-0400 SaO2% (BldA) [Mass fraction] 94 % Benjy Garcia MD Work Phone: [facility] 03-16-2024 09:40-0400 Systolic blood pressure 136 mm[Hg] Benjy Garcia MD Work Phone: [facility] 12-23-2023 11:26-0400 Diastolic blood pressure 64 mm[Hg] MD Benjy Garcia Work Phone: [facility] 12-23-2023 11:26-0400 Heart rate 80 /min MD Benjy Garcia Work Phone: [facility] 12-23-2023 11:26-0400 Respiratory rate 16 /min MD Benjy Garcia Work Phone: [facility] 12-23-2023 11:26-0400 SaO2% (BldA) [Mass fraction] 96 % MD Benjy Garcia Work Phone: [facility] 12-23-2023 11:26-0400 Systolic blood pressure 118 mm[Hg] MD Benjy Garcia Work Phone: [facility] 12-23-2023 09:19-0400 Body height 167.64 cm MD Benjy Garcia Work Phone: [facility] 12-23-2023 09:19-0400 Body weight 149.68 kg MD Benjy Garcia Work Phone: [facility] 04-21-2020 18:32-0500 BMI (Body Mass Index) 57.14 kg/m2 [place] 04-21-2020 18:32-0500 Body Temperature 98.49 [degF] [place], [place] 04-21-2020 18:32-0500 Body weight 160.57 kg [place], [place] 04-21-2020 18:32-0500 BP Diastolic 71 mm[Hg] [place] 04-21-2020 18:32-0500 BP Systolic 159 mm[Hg] [place] 04-21-2020 18:32-0500 Height 167.6 cm [place] 04-21-2020 18:32-0500 Pulse (Heart Rate) 96 /min [place], [place] 04-21-2020 18:32-0500 Pulse Oximetry 95 % [place], [place] 04-21-2020 18:32-0500 Respiratory Rate 20 /min [place], [place] Encounters Encounter Date Encounter Type Care Provider Facility Start: 01-24-2025 End: 01-24-2025 Refill Benjy Garcia MD Work Phone: [facility] Comment on above: Primary insomnia Start: 01-15-2025 End: 01-15-2025 Bamboo flowsheet Benjy Garcia MD Work Phone: [facility] Start: 01-15-2025 End: 01-15-2025 Bamboo flowsheet Benjy Garcia MD Work Phone: [facility] Start: 01-15-2025 End: 01-15-2025 Office outpatient visit 15 minutes Benjy Garcia MD Work Phone: [facility] Comment on above: Major depressive dis order, recurrent episode, moderate (HCC) (Primary Dx); 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 Start: 01-15-2025 End: 01-15-2025 ambulatory BENJY GARCIA Not Available Start: 12-04-2024 End: 12-04-2024 Bamboo [employer] Benjy Garcia MD Work Phone: [facility] Start: 12-04-2024 End: 12-04-2024 Bamboo flowsheet Benjy Garcia MD Work Phone: [facility] Start: 12-04-2024 End: 12-04-2024 Office outpatient visit 25 minutes Benjy Garcia MD Work Phone: [facility] Comment on above: Benign hypertension (Primary Dx); Chronic HFrEF (heart failure with reduced ejection fraction) ([facility]); Primary osteoarthritis of both knees; Paroxysmal atrial fibrillation (HCC); Primary insomnia; Class 3 severe obesity due to excess calories with serious comorbidity and body mass index (BMI) of 50.0 to 59.9 in adult ([facility]) Start: 12-04-2024 End: 12-04-2024 ambulatory BENJY GARCIA Not Available Start: 11-06-2024 End: 11-07-2024 ambulatory Dave Sutton MA [facility] Start: 10-12-2024 End: 10-12-2024 Clinisync Result Encounter Generic External Data Provider [facility] External Department Unsolicited Start: 10-12-2024 End: 10-12-2024 Clinisync Result Encounter Generic External Data Provider [facility] External Department Unsolicited Start: 09-12-2024 End: 09-12-2024 ambulatory E[facility] Start: 09-03-2024 End: 09-03-2024 Bamcourtney flowsheet Benjy Garcia MD Work Phone: [facility] Start: 09-03-2024 End: 09-03-2024 Bamboo flowsheet Benjy Garcia MD Work Phone: [facility] Start: 09-03-2024 End: 09-03-2024 Clinisync Result Encounter Benjy Garcia MD Work Phone: [facility] Unsolicited Start: 09-03-2024 End: 09-03-2024 Office outpatient visit 25 minutes Benjy Garcia MD Work Phone: [facility] Comment on above: Benign hypertension (CMS/HCC) (Primary Dx); Chronic HFrEF (heart failure with reduced ejection fraction) (CMS/HCC); Paroxysmal atrial fibrillation (CMS/HCC); Primary osteoarthritis of both knees; Primary insomnia; Adult hypothyroidism (CMS/HCC); Class 3 severe obesity due to excess calories with serious comorbidity and body mass index (BMI) of 50.0 to 59.9 in adult; Obstructive sleep apnea Start: 09-03-2024 End: 09-03-2024 ambulatory BENJY GARCIA Not Available Start: 08-31-2024 End: 08-31-2024 Clinisync Result Encounter Generic External Data Provider [facility] Unsolicited Start: 08-31-2024 End: 08-31-2024 Clinisync Result Encounter Generic External Data Provider [facility] External Department Unsolicited Start: 07-11-2024 End: 07-11-2024 Refill Benjy Garcia MD Work Phone: [facility] Comment on above: Chronic HFrEF (heart failure with reduced ejection fraction) (CMS/HCC) (Primary Dx); Nonobstructive atherosclerosis of coronary artery (CMS/HCC) Start: 07-06-2024 End: 07-06-2024 Clinisync Result Encounter Generic External Data Provider [facility] External Department Unsolicited Start: 07-06-2024 End: 07-06-2024 Clinisync Result Encounter Generic External Data Provider [facility] External Department Unsolicited Start: 07-04-2024 End: 07-04-2024 Bamboo flowsheet Benjy Garcia MD Work Phone: [facility] Start: 07-04-2024 End: 07-04-2024 Bamboo flowsheet Benjy [...] (BMI) of 50.0 to 59.9 in adult (CMS/HCC); Primary osteoarthritis of both knees Start: 07-04-2024 End: 07-04-2024 ambulatory BENJY GARCIA Not Available Start: 06-28-2024 End: 06-28-2024 ambulatory EHAB [facility] Start: 06-18-2024 Evaluation and management of inpatient [facility] Start: 06-17-2024 End: 06-22-2024 Evaluation and management of inpatient [facility] Start: 06-14-2024 End: 06-14-2024 Bamboo flowsheet Benjy Garcia MD Work Phone: [facility] Start: 06-14-2024 End: 06-14-2024 Bamboo flowsheet Benjy aGrcia MD Work Phone: [facility] Start: [...] / Non-visit MD Cintia Garcia Work Phone: [facility] G[facility] Work Phone: Start: 12-23-2023 End: 12-23-2023 Admission to same day surgery center MD Benjy Garcia Work Phone: [facility] Work Phone: Start: 12-23-2023 End: 12-23-2023 ambulatory MD Benjy Garcia Work Phone: [facility] Work Phone: Start: 11-27-2021 Encounter for genera l adult medical examination without abnormal findings DR BENJY GARCIA [facility] Start: 11-25-2021 End: 11-26-[address] BENJY GARCIA Facility:[facility]1 Start: 11-25-2021 End: 11-26-2021 Encounter for general adult medical examination without abnormal findings DR BENJY GARCIA Facility:[facility] Start: 04-21-2020 End: 04-21-2020 Emergency department patient visit ASHWIN ORLANDO [facility] Start: 04-21-2020 End: 04-21-2020 Emergency department patient visit Ashwin Meet [place] Work Phone: [facility] ED Comment on above: Closed head injury, initial encounter (Primary Dx); Multiple abrasions Procedures Date Procedure Procedure Detail Performing Clinician Start: 10-12-2024 ALL BASIC METABOLIC PANEL Generic Scheduler al Data Provider Start: 09-03-2024 ALL THYROID STIM HORMONE Benjy Garcia MD Work Phone: Start: 08-31-2024 CA ECHO DOPPLER COMPLETE Generic Externa l Data Provider Start: 07-06-2024 ALL LIPID PROFILE (FASTING) Generic Exte rnal Data Provider Start: 07-06-2024 [facility] CMP (CMP) (FOR REMOTE [facility] USE) Gener ic External Data Provider Start: 12-23-2023 Esophagogastroduodenoscopy MD Benjy Wilson er Work Phone: Start: 12-23-2023 Colonoscopy Benjy Garcia MD Work Phone: Start: 11-25-[address] BENJY GARCIA Comment on above: Performed By: #### PSASC #### [facility] [address] [place] [address] Dr. Nate Trotter Start: 04-21-2020 Ct cervical spine w/o contrast material ASHWIN ORLANDO Start: 04-21-2020 Ct head/brain w/o contrast material ASHWIN ORLANDO Start: 04-21-2020 Ct cervical spine w/o contrast material Ashwin Orlando Work Phone: Start: 04-21-2020 Ct head/brain w/o contrast material Ashwin [place] Work Phone: Plan of Treatment Date Care Activity Detail Author Start: 12-22-2033 Screening for malignant neoplasm of colon [facility] Start: 06-12-2025 End: 06-12-2025 Patient encounter procedure 06/12/2025 7:00 AM EST Office Visit [facility] [address] [place] [address] Benjy Garcia MD [address] [place] [phone] [facility] Start: 02-21-2025 End: 02-21-2025 Patient encounter procedure 02/21/2025 2:45 PM EDT Office Visit [facility] [address] [place] [address] Benjy Garcia MD [address] [place] [phone] [facility] Start: 02-04-2025 Influenza vaccination [facility] Start: 01-15-2025 End: 01-15-2025 Patient encounter procedure 01/15/2025 11:30 AM EDT Office Visit [facility] [address] [place] [address] Benjy Garcia MD [address] [place] [phone] Arrived [facility] Comment on above: Arrived Start: 12-04-2024 End: 12-04-2024 Patient encounter procedure [facility] Comment on above: Arrived Start: 09-19-2024 End: 09-19-2024 Patient encounter procedure 09/19/2024 8:00 AM EDT Office Visit [facility] [address] [place] [address] Benjy Garcia MD [address] [place] [phone] [facility] Start: 09-03-2024 End: 09-03-2025 Thyrotropin [Units/volume] in Serum or Plasma TSH Lab Routine Adult hypothyroidism (CMS/HCC) Expected: 09/03/2024 (Approximate), Expires: 09/03/2025 [facility] Work Phone: Comment on above: Expected: 09/03/2024 (Approximate), Expires: 09/03/2025 Start: 09-03-2024 End: 09-03-2025 Thyroxine (T4) free [Mass/volume] in Serum or Plasma T4, free Lab Routine Adult hypothyroidism (CMS/HCC) Expected: 09/03/2024 (Approximate), Expires: 09/03/2025 [facility] Comment on above: Expected: 09/03/2024 (Approximate), Expires: 09/03/2025 Start: 09-03-2024 End: 09-03-2024 Patient encounter procedure [facility] Comment on above: Arrived Start: 07-04-2024 End: 07-04-2024 Patient encounter procedure 07/04/2024 11:00 AM EST Office Visit [facility] [address] [place] [address] Benjy Garcia MD [address] [place] [phone] Arrived [facility] Comment on above: Arrived Start: 06-14-2024 End: 06-14-2024 Patient encounter procedure 06/14/2024 9:00 AM EST Office Visit [facility] [address] [place] [address] Benjy Garcia MD [address] [place] [phone] Arrived [facility] Comment on above: Arrived Start: 03-16-2024 End: 03-16-2024 Patient encounter procedure 03/16/2024 9:30 AM EDT Office Visit [facility] [address] [place] [address] Benjy Garcia MD [address] [place] [phone] Arrived [facility] Comment on above: Arrived Start: 02-05-2024 Influenza vaccination Influenza Vacc ine (#1) [facility] Start: 12-23-2023 [facility] Start: 02-05-2020 Influenza vaccination Flu vaccine (# 1) [place], [place] Start: 08-12-2013 Screening for malignant neoplasm of colon Colon cancer screen colonoscopy [place], [place] Start: 08-12-2013 Shingles Vaccine (1 of 2) Shingles Vaccine (1 of 2) [place], [place] Start: 2003 Diabetes screen Diabetes screen [place], [place] Start: 2003 Lipid panel Lipid screen [place], [place] Start: 08-12-1982 DTaP/Tdap/Td vaccine (1 - Tdap) DTaP/Tdap/Td vaccine (1 - Tdap) [place], [place] Start: 08-12-1978 HIV screening HIV screen [place], [place] Start: 1963 Hepatitis C screening Hepatitis C sc reen [place], [place] Start: 1963 Screening for malignant neoplasm of colon [facility] Patient Education Colon polyps L ipoma Hemorrhoids (DC) Diverticulosis (DC) Gastritis (DC) Know your [facility] Work Phone: Payers Date Payer Category Payer Self-pay 2021 [facility] BCBS [id number] 2021 Unknown BCBS BCBS [id number] 2021-Present [phone] [address] [place] [address] [id number] 1963 Unknown [id number] 1963 Unknown [id number] 1963 Unknown [id number] [id number] 1963 Unknown [id number] [id number] 1963 Unknown [id number] [id number] 1963 Unknown [id number] 1959 Unknown [id number] Unknown [id number] Social History Date Type Detail Facility Start: 04-21-2020 End: 09-09-2023 Tobacco smoking status NHIS Never smoker [facility] Start: 04-21-2020 End: 09-09-2023 Tobacco use and exposure Never used [place], [place] Start: 04-21-2020 Alcohol intake Current drinke r of alcohol (finding) [place] Start: 04-21-2020 Alcohol Comment weekends [facility] [place], [place] Start: 1965 Sex Assigned At Not on file M [place], [place] Exposure to SARS-CoV -2 (event) Not sure [place], [place] Start: 1965 Sex Assigned At Male F [facility] Start: 11-16-2023 End: 01-15-2025 History of Social function [facility] Start: 11-16-2023 End: 01-15-2025 Tobacco use panel [facility] Goals Date Patient Goal Desired Activity /State Clinical Notes 07-19-2024 to 01-15-2025 Benjy Garcia MD - 01/15/2025 12:25 PM EDEd Garcia MD - 01/15/2025 12:25 PM Cristiano Garcia MD - 01/15/2025 11:30 AM EDEd Garcia MD - 12/04/2024 10:39 AM EDT Note Date & Type Note Facility 01-15-2025 History of Present illness Narrative Associated Problem(s): 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 Associated Problem(s): Major depressive disorder, recurrent episode, moderate (HCC) Depression worse since stopped drinking and increase prozac. Images from the original note were not included. Subjective Patient ID: Chay Dodd Jr is a 59 y.o. male who presents for Follow-up (meds). C/o depression over past few weeks. Quit drinking 2 weeks ago after DUI and lost license. History of alcohol abuse for years. Previously drank 18-24 beers daily. Over past few year slowed down and would drink about 8 on weekends. After DUI stopped drinking. Sitting at home and developed depression. Down, sad, and no motivation. Not want to do anything or be around others. Never had problems in past but states would drink if felt bad. Started prozac 01/03 and not notice any change. Tolerating medication without side effects. Review of Systems Constitutional: Negative for fatigue. [...] Assessment/Plan Problem List Items Addressed This Visit Major depressive disorder, recurrent episode, moderate (HCC) - Primary Depression worse since stopped drinking and increase prozac. 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 documented in this encounter [facility] 12-04-2024 History of Present illness Narrative Associated Problem(s): Primary osteoarthritis of both knees Pain stable and use percocet PRN. Discussed risks and benefits of opiate therapy. Warned medication is narcotic and risk of addiction. OARRS reviewed. Associated Problem(s): Primary insomnia Sleeping well with ambien and use PRN. Associated Problem(s): Paroxysmal atrial fibrillation (HCC) In NSR and continue medication. Follow with cardiology. Associated Problem(s): Chronic HFrEF (heart failure with reduced ejection fraction) (HCC) Edema controlled with medication and continue. Follow up with cardiology. Associated Problem(s): Benign hypertension BP okay and monitor PRN. Associated Problem(s): Class 3 severe obesity due to excess calories with serious comorbidity and body mass index (BMI) of 50.0 to 59.9 in adult ([facility]) Weight loss indicated. Images from the original note were not included. Subjective Patient ID: Chay Dodd Jr is a 59 y.o. male who presents for Follow-up (3m ). Follow up HTN, CHF, afib, DAKOTA, knee pain, and sleep. Patient stable today. Not checking BP away from office but okay today. Taking medication daily and tolerating without side effects. Edema controlled with medication. Mild swelling at end of day and if on feet a lot. Edema improved in am and with elevation. Afib stable. No palpitations or heart racing. Not lightheaded or dizzy. OA stable and pain with walking and standing. Using percocet PRN and helps. Sleeping well with ambien. Typically able to fall asleep and stay asleep. Review of Systems Constitutional: Negative for fatigue. [...] List Items Addressed This Visit Benign hypertension - Primary BP okay and monitor PRN. Primary osteoarthritis of both knees Pain stable and use percocet PRN. Discussed risks and benefits of opiate therapy. Warned medication is narcotic and risk of addiction. OARRS reviewed. Class 3 severe obesity due to excess calories with serious comorbidity and body mass index (BMI) of 50.0 to 59.9 in adult ([facility]) Weight loss indicated. Primary insomnia Sleeping well with ambien and use PRN. Chronic HFrEF (heart failure with reduced ejection fraction) ([facility]) Edema controlled with medication and continue. Follow up with cardiology. Paroxysmal atrial fibrillation ([facility]) In NSR and continue medication. Follow with cardiology. documented in this encounter [facility] 11-06-2024 History of Present illness Narrative Pt called asking for refill of Percocet. Pt also requested the Rx be sent to [facility] as they are now filling controlled medications again and he can get it cheaper there. Do not send to [place], he asked. Sent. documented in this encounter [facility] 09-12-2024 Note [facility] Cardiology Clinic Note Chief Complaint: Patient here for follow up echo. He has taken LifeVest off. Denies chest pain, SOB, palpitations, lightheadedness/syncope, and bleeding on Eliquis. HPI: Chay Dodd . is a 59 y.o. 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 CAD, on cath 06/19 Paroxysmal atrial fibrillation on Eliquis [id number] HTN Morbid obesity Family history of CAD, mother had 3 stents at age 64, father has ICD/PPM [place] noncompliant to CPAP Admission Diagnosis: Heart failure ([facility]) [I50.9] Hospital course: Chay Dodd Jr. is an 58 y.o. male who came from [facility] for higher level of care. who presented [...] DVT. Newly decompensated HFrEF (EF 20-25% at [place]), NYHA class III Non-ischemic cardiomyopathy, likely alcohol [...] eliquis 5mg twice daily. Toprol 12.5mg daily [id number] HTN Morbid obesity Family history of CAD, [...] Center 06/28/2024 1:00 PM Marilyn Gotti MD [facility] Your medication list START taking [...] Medications These medications were sent to [facility] - [place], [place] - [address] [place] [address] [place] [address], [facility] [address] apixaban 5 mg tablet aspirin 81 mg EC tablet atorvastatin 40 mg tablet dapagliflozin propanediol 10 mg furosemide 40 mg tablet metoprolol succinate XL 25 mg 24 hr tablet pantoprazole 40 mg EC tablet sacubitril-valsartan 24-26 mg tablet (more content not included)... [facility] 09-03-2024 History of Present illness Narrative Associated Problem(s): Primary osteoarthritis of both knees Pain stable and use percocet PRN. Discussed risks and benefits of opiate therapy. Warned medication is narcotic and risk of addiction. OARRS reviewed. Associated Problem(s): Primary insomnia Sleeping well with ambien and use PRN. Associated Problem(s): Paroxysmal atrial fibrillation (CMS/HCC) In NSR and continue medication. Follow with cardiology. Associated Problem(s): Obstructive sleep apnea Not using CPAP and refuses. Associated Problem(s): Class 3 severe obesity due to excess calories with serious comorbidity and body mass index (BMI) of 50.0 to 59.9 in adult Weight loss indicated. Associated Problem(s): Chronic HFrEF (heart failure with reduced ejection fraction) (CMS/HCC) Edema controlled with medication and continue. Recent echo showed EF improved at 40%. Follow up with cardiology. Associated Problem(s): Benign hypertension (CMS/HCC) BP okay and monitor PRN. Associated Problem(s): Adult hypothyroidism (CMS/HCC) Repeat labs. Images from the original note were not included. Subjective Patient ID: Chay Dodd Jr is a 59 y.o. male who presents for Follow-up. Follow up HTN, CHF, afib, DAKOTA, knee pain, and sleep. Patient improved today. Not checking BP away from office but okay today. Taking medication daily and tolerating without side effects. Edema controlled with medication. Mild swelling at end of day and if on feet a lot. Edema improved in am and with elevation. Afib stable. No palpitations or heart racing. Not lightheaded or dizzy. Not using CPAP and refuses to use machine. Patient not candidate for inspire device. OA stable and pain with walking and standing. Using percocet PRN and helps. Sleeping well with ambien. Typically able to fall asleep and stay asleep. Review of Systems Constitutional: Negative for fatigue. [...] Items Addressed This Visit Benign hypertension (CMS/HCC) - Primary BP okay and monitor PRN. Primary osteoarthritis of both knees Pain stable and use percocet PRN. Discussed risks and benefits of opiate therapy. Warned medication is narcotic and risk of addiction. OARRS reviewed. Obstructive sleep apnea Not using CPAP and refuses. Class 3 severe obesity due to excess calories with serious comorbidity and body mass index (BMI) of 50.0 to 59.9 in adult Weight loss indicated. Primary insomnia Sleeping well with ambien and use PRN. Adult hypothyroidism (CMS/HCC) Repeat labs. Relevant Orders TSH T4, free Chronic HFrEF (heart failure with reduced ejection fraction) (CMS/HCC) Edema controlled with medication and continue. Recent echo showed EF improved at 40%. Follow up with cardiology. Paroxysmal atrial fibrillation (CMS/HCC) In NSR and continue medication. Follow with cardiology. documented in this encounter [facility] 07-11-2024 Telephone encounter Note These medications they are asking for 90 day supply but need to go to [facility] mail service please. ANUPAM [facility] 07-11-2024 Miscellaneous Notes These medications they are asking for 90 day supply but need to go to [facility] mail service please. ANUPAM documented in this encounter [facility] 07-04-2024 History of Present illness Narrative Associated [...] were not included. Subjective Patient ID: Chay Dodd Jr is a 58 y.o. male who presents for Follow-up ([facility] er f/up). Hospital follow up from 06/14-06/22 for CHF and afib. Presented to office and c/o swelling and noted rapid pulse. Directed to ER and found rapid afib and fluid overload. Admitted on cardizem drip and cardioverted. BNP elevated and started IV lasix. Echo showed EF 20-25% and transferred to [facility] 06/19 for heart cath which showed non-obstructing [...] DAKOTA. Tried CPAP but did not tolerate. [place] like choking and couldn't stand the pressure. [...] in adult (CMS/HCC) Weight down 24 pounds. Adult hypothyroidism (CMS/HCC) Started synthroid and will repeat labs next visit. Chronic HFrEF (heart failure with reduced ejection fraction) (CMS/HCC) - Primary Edema much improved and continue medication. Follow up with cardiology. Paroxysmal atrial fibrillation (CMS/HCC) In NSR and continue medication. Follow with cardiology. Nonobstructive atherosclerosis of coronary artery (CMS/HCC) Cath shows mild CAD. Continue medication. documented in this encounter [facility] 06-28-2024 Note [facility] Cardiology Clinic Note Chief Complaint: Patient here for follow up [facility]. Underwent heart cath with Dr. Cid. He was discharged wearing a LifeVest. Dr. Garcia just prescribed Synthroid today so he has not started it yet. Denies chest pain, SOB, and LE edema. Says he's feeling much better. Denies palpitations and bleeding on Eliquis. HPI: Chay Dodd Jr. is a 58 y.o. 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 CAD, on cath 06/19 Paroxysmal atrial fibrillation on Eliquis [id number] HTN Morbid obesity Family history of CAD, mother had 3 stents at age 64, father has ICD/PPM [place]AK[place] noncompliant to CPAP Admission Diagnosis: Heart failure ([facility]) [I50.9] Hospital course: Chay Dodd Jr. is an 58 y.o. male who came from [facility] for higher level of care. who presented [...] DVT. Newly decompensated HFrEF (EF 20-25% at [place]), NYHA class III Non-ischemic cardiomyopathy, likely alcohol [...] eliquis 5mg twice daily. Toprol 12.5mg daily [id number] HTN Morbid obesity Family history of CAD, [...] Medications These medications were sent to [facility] - [place], [place] - [address] [place] [address] [place] [address], [facility] [address] apixaban 5 mg tablet aspirin 81 mg EC tablet atorvastatin 40 mg tablet dapagliflozin propanedi (more content not included)... 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 CAD, on cath 06/19 Paroxysmal atrial fibrillation on Eliquis [id number] HTN Morbid obesity Family history of CAD, mother had 3 stents at age 64, father has ICD/PPM [place] noncompliant to CPAP Admission Diagnosis: Heart failure ([facility]) [I50.9] Hospital course: Chay Dodd Jr. is an 58 y.o. male who came from [facility] for higher level of care. who presented [...] DVT. Newly decompensated HFrEF (EF 20-25% at [place]), NYHA class III Non-ischemic cardiomyopathy, likely alcohol [...] eliquis 5mg twice daily. Toprol 12.5mg daily [id number] HTN Morbid obesity Family history of CAD, [...] Center 06/28/2024 1:00 PM [facility]ilyn [facility] Your medication list START taking these [...] Medications These medications were sent to [facility] - [place], [place] - [address] [facility] [address] [place] [address] [facility] [address], [facility] [address] apixaban 5 mg tablet aspirin 81 mg [...] 10*3/uL 11.08* 8 (more content not included)... [facility] 06-22-2024 Note 2nd heart failure co nsult rec'd. Patient has already denied all [facility] svs and is not interested in further education. Consult cancelled. See note from 06/21 [facility] 06-22-2024 Note Cardiology Progress Note [...] Value Ventricular Rate 64 Atrial Rate 64 NE Interval 206 QRS DURATION 110 QT Interval 444 QTC CALCULATION([place]ET[place]) 458 P [place] 20 R-[place] 55 T Wave [place] 81 Impression Normal sinus rhythm T wave [...] Patient was a transfer from [facility] for evaluation for coronary angiogram after he [...] loop diuretic diuresis 3) outpatient follow-up with [place] [facility] 4) patient has morbid obesity (BMI [...] and a micropuncture access technique a 6 Russian sheath was placed in the right internal jugular vein. The Tapia catheter was advanced under fluoroscopic and hemodynamic monitoring to the right atrium. Pressure obtained of the right atrium, right ventricle, pulmonary artery, pulmonary capillary position. Oxygen saturation drawn for the pulmonary artery and Carroll cardiac with a cardiac index were calculated. 1% lidocaine was infiltrated over the left radial artery. A 6-Russian Terumo Glidesheath slender was placed in left [...] with luminal irregularitie (more content not included)... [facility] 06-21-2024 Note Sw rec'd consult thi s afternoon for Heart Failure . SW met with patient to discuss consult. Patient [...] work. He is not interested in any [facility] svs at this time time. [facility] 06-21-2024 Note Hospital Medicine Daily Progress Note - 06/21/2024 1:00 PM; Room: [facility]8/3178- Admission: 06/17/2024 10:21 PM; Length of stay: 4 days THE HOSPITALIST TEAM PREFERS TO USE [employer] CHAT FOR NON-URGENT COMMUNICATION 7AM-7PM. IF I DO NOT RESPOND WITHIN 20 MINUTES OR URGENT MATTERS, PLEASE CALL THROUGH THE WAFER CLEANER. FROM 7PM-7AM, PLEASE PAGE [phone](COVR). Code Status: Full Code Barriers to Discharge: [...] Atrial fibrillation with rapid ventricular response (CMS/HCC) Rate control with Coreg, Eliquis for anticoagulation. [...] Component Value Date (more content not included)... [facility] 06-21-2024 Note Attestation signed by [...] -- -- 75 -- 95 % -- 06/20/242029 131/74 36.6 ???C (97.9 ???F) Temporal 74 [...] Value Ventricular Rate 64 Atrial Rate 64 NE Interval 206 QRS DURATION 110 QT Interval 444 QTC CALCULATION(BAZETT) 458 P Hemingway 20 R-Hemingway 55 T Wave Hemingway 81 Impression Normal sinus rhythm T wave [...] Patient was a transfer from [facility] for evaluation for coronary angiogram after he [...] loop diuretic diuresis 3) outpatient follow-up with [facility] 4) patient has morbid obesity (BMI [...] and a micropuncture access technique a 6 Russian sheath was placed in the right internal jugular vein. The Tapia catheter was advanced under fluoroscopic and hemodynamic monitoring to the right atrium. Pressure obtained of the right atrium, right ventricle, pulmonary artery, pulmonary capillary position. Oxygen saturation drawn for the pulmonary artery and Carroll cardiac with a cardiac index were calculated. 1% lidocaine was infiltrated over the left radial artery. A 6-Russian Terumo Glidesheath slender was placed in left radial artery. Radial anti-vasospasm cocktail of verapamil 2.5 mg and nitroglycerin 200 mcg was administered through the sheath. All catheter exchanges were made over the Alejandro guidewire. Coronary angiogram was performed with a JL3.5 to engage the left main and a JR5 to engage the RC (more content not included)... [facility] 06-20-2024 Note Hospital Medicine Daily Progress Note - 06/20/2024 8:58 AM; Room: 3178/3178-01 Admission: 06/17/2024 10:21 PM; Length of stay: 3 days THE HOSPITALIST TEAM PREFERS TO USE [employer] CHAT FOR NON-URGENT COMMUNICATION 7AM-7PM. IF I DO NOT RESPOND WITHIN 20 MINUTES OR URGENT MATTERS, PLEASE CALL THROUGH THE WAFER CLEANER. FROM 7PM-7AM, PLEASE PAGE [phone](COVR). Code Status: Full Code Barriers to Discharge: L & R cardiac cath Expected Discharge Date: 06/21 Discharge Destination: home Overview Patient is seen for evaluation and management of NSTEMI. Subjective Chay Dodd Jr. was seen and examined at [...] Principal Problem: ST elevation myocardial infarction (STEMI) ([facility]) Active Problems: Atrial fibrillation with rapid ventricular response ([facility]/HCC) Acute heart failure with reduced ejection fraction (HFrEF, <= 40%) ([facility]) Obesity GERD (gastroesophageal reflux disease) Hypertension Assessment and Plan Atrial fibrillation with rapid ventricular response (CMS/HCC) Rate control with Coreg, Eliquis for anticoagulation. [...] No results f (more content not included)... [facility] 06-20-2024 Note Patient admitted to the hospital for: ST elevation myocardial infarction. Chart notes from 06/18/2024 reports [facility] admission echo from 06/18/2024 reports: EF 20-25 %. Patient transferred to [facility]. Current echo information qualifies for Cardiac Rehab services per CMS eligibility criteria. A Cardiac Rehab referral diagnosis and code must also meet CMS criteria. Angelica Kumar RN, BSN Cardiology Outpatient Coordinator Cardiopulmonary Rehab [facility] 06-19-2024 Note Attestation signed by [...] Value Ventricular Rate 64 Atrial Rate 64 NE Interval 206 QRS DURATION 110 QT Interval 444 QTC CALCULATION(BAZETT) 458 P Hemingway 20 R-Hemingway 55 T Wave Hemingway 81 Impression Normal sinus rhythm T wave abnormality, consider anterior ischemia Abnormal ECG (more content not included)... [facility] 06-19-2024 Note Patient: Chay Christina Jr. Procedure Information Date/Time: 06/19/24 1334 Procedure: Coronary angiography Location: [facility] CABLE INSTALLATION TECHNICIAN 3 / [facility] (Cath) Providers: Marilyn [...] Plan discussed with attending. Additional Equipment Requests [facility] 06-19-2024 Note Hospital Medicine Daily Progress Note - 06/19/2024 1:58 PM; Room: [address] [place] [address] Admission: 06/17/2024 10:21 PM; Length of stay: 2 days THE HOSPITALIST TEAM PREFERS TO USE [employer] FOR NON-URGENT COMMUNICATION 7AM-7PM. IF I DO NOT RESPOND WITHIN 20 MINUTES OR URGENT MATTERS, PLEASE CALL THROUGH THE W[employer]ER CLEANER. FROM 7PM-7AM, PLEASE PAGE [phone](COVR). Code Status: Full Code Barriers to Discharge: L & R cardiac cath Expected Discharge Date: 06/20 vs 06/21 Discharge Destination: home Overview Patient is seen for evaluation and management of NSTEMI. Subjective Chay Terry Estefany Mary was seen and examined at bedside. No [...] Principal Problem: ST elevation myocardial infarction (STEMI) ([facility]) Active Problems: Atrial fibrillation with rapid ventricular response ([facility]) Acute heart failure with reduced ejection fraction (HFrEF, <= 40%) ([facility]) Obesity GERD (gastroesophageal reflux disease) Hypertension Assessment and Plan Atrial fibrillation with rapid ventricular response ([facility]) rate control with Coreg, Eliquis for anticoagulation. Currently held for R&L heart cath today. Will resume once cardiology is comfortable post cath. Acute heart failure with reduced ejection fraction (HFrEF, <= 40%) ([facility]) EF of 20 to 25% with diastolic [...] LDL 88 06/18/2024 No results found for: [id number] , IRON , TIBC , C3 , C4 , KWAN , CANCA , ASO , PSA , CEA , CA125 , CA199 , AFP , CA153 Imaging ECG 12 lead Normal sinus rhythm T wave abnormality, consider a (more content not included)... [facility] 06-18-2024 Note 06/18/24 1318 Admission [...] Status Interested Does the patient have a cyanide case hardener assigned to them through their insurance? No [...] to send link and activate MyChart? No [facility] 06-18-2024 Note Plan of care reviewe d with the patient, patient being admitted for cardiac cath by cardiology team, keep n.p.o. cardiology consult to follow [facility] 06-18-2024 Note class III obesity [facility] 06-18-2024 Note EF of 20 to 25% with diastolic dysfunction Coreg, losartan, Lasix for IV diuresis Monitor I's and O's, daily weights, low-salt diet Left heart cath in a.m., keep n.p.o. [facility] 06-18-2024 Note rate control with Co reg, Eliquis for anticoagulation [facility] 06-18-2024 Note Blood pressure contr ol with oral antihypertensives [facility] 06-18-2024 Note on PPI [facility] 06-18-2024 Note Hospital Medicine History and Physical 06/18/2024 1:10 AM THE HOSPITALIST TEAM PREFERS TO USE [employer] FOR NON-URGENT COMMUNICATION 7AM-7PM. IF I DO NOT RESPOND WITHIN 20 MINUTES OR URGENT MATTERS, PLEASE CALL THROUGH THE WAFER CLEANER. FROM 7PM-7AM, PLEASE PAGE [phone](COVR). Chief Complaint CHF, atrial fibrillation History of Present Illness Chay Dodd Jr. is an 58 y.o. male who came from [facility] for higher level of care. who presented [...] above for m (more content not included)... [facility] 03-16-2024 History of Present illness [...] were not included. Subjective Patient ID: Chay Dodd Jr is a 58 y.o. male who presents for Follow-up ( [facility]). Presents for annual PE. Weight down [...] daily Aspirin therapy. documented in this encounter [facility] 12-23-2023 History and physical note Note Date/Time December 23, 2023 10:30am [facility] ENTER [address] [place], [place] [id number] Gastroenterology H&P Signed Patient: Chay Dodd JR MR# : [id number] : 1965 Acct:[id number] Age/Sex: 58 / M Adm Date: 4 Loc: Room: Type: [facility] Attending Dr: Alix Milligan MD Copies [...] signed by Alix Milligan MD> 12/23/23 1030 [facility] Work Phone: 1(135) 284-886607-19-2024 [facility] noteFirBet[facility] HospitalEvaluation noteNo assessment information availableProtestant Hospital Work Phone: Evaluation note* Diagnosis Annual physical exam- Primary Routine general medical examination at a health care facility Benign hypertension (CMS/HCC) Essential hypertension, benign Primary osteoarthritis of both knees documented [facility] this encounter [facility]* Diagnosis Benign hypertension (CMS/HCC)- Primary [...] of both knees documented in this encounter [facility]* Diagnosis Benign hypertension (CMS/HCC)- Primary [...] HFrEF (heart failure with reduced ejection fraction) (CMS/HCC)- Primary Benign hypertension (CMS/HCC) Essential hypertension, benign Paroxysmal atrial fibrillation (CMS/HCC) Atrial fibrillation Adult hypothyroidism (CMS/HCC) Unspecified hypothyroidism Nonobstructive atherosclerosis of coronary artery (CMS/HCC) Obstructive sleep apnea Obstructive sleep apnea (adult) (pediatric) Class 3 severe obesity due to excess calories with serious comorbidity and body mass index (BMI) of 50.0 to 59.9 in adult (CMS/HCC) Primary osteoarthritis of both knees documented in this encounter [facility]* Diagnosis Benign hypertension (CMS/HCC)- Primary [...] HFrEF (heart failure with reduced ejection fraction) (CMS/HCC)- Primary Benign hypertension (CMS/HCC) Essential hypertension, benign Paroxysmal atrial fibrillation (CMS/HCC) Atrial fibrillation Adult hypothyroidism (CMS/HCC) Unspecified hypothyroidism Nonobstructive atherosclerosis of coronary artery (CMS/HCC) Obstructive sleep apnea Obstructive sleep apnea (adult) (pediatric) Class 3 severe obesity due to excess calories with serious comorbidity and body mass index (BMI) of 50.0 to 59.9 in adult (CMS/HCC) Primary osteoarthritis of both knees Chronic HFrEF (heart failure with reduced ejection fraction) (CMS/HCC)- Primary Nonobstructive atherosclerosis of coronary artery (CMS/HCC) documented [facility]* Diagnosis Benign hypertension (CMS/HCC)- Primary [...] HFrEF (heart failure with reduced ejection fraction) (CMS/HCC)- Primary Benign hypertension (CMS/HCC) Essential hypertension, benign Paroxysmal atrial fibrillation (CMS/HCC) Atrial fibrillation Adult hypothyroidism (CMS/HCC) Unspecified hypothyroidism Nonobstructive atherosclerosis of coronary artery (CMS/HCC) Obstructive sleep apnea Obstructive sleep apnea (adult) (pediatric) Class 3 severe obesity due to excess calories with serious comorbidity and body mass index (BMI) of 50.0 to 59.9 in adult Primary osteoarthritis of both knees Benign hypertension (CMS/HCC)- Primary Essential hypertension, benign Chronic HFrEF (heart failure with reduced ejection fraction) (CMS/HCC) Paroxysmal atrial fibrillation (CMS/HCC) Atrial fibrillation Primary osteoarthritis of both knees Primary insomnia Persistent disorder of initiating or maintaining sleep Adult hypothyroidism (CMS/HCC) Unspecified hypothyroidism Class 3 severe obesity due to excess calories with serious comorbidity and body mass index (BMI) of 50.0 to 59.9 in adult Obstructive sleep apnea Obstructive sleep apnea (adult) (pediatric) documented in this encounter [facility]* Diagnosis Benign hypertension (CMS/HCC)- Primary [...] HFrEF (heart failure with reduced ejection fraction) (CMS/HCC)- Primary Benign hypertension (CMS/HCC) Essential hypertension, benign Paroxysmal atrial fibrillation (CMS/HCC) Atrial fibrillation Adult hypothyroidism (CMS/HCC) Unspecified hypothyroidism Nonobstructive atherosclerosis of coronary artery (CMS/HCC) Obstructive sleep apnea Obstructive sleep apnea (adult) (pediatric) Class 3 severe obesity due to excess calories with serious comorbidity and body mass index (BMI) of 50.0 to 59.9 in adult Primary osteoarthritis of both knees Benign hypertension (CMS/HCC)- Primary Essential hypertension, benign Chronic HFrEF (heart failure with reduced ejection fraction) (CMS/HCC) Paroxysmal atrial fibrillation (CMS/HCC) Atrial fibrillation Primary osteoarthritis of both knees Primary insomnia Persistent disorder of initiating or maintaining sleep Adult hypothyroidism (CMS/HCC) Unspecified hypothyroidism Class 3 severe obesity due to excess calories with serious comorbidity and body mass index (BMI) of 50.0 to 59.9 in adult Obstructive sleep apnea Obstructive sleep apnea (adult) (pediatric) Benign hypertension (CMS/HCC)- Primary Essential hypertension, benign Obstructive sleep apnea Obstructive sleep apnea (adult) (pediatric) Primary osteoarthritis of both knees documented in this encounter [facility]* Diagnosis Benign hypertension- Primary Essential hypertension, benign Primary osteoarthritis of both knees Obstructive sleep apnea Obstructive sleep apnea (adult) (pediatric) Morbid obesity due to excess calories (CMS-HCC) Abdominal bloating- Primary Flatulence, eructation, and gas pain Bad taste in mouth Benign hypertension Essential hypertension, benign Chronic pansinusitis Other chronic sinusitis Primary insomnia Persistent disorder of initiating or maintaining sleep Colon cancer screening Special screening for malignant neoplasms, colon Annual physical exam- Primary Routine general medical examination at a health care facility Benign hypertension Essential hypertension, benign Primary osteoarthritis of both knees Chronic HFrEF (heart failure with reduced ejection fraction) (HCC)- Primary Benign hypertension Essential hypertension, benign Paroxysmal atrial fibrillation (HCC) Atrial fibrillation Adult hypothyroidism Unspecified hypothyroidism Nonobstructive atherosclerosis of coronary artery Obstructive sleep apnea Obstructive sleep apnea (adult) (pediatric) Class 3 severe obesity due to excess calories with serious comorbidity and body mass index (BMI) of 50.0 to 59.9 in adult ([facility]) Primary osteoarthritis of both knees Benign hypertension- Primary Essential hypertension, benign Chronic HFrEF (heart failure with reduced ejection fraction) (HCC) Paroxysmal atrial fibrillation (HCC) Atrial fibrillation Primary osteoarthritis of both knees Primary insomnia Persistent disorder of initiating or maintaining sleep Adult hypothyroidism Unspecified hypothyroidism Class 3 severe obesity due to excess calories with serious comorbidity and body mass index (BMI) of 50.0 to 59.9 in adult ([facility]) Obstructive sleep apnea Obstructive sleep apnea (adult) (pediatric) Benign hypertension- Primary Essential hypertension, benign Chronic HFrEF (heart failure with reduced ejection fraction) (HCC) Primary osteoarthritis of both knees Paroxysmal atrial fibrillation (HCC) Atrial fibrillation Primary insomnia Persistent disorder of initiating or maintaining sleep Class 3 severe obesity due to excess calories with serious comorbidity and body mass index (BMI) of 50.0 to 59.9 in adult ([facility]) documented in this encounter [facility]* Diagnosis Benign hypertension- Primary Essential hypertension, benign Primary osteoarthritis of both knees Obstructive sleep apnea Obstructive sleep apnea (adult) (pediatric) Morbid obesity due to excess calories ([facility]) Abdominal bloating- Primary Flatulence, eructation, and gas pain Bad taste in mouth Benign hypertension Essential hypertension, benign Chronic pansinusitis Other chronic sinusitis Primary insomnia Persistent disorder of initiating or maintaining sleep Colon cancer screening Special screening for malignant neoplasms, colon Annual physical exam- Primary Routine general medical examination at a health care facility Benign hypertension Essential hypertension, benign Primary osteoarthritis of both knees Chronic HFrEF (heart failure with reduced ejection fraction) (HCC)- Primary Benign hypertension Essential hypertension, benign Paroxysmal atrial fibrillation (HCC) Atrial fibrillation Adult hypothyroidism Unspecified hypothyroidism Nonobstructive atherosclerosis of coronary artery Obstructive sleep apnea Obstructive sleep apnea (adult) (pediatric) Class 3 severe obesity due to excess calories with serious comorbidity and body mass index (BMI) of 50.0 to 59.9 in adult ([facility]) Primary osteoarthritis of both knees Benign hypertension- Primary Essential hypertension, benign Chronic HFrEF (heart failure with reduced ejection fraction) (HCC) Paroxysmal atrial fibrillation (HCC) Atrial fibrillation Primary osteoarthritis of both knees Primary insomnia Persistent disorder of initiating or maintaining sleep Adult hypothyroidism Unspecified hypothyroidism Class 3 severe obesity due to excess calories with serious comorbidity and body mass index (BMI) of 50.0 to 59.9 in adult ([facility]) Obstructive sleep apnea Obstructive sleep apnea (adult) (pediatric) Benign hypertension- Primary Essential hypertension, benign Chronic HFrEF (heart failure with reduced ejection fraction) (HCC) Primary osteoarthritis of both knees Paroxysmal atrial fibrillation (HCC) Atrial fibrillation Primary insomnia Persistent disorder of initiating or maintaining sleep Class 3 severe obesity due to excess calories with serious comorbidity and body mass index (BMI) of 50.0 to 59.9 in adult ([facility]) Major depressive disorder, recurrent episode, moderate (HCC)- Primary Major depressive disorder, recurrent episode, moderate 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 documented in this encounter [facility] HealthcareEvaluation note* Diagnosis Benign hypertension- Primary Essential hypertension, benign Primary osteoarthritis of both knees Obstructive sleep apnea Obstructive sleep apnea (adult) (pediatric) Morbid obesity due to excess calories ([facility]) Abdominal bloating- Primary Flatulence, eructation, and gas pain Bad taste in mouth Benign hypertension Essential hypertension, benign Chronic pansinusitis Other chronic sinusitis Primary insomnia Persistent disorder of initiating or maintaining sleep Colon cancer screening Special screening for malignant neoplasms, colon Annual physical exam- Primary Routine general medical examination at a health care facility Benign hypertension Essential hypertension, benign Primary osteoarthritis of both knees Chronic HFrEF (heart failure with reduced ejection fraction) (HCC)- Primary Benign hypertension Essential hypertension, benign Paroxysmal atrial fibrillation (HCC) Atrial fibrillation Adult hypothyroidism Unspecified hypothyroidism Nonobstructive atherosclerosis of coronary artery Obstructive sleep apnea Obstructive sleep apnea (adult) (pediatric) Class 3 severe obesity due to excess calories with serious comorbidity and body mass index (BMI) of 50.0 to 59.9 in adult ([facility]) Primary osteoarthritis of both knees Benign hypertension- Primary Essential hypertension, benign Chronic HFrEF (heart failure with reduced ejection fraction) (HCC) Paroxysmal atrial fibrillation (HCC) Atrial fibrillation Primary osteoarthritis of both knees Primary insomnia Persistent disorder of initiating or maintaining sleep Adult hypothyroidism Unspecified hypothyroidism Class 3 severe obesity due to excess calories with serious comorbidity and body mass index (BMI) of 50.0 to 59.9 in adult ([facility]) Obstructive sleep apnea Obstructive sleep apnea (adult) (pediatric) Benign hypertension- Primary Essential hypertension, benign Chronic HFrEF (heart failure with reduced ejection fraction) (HCC) Primary osteoarthritis of both knees Paroxysmal atrial fibrillation (HCC) Atrial fibrillation Primary insomnia Persistent disorder of initiating or maintaining sleep Class 3 severe obesity due to excess calories with serious comorbidity and body mass index (BMI) of 50.0 to 59.9 in adult ([facility]) Major depressive disorder, recurrent episode, moderate (HCC)- Primary Major depressive disorder, recurrent episode, moderate 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 for 24 hours. - [...] Follow up with PCP. - Office number [phone]. DISCHARGE INSTRUCTIONS FOR UPPER ENDOSCOPY WHAT TO [...] years -Start Pantoprazole 40 mg daily -[facility] Work Phone: Discharge Instructions * Attachments The following attachments cannot be sent through Care Everywhere. * Head Injury: Closed: General Info (Chinese) documented in this encounter Assessments Diagnosis Closed head injury, initial encounter Multiple abrasions Abrasion or friction burn of other, multiple, and unspecified sites, without mention of infection Summary Purpose Family History Relationship Condition Age at Onset Recorded Date/T pascual father Polyp of colon Unknown mother Polyp of colon Unknown Advance Directives Advance Directive Response Recorded Date/ Time Advance Directives No December 20 2:59pm Chief Complaint and Reason for Visit Chief Complaint Bloating, GERD, Scre ening, bad taste in mouth Bloating, GERD, Screening, bad taste in mouth Reason for Referral Specialty Diagnoses / Procedures Referred By Contac t Referred To Contact Diagnoses Primary osteoarthritis of both knees Benjy Garcia MD [address] [place] [address] Referral ID Status Reason Start Date Expiration Date V isits Requested Visits Authorized [id number] Pending Review 03/16/2024 09/12/2024 1 1 Additional Source Comments Reason for Visit (unrecogniz ed section and content) Reason Comments Fall Head Injury Reason Comments Follow-up [facility] Reason Onset Date Comments Med Refill 03/29/2024 Reason Comments Follow-up Tbh er f/up Reason Onset Date Comments Med Refill 07/11/2024 Reason Comments Follow-up Reason Comments Follow-up 3m Reason Comments Follow-up meds Reason Comments Med Refill (unrecognized sect ion and content) No Status Records FoundNo Status Records FoundNo Status Records FoundNo Status Records FoundNo Status Records Found INFORMATION SOURCE (unrecogn ized section and content) DATE CREATED AUTHOR 04/22/2020 [facility] DATE CREATED AUTHOR AUTHOR'S ORGANIZ ATION 11/28/2021 [facility] DATE CREATED AUTHOR AUTHOR'S ORGANIZ ATION 01/06/2024 [facility] DATE CREATED AUTHOR AUTHOR'S ORGANIZ ATION 09/13/2024 [facility] DATE CREATED AUTHOR AUTHOR'S ORGANIZ ATION 01/16/2025 [facility] Care Teams (unrecognized sec tion and content) [...] Referring Provider Active Start: December 23, 2023 [employer] Relationship Specialty Start Date End Date Benjy Garcia MD [address] [place] [phone] PCP - General Family Medicine 06/06/22 Benjy Garcia MD [address] [place] [address] PCP - [employer] 04/06/23 [employer] Relationship Specialty Start Date End Date Benjy Garcia MD [address] [place] [address] PCP - General Family Medicine 06/06/22 Benjy Garcia MD [address] [place] [address] PCP - [employer] 04/06/23 [employer] Relationship Specialty Start Date End Date Benjy Garcia MD [address] [place] [address] PCP - General Family Medicine 06/06/22 Benjy Garcia MD [address] [place] [address] PCP - [employer] 04/06/23 [employer] Relationship Specialty Start Date End Date Benjy Garcia MD [address] [place] [address] PCP - General Family Medicine 06/06/22 Benjy Garcia MD [address] [place] [address] PCP - [employer] 04/06/23 [employer] Relationship Specialty Start Date End Date Benjy Garcia MD [address] [place] [address] PCP - General Family Medicine 06/06/22 Benjy Garcia MD [address] [place] [address] PCP - [employer] 04/06/23 [employer] Relationship Specialty Start Date End Date Benjy Garcia MD [address] [place] [address] PCP - General Family Medicine 06/06/22 Benjy Garcia MD [address] [place] [address] PCP - [employer] 04/06/23 [employer] Relationship Specialty Start Date End Date Benjy Garcia MD [address] [place] [address] PCP - General Family Medicine 06/06/22 Benjy Garcia MD [address] [place] [address] PCP - [employer] 04/06/23 [employer] Relationship Specialty Start Date End Date Benjy Garcia MD [address] [place] [address] PCP - General Family Medicine 06/06/22 Benjy Garcia MD [address] [place] [address] PCP - [employer] 04/06/23 [employer] Relationship Specialty Start Date End Date Benjy Garcia MD [address] [place] [address] PCP - [facility] Medicine 06/06/22 Benjy Garcia MD [address] [place] [address] PCP - [employer] 04/06/23 [employer] Relationship Specialty Start Date End Date Benjy Garcia MD [address] [place] [address] PCP - [facility] Medicine 06/06/22 Benjy Garcia MD [address] [place] [address] PCP - [employer] 04/06/23 [employer] Relationship Specialty Start Date End Date Benjy Garcia MD [address] [place] [address] PCP - [facility] Medicine 06/06/22 [employer] Relationship Specialty Start Date End Date Benjy Garcia MD [address] [place] [address] PCP - General Family Medicine 06/06/22 [employer] Relationship Specialty Start Date End Date Benjy Garcia MD [address] [place] [address] PCP - [facility] 06/06/22 [employer] Relationship Specialty Start Date End Date Benjy Garcia MD [address] [place] [address] PCP - [facility] 06/06/22 [employer] Relationship Specialty Start Date End Date Benjy Garcia MD [address] [place] [address] PCP - [facility] Family [facility] 06/06/22 FOR RECORDS PERTAINING TO PATIENTS WHO ARE [...] BE BASED ON THE PRIMARY CLINICAL RECORDS. [facility] [employer] [facility] provides no warranty or guarantee of the accuracy or completeness of information in this document.
== END 2025-01-30 06:57 | disposition home or self-care (01) ==
LOC: CARD 06:56
PROVIDERS: PCP Family Medicine; Visit Provider Internal Medicine Interventional Cardiology
DX: I50.32 Chronic diastolic (congestive) heart failure (principal)
CPT/HCPCS: 93306